=== PATIENT | female | born 1945 | race Caucasian/White ===

== ENCOUNTER 2020-05-03 16:19 | Outpatient (CLI) | payer MEDICARE, SELFPAY ==
--- NOTE | ~2020-05-03 | XR_ITS ---
EXAMINATION: XR wrist RT min 3V DATE: 05/03/2020 16:40 INDICATION: Right wrist pain post fall 5 days prior TECHNIQUE: Posteroanterior, ulnar deviation, oblique, and lateral views of the right wrist were obtai albert. COMPARISON: none FINDINGS: Nondisplaced intra-articular fracture across the radial styloid process. Alignment remains essentiall y anatomic in the neutral position but with slight widening to 2 mm of the radial side of the fractur e plane with the wrist in ulnar deviation. No other acute fractures identified. Corticated ossicle ne ar the tip of the ulnar styloid process which could represent either a chronic nonunited fracture, de generative loose body or heterotopic desiccation related to chronic soft tissue injury. Moderate to s evere osteoarthritis at the triscaphe and first carpal metacarpal joints. Mild to moderate osteoarthr itis at the metacarpophalangeal and visualized interphalangeal joints. IMPRESSION: 1. Nondisplaced intra-articular fracture of the right radial styloid process. 2. 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 Reviewed, dictated and finalized at location A.
== END 2020-05-03 16:20 | disposition home or self-care (01) ==
PROVIDERS: PCP Family Medicine; Visit Provider Family Medicine
DX: M25.531 Pain in right wrist (principal); S52.514A Nondisplaced fracture of right radial styloid process, initial encounter for closed fracture; M19.031 Primary osteoarthritis, right wrist
CPT/HCPCS: 73110

== ENCOUNTER 2021-04-02 07:24 | Outpatient (CLI) | payer MEDICARE, SELFPAY ==
--- NOTE | 2021-04-13 17:22 | WPDHOMESLEEP ---
Sleep Study - Home Unattended Date of Study: 04/02/21 Ordering Provider: Tapan Glover MD Interpreting Provider: Annika Donahue MD Home Sleep Study Type: Apnea Link Air Height: 1.61 m Weight: 95.254 kg Body Mass Index: 36.6 Neck Circumference (inches): 17 [place]: 10 Reason for Sleep Study Difficulty falling asleep Sleep History Christine De Jesus is a 76 year old female with difficulty falling asleep. She wakes up several times during the night to urinate. Some morning she just does not feel like getting out of bed. She usually naps in the day and sometimes falls asleep while watching television in her recliner. This man has been going on for 1-2 years. She occasionally snores. She does not have trouble sleeping with a cold. She does not wake up gasping for breath suddenly during the night. She does not have breathing problems at night observed by others. She does not sweat excessively at night or noticed her heart pounding or beating irregularly at night. She frequently falls asleep during the day but never involuntarily or while driving. She does not have loss of muscle tone was strong emotion. She does not have daytime difficulties due to excessive sleepiness, she is retired. She does not feel paralyzed on waking or falling asleep and does not have vivid dreamlike scenes upon awakening or falling asleep she does not feel afraid to go to sleep. She does not have nightmares. She occasional remembers her dreams. She rarely has racing thoughts. She occasionally feels sad or depressed. She occasionally has anxiety. She does not have muscular tension and does not notice part of her body jerking. She occasionally kicks at night, occasionally has crawling and aching feelings in her legs and occasionally has leg pain during the night. She never has morning jaw pain. She rarely grinds her teeth during sleep. She rarely is bothered by pain during the day. She never is awakened by pain at night. She rarely wakes up feeling stiff in the morning. She does not wake up with sore achy muscles are pain in the neck and spine. Normal bedtime is between 12 midnight and 1:00 a.m., often taking several hours to fall asleep, typically waking 3 times at night to urinate. She is able to return to sleep within 5 minutes. She wakes in the morning by 8:00 a.m.. She estimates getting 7-8 hours of sleep at night. She takes naps in the afternoon. A short nap is not refreshing. She is drowsy in the morning for 2 hours or longer. She feels better in the afternoon compared to other times of day. Habits: Former tobacco user. Caffeine 12 oz of diet Pepsi daily. No alcohol or recreational drugs. [facility]LY [facility], [facility] Past Medical History Medical History BMI 40.0-44.9, adult Body mass index (bmi) 39.0-39.9, adult (05/05/19) Body mass index [BMI] 38.0-38.9, adult Chronic pain in right foot Contusion of face Coronary artery disease involving [place] coronary artery of [place] heart without angina pectoris Diabetes Diarrhea Heart disease Hypersomnia Microalbuminuria Neoplasm of skin Thrombocytopenia UTI (urinary tract infection) (12/26/19) Surgical History Surgical History H/O knee surgery Left total knee replacement 2015 right knee arthroscopy about 2000 History of cardiac cath Family History Family History Mother Family history of cardiovascular disease, Onset Age: 66 Hypertension Cerebrovascular accident Father Cerebrovascular accident, Onset Age: 77 Social History Social History Smoking packs per day: 1 Smoking cigarettes per day: 20.0 Years smoked: 45 Smoking pack-years: 45.00 Smoking status: Former smoker Smoking end date: 11/30/03 Alcohol intake: never Gender identity (if verbalized by the patient): Female Medicatio
[2021-04-15 10:09] VITALS: BMI 36.6
== END 2021-04-02 07:25 | disposition home or self-care (01) ==
LOC: ANHCSM 07:24
PROVIDERS: PCP Family Medicine; Visit Provider Family Medicine
DX: G47.10 Hypersomnia, unspecified (principal); G47.33 Obstructive sleep apnea (adult) (pediatric); R06.83 Snoring
CPT/HCPCS: 95806

== ENCOUNTER → 2021-05-20 00:36 | Outpatient (CLI) | payer MEDICARE, SELFPAY | PROVIDERS: PCP Family Medicine; Visit Provider Internal Medicine Critical Care Medicine | DX: Z01.812 Encounter for preprocedural laboratory examination (principal); Z20.822 Contact with and (suspected) exposure to COVID-19 | CPT/HCPCS: C9803; U0003; U0005 ==

== ENCOUNTER 2021-05-22 08:55 | Outpatient (CLI) | payer MEDICARE, SELFPAY ==
--- NOTE | 2021-06-17 12:43 | WPDSLEEPSTUD ---
Sleep Study Date of Study: 05/22/21 Ordering Provider: Tapan Glover MD Interpreting Physician: Annika Donahue MD Sleep Study Type: CPAP Titration Height: 1.6 m Weight: 94.8 kg Body Mass Index: 37.0 Neck Circumference (inches): 18 [place]: 9 Reason for Sleep Study Home sleep test using apnea link on April 02, 2021 with moderate obstructive sleep apnea, AHI is 21, 30% of the apneas central, Dirk-Antony respirations during 6% of the night and desaturation to 78%. She presents for CPAP titration. Sleep History Christine De Jesus is a 76 year old female with difficulty falling asleep. She wakes up several times during the night to urinate. Some morning she just does not feel like getting out of bed. She usually naps in the day and sometimes falls asleep while watching television in her recliner. This man has been going on for 1-2 years. She occasionally snores. She does not have trouble sleeping with a cold. She does not wake up gasping for breath suddenly during the night. She does not have breathing problems at night observed by others. She does not sweat excessively at night or noticed her heart pounding or beating irregularly at night. She frequently falls asleep during the day but never involuntarily or while driving. She does not have loss of muscle tone was strong emotion. She does not have daytime difficulties due to excessive sleepiness, she is retired. She does not feel paralyzed on waking or falling asleep and does not have vivid dreamlike scenes upon awakening or falling asleep she does not feel afraid to go to sleep. She does not have nightmares. She occasional remembers her dreams. She rarely has racing thoughts. She occasionally feels sad or depressed. She occasionally has anxiety. She does not have muscular tension and does not notice part of her body jerking. She occasionally kicks at night, occasionally has crawling and aching feelings in her legs and occasionally has leg pain during the night. She never has morning jaw pain. She rarely grinds her teeth during sleep. She rarely is bothered by pain during the day. She never is awakened by pain at night. She rarely wakes up feeling stiff in the morning. She does not wake up with sore or achy muscles or pain in the neck and spine. Normal bedtime is between 12 midnight and 1:00 a.m., often taking several hours to fall asleep, typically waking 3 times at night to urinate. She is able to return to sleep within 5 minutes. She wakes in the morning by 8:00 a.m.. She estimates getting 7-8 hours of sleep at night. She takes naps in the afternoon. A short nap is not refreshing. She is drowsy in the morning for 2 hours or longer. She feels better in the afternoon compared to other times of day. Habits: Former tobacco user. Caffeine 12 oz of diet Pepsi daily. No alcohol. [facility] Past Medical History Medical History BMI 40.0-44.9, adult Body mass index (bmi) 39.0-39.9, adult (05/05/19) Body mass index [BMI] 38.0-38.9, adult Chronic pain in right foot Contusion of face Coronary artery disease involving [place] coronary artery of [place] heart without angina pectoris Diabetic neuropathy, type II diabetes mellitus (06/12/21) Diarrhea Heart disease Hypersomnia Microalbuminuria Neoplasm of skin Thrombocytopenia UTI (urinary tract infection) (12/26/19) Surgical History Surgical History H/O knee surgery Left total knee replacement 2015 right knee arthroscopy about 2000 History of cardiac cath Family History Family History Mother Family history of cardiovascular disease, Onset Age: 66 Hypertension Cerebrovascular accident Father Cerebrovascular accident, Onset Age: 77 Social History Social History (Updated 06/12/21 @ 13:13 by Lupe Dolan MA) Smoking packs per day: 1 Smoking cigarettes per day: 20.0 Ye
[2021-06-17 13:49] VITALS: BMI 37.0
== END 2021-05-28 07:29 | disposition home or self-care (01) ==
LOC: ANHCSM 08:57
PROVIDERS: PCP Family Medicine; Visit Provider Family Medicine
DX: G47.33 Obstructive sleep apnea (adult) (pediatric) (principal); G47.39 Other sleep apnea; G25.81 Restless legs syndrome
CPT/HCPCS: 95811

== ENCOUNTER 2022-04-03 14:31 | Emergency (ER) | payer MEDICARE, SELFPAY ==
[2022-04-03 14:46] VITALS: BP 124/70; PULSE 57; RESP 16; TEMP 37.1; O2SAT 99
--- NOTE | 2022-04-03 14:49 | ED.GENADULT ---
HPI - General Adult General Chief complaint: Altered Mental Status Stated complaint: Headache,Memory Loss Time Seen by Provider: 04/03/22 14:49 Source: patient Mode of arrival: ambulatory Limitations: no limitations History of Present Illness HPI narrative: 77-year-old female with history of CAD, diabetes presents to urgent care with complaint of headache and experienced a few minutes of altered mental status after having lunch with friends. Patient's friend reports that they had all just finished lunch and patient was telling them a story and suddenly stopped talking and could not remember what she had been seen. Did have some difficulty speaking. She looked around the table and could not remember who any of her friends were. Symptoms lasted just a few minutes before she again speaking and remembering where she was. Patient reports that prior to symptoms starting she had a left frontal headache that resolved prior to coming to [facility]. She is ambulatory with steady gait. Denies any numbness tingling or weakness to any of her extremities. Has never had a similar episode. All systems reviewed and negative except as noted above. Related Data Home Medications Medication Instructions Recorded Confirmed amlodipine 5 mg tablet 5 mg PO DAILY 10/26/19 06/12/21 aspirin 325 mg tablet 325 mg PO DAILY 10/26/19 06/12/21 clopidogrel 75 mg tablet 75 mg PO DAILY 10/26/19 06/12/21 losartan 100 mg tablet 100 mg PO DAILY 10/26/19 06/12/21 metoprolol succinate 100 mg 100 mg PO DAILY 10/26/19 06/12/21 tablet,extended release 24 hr multivitamin,xm-hvhk-njtdpcmp 1 tablet PO DAILY 10/26/19 06/12/21 rosuvastatin 40 mg tablet 40 mg PO DAILY 10/26/19 06/12/21 nitroglycerin 0.4 mg sublingual 0.4 mg SUBLINGUAL Q5M PRN 05/09/20 06/12/21 tablet oxybutynin chloride 10 mg 10 mg PO DAILY 01/06/22 tablet,extended release 24 hr Allergies Allergy/AdvReac Type Severity Reaction Status Date / Time Sulfa (Sulfonamide Allergy Unknown Verified 05/05/19 13:15 Antibiotics) Review of Systems Review of Systems: CONSTITUTIONAL: Denies fever, chills, or sweats. EYES: Denies visual changes, redness, or discharge. ENT: Denies rhinorrhea, congestion, sore throat, or otalgia. CARDIOVASCULAR: Denies chest pain, palpitations, or edema. RESPIRATORY: Denies cough or dyspnea. GASTROINTESTINAL: Denies abdominal pain, nausea, vomiting, or diarrhea. GENITOURINARY: Denies dysuria or hematuria. SKIN: Denies rash or itching. MUSCULOSKELETAL: Denies back pain, joint pain, or myalgia. NEUROLOGIC: Reports headache, altered mental status. Denies numbness, or weakness. PSYCHIATRIC: Denies anxiety or depression. All other systems reviewed are negative, except as documented in HPI. FORMERLY [facility] Past Medical History Medical History BMI 40.0-44.9, adult Body mass index (bmi) 39.0-39.9, adult (05/05/19) Body mass index [BMI] 38.0-38.9, adult Chronic pain in right foot Contusion of face Coronary artery disease involving [place] coronary artery of [place] heart without angina pectoris Diabetic neuropathy, type II diabetes mellitus (06/12/21) Diarrhea Heart disease Hypersomnia Microalbuminuria Neoplasm of skin Overactive bladder Renal insufficiency BUN 27 with creatinine 1.24 with GFR 42 on 03/27/2022. Screening for diabetic retinopathy (09/24/21) no diabetic retinopathy on dilated eye exam 09/24/2021. Recheck annually. Thrombocytopenia UTI (urinary tract infection) (12/26/19) Surgical History Surgical History H/O knee surgery Left total knee replacement 2015 right knee arthroscopy about 2000 History of cardiac cath Family History Family History Mother Family history of cardiovascular disease, Onset Age: 66 Hypertension Cerebrovascular accident Father Cerebrovascular accident, Onset Age: 77 Social History Social H
== END 2022-04-03 15:07 | disposition short-term general hospital (02) ==
PROVIDERS: Emergency Provider Nurse Practitioner Family; PCP Family Medicine
DX: R51.9 Headache, unspecified (principal); R41.82 Altered mental status, unspecified; I25.10 Atherosclerotic heart disease of native coronary artery without angina pectoris; Z87.891 Personal history of nicotine dependence; Z79.82 Long term (current) use of aspirin
CPT/HCPCS: 99213; G0463

== ENCOUNTER 2022-04-03 15:19 | Emergency (ER) | payer MEDICARE, SELFPAY ==
[2022-04-03] VITALS (20 sets, daily range): BP systolic 117–142; BP diastolic 68–74; PULSE 52–64; RESP 12–25; TEMP 36.1; O2SAT 94–100
--- NOTE | ~2022-04-03 | CT_ITS ---
EXAMINATION: CT brain wo con DATE: 04/03/2022 15:53 INDICATION: Episode of confusion TECHNIQUE: Computed tomography (CT) of the head was performed without intravenous contrast. The mA wa s adjusted according to patient size. Iterative reconstruction technique was employed. Exam dose: 60 5.33 mGy-cm total exam DLP. COMPARISON: None FINDINGS: There is basilar artery and very prominent bilateral vertebral and carotid siphon internal carotid artery calcification. There is nonspecific diminished attenuation of the cerebral white matter, likely due to chronic small vessel ischemic changes. Chronic medial right occipital cerebrovascular infarct. There is mild cerebral and cerebellar volume loss. No intracranial mass lesion or hemorrhage or recent cerebrovascular accident is evident. There is no midline shift or mass effect. Normal ventricular size. No subdural or epidural hematoma,. The orbital contents are unremarkable. The included paranasal sinuses and mastoid air cells are normally developed and aerated. No fracture or bone destruction of the cranial vault. 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 Reviewed, dictated and finalized at location A. 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
--- NOTE | ~2022-04-03 | XR_ITS ---
EXAMINATION: XR chest 1V INDICATION: Confusion TECHNIQUE: PA view of the chest is obtained. COMPARISON: 06/23/2019 FINDINGS: The lungs are free of acute opacities. There is no pleural effusion or pneumothorax. The he art size is normal. Coronary artery calcifications versus stents are noted. IMPRESSION: 1. No acute cardiopulmonary abnormality. Reviewed, dictated and finalized at location B.
--- NOTE | 2022-04-03 15:37 | ECG_ITS ---
Measurements Intervals [place] Rate: 57 P: 57 MD: 167 QRS: -18 QRSD: 125 T: -1 QT: 403 QTc: 394 Interpretive Statements SINUS BRADYCARDIA INTRAVENTRICULAR CONDUCTION DELAY VOLTAGE CRITERIA FOR LVH POOR R WAVE PROGRESSION, ANTERIOR LEADS BASELINE ARTIFACT- V5-V6 BORDERLINE ECG Electronically Signed On 04-03-2022 16:18:24 CDT by Jeff Martinez D.O.
[2022-04-03 15:58] LABS: Basophils Percent Auto 0.5 % (0.2-1.2); Eosinophils Absolute Auto 0.1 K/mm3 (0-0.3); Eosinophils Percent Auto 2.3 % (0-4.4); Hematocrit 41.3 % (37.0-47.0); Hemoglobin 14.2 g/dL (12.0-15.0); Immature Granulocyte Absolute 0.02 K/mm3 (0.00-0.031); Immature Granulocyte Percent A 0.3 % (0-0.5); Lymphocytes Absolute Auto 2.01 K/mm3 (0.9-3.2); Lymphocytes Percent Auto 32.7 % (18.3-44.2); Mean Corpuscular HGB Conc 34.4 g/dl (32-36); Mean Corpuscular Hemoglobin 32.1 pg (26-34); Mean Corpuscular Volume 93.4 fl (80-100); Mean Platelet Volume 9.4 fl (7.4-10.4); Monocytes Absolute Auto 0.4 K/mm3 (0.1-0.6); Neutrophils Absolute Auto 3.5 K/mm3 (1.3-6.7); Neutrophils Percent Auto 57.2 % (45.5-73.1); Platelet Count Result 161 k/mm3 (150-375); Red Blood Count 4.42 M/mm3 (4.2-5.4); Red Cell Distribution Width 13.2 % (11.5-14.5); White Blood Count 6.1 K/mm3 (4.5-10.0)
[2022-04-03 16:07] LABS: Alanine Aminotransferase 19 U/L (4-35); Albumin Level 4.1 g/dL (3.5-5.1); Alkaline Phosphatase 56 U/L (38-126); Anion Gap 5 mmol/L (8-16); Aspartate Amino Transferase 21 U/L (14-36); Bilirubin,Total 0.6 mg/dL (0.2-1.3); Blood Urea Nitrogen 35 mg/dL (7-17); Calcium 9.4 mg/dL (8.4-10.2); Carbon Dioxide 26 mmol/L (22-30); Chloride 110 mmol/L (98-107); Estimated CRCL calculation 36 ml/min; Estimated Glomerular Filt Rate 40; Glucose 164 mg/dL (65-110); INR 1.1; Potassium 4.5 mmol/L (3.4-5.0); Prothrombin Time 13.5 Seconds (11.1-14.7); Sodium 141 mmol/L (137-145)
[2022-04-03 16:08] LABS: Partial Thromboplastin Time 29.2 SECONDS (22.3-36.8)
[2022-04-03 16:19] LABS: Troponin I < 0.012 ng/mL (0.000-0.034)
--- NOTE | 2022-04-03 20:05 | ED.NEUROSD ---
HPI - Neuro Symptoms/Deficit General Chief Complaint: Neuro Symptoms/Deficit <Grisel Toledo PA-C - Last Filed: 04/04/22 02:53> Stated Complaint: memory loss now resolved <Grisel Toledo PA-C - Last Filed: 04/04/22 02:53> Time Seen by Provider: 04/03/22 19:37 <Grisel Toledo PA-C - Last Filed: 04/04/22 02:53> History of Present Illness HPI Narrative: Patient is a 77-year-old female with a history of hypertension, hyperlipidemia, diabetes, prior PA status post stents, who presents to the emergency department for evaluation of a 5-minute episode of expressive aphasia earlier today. Patient states that she was at lunch with her friends when suddenly she was unable to speak, stating she was having trouble with word finding, did not know the names of her friends, was unable to say her own name. She was able to write down her own name, but was having trouble finding the words to say this. Preceding his episode, she had a short episode of floaters, followed by a gradual onset of her migraine headache, which lasted 5 minutes. States this is typical of her migraine headaches and did not have any features that were new for her. The symptoms resolved and she is now back at her baseline. She denies any slurred speech, weakness, visual changes currently. She has not had a history of a stroke. <Grisel Toledo PA-C - Last Filed: 04/04/22 02:53> Related Data Home Medications: Home Medications Medication Instructions Recorded Confirmed amlodipine 5 mg tablet 5 mg PO DAILY 10/26/19 06/12/21 aspirin 325 mg tablet 325 mg PO DAILY 10/26/19 06/12/21 clopidogrel 75 mg tablet 75 mg PO DAILY 10/26/19 06/12/21 losartan 100 mg tablet 100 mg PO DAILY 10/26/19 06/12/21 metoprolol succinate 100 mg 100 mg PO DAILY 10/26/19 06/12/21 tablet,extended release 24 hr multivitamin,sy-wdil-fraaneps 1 tablet PO DAILY 10/26/19 06/12/21 rosuvastatin 40 mg tablet 40 mg PO DAILY 10/26/19 06/12/21 nitroglycerin 0.4 mg sublingual 0.4 mg SUBLINGUAL Q5M PRN 05/09/20 06/12/21 tablet oxybutynin chloride 10 mg 10 mg PO DAILY 01/06/22 tablet,extended release 24 hr <Grisel Toledo PA-C - Last Filed: 04/04/22 02:53> Allergies/Adverse Reactions: Allergies Allergy/AdvReac Type Severity Reaction Status Date / Time Sulfa (Sulfonamide Allergy Unknown Unknown Verified 04/03/22 19:33 Antibiotics) <Grisel Toledo PA-C - Last Filed: 04/04/22 02:53> Review of Systems Review of Systems: Gen: Denies fevers or chills Eyes: Denies eye pain or visual change ENT: Denies congestion Respiratory: Denies shortness of breath or cough CV: Denies chest pain or palpitations GI: Denies abdominal pain nausea, emesis or diarrhea denies burning, urgency, frequency or hematuria Musculoskeletal: Denies back pain or muscle pain Neuro: Reports expressive aphasia and headache, resolved. Denies numbness, tingling, weakness or focal weakness Skin: Denies rash Except as documented, all other systems reviewed and negative <JHONY Mares Last Filed: 04/04/22 02:53> All systems reviewed & are unremarkable except as noted in HPI and below <JHONY Mares Last Filed: 04/04/22 02:53> [facility] Past Medical History Medical History: Medical History BMI 40.0-44.9, adult Body mass index (bmi) 39.0-39.9, adult (05/05/19) Body mass index [BMI] 38.0-38.9, adult Chronic pain in right foot Contusion of face Coronary artery disease involving [place] coronary artery of [place] heart without angina pectoris Diabetic neuropathy, type II diabetes mellitus (06/12/21) Diarrhea Heart disease Hypersomnia Microalbuminuria Neoplasm of skin Overactive bladder Renal insufficiency BUN 27 with creatinine 1.24 with GFR 42 on 03/27/2022. Screening for diabetic retinopathy (09/24/21) no diabetic retinopathy on dilated eye exam 09/24/2021. Recheck annually. Thrombocytopenia UTI (urinary tract i
[2022-04-03 22:38] LABS: SARS-CoV-2 RNA PCR Negative
--- NOTE | 2022-04-03 23:20 | PC.NURSE ---
Erika from [facility] called, patient still on waitlist. Possible bed availability in the morning after discharges.
[2022-04-04] VITALS (11 sets, daily range): BP systolic 150–158; BP diastolic 73–83; PULSE 57–66; RESP 10–24; O2SAT 93–97
== END 2022-04-04 03:50 | disposition short-term general hospital (02) ==
PROVIDERS: Emergency Medicine; Physician Assistant; Emergency Provider Emergency Medicine; PCP Family Medicine
DX: G43.909 Migraine, unspecified, not intractable, without status migrainosus (principal); Z20.822 Contact with and (suspected) exposure to COVID-19; I25.10 Atherosclerotic heart disease of native coronary artery without angina pectoris; E11.40 Type 2 diabetes mellitus with diabetic neuropathy, unspecified; E78.5 Hyperlipidemia, unspecified; I10 Essential (primary) hypertension; I25.2 Old myocardial infarction; N32.81 Overactive bladder; N28.9 Disorder of kidney and ureter, unspecified; D69.6 Thrombocytopenia, unspecified; Z85.828 Personal history of other malignant neoplasm of skin; Z87.440 Personal history of urinary (tract) infections; Z96.652 Presence of left artificial knee joint; Z95.5 Presence of coronary angioplasty implant and graft; Z87.891 Personal history of nicotine dependence; Z79.4 Long term (current) use of insulin; Z79.84 Long term (current) use of oral hypoglycemic drugs; Z79.82 Long term (current) use of aspirin; R00.1 Bradycardia, unspecified; I45.9 Conduction disorder, unspecified; R94.31 Abnormal electrocardiogram [ECG] [EKG]
CPT/HCPCS: 36415; 70450; 71045; 80053; 84484; 85025; 85610; 85730; 93005; 99285; C9803; U0003; U0005

== ENCOUNTER 2022-07-22 10:35 | Outpatient (RCR) | payer MEDICARE, SELFPAY | END 2022-10-07 08:49 | disposition home or self-care (01) | LOC: ANHDMC 10:35 | PROVIDERS: PCP Family Medicine; Visit Provider Nurse Practitioner | DX: E11.65 Type 2 diabetes mellitus with hyperglycemia (principal); Z71.89 Other specified counseling | CPT/HCPCS: G0108 ==

== ENCOUNTER 2022-10-22 16:30 | Outpatient (RCR) | payer MEDICARE, SELFPAY ==
[2022-07-29 12:12] VITALS: PULSE 84
[2022-08-07 17:44] LABS: Glucose Point of Care 102 mg/dl (65-105)
== END 2022-10-24 13:41 | disposition home or self-care (01) ==
LOC: ANHCPREHAB 16:30
PROVIDERS: PCP Family Medicine; Visit Provider Internal Medicine
DX: Z95.1 Presence of aortocoronary bypass graft (principal)
CPT/HCPCS: 93798

== ENCOUNTER → 2023-10-21 16:00 | Outpatient (CLI) | payer MEDICARE, SELFPAY ==
--- NOTE | ~2023-10-21 | XR_ITS ---
EXAMINATION: XR facial bones min 3V INDICATION: Facial pain TECHNIQUE: Five views of the facial bones are obtained. COMPARISON: CT, 04/03/2022 FINDINGS: There is normal pneumatization of the paranasal sinuses. There appear to be acute bilateral nasal bone fractures. No definite additional facial fracture is identified. The paranasal sinuses ap pear to be well aerated. IMPRESSION: 1. Probable bilateral nasal bone fractures. No definite additional fracture. Consider CT of the facia l bones if there is high clinical suspicion for additional fracture. Reviewed, dictated and finalized at location F. PROCESSOR IMPRESSION: 1. Probable bilateral nasal bone fractures. No definite additional fracture. Co nsider CT of the facial bones if there is high clinical suspicion for additiona l fracture.
== END ==
PROVIDERS: PCP Nurse Practitioner Family; Visit Provider Nurse Practitioner Family
DX: J34.89 Other specified disorders of nose and nasal sinuses (principal)
CPT/HCPCS: 70150

== ENCOUNTER 2024-05-25 12:54 | Observation (INO) | payer MEDICARE, SELFPAY ==
[2024-05-25] VITALS (18 sets, daily range): BP systolic 137–167; BP diastolic 55–119; PULSE 53–105; RESP 13–18; TEMP 36.2–36.6; O2SAT 97–100; BMI 35.1
--- NOTE | ~2024-05-25 | CT_ITS ---
EXAMINATION: CTA brain carotid DATE: 05/25/2024 13:13 INDICATION: Speech deficit. Slurring. TECHNIQUE: Computed tomographic angiography (CTA) of the head was performed with 100 mL Omnipaque-350 intravenous contrast. CTA of the neck was performed with intravenous contrast. Automated exposure co ntrol and iterative reconstruction technique were employed. The dose-length product was 1121.72 mGy-c m. Maximum intensity projection and volume rendered 3D-reconstructions were created by the technologi st on a separate workstation. COMPARISON: Head CT 05/25/2024 FINDINGS: HEAD CTA: There is an old infarct in right occipital lobe. There are scattered areas of low attenuati on in the cerebral white matter, which is within normal limits for the patient's age. There is no int racranial hemorrhage, acute infarction, or abnormal intracranial mass lesion. The ventricles are norm al in size. The orbits are normal. There is mild mucosal thickening in the paranasal sinuses. The mas toid air cells are normal. Left vertebral artery is dominant. There is moderate stenosis of intracran ial left vertebral artery. There is no significant stenosis of basilar artery or the posterior cerebr al arteries. There is no significant stenosis of the intracranial internal carotid arteries or anteri or or middle cerebral arteries. Anterior communicating artery is normal. The posterior communicating arteries are normal. There is no aneurysm. NECK CTA: There are no pathologically enlarged lymph nodes. There is no significant stenosis of the v ertebral arteries. There is plaque in the proximal internal carotid arteries. There is 16% stenosis o f the proximal right internal carotid artery relative to normal distal artery lumen diameter (NASCET criteria). There is 5% stenosis of the proximal left internal carotid artery relative to normal dista l artery lumen diameter. There is severe cervical spondylosis. IMPRESSION: 1. Old infarct in the right occipital lobe. 2. No aneurysm or significant arterial stenosis. 3. 16% stenosis of the proximal right internal carotid artery relative to normal distal artery lumen diameter (NASCET criteria). 4. 5% stenosis of the proximal left internal carotid artery relative to normal distal artery lumen di ameter. Reviewed, dictated and finalized at location A. IMPRESSION: 1. Old infarct in the right occipital lobe. 2. No aneurysm or significant arterial stenosis. 3. 16% stenosis of the proximal right internal carotid artery relative to baltazar l distal artery lumen diameter (NASCET criteria). 4. 5% stenosis of the proximal left internal carotid artery relative to normal distal artery lumen diameter.
--- NOTE | ~2024-05-25 | CT_ITS ---
EXAMINATION: CT brain wo con DATE: 05/25/2024 13:09 INDICATION: Difficulty with speech and slurring TECHNIQUE: Computed tomography (CT) of the head was performed without intravenous contrast. Sagittal and coronal reconstructions were performed. The mA was adjusted according to patient size. Iterative reconstruction technique was employed. The dose-length product was 681.00 mGy-cm. COMPARISON: head CT dated 04/03/2022 FINDINGS: Again seen is a small region of cortical scarring at the right occipital lobe consistent with chronic infarct. No acute intracranial hemorrhage, acute infarction or abnormal extra axial fluid collection . There is mild scattered white matter hypoattenuation consistent with chronic small vessel ischemic disease. Ventricles are normal and symmetric. No mass/mass effect. Intracranial calcified cerebral a therosclerosis is noted. The orbits, paranasal sinuses and mastoid air cells are normal. IMPRESSION: 1. Small old infarct at the right occipital lobe and mild scattered white matter hypoattenuation cons istent with chronic small vessel ischemic disease. No acute cardiopulmonary disease. Reviewed, dictated and finalized at location B. IMPRESSION: 1. Small old infarct at the right occipital lobe and mild scattered white matte r hypoattenuation consistent with chronic small vessel ischemic disease. No acu te cardiopulmonary disease.
--- NOTE | ~2024-05-25 | XR_ITS ---
XR chest 1V portable Ordering provider: Tono Cordova III, DO History: 79 years Female with . tia . Comparison: April 03, 2022 FINDINGS: MEDIASTINUM: The cardiac silhouette is slightly enlarged. Poststernotomy changes. LUNGS: No infiltrates, effusions or pneumothorax. OTHER: No free air under the diaphragm. IMPRESSION: No acute cardiopulmonary pathology. Reviewed, dictated and finalized at location A.
--- NOTE | ~2024-05-25 | MR_ITS ---
EXAMINATION: MR brain/brain stem wo/w con DATE: 05/26/2024 13:28 INDICATION: Transient ischemic attack. TECHNIQUE: Magnetic resonance imaging (MRI) of the brain and brainstem was performed without and with 20 mL MultiHance intravenous contrast. COMPARISON: Head CT 05/25/2024 FINDINGS: There is an old infarct in the right occipital lobe. There are scattered areas of nonspecif ic increased T2-weighted signal intensity in the cerebral white matter, which is within normal limits for the patient's age. The ventricles are normal in size. The paranasal sinuses are clear. The orbit s are normal. The mastoid air cells are normal. IMPRESSION: 1. Old infarct in the right occipital lobe. Reviewed, dictated and finalized at location A.
--- NOTE | 2024-05-25 12:59 | ECG_ITS ---
Test Date: 2024-05-25 13:20:16 Measurements Intervals [place] Rate: 62 P: 66 MD: 188 QRS: -15 QRSD: 123 T: -1 QT: 449 QTc: 458 Interpretive Statements SINUS RHYTHM LEFT BUNDLE BRANCH BLOCK [120+ ms QRS DURATION, 80+ ms Q/S IN V1/V2, 85+ ms R IN I/aVL/V5/V6] No previous ECG available for comparison Electronically Signed On 05-26-2024 13:29:33 CDT by José Miguel Mcdonald M.D.
--- NOTE | 2024-05-25 13:00 | ED.NEUROSD ---
HPI - Neuro Symptoms/Deficit General Chief Complaint: Neuro Symptoms/Deficit Stated Complaint: speech issues, Time Seen by Provider: 05/25/24 12:58 History of Present Illness HPI Narrative: Pt presents with difficulty coming up with words when asked a question fo about the last 45 minutes. Pt feels like it has improved now and she is able to answer questions. Pt denies MORGAN or weakness. Related Data Home Medications Medication Instructions Recorded Confirmed clopidogrel 75 mg tablet 75 mg PO DAILY 10/26/19 05/25/24 multivitamin,gt-mtey-yyhqqhtz 1 tablet PO DAILY 10/26/19 05/25/24 (Complete Multivitamin tablet) rosuvastatin 40 mg tablet 40 mg PO DAILY 10/26/19 05/25/24 vibegron 75 mg tablet (Gemtesa) 75 mg PO DAILY 04/30/22 05/25/24 glimepiride 2 mg tablet 4 mg PO BID 07/29/22 05/25/24 losartan 100 mg tablet 100 mg PO DAILY 12/18/22 05/25/24 metoprolol succinate 25 mg 25 mg PO DAILY 06/30/23 05/25/24 tablet,extended release 24 hr aspirin 81 mg capsule 81 mg PO DAILY 11/25/23 05/25/24 Allergies Allergy/AdvReac Type Severity Reaction Status Date / Time Sulfa (Sulfonamide Allergy Unknown Unknown Verified 05/25/24 17:46 Antibiotics) Review of Systems Review of Systems: All systems reviewed & are unremarkable except as noted in HPI and below [facility] Past Medical History Medical History AAA (abdominal aortic aneurysm) without rupture (~05/17/23) Endovascular repair 10/09/2023. 7 x 6.6 cm abdominal aortic aneurysm On CT in the ER 05/17/2023. Acute bronchitis Anemia At moderate risk for fall BMI 36.0-36.9,adult BMI 40.0-44.9, adult Body mass index (bmi) 39.0-39.9, adult (05/05/19) Body mass index [BMI] 38.0-38.9, adult Bruise of upper lip Chronic atrial fibrillation (04/23/22) Chronic depression Chronic kidney disease (CKD) stage G3b/A2, moderately decreased glomerular filtration rate (GFR) between 30-44 mL/min/1.73 square meter and albuminuria creatinine ratio between 30-299 mg/g BUN 35 with creatinine 1.30 and GFR 40 on 03/31/2022. Chronic pain in right foot Controlled type 2 diabetes mellitus with hyperglycemia, with long-term current use of insulin glucose 304 with hemoglobin A1c 10.9 on 03/27/2022. Contusion of face Coronary artery disease involving [place] coronary artery of [place] heart without angina pectoris COVID-19 (10/31/22) tested positive 11/05/2022 Diabetic neuropathy, type II diabetes mellitus (06/12/21) Diarrhea Fall Heart disease Hypersomnia Low back pain Microalbuminuria Neoplasm of skin Nose pain NSTEMI (non-ST elevated myocardial infarction) (04/16/22) incomplete PTCA of the LAD 04/17/2022. CABG LAD 04/22/22. Obesity (BMI 30-39.9) Overactive bladder Renal insufficiency BUN 27 with creatinine 1.24 with GFR 42 on 03/27/2022. Screening for diabetic retinopathy (09/24/21) no diabetic retinopathy on dilated eye exam 09/24/2021. Recheck annually. no retinopathy 01/29/2024. Thrombocytopenia UTI (urinary tract infection) (12/26/19) Surgical History Surgical History H/O knee surgery Left total knee replacement 2015 right knee arthroscopy about 2000 History of cardiac cath Family History Family History Mother Family history of cardiovascular disease, Onset Age: 66 Hypertension Cerebrovascular accident Hypercholesteremia Diabetes mellitus Heart disease Father Cerebrovascular accident, Onset Age: 77 Hypercholesteremia Heart disease Sibling Diabetes mellitus Cancer Heart disease Cerebrovascular accident Grandparent Diabetes mellitus Social History Social History Smoking packs per day: 1 Smoking cigarettes per day: 20.0 Years smoked: 45 Smoking pack-years: 45.00 Smoking status: Former smoker Alcohol intake: current Alcohol use details: on occasion [place]
[2024-05-25 13:11] LABS: Basophils Percent Auto 0.4 % (0.2-1.2); Eosinophils Absolute Auto 0.1 K/mm3 (0-0.3); Eosinophils Percent Auto 1.9 % (0-4.4); Hematocrit 44.2 % (37.0-47.0); Hemoglobin 15.5 g/dL (12.0-15.0); Immature Granulocyte Absolute 0.02 K/mm3 (0.00-0.031); Immature Granulocyte Percent A 0.4 % (0-0.5); Immature Platelet Fraction Pct 2.6 % (0.9-11.2); Lymphocytes Percent Auto 24.9 % (18.3-44.2); Mean Corpuscular HGB Conc 35.1 g/dl (32-36); Mean Corpuscular Hemoglobin 32.3 pg (26-34); Mean Corpuscular Volume 92.1 fl (80-100); Mean Platelet Volume 9.4 fl (7.4-10.4); Monocytes Absolute Auto 0.3 K/mm3 (0.1-0.6); Monocytes Percent Auto 6.8 % (2.6-8.5); Neutrophils Absolute Auto 3.2 K/mm3 (1.3-6.7); Neutrophils Percent Auto 65.6 % (45.5-73.1); Platelet Count Result 117 k/mm3 (150-375); Red Cell Distribution Width 13.2 % (11.5-14.5); White Blood Count 4.8 K/mm3 (4.5-10.0)
[2024-05-25 13:12] LABS: Estimated Glomerular Filt Rate 40
[2024-05-25 13:18] LABS: Glucose Point of Care 355 mg/dl (65-105)
[2024-05-25 13:21] LABS: Alanine Aminotransferase 26 U/L (6-35); Albumin Level 4.3 g/dL (3.5-5.1); Alkaline Phosphatase 83 U/L (38-126); Anion Gap 9 mmol/L (4-12); Aspartate Amino Transferase 22 U/L (14-36); Blood Urea Nitrogen 32 mg/dL (7-17); Calcium 9.7 mg/dL (8.4-10.2); Carbon Dioxide 23 mmol/L (22-30); Chloride 106 mmol/L (98-107); Estimated Glomerular Filt Rate 43; Glucose 362 mg/dL (65-110); Potassium 4.4 mmol/L (3.4-5.0); Sodium 138 mmol/L (137-145)
[2024-05-25 13:22] LABS: Prothrombin Time 13.3 Seconds (11.1-14.7)
[2024-05-25 13:23] LABS: Partial Thromboplastin Time 25.7 Seconds (22.3-36.8)
[2024-05-25 13:31] LABS: Troponin I < 0.012 ng/mL (0.000-0.034)
--- NOTE | 2024-05-25 15:29 | PM.IMHP ---
H&P: HPI History of Present Illness Date/Time: 05/25/24 15:29 Chief Complaint: Word Finding Difficulty Narrative: 79 y/o F presents here with word finding difficulty with PMH of AAA w/o rupture, anemia, chronic AFib, CKD stage 3, DM, CAD, OAB, and NSTEMI. The patient presents here from home for Further evaluation of word-finding difficulty that started at 12:15 p.m. the patient reports she was getting out of the shower when she suddenly felt confused. Upon arrival to the emergency department around 1:00 p.m. the patient's symptoms had started to resolve. Symptoms lasted approximately 45 minutes. Has previous hx of CVA. the patient reports during a previous stroke she had similar symptoms, i.e. word-finding difficulty. Currently denying dysarthria, aphasia, focal numbness, focal weakness, change in gait, or dizziness. Denies any new headaches or current headache. She is currently on Plavix, no other blood thinners or antiplatelets. Initial VS at presentation: 97.9? F, HR 61, RR 14, 167/67, and 99% on RA. ED workup showed: No leukocytosis, hemoglobin 15.5, normal coags, creatinine 1.3 and GFR 40 (similar to previous in 2021), glucose 362, and initial troponin negative. CT of head showed a small old infarct in the right occipital lobe with mild scattered white matter hypoattenuation consistent with chronic small-vessel ischemic disease. CTA of the head/neck showed the old infarct right occipital lobe, no aneurysm or significant arterial stenosis, 60% stenosis of the proximal right ICA and 5% stenosis of proximal left ICA. CXR showed no acute cardiopulmonary pathology. Review of Systems Review of Systems: All systems reviewed & are unremarkable except as noted in HPI and below [facility] Past Medical History Medical History AAA (abdominal aortic aneurysm) without rupture (~05/17/23) Endovascular repair 10/09/2023. 7 x 6.6 cm abdominal aortic aneurysm On CT in the ER 05/17/2023. Acute bronchitis Anemia At moderate risk for fall Chronic atrial fibrillation (04/23/22) Chronic depression Chronic kidney disease (CKD) stage G3b/A2, moderately decreased glomerular filtration rate (GFR) between 30-44 mL/min/1.73 square meter and albuminuria creatinine ratio between 30-299 mg/g BUN 35 with creatinine 1.30 and GFR 40 on 03/31/2022. Chronic pain in right foot Controlled type 2 diabetes mellitus with hyperglycemia, with long-term current use of insulin glucose 304 with hemoglobin A1c 10.9 on 03/27/2022. Contusion of face Coronary artery disease involving k[place] coronary artery of [place] heart without angina pectoris COVID-19 (10/31/22) tested positive 11/05/2022 CVA (cerebral vascular accident) Diabetic neuropathy, type II diabetes mellitus (06/12/21) Fall Heart disease Hypersomnia Microalbuminuria Neoplasm of skin NSTEMI (non-ST elevated myocardial infarction) (04/16/22) incomplete PTCA of the LAD 04/17/2022. CABG LAD 04/22/22. Overactive bladder Renal insufficiency BUN 27 with creatinine 1.24 with GFR 42 on 03/27/2022. Screening for diabetic retinopathy (09/24/21) no diabetic retinopathy on dilated eye exam 09/24/2021. Recheck annually. no retinopathy 01/29/2024. Thrombocytopenia (12/26/19) Surgical History Surgical History H/O knee surgery Left total knee replacement 2015 right knee arthroscopy about 2000 History of cardiac cath Family History Family History Mother Family history of cardiovascular disease, Onset Age: 66 Hypertension Cerebrovascular accident Hypercholesteremia Diabetes mellitus Heart disease Father Cerebrovascular accident, Onset Age: 77 Hypercholesteremia Heart disease Sibling Diabetes mellitus Cancer Heart disease Cerebrovascular accident Grandparent Diabetes mellitus Social History Social History (Reviewed 05/25/24 @ 15:37 by Monica
--- NOTE | 2024-05-25 17:30 | ADMGEN ---
This patient, Christine De Jesus, was admitted to Medical Room 347-01. Patient/family oriented to hospital policies and general routines including ID bracelet, bed and alarms, visiting hours, pain management, procedures, bathroom and other care routines, personal items, smoking policy, room service/diet, and visiting hours. Information on how to activate the Rapid Response Team has been discussed. Patient/Family are encouraged to report perceived risks to care and to ask questions if they do not understand what they are told or what they should do.
[2024-05-25 18:21] LABS: Glucose Point of Care 353 mg/dl (65-105)
[2024-05-25] MEDS: INSULIN ASPART (*BKC) 100 UNITS/ML SUB-Q (18:23)
[2024-05-25 20:29] LABS: Glucose Point of Care 226 mg/dl (65-105)
[2024-05-26] VITALS (8 sets, daily range): BP systolic 134; BP diastolic 72; PULSE 54–67; RESP 18; TEMP 36.1; O2SAT 94–96
--- NOTE | 2024-05-26 | ECHO_ITS ---
Patient Info Name: Christine De Jesus Age: 79 years : 1945 Gender: Female Ht: 63 in Wt: 198 lbs BSA: 2.04 m2 HR: 61 bpm BP: 137 / 55 mmHg Heart Rhythm: Sinus Rhythm Technical Quality: Fair Exam Date: 05/26/2024 7:40 AM Exam Location: Echo Lab Patient Status: Outpatient Admit Date: 05/25/2024 Staff Ordering Physician: Evette Taylor APRN [employer] Machine: Juan Mendez RDCS Attending Provider: Elizabeth Barnard APRN Referring Physician: Brandon HOOKER; Exam Type: CA echo dop bubble study w con Study Info Indications - TIA Complete two-dimentional, color flow and Doppler transthoracic echocardiogram is performed with agitated saline and with contrast to opacify the left ventricle and to improve the delineation of the left ventricle endocardial borders. Contrast/Agitated Saline Contrast/Ag. Saline: Agitated Saline Amount: 9.00 ml Existing IV Access: Yes Contrast/Ag. Saline: Definity Amount: 4.00 ml Existing IV Access: Yes Summary 1. Left ventricular chamber dimension is normal. 2. Left ventricular systolic function is normal, estimated at 60-65%. 3. There is severely increased left ventricular wall thickness. 4. The left ventricular diastolic function is grade I diastolic dysfunction. 5. Right ventricular systolic function is normal. 6. Left atrial chamber dimension is severely enlarged. 7. Intact interatrial septum visualized by color flow and agitated saline imaging. Negative bubble study. 8. There is mild mitral valve regurgitation. 9. There is mild to moderate tricuspid valve regurgitation. Left Ventricle Left ventricular chamber dimension is normal. Left ventricular systolic function is normal, estimated at 60-65%. There is severely increased left ventricular wall thickness. The left ventricular diastolic function is grade I diastolic dysfunction. Right Ventricle Right ventricular chamber dimension is normal. Right ventricular systolic function is normal. Left Atria Left atrial chamber dimension is severely enlarged. Right Atria Right atrial chamber dimension is normal. Atrial Septum Intact interatrial septum visualized by color flow and agitated saline imaging. Negative bubble study. Aortic Valve The aortic valve is not well visualized. There is no aortic valve stenosis. There is no aortic valve regurgitation. Pulmonic Valve The pulmonic valve is not well visualized. Mitral Valve There is mild mitral valve regurgitation. The mitral valve annulus is mildly calcified. Tricuspid Valve There is mild to moderate tricuspid valve regurgitation. Pericardium/Pleural There is no pericardial effusion. Inferior Vena Cava Normal inferior vena cava with >50% collapse upon inspiration consistent with normal right atrial pressure, 3 mmHg. Aorta The aortic root size at the sinus of Valsalva is normal. Left Ventricular Outflow Tract Name Value Normal LVOT 2D LVOT Diameter 2.0 cm LVOT Doppler LVOT Peak Gradient 6 mmHg LVOT Mean Gradient 3 mmHg LVOT VTI 27 cm LVOT VTI/AV VTI Ratio
[2024-05-26] MEDS: INSULIN GLARGINE (*BKC) 100 UNITS/ML 25 UNITS SUB-Q ×2 (00:28→08:28)
[2024-05-26 05:22] LABS: Appearance Urine Cloudy (Clear); Bacteria Urine 1+ /hpf; Bilirubin Urine Negative (Negative); Blood Urine Trace (Negative); Color Urine Yellow (Yellow); Glucose Urine UA Trace mg/dL (Negative); Ketones Urine Negative (Negative); Leukocyte Esterase Ur 2+ LEU/UL (Negative); Nitrate Urine Negative (Negative); Non Pathogenic Casts 0-2; Protein Urine 2+ mg/dL (Negative); RBC Urine 0-2 /hpf (0-2); Specific Grav Ur 1.019 (1.001-1.035); Squamous Epithelial Cell Urine None Seen /hpf (Few); Urobilinogen Urine 0.2 mg/dL (<2.0); WBC Urine >100 /hpf (0-3); pH Urine 5.5 (5.0-9.0)
[2024-05-26 05:23] LABS: Add Urine Microscopic? YES
[2024-05-26 05:37] LABS: Basophils Percent Auto 0.8 % (0.2-1.2); Eosinophils Absolute Auto 0.1 K/mm3 (0-0.3); Eosinophils Percent Auto 2.6 % (0-4.4); Hematocrit 44.2 % (37.0-47.0); Hemoglobin 15.3 g/dL (12.0-15.0); Immature Granulocyte Absolute 0.01 K/mm3 (0.00-0.031); Immature Granulocyte Percent A 0.2 % (0-0.5); Immature Platelet Fraction Pct 3.1 % (0.9-11.2); Lymphocytes Absolute Auto 1.76 K/mm3 (0.9-3.2); Lymphocytes Percent Auto 35.7 % (18.3-44.2); Mean Corpuscular HGB Conc 34.6 g/dl (32-36); Mean Corpuscular Volume 92.5 fl (80-100); Mean Platelet Volume 9.7 fl (7.4-10.4); Monocytes Absolute Auto 0.3 K/mm3 (0.1-0.6); Monocytes Percent Auto 6.9 % (2.6-8.5); Neutrophils Absolute Auto 2.7 K/mm3 (1.3-6.7); Neutrophils Percent Auto 53.8 % (45.5-73.1); Platelet Count Result 124 k/mm3 (150-375); Red Blood Count 4.78 M/mm3 (4.2-5.4); Red Cell Distribution Width 13.3 % (11.5-14.5); White Blood Count 4.9 K/mm3 (4.5-10.0)
[2024-05-26 05:46] LABS: Anion Gap 9 mmol/L (4-12); Blood Urea Nitrogen 24 mg/dL (7-17); Calcium 9.5 mg/dL (8.4-10.2); Carbon Dioxide 21 mmol/L (22-30); Chloride 107 mmol/L (98-107); Cholesterol 260 mg/dL (0-200); Estimated CRCL calculation 39 ml/min; Estimated Glomerular Filt Rate 48; Glucose 243 mg/dL (65-110); HDL Direct 42 mg/dL; Potassium 4.3 mmol/L (3.4-5.0); Sodium 137 mmol/L (137-145); Triglycerides 296 mg/dL (<150)
[2024-05-26 05:53] LABS: Hemoglobin A1C 10.1 % (<5.7)
[2024-05-26 05:56] LABS: LDL Cholesterol Direct 153 mg/dL
--- NOTE | 2024-05-26 08:06 | PM.IMPN ---
Progress Note: A&P Assessment and Plan (1) TIA (transient ischemic attack): Code(s): G45.9 - Transient cerebral ischemic attack, unspecified Status: Acute Assessment and Plan: New deficits of word-finding difficulty starting on 05/25 at 12:15 p.m. Symptoms resolved by 1:00 p.m. Imaging no acute infarct, stenosis, or acute intracranial finding. - admission for observation and telemetry - not candidate for thrombolytics or thrombectomy given resolution of symptoms - CXR: No acute cardiopulmonary pathology. - CT Head 1. Small old infarct at the right occipital lobe and mild scattered white matter hypoattenuation consistent with chronic small vessel ischemic disease. No acute cardiopulmonary disease. - CTA: 1. Old infarct in the right occipital lobe. 2. No aneurysm or significant arterial stenosis. 3. 16% stenosis of the proximal right internal carotid artery relative to normal distal artery lumen diameter (NASCET criteria). 4. 5% stenosis of the proximal left internal carotid artery relative to normal distal artery lumen diameter. - neurology consulted - brain MRI w/wo ordered - echo w/Bubble ordered - neuro checks Q4 - monitor daily labs, lipid panel, A1C, TSH - continue home ASA 81 mg, Plavix, and rosuvastatin 40 mg - UA ordered 05/26: work up pending lipid panel reviewed, LDL 153. Goal would be 70-75. Patient is on Crestor 40 mg daily but there are concerns she is not taking her medications. TSH normal A1C 10%. Home regimen is Lantus 25 units BID, metformin 1000 mg BID, and glimepiride 4 mg PO BID. The patient tells me she is taking her insulin but tells nursing she sometimes forgets. Would recommend SSI insulin with meals at discharge. Given eGFR is 39, stopped glipizide. Starting Jardiance 10 mg daily for renal/cardio protective properties. DM educator consulted, appreciate assistance with teaching Dietitian consulted, appreciate assistance with teaching ECHO with grade 1 diastolic function with pEF 60-65% (2) Chronic kidney disease (CKD) stage G3b/A2, moderately decreased glomerular filtration rate (GFR) between 30-44 mL/min/1.73 square meter and albuminuria creatinine ratio between 30-299 mg/g: Code(s): N18.32 - Chronic kidney disease, stage 3b Status: Acute Assessment and Plan: - creatinine 1.3 and GFR 40 - previously 1.3 and GFR 40 in March of 2022 - trend renal function - trend electrolytes, correct as needed 05/26: Stop glipizide given eGFR Change to Jardiance (3) Controlled type 2 diabetes mellitus with hyperglycemia, with long-term current use of insulin: Code(s): E11.65 - Type 2 diabetes mellitus with hyperglycemia; Z79.4 - group home (current) use of insulin Status: Acute Assessment and Plan: - hypoglycemia protocol - POC blood glucose ACHS - home medication: Continue glimepiride, Lantus. Hold Metformin. - correct regimen ordered - high dose TIDWM based off BMI - A1C 10.9% in 2021, update 05/26: stop glimepiride, start jardiance lantus 25 units BID--may need to decrease dose given carb consistent diet while inpatient. Monitor am fasting glucose SSI with meals (4) Essential (primary) hypertension: Code(s): I10 - Essential (primary) hypertension Status: Acute Assessment and Plan: - chronic, currently 137/55 - continue home medications: Losartan 100 mg daily - monitor Plan Patient here with 45 minute episode of word-finding difficulty. Symptoms consistent with TIA. CTA of the head/ neck showed an old infarct. Neurology consulted. TIA workup ordered: MRI, echo, labs. Adding UA to rule out resurgence of previous stroke symptoms Due to infection. Diet: Diabetic GI Prophylaxis: not currently indicated DVT Prophylaxis: SCDs, continue Plavix Lines: peripheral Code Status: FULL CODE Subjective Date/time seen: 05/26/24 08:06 Interval history: 79 y/o F presents here with word findin
[2024-05-26 08:12] LABS: Glucose Point of Care 281 mg/dl (65-105)
[2024-05-26] MEDS: THERAPEUTIC MULTIVITAMINS/MINERALS TAB (*BKC) 1 TABLET PO (08:22)
[2024-05-26] MEDS: METOPROLOL SUCCINATE EXT REL 25 MG TABCR PO (08:23)
[2024-05-26] MEDS: GLIMEPIRIDE 2 MG TABLET 4 MG PO (08:23)
[2024-05-26] MEDS: ASPIRIN 81 MG ENTERIC TABLET PO (08:23)
[2024-05-26] MEDS: ROSUVASTATIN 20 MG TABLET 40 MG PO (08:23)
[2024-05-26] MEDS: CLOPIDOGREL BISULFATE 75 MG TABLET PO (08:23)
[2024-05-26] MEDS: EZETIMIBE 10 MG TABLET PO (08:23)
[2024-05-26] MEDS: LOSARTAN POTASSIUM 100 MG TABLET PO (08:23)
[2024-05-26] MEDS: AMOXICILLIN/CLAVULANATE K 875-125 MG TAB 1 TABLET PO (08:26)
[2024-05-26] MEDS: INSULIN ASPART (*BKC) 100 UNITS/ML SUB-Q ×2 (08:28→11:58)
[2024-05-26] MEDS: PERFLUTREN LIPID MICROSPHERES 1.5 ML VIAL DILUTED TO 10 ML TOTAL VOLUME IV PUSH (08:54)
--- NOTE | 2024-05-26 08:55 | IVDEFINITY ---
Prior to administration of IV Definity the patient was educated on the risks and benefits of the imaging enhancing agent including potential adverse side effects. The patient verbalized understanding. Allergies were verified. No exclusion criteria were identified and at least one of the following inclusion criteria were met: 1) physician request, 2) patient technically difficult to image (per the [place] [employer] guidelines of two or more segments not discernable within the apical view), or 3) questionable left ventricular function. ?
[2024-05-26 11:55] LABS: Glucose Point of Care 249 mg/dl (65-105)
[2024-05-26] MEDS: EMPAGLIFLOZIN 10 MG TABLET PO (11:57)
--- NOTE | 2024-05-26 15:31 | PHAR ---
PT'S HOME MED GEMTESA 75 MG TAB VERIFIED BY PHARMACY
--- NOTE | 2024-05-26 16:41 | WPDNEURCNPN ---
Assessment and Plan Assessment and plan (1) TIA (transient ischemic attack): Code(s): G45.9 - Transient cerebral ischemic attack, unspecified Status: Acute Assessment and Plan: Symptoms are suggestive of left hemispheric event with the expressive aphasia lasting for 45 minutes subsequent resolution was described. She has had a similar episode 2 years ago. Plan Clinically she does not appear to have had any epileptic features and she does have significant vascular issues including cardiac disease, diabetes mellitus which is difficult to control, high BMI, chronic kidney disease and atrial fibrillation. MRI of the brain was performed did not show any new findings him. Old stroke was noted in the occipital area. Based upon these I spoke to the may care provider and a advised to continue the dual antiplatelets and Crestor 40 mg a day for now. She should be advised to control the risk factor the best possible. If she has any further issues I will be glad to see her in my office. Consult date: 05/26/24 HPI: Christine De Jesus is a 79 year old female with history of difficulty with finding words or expressing herself lasting for 45 minutes soon after she was in changing room after swimming in a recreational facility. Patient physically very active. She did not have any weakness and numbness in her upper lower limbs or any difficulty thinking or memory. She does have history of diabetes mellitus and hemoglobin A1c was around 10.1. She also history of kidney chronic kidney disease and a BMI is around 38. She does not smoke or drink any alcohol. She has had a similar episode about 2 years ago which also was brief and left her with no residual neurological issues. She denies any headache. No episodes of loss of consciousness or confusional state. At this time she has no symptoms. Review of Systems Review of Systems: All systems reviewed & are unremarkable except as noted in HPI and below [facility] Past Medical History Medical History AAA (abdominal aortic aneurysm) without rupture (~05/17/23) Endovascular repair 10/09/2023. 7 x 6.6 cm abdominal aortic aneurysm On CT in the ER 05/17/2023. Acute bronchitis Anemia At moderate risk for fall Chronic atrial fibrillation (04/23/22) Chronic depression Chronic kidney disease (CKD) stage G3b/A2, moderately decreased glomerular filtration rate (GFR) between 30-44 mL/min/1.73 square meter and albuminuria creatinine ratio between 30-299 mg/g BUN 35 with creatinine 1.30 and GFR 40 on 03/31/2022. Chronic pain in right foot Controlled type 2 diabetes mellitus with hyperglycemia, with long-term current use of insulin glucose 304 with hemoglobin A1c 10.9 on 03/27/2022. Contusion of face Coronary artery disease involving [place] coronary artery of [place] heart without angina pectoris COVID-19 (10/31/22) tested positive 11/05/2022 CVA (cerebral vascular accident) Diabetic neuropathy, type II diabetes mellitus (06/12/21) Fall Heart disease Hypersomnia Microalbuminuria Neoplasm of skin NSTEMI (non-ST elevated myocardial infarction) (04/16/22) incomplete PTCA of the LAD 04/17/2022. CABG LAD 04/22/22. Overactive bladder Renal insufficiency BUN 27 with creatinine 1.24 with GFR 42 on 03/27/2022. Screening for diabetic retinopathy (09/24/21) no diabetic retinopathy on dilated eye exam 09/24/2021. Recheck annually. no retinopathy 01/29/2024. Thrombocytopenia (12/26/19) Surgical History Surgical History H/O knee surgery Left total knee replacement 2015 right knee arthroscopy about 2000 History of cardiac cath Family History Family History Mother Family history of cardiovascular disease, Onset Age: 66 Hypertension Cerebrovascular accident Hypercholesteremia Diabetes mellitus Heart disease Father Cerebrovascular accident, Onset Age:
[2024-05-26 17:23] LABS: Glucose Point of Care 108 mg/dl (65-105)
--- NOTE | 2024-05-27 08:39 | PM.DS ---
DS: Admitting Diagnosis Discharge Date 05/26/24 Admitting Diagnosis difficult speech DS: Discharge Diagnosis Discharge Diagnosis (1) TIA (transient ischemic attack): Code(s): G45.9 - Transient cerebral ischemic attack, unspecified Status: Acute Assessment and Plan: New deficits of word-finding difficulty starting on 05/25 at 12:15 p.m. Symptoms resolved by 1:00 p.m. Imaging no acute infarct, stenosis, or acute intracranial finding. - admission for observation and telemetry - not candidate for thrombolytics or thrombectomy given resolution of symptoms - CXR: No acute cardiopulmonary pathology. - CT Head 1. Small old infarct at the right occipital lobe and mild scattered white matter hypoattenuation consistent with chronic small vessel ischemic disease. No acute cardiopulmonary disease. - CTA: 1. Old infarct in the right occipital lobe. 2. No aneurysm or significant arterial stenosis. 3. 16% stenosis of the proximal right internal carotid artery relative to normal distal artery lumen diameter (NASCET criteria). 4. 5% stenosis of the proximal left internal carotid artery relative to normal distal artery lumen diameter. - neurology consulted - brain MRI w/wo ordered - echo w/Bubble ordered - neuro checks Q4 - monitor daily labs, lipid panel, A1C, TSH - continue home ASA 81 mg, Plavix, and rosuvastatin 40 mg - UA ordered 05/26: work up pending lipid panel reviewed, LDL 153. Goal would be 70-75. Patient is on Crestor 40 mg daily but there are concerns she is not taking her medications. TSH normal A1C 10%. Home regimen is Lantus 25 units BID, metformin 1000 mg BID, and glimepiride 4 mg PO BID. The patient tells me she is taking her insulin but tells nursing she sometimes forgets. Would recommend SSI insulin with meals at discharge. Given eGFR is 39, stopped glipizide. Starting Jardiance 10 mg daily for renal/cardio protective properties. DM educator consulted, appreciate assistance with teaching Dietitian consulted, appreciate assistance with teaching ECHO with grade 1 diastolic function with pEF 60-65% (2) Chronic kidney disease (CKD) stage G3b/A2, moderately decreased glomerular filtration rate (GFR) between 30-44 mL/min/1.73 square meter and albuminuria creatinine ratio between 30-299 mg/g: Code(s): N18.32 - Chronic kidney disease, stage 3b Status: Acute Assessment and Plan: - creatinine 1.3 and GFR 40 - previously 1.3 and GFR 40 in March of 2022 - trend renal function - trend electrolytes, correct as needed 05/26: Stop glipizide given eGFR Change to Jardiance (3) Controlled type 2 diabetes mellitus with hyperglycemia, with long-term current use of insulin: Code(s): E11.65 - Type 2 diabetes mellitus with hyperglycemia; Z79.4 - MCFP (current) use of insulin Status: Acute Assessment and Plan: - hypoglycemia protocol - POC blood glucose ACHS - home medication: Continue glimepiride, Lantus. Hold Metformin. - correct regimen ordered - high dose TIDWM based off BMI - A1C 10.9% in 2021, update 05/26: stop glimepiride, start jardiance lantus 25 units BID--may need to decrease dose given carb consistent diet while inpatient. Monitor am fasting glucose SSI with meals (4) Essential (primary) hypertension: Code(s): I10 - Essential (primary) hypertension Status: Acute Assessment and Plan: - chronic, currently 137/55 - continue home medications: Losartan 100 mg daily - monitor Plan Patient here with 45 minute episode of word-finding difficulty. Symptoms consistent with TIA. CTA of the head/ neck showed an old infarct. Neurology consulted. TIA workup ordered: MRI, echo, labs. Adding UA to rule out resurgence of previous stroke symptoms Due to infection. Diet: Diabetic GI Prophylaxis: not currently indicated DVT Prophylaxis: SCDs, continue Plavix Lines: peripheral Code Status: FULL CODE DS: Summ
--- NOTE | 2024-05-30 14:10 | PCCDE ---
05/30/24 A1C: 10.1% (05/26/24) Pt not seen during admission 05/25-05/27/24, admitted TIA. Reached by phone ~ 11:30 am.? Pt is considering this a ?wake up call?.? Met with DEANNA few years ago. Declines opportunity for OP education at this time. Pt talked to exercising regularly and making adjustments to her po choices. ?Was admitted glucose >300 -> educated when inappropriate to exercise.? Has my name and number. FJ
== END 2024-05-26 18:30 | disposition home or self-care (01) ==
LOC: ANHED 16:11 → ANH3MED 16:57
PROVIDERS: Student in an Organized Health Care Education/Training Program; Admitting Provider Hospitalist; Emergency Provider Emergency Medicine; PCP Family Medicine; Visit Provider Nurse Practitioner Acute Care
DX: G45.9 Transient cerebral ischemic attack, unspecified (principal); I71.40 Abdominal aortic aneurysm, without rupture, unspecified; I48.20 Chronic atrial fibrillation, unspecified; I13.10 Hypertensive heart and chronic kidney disease without heart failure, with stage 1 through stage 4 chronic kidney disease, or unspecified chronic kidney disease; E11.22 Type 2 diabetes mellitus with diabetic chronic kidney disease; N18.32 Chronic kidney disease, stage 3b; E11.65 Type 2 diabetes mellitus with hyperglycemia; I25.10 Atherosclerotic heart disease of native coronary artery without angina pectoris; E11.40 Type 2 diabetes mellitus with diabetic neuropathy, unspecified; I08.1 Rheumatic disorders of both mitral and tricuspid valves; I25.2 Old myocardial infarction; N32.81 Overactive bladder; F32.A Depression, unspecified; Z87.891 Personal history of nicotine dependence; Z79.02 Long term (current) use of antithrombotics/antiplatelets; Z79.84 Long term (current) use of oral hypoglycemic drugs; Z79.82 Long term (current) use of aspirin
CPT/HCPCS: 36415; 70450; 70496; 70498; 70553; 71045; 80048; 80053; 80061; 81001; 82948; 83036; 84443; 84484; 85025; 85055; 85610; 85730; 87086; 87088; 93005; 96374; 96375; 99285; A9270; A9577; C8929; G0378; J1815; Q9957; Q9967

== ENCOUNTER 2024-09-30 11:12 | Inpatient (IN) | payer MEDICARE, SELFPAY ==
[2024-09-30] VITALS (26 sets, daily range): BP systolic 129–166; BP diastolic 61–83; PULSE 65–88; RESP 18–40; TEMP 36.6–36.9; O2SAT 97–100; BMI 34.5
--- NOTE | ~2024-09-30 | US_ITS ---
EXAMINATION: US venous doppler [facility] DATE: 10/01/2024 12:52 INDICATION: Pulmonary embolism TECHNIQUE: Grayscale ultrasound images without and with compression and Doppler ultrasound images of the bilateral lower extremity veins were obtained. COMPARISON: None. FINDINGS: The visualized portions of right common femoral vein, profunda (deep) femoral vein, femoral vein, pop liteal vein, posterior tibial veins, peroneal veins, gastrocnemius vein and greater saphenous vein ou tflow are patent. The visualized portions of left common femoral vein, profunda femoral vein, femoral vein, popliteal v ein, posterior tibial veins, peroneal veins, gastrocnemius vein and greater saphenous vein outflow ar e patent. IMPRESSION: 1. No deep venous thrombosis in either lower limb. Reviewed, dictated and finalized at location A.
--- NOTE | ~2024-09-30 | XR_ITS ---
EXAMINATION: XR chest 2V DATE: 09/30/2024 12:06 INDICATION: Shortness of breath. Right chest pain. TECHNIQUE: Frontal and lateral views of the chest were obtained. COMPARISON: Chest single view 05/25/2024 FINDINGS: There is no pneumonia, pleural effusion, or pneumothorax. The heart size is normal. Median sternotomy wires are noted. There is a stent graft in abdominal aorta. IMPRESSION: 1. No acute cardiopulmonary disease. Reviewed, dictated and finalized at location B.
--- NOTE | ~2024-09-30 | XR_ITS ---
EXAMINATION: XR chest 1V portable DATE: 10/01/2024 08:28 INDICATION: Hypoxia TECHNIQUE: frontal view of the chest was obtained. COMPARISON: Chest radiograph and CT dated 09/30/2024 FINDINGS: Small lung volumes. Mild opacities in the right mid to lower and left lower lung zones. No pleural ef fusion or pneumothorax. The cardiomediastinal silhouette is within normal limits for AP technique. Me julia sternotomy wires. Abdominal aorta endoluminal graft beginning at the level of the thoracic outle t and with stenting at the origins of the sacroiliac axis, superior mesenteric and bilateral renal ar teries. IMPRESSION: 1. Small lung volumes with opacities in the right mid to lower and left lower lung zone which based o n immediately prior CT the most consistent with combination of atelectasis and pulmonary infarcts. Di fferential includes less likely pulmonary edema or pneumonia. Reviewed, dictated and finalized at location A. IMPRESSION: 1. Small lung volumes with opacities in the right mid to lower and left lower l marshall zone which based on immediately prior CT the most consistent with combinati on of atelectasis and pulmonary infarcts. Differential includes less likely pul monary edema or pneumonia.
--- NOTE | ~2024-09-30 | CT_ITS ---
EXAMINATION: CT chest abdomen pelvis w con DATE: 09/30/2024 13:12 INDICATION: Chest and abdominal pain. TECHNIQUE: Computed tomography (CT) of the chest, abdomen, and pelvis was performed with 100 mL Omnip aque 350 intravenous contrast. Automated exposure control and iterative reconstruction technique were employed. The dose-length product was 1551.45 mGy-cm. COMPARISON: None FINDINGS: CHEST CT: The lungs demonstrate mild atelectasis. There are groundglass opacities and septal thickening in righ t lower lobe, consistent with infarct. No pleural effusion. There is an old infarct involving left ve ntricular septum and anterior medial deshpande. There are coronary artery calcifications. No pericardial effusion. The central pulmonary arteries are enlarged, consistent with pulmonary arterial hypertensio n. There are pulmonary emboli in all lobes, worst in right lower lobe. Thoracic aorta is normal in ca liber. Aortic atherosclerosis is noted. There is mild thoracic spondylosis. ABDOMEN/PELVIS CT: The liver, gallbladder, spleen, pancreas, and adrenal glands are normal. There is cortical thinning o f the kidneys. There is a 6.9 cm fusiform aneurysm of infrarenal aorta with stent graft in expected p osition. There are stents in the celiac axis, superior mesenteric artery, and renal arteries. There i s diverticulosis of the colon without evidence of diverticulitis. There are no dilated loops of bowel . The appendix is not visualized. There is an umbilical hernia containing fat. There are no pathologi fiordaliza enlarged lymph nodes. There is no free intraperitoneal fluid. There is mild lumbar spondylosis. IMPRESSION: 1. Pulmonary emboli in all lobes, worst in right lower lobe. 2. Infarct in right lung lower lobe. 3. 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 No endoleak. Reviewed, dictated and finalized at location B. IMPRESSION: 1. Pulmonary emboli in all lobes, worst in right lower lobe. 2. Infarct in right lung lower lobe. 3. 6.9 cm fusiform aneurysm of infrarenal aorta with stent graft in expected po sition. No endoleak.
--- NOTE | 2024-09-30 11:26 | ECG_ITS ---
Test Date: 2024-09-30 11:32:22 Measurements Intervals [place] Rate: 85 P: 67 ND: 165 QRS: -11 QRSD: 129 T: 50 QT: 402 QTc: 478 Interpretive Statements SINUS RHYTHM WITH OCCASIONAL SUPRAVENTRICULAR PREMATURE COMPLEXES LEFT BUNDLE BRANCH BLOCK BASELINE ARTIFACT- I, II, III, AVR, AVL, AVF ABNORMAL ECG Compared to ECG 05/25/2024 13:20:16 No significant changes Electronically Signed On 09-30-2024 12:23:18 CDT by Jeff Martinez D.O.
[2024-09-30 11:44] LABS: Basophils Percent Auto 0.2 % (0.2-1.2); Eosinophils Percent Auto 0.2 % (0-4.4); Hematocrit 44.4 % (37.0-47.0); Hemoglobin 15.6 g/dL (12.0-15.0); Immature Granulocyte Absolute 0.05 K/mm3 (0.00-0.031); Immature Granulocyte Percent A 0.5 % (0-0.5); Lymphocytes Absolute Auto 0.86 K/mm3 (0.9-3.2); Lymphocytes Percent Auto 8.5 % (18.3-44.2); Mean Corpuscular HGB Conc 35.1 g/dl (32-36); Mean Corpuscular Hemoglobin 32.2 pg (26-34); Mean Corpuscular Volume 91.7 fl (80-100); Mean Platelet Volume 9.7 fl (7.4-10.4); Monocytes Absolute Auto 0.7 K/mm3 (0.1-0.6); Monocytes Percent Auto 6.5 % (2.6-8.5); Neutrophils Absolute Auto 8.6 K/mm3 (1.3-6.7); Neutrophils Percent Auto 84.1 % (45.5-73.1); Platelet Count Result 142 k/mm3 (150-375); Red Blood Count 4.84 M/mm3 (4.2-5.4); Red Cell Distribution Width 13.2 % (11.5-14.5); White Blood Count 10.2 K/mm3 (4.5-10.0)
--- NOTE | 2024-09-30 12:15 | ED_ITS ---
HPI - SOB/Dyspnea General Chief Complaint: Shortness of Breath/Dyspnea Stated Complaint: SOB Time Seen by Provider: 09/30/24 12:15 Source: patient and EMS Mode of arrival: EMS History of Present Illness HPI Narrative: 79 years old white female came to the ED by ambulance from home complaining of can not breathe started today with a the Thursday 4 days ago with pain at the right abdomen and right lower ribs started immediately after lifting heavy stuff at that time. Patient is telling me that she have triple a and was advised to not to lift heavy stuff. Patient report the pain worse with breathing, and moving. She denies any fever, chills, nausea, vomiting. He patient is not on oxygen at home, history of diabetes, hypertension, hyperlipidemia, CABG, coronary stents, AAA. Patient currently on Plavix. And she is full code. Related Data Home Medications Medication Instructions Recorded Confirmed clopidogrel 75 mg tablet 75 mg PO DAILY 10/26/19 07/27/24 multivitamin,[id number]-[id number] 1 tablet PO DAILY 10/26/19 07/27/24 (Complete Multivitamin tablet) rosuvastatin 40 mg tablet 40 mg PO DAILY 10/26/19 07/27/24 vibegron 75 mg tablet (Gemtesa) 75 mg PO DAILY 04/30/22 07/27/24 losartan 100 mg tablet 100 mg PO DAILY 12/18/22 07/27/24 metoprolol succinate 25 mg 25 mg PO DAILY 06/30/23 07/27/24 tablet,extended release 24 hr insulin glargine 100 unit/mL (3 35 unit subcut Q12H 07/27/24 07/27/24 mL) subcutaneous pen (Lantus Solostar U-100 Insulin) Allergies Allergy/AdvReac Type Severity Reaction Status Date / Time Sulfa (Sulfonamide Allergy Unknown Unknown Verified 05/25/24 17:46 Antibiotics) Review of Systems Review of Systems: All systems reviewed & are unremarkable except as noted in HPI and below PMFSH Past Medical History Medical History AAA (abdominal aortic aneurysm) without rupture (~05/17/23) Endovascular repair 10/09/2023. 7 x 6.6 cm abdominal aortic aneurysm On CT in the ER 05/17/2023. Acute bronchitis Anemia Hemoglobin normal at 14.1 with vitamin B12 397, folic acid 12.2, iron 127 with 39% saturation and ferritin 57 on 07/26/2024. At moderate risk for fall Chronic atrial fibrillation (04/23/22) Chronic depression Chronic kidney disease (CKD) stage G3b/A2, moderately decreased glomerular filtration rate (GFR) between 30-44 mL/min/1.73 square meter and albuminuria creatinine ratio between 30-299 mg/g BUN 35 with creatinine 1.30 and GFR 40 on 03/31/2022. BUN 24, creatinine 1.10 with GFR 48 on 05/26/2024. BUN 32, creatinine 1.18 with GFR 47 on 07/26/2024. Chronic pain in right foot Controlled type 2 diabetes mellitus with hyperglycemia, with long-term current use of insulin glucose 304 with hemoglobin A1c 10.9 on 03/27/2022. glucose 243 with hemoglobin A1c 10.1 on 05/26/2024. Fasting glucose 413 with hemoglobin A1c 10.2 With GFR 47 and microalbumin ratio of 1048 on 07/26/2024. Contusion of face Coronary artery disease involving [place] coronary artery of [place] heart without angina pectoris COVID-19 (10/31/22) tested positive 11/05/2022 CVA (cerebral vascular accident) Diabetic neuropathy, type II diabetes mellitus (06/12/21) Fall Functional memory problem Heart disease Hypersomnia Microalbuminuria ratio 1048 on 07/26/2024. Neoplasm of skin NSTEMI (non-ST elevated myocardial infarction) (04/16/22) incomplete PTCA of the LAD 04/17/2022. CABG LAD 04/22/22. Overactive bladder Renal insufficiency BUN 27 with creatinine 1.24 with GFR 42 on 03/27/2022. Screening for diabetic retinopathy (09/24/21) no diabetic retinopathy on dilated eye exam 09/24/2021. Recheck annually. no retinopathy 01/29/2024. Thrombocytopenia Platelets 124 on 05/26/2024. Platelets 119 on 07/26/2024. Vitamin B12 deficiency level low at 397 with goal greater than 400 with folic acid 12.12 on 07/26/2024. (12/26/19) Surgical History Surgical History H/O knee surgery Left total knee replacement 2015 right knee arthroscopy about 2000 History of cardiac cath Family History Family History Mother Family history of cardiovascular disease, Onset Age: 66 Hypertension Cerebrovascular accident Hypercholesteremia Diabetes mellitus Heart disease Father Cerebrovascular accident, Onset Age: 77 Hypercholesteremia Heart disease Sibling Diabetes mellitus Cancer Heart disease Cerebrovascular accident Grandparent Diabetes mellitus Social History Social History Smoking packs per day: 1 Smoking cigarettes per day: 20.0 Years smoked: 45 Smoking pack-years: 45.00 Smoking status: Former smoker Alcohol intake: current Alcohol use details: on occasion Substance use: never Substance use type: does not use Other substance usage details: one drink a month Do You Feel Safe in your Home?: Yes Lack of Transportation: No Lack of Food: Never True Current Housing: I Have Housing Concerned About Future Housing: No Difficulty Paying Gas/Electric Bills: No Difficulty Paying for Meds: No Currently Unemployed: No Education: High School Diploma/GED Difficulty w/ Childcare or Family Care: No Living arrangements: alone Occupation/Education: retired Gender identity (if verbalized by the patient): Female Spiritual care concerns: No Exam Narrative: General appearance: Well-developed, well-nourished Skin: Normal color Head: Normocephalic, nontraumatic Eyes: Clear conjunctiva ENT: Oropharynx normal, ears normal, nose normal Neck: Supple, nontender Chest and respiratory: Airway patent, slight respiratory distress, diminution of air entry on the right side, Heart: Regular rate/rhythm Abdomen: Soft, nontender, no organomegaly, quiet bowel sounds Vascular: Normal peripheral pulses, normal capillary refill. Neurologic: Alert and oriented ?3, COMPUTER TECHNOLOGIST is normal as tested, no gross motor deficit Course Consultations Consultation #1: DR DE JESUS, VASCULAR SURGEON AT [facility] WHO ACCEPTED PATIENT TRANSFER TO THE ED Date: 09/30/24 Time: 14:58 Consultation #2: Janeen [facility] DECLINED TRANSFER BECAUSE THERE IS NO SURGICAL INTERVENTION AT THIS TIME THE VASCULAR SURGEON AGREED WITH THE DECISION OF THE ER PHYSICIAN AND DECLINED TO ACCEPT THE PATIENT. HE STATED THAT THIS PATIENT CAN BE TAKING CARE IN OUR FACILITY. Date: 09/30/24 Time: 14:58 Consultation #3: DR ANDINO, ACCEPTED PATIENT ADMISSION TO ICU Date: 09/30/24 Time: 15:15 Vital Signs Vital signs: Vital Signs Temperature 36.9 C 09/30/24 11:11 Pulse Rate 88 09/30/24 11:11 Respiratory Rate 18 09/30/24 11:11 Blood Pressure 166/83 H 09/30/24 11:11 Pulse Oximetry 97 09/30/24 11:11 Oxygen Delivery Nasal Cannula 09/30/24 11:11 Oxygen Flow Rate 3 09/30/24 11:11 Temperature 36.9 C 09/30/24 11:11 Pulse Rate 79 09/30/24 14:32 Respiratory Rate 28 H 09/30/24 14:32 Blood Pressure 151/66 H 09/30/24 14:32 Pulse Oximetry 98 09/30/24 14:32 Oxygen Delivery Nasal Cannula 09/30/24 11:24 Oxygen Flow Rate 2 09/30/24 11:24 MDM - SOB/Dyspnea MDM Narrative Medical decision making narrative: Patient came with difficulty breathing and pain at the right abdomen started 4 days ago. Vital signs on arrival showing blood pressure 166/83, oxygen saturation 97% on 3 L, patient normally not on oxygen at home. Physical examination showing a patient with respiratory distress, no localized abdominal tenderness Differential diagnosis include pneumonia, pulmonary embolism, pleural effusion, CHF, coronary artery disease, cholecystitis, diverticulitis, Blood workup today showed WBC 10.2, hemoglobin 15.6, venous blood gas showing pH of 7.34, sodium 132, creatinine 1.2, glucose 630 hemoglobin A1c 12.[address] chest, abdomen and pelvis with IV contrast showed widespread pulmonary emboli bilaterally more on the right side, pulmonary hypertension EKG on arrival showed normal sinus rhythm with occasional PVCs at 85 beats per minute, abnormal EKG, compared to EKG on May 25, 2024 no significant changes Differential Diagnosis Differential diagnosis: Likely other (As above) Lab Data Attestation: I reviewed the patient's lab results. 09/30/24 11:38 09/30/24 13:48 Labs: Lab Results 09/30/24 09/30/24 09/30/24 Range/Units 11:38 12:33 13:30 WBC 10.2 H (4.5-10.0) K/mm3 RBC 4.84 (4.2-5.4) M/mm3 Hgb 15.6 H (12.0-15.0) g/dL Hct 44.4 (37.0-47.0) % MCV 91.7 (80-100) fl MCH 32.2 (26-34) pg MCHC 35.1 (32-36) g/dl RDW 13.2 (11.5-14.5) % Plt Count 142 L (150-375) k/mm3 MPV 9.7 (7.4-10.4) fl Immature Gran % (Auto) 0.5 (0-0.5) % Neut % (Auto) 84.1 H (45.5-73.1) % Lymph % (Auto) 8.5 L (18.3-44.2) % Coles % (Auto) 6.5 (2.6-8.5) % Eos % (Auto) 0.2 (0-4.4) % Baso % (Auto) 0.2 (0.2-1.2) % Lymph # (Auto) 0.86 L (0.9-3.2) K/mm3 Coles # (Auto) 0.7 H (0.1-0.6) K/mm3 Eos # (Auto) 0.0 (0-0.3) K/mm3 Baso # (Auto) 0.0 (0.0-0.1) K/mm3 Abs Immat Gran (auto) 0.05 H (0.00-0.031) K/mm3 Absolute Neuts (auto) 8.6 H (1.3-6.7) K/mm3 Absolute Nucleated RBC 0.000 (0.0-0.012) K/mm3 Nucleated RBC % 0.0 (0.0-0.2) % PT 14.3 (11.1-14.7) Seconds INR 1.1 APTT 27.8 (22.3-36.8) Seconds Sodium 132 L (137-145) mmol/L Potassium 4.9 (3.4-5.0) mmol/L Chloride 102 (98-107) mmol/L Carbon Dioxide 18 L (22-30) mmol/L Anion Gap 12 (4-12) mmol/L BUN 35 H D (7-17) mg/dL Creatinine 1.20 H (0.7-1.0) mg/dL Estim Creat Clear Calc 37 ml/min Estimated GFR 43 L (59 - ) Glucose 630 H* (65-110) mg/dL POC Capillary Glucose > 500 H* (65-105) mg/dl Hemoglobin A1c 12.9 H (<5.7) % Calcium 9.5 (8.4-10.2) mg/dL Phosphorus 4.1 (2.5-4.5) mg/dL Magnesium 1.8 (1.6-2.3) mg/dL Total Bilirubin 1.1 (0.2-1.3) mg/dL AST 20 (14-36) U/L ALT 19 (6-35) U/L Alkaline Phosphatase 95 (38-126) U/L Total Protein 7.0 (6.3-8.2) g/dL Albumin 3.8 (3.5-5.1) g/dL Beta-Hydroxybutyrate/Acetoacetate 0.29 H (0.02-0.27) mmol/L 09/30/24 09/30/24 Range/Units 13:48 14:47 WBC (4.5-10.0) K/mm3 RBC (4.2-5.4) M/mm3 Hgb (12.0-15.0) g/dL Hct (37.0-47.0) % MCV (80-100) fl MCH (26-34) pg MCHC (32-36) g/dl RDW (11.5-14.5) % Plt Count (150-375) k/mm3 MPV (7.4-10.4) fl Immature Gran % (Auto) (0-0.5) % Neut % (Auto) (45.5-73.1) % Lymph % (Auto) (18.3-44.2) % Coles % (Auto) (2.6-8.5) % Eos % (Auto) (0-4.4) % Baso % (Auto) (0.2-1.2) % Lymph # (Auto) (0.9-3.2) K/mm3 Coles # (Auto) (0.1-0.6) K/mm3 Eos # (Auto) (0-0.3) K/mm3 Baso # (Auto) (0.0-0.1) K/mm3 Abs Immat Gran (auto) (0.00-0.031) K/mm3 Absolute Neuts (auto) (1.3-6.7) K/mm3 Absolute Nucleated RBC (0.0-0.012) K/mm3 Nucleated RBC % (0.0-0.2) % PT (11.1-14.7) Seconds INR APTT (22.3-36.8) Seconds Sodium (137-145) mmol/L Potassium (3.4-5.0) mmol/L Chloride (98-107) mmol/L Carbon Dioxide (22-30) mmol/L Anion Gap (4-12) mmol/L BUN (7-17) mg/dL Creatinine (0.7-1.0) mg/dL Estim Creat Clear Calc ml/min Estimated GFR (59 - ) Glucose 708 H* (65-110) mg/dL POC Capillary Glucose > 500 H* (65-105) mg/dl Hemoglobin A1c (<5.7) % Calcium (8.4-10.2) mg/dL Phosphorus (2.5-4.5) mg/dL Magnesium (1.6-2.3) mg/dL Total Bilirubin (0.2-1.3) mg/dL AST (14-36) U/L ALT (6-35) U/L Alkaline Phosphatase (38-126) U/L Total Protein (6.3-8.2) g/dL Albumin (3.5-5.1) g/dL Beta-Hydroxybutyrate/Acetoacetate (0.02-0.27) mmol/L ABG Data ABG results: 09/30/24 12:33 VBG pH 7.340 VBG pCO2 40.3 L VBG pO2 36.1 VBG HCO3 21.3 L O2 Delivery Device Nasal cannula O2 Liters/Min 2.0 FiO2 28 Attestation: I personally reviewed and interpreted this ABG as follows: Imaging Data Attestation: I personally reviewed and interpreted this imaging study as follows: Radiologist's impression: Impressions Chest X-Ray 09/30/24 12:26 IMPRESSION: 1. No acute cardiopulmonary disease. Chest/Abdomen/Pelvis CT 09/30/24 13:16 IMPRESSION: 1. Pulmonary emboli in all lobes, worst in right lower lobe. 2. Infarct in right lung lower lobe. 3. 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 No endoleak. ECG Data EKG #1: ECG completion date: 09/30/24 Interpretation: Normal sinus rhythm at 85 beats per minute, left bundle-branch block, occasional PVCs, abnormal EKG, no significant changes compared to EKG on May 25, 2024 Critical Care Time Critical Care Time Critical Care Time: Yes Total Critical Care Time: 30 Discharge Plan Discharge Clinical Impression: Hyperglycemia due to diabetes mellitus, Pulmonary air embolism, Aneurysm of infrarenal abdominal aorta, KAROL (acute kidney injury) Patient Disposition: Still a Patient Condition: Guarded Prognosis Prescriptions: No Action losartan 100 mg tablet 100 mg PO DAILY Hold Instructions: Patient no longer taking Patient Comments: prescribed by regulatory administrator metoprolol succinate 25 mg tablet extended release 24 hr 25 mg PO DAILY Patient Comments: started by regulatory administrator 05/27/2023. insulin glargine [Lantus Solostar U-100 Insulin] 100 unit/mL (3 mL) insulin pen 35 unit SUB-Q Q12H (DME) blood sugar diagnostic Strip See Rx Instructions .ROUTE .MEDSUPPLY Qty: 100 3RF Rx Instructions: Daily clopidogrel 75 mg tablet 75 mg PO DAILY rosuvastatin 40 mg tablet 40 mg PO DAILY Complete Multivitamin Tablet 1 tablet PO DAILY (DME) lancets [OneTouch Delica Lancets] 33 gauge misc See Rx Instructions .ROUTE .MEDSUPPLY Qty: 100 11RF Rx Instructions: T.i.d. (DME) pen needle, diabetic [Ultra-Thin II Ins Pen [place]] 29 gauge x 1/2 needle See Rx Instructions .ROUTE .MEDSUPPLY Qty: 100 3RF Rx Instructions: use to inject insulin daily metformin 1,000 mg tablet 1,000 mg PO BID Qty: 180 3RF Gemtesa 75 mg tablet 75 mg PO DAILY ezetimibe [Zetia] 10 mg tablet 10 mg PO DAILY Qty: 90 3RF Follow-up/Referrals: Tapan Glover MD [Primary Care Provider] -
[2024-09-30 12:16] LABS: Alanine Aminotransferase 19 U/L (6-35); Albumin Level 3.8 g/dL (3.5-5.1); Alkaline Phosphatase 95 U/L (38-126); Anion Gap 12 mmol/L (4-12); Aspartate Amino Transferase 20 U/L (14-36); Bilirubin,Total 1.1 mg/dL (0.2-1.3); Blood Urea Nitrogen 35 mg/dL (7-17); Calcium 9.5 mg/dL (8.4-10.2); Carbon Dioxide 18 mmol/L (22-30); Chloride 102 mmol/L (98-107); Estimated CRCL calculation 37 ml/min; Estimated Glomerular Filt Rate 43; Glucose 630 mg/dL (65-110); Potassium 4.9 mmol/L (3.4-5.0); Sodium 132 mmol/L (137-145)
[2024-09-30 12:37] LABS: Fractional Inspired Oxygen 28 %; HCO3 VBG 21.3 mEq/l (24.0-30.0); PCO2 VBG 40.3 mmHg (42.0-48.0); PO2 VBG 36.1 mmHg (35.0-45.0)
[2024-09-30 12:38] LABS: Device NASAL CANNULA
[2024-09-30 12:53] LABS: Magnesium 1.8 mg/dL (1.6-2.3); Phosphorus 4.1 mg/dL (2.5-4.5)
[2024-09-30 12:56] LABS: Beta-Hydroxybutyrate/Acetoacetate 0.29 mmol/L (0.02-0.27)
[2024-09-30 13:11] LABS: Hemoglobin A1C 12.9 % (<5.7)
[2024-09-30 13:33] LABS: Glucose Point of Care > 500 mg/dl (65-105)
[2024-09-30] MEDS: ONDANSETRON INJ 4 MG/2 ML VIAL IV PUSH (13:44)
[2024-09-30] MEDS: INSULIN HUMAN REGULAR (*BKC) 100 UNITS/ML 13 UNITS IV PUSH (13:44)
[2024-09-30] MEDS: MORPHINE SULFATE (*CRX) 4 MG/ML INJ IV PUSH ×3 (13:44→23:41)
[2024-09-30] MEDS: SODIUM CHLORIDE 0.9% 1776 ML IV CONT (13:45)
[2024-09-30 13:59] LABS: INR 1.1; Prothrombin Time 14.3 Seconds (11.1-14.7)
[2024-09-30 14:00] LABS: Partial Thromboplastin Time 27.8 Seconds (22.3-36.8)
[2024-09-30] MEDS: HEPARIN SODIUM 5,000 UNITS/ML VIAL 5500 UNITS IV PUSH (14:17)
[2024-09-30] MEDS: HEPARIN SOD/D5W 100 UNITS/ML 25,000 UNITS/250 ML BAG 12 UNITS IV CONT (14:18)
[2024-09-30 14:28] LABS: Glucose 708 mg/dL (65-110)
[2024-09-30 14:50] LABS: Glucose Point of Care > 500 mg/dl (65-105)
[2024-09-30 15:48] LABS: Anion Gap 12 mmol/L (4-12); Blood Urea Nitrogen 33 mg/dL (7-17); Calcium 8.6 mg/dL (8.4-10.2); Carbon Dioxide 20 mmol/L (22-30); Chloride 106 mmol/L (98-107); Estimated CRCL calculation 37 ml/min; Estimated Glomerular Filt Rate 43; Glucose 442 mg/dL (65-110); Glucose 444 mg/dL (65-110); Magnesium 1.8 mg/dL (1.6-2.3); Phosphorus 3.6 mg/dL (2.5-4.5); Potassium 4.3 mmol/L (3.4-5.0); Sodium 138 mmol/L (137-145)
[2024-09-30 15:49] LABS: Hemoglobin A1C 12.8 % (<5.7)
[2024-09-30 15:50] LABS: Anion Gap 11 mmol/L (4-12); Blood Urea Nitrogen 34 mg/dL (7-17); Calcium 8.6 mg/dL (8.4-10.2); Carbon Dioxide 20 mmol/L (22-30); Chloride 106 mmol/L (98-107); Estimated CRCL calculation 37 ml/min; Estimated Glomerular Filt Rate 43; Glucose 444 mg/dL (65-110); Potassium 4.3 mmol/L (3.4-5.0); Sodium 137 mmol/L (137-145)
[2024-09-30] MEDS: INSULIN HUMAN REGULAR (*BKC) 100 UNITS in SODIUM CHLORIDE 0.9% IV 99 ML 8.88 UNITS IV CONT (16:29)
[2024-09-30] MEDS: SODIUM CHLORIDE 0.9% IV 1,000 ML 150 ML IV CONT (16:31)
--- NOTE | 2024-09-30 16:52 | P.HP_ITS ---
H&P: HPI History of Present Illness Date/Time: 09/30/24 16:52 Chief Complaint: Rib Pain and SOB Narrative: 79 y/o F presents here with rib pain and shortness of breath with PMH of AAA w/endovascular repair, CKD, chronic AFib, CAD, CVA, diabetes, thrombocytopenia, vitamin B12 deficiency. The patient presents here from home for further evaluation of rib pain. She reports acute onset of right sided abdominal pain, right sided rib pain, and shortness of breath after she was moving a box on Thursday (09/27). Initially believed she overdid it with lifting a heavy object. She has a history of a abdominal aortic aneurysm which was endovascularly repaired in September of 2023. Due to this history she has been advised not to lift heavy objects over 5 lbs, unsure if that was temporary or a permanent restriction. She is currently on Plavix, no further anticoagulation. She reports the shortness of breath is constant and bad , no identifiable alleviating or aggravating factors. Denies any associated chest pain, palpitations, dizziness, N/V/D, fever, chills. She denies any recent extended travel via car or plane, recent surgery, or treatment for malignancy in the past. No previous hx of blood clots. She is not on supplemental O2 and has no history of COPD or asthma. The patient has hx of RACIEL, not on CPAP due to dislike/intolerance. She reports no changes to her DM medications. She reports she does not check her sugar often, her monitor has not been working and she has not been paying attention to it for the past month due to stress from trying to move. She reports compliance with taking her i nsulin and metformin daily, however has been taking her insulin differently than prescribed. She reports she has been taking Lantus 37u once per day, prescribed as 50u BID. Endorses polydipsia and polyuria with accompanying the hyperglycemia. Initial VS at presentation: 98.4? F, HR 88, RR 18, 166/83, and 97% on 3L NC. ED workup showed: WBC 10.4, hemoglobin 15.6, normal coags, creatinine 1.2 and GFR 43, initial POC glucose greater than 500, A1c 12.8%, beta hydroxy 0.29, and gap 11. CXR showed no acute cardiopulmonary disease. CT of the chest/abdomen/pelvis with con showed pulmonary emboli in all lobes, worst in the right lower lobe. Infarct in right lung lower lobe. 6.9 cm fusiform aneurysm of infrarenal aorta with stent graft in expected position and no endoleak. Review of Systems Review of Systems: All systems reviewed & are unremarkable except as noted in HPI and below PMFSH Past Medical History Medical History AAA (abdominal aortic aneurysm) without rupture (~05/17/23) Endovascular repair 10/09/2023. 7 x 6.6 cm abdominal aortic aneurysm On CT in the ER 05/17/2023. Acute bronchitis Anemia Hemoglobin normal at 14.1 with vitamin B12 397, folic acid 12.2, iron 127 with 39% saturation and ferritin 57 on 07/26/2024. At moderate risk for fall Chronic atrial fibrillation (04/23/22) Chronic depression Chronic kidney disease (CKD) stage G3b/A2, moderately decreased glomerular filtration rate (GFR) between 30-44 mL/min/1.73 square meter and albuminuria creatinine ratio between 30-299 mg/g BUN 35 with creatinine 1.30 and GFR 40 on 03/31/2022. BUN 24, creatinine 1.10 with GFR 48 on 05/26/2024. BUN 32, creatinine 1.18 with GFR 47 on 07/26/2024. Chronic pain in right foot Controlled type 2 diabetes mellitus with hyperglycemia, with long-term current use of insulin glucose 304 with hemoglobin A1c 10.9 on 03/27/2022. glucose 243 with hemoglobin A1c 10.1 on 05/26/2024. Fasting glucose 413 with hemoglobin A1c 10.2 With GFR 47 and microalbumin ratio of 1048 on 07/26/2024. Contusion of face Coronary artery disease involving [place] coronary artery of [place] heart without angina pectoris COVID-19 (10/31/22) tested positive 11/05/2022 CVA (cerebral vascular accident) Diabetic neuropathy, type II diabetes mellitus (06/12/21) Fall Functional memory problem Heart disease Hypersomnia Microalbuminuria ratio 1048 on 07/26/2024. Neoplasm of skin NSTEMI (non-ST elevated myocardial infarction) (04/16/22) incomplete PTCA of the LAD 04/17/2022. CABG LAD 04/22/22. Overactive bladder Renal insufficiency BUN 27 with creatinine 1.24 with GFR 42 on 03/27/2022. Screening for diabetic retinopathy (09/24/21) no diabetic retinopathy on dilated eye exam 09/24/2021. Recheck annually. no retinopathy 01/29/2024. Thrombocytopenia Platelets 124 on 05/26/2024. Platelets 119 on 07/26/2024. Vitamin B12 deficiency level low at 397 with goal greater than 400 with folic acid 12.12 on 07/26/2024. (12/26/19) Surgical History Surgical History H/O knee surgery Left total knee replacement 2015 right knee arthroscopy about 2000 History of cardiac cath Family History Family History Mother Family history of cardiovascular disease, Onset Age: 66 Hypertension Cerebrovascular accident Hypercholesteremia Diabetes mellitus Heart disease Father Cerebrovascular accident, Onset Age: 77 Hypercholesteremia Heart disease Sibling Diabetes mellitus Cancer Heart disease Cerebrovascular accident Grandparent Diabetes mellitus Social History Social History Smoking packs per day: 1 Smoking cigarettes per day: 20.0 Years smoked: 45 Smoking pack-years: 45.00 Smoking status: Former smoker Alcohol intake: never Alcohol use details: on occasion Substance use: never Substance use type: does not use Other substance usage details: one drink a month Do You Feel Safe in your Home?: Yes Lack of Transportation: No Lack of Food: Never True Current Housing: I Have Housing Concerned About Future Housing: No Difficulty Paying Gas/Electric Bills: No Difficulty Paying for Meds: No Currently Unemployed: No Education: High School Diploma/GED Difficulty w/ Childcare or Family Care: No Living arrangements: alone Occupation/Education: retired Gender identity (if verbalized by the patient): Female Spiritual care concerns: No Meds Home Medications and Allergies Home Medications Medication Instructions Recorded Confirmed Type clopidogrel 75 mg tablet 75 mg PO DAILY 10/26/19 09/30/24 History rosuvastatin 40 mg tablet 40 mg PO DAILY 10/26/19 09/30/24 History lancets 33 gauge (OneTouch Delica #100 ea 10/04/20 09/30/24 Rx Lancets) pen needle, diabetic 29 gauge x #100 ea 11/09/20 11/01/24 Rx 1/2 (Ultra-Thin II Insulin Pen Leadore) blood sugar diagnostic #100 ea 06/12/21 09/30/24 Rx metformin 1,000 mg tablet 1,000 mg PO BID #180 tabs 12/17/21 09/30/24 Rx vibegron 75 mg tablet (Gemtesa) 75 mg PO DAILY 04/30/22 09/30/24 History losartan 100 mg tablet 100 mg PO DAILY 12/18/22 09/30/24 History ezetimibe 10 mg tablet (Zetia) 10 mg PO DAILY #90 tabs 02/02/23 09/30/24 Rx metoprolol succinate 25 mg 25 mg PO DAILY 06/30/23 09/30/24 History tablet,extended release 24 hr insulin glargine 100 unit/mL (3 50 unit subcut Q12H 07/27/24 09/30/24 History mL) subcutaneous pen (Lantus Solostar U-100 Insulin) Allergies Allergy/AdvReac Type Severity Reaction Status Date / Time Sulfa (Sulfonamide Allergy Unknown Unknown Verified 05/25/24 17:46 Antibiotics) Vital Signs Vital Signs - 24 hr 09/30/24 11:11 09/30/24 11:24 09/30/24 14:15 Temperature 98.4 F Pulse Rate 88 85 Respiratory Rate 18 31 H Blood Pressure 166/83 H Pulse Oximetry 97 97 98 Oxygen Delivery Nasal Cannula Nasal Cannula Oxygen Flow Rate 3 2 09/30/24 14:17 09/30/24 14:30 09/30/24 14:32 Temperature Pulse Rate 83 81 79 Respiratory Rate 19 22 H 28 H Blood Pressure 161/61 H 151/66 H Pulse Oximetry 100 98 98 Oxygen Delivery Oxygen Flow Rate 09/30/24 14:33 09/30/24 14:45 09/30/24 14:47 Temperature Pulse Rate 77 79 81 Respiratory Rate 18 22 H 30 H Blood Pressure 149/81 H Pulse Oximetry 100 100 100 Oxygen Delivery Oxygen Flow Rate 09/30/24 15:00 09/30/24 15:02 09/30/24 15:15 Temperature Pulse Rate 79 78 76 Respiratory Rate 26 H 31 H 24 H Blood Pressure 133/72 Pulse Oximetry 99 100 Oxygen Delivery Oxygen Flow Rate 09/30/24 15:17 09/30/24 15:30 09/30/24 15:32 Temperature Pulse Rate 74 73 74 Respiratory Rate 33 H 24 H 25 H Blood Pressure 156/70 H 134/71 Pulse Oximetry 100 100 Oxygen Delivery Oxygen Flow Rate 09/30/24 15:45 09/30/24 15:47 09/30/24 16:00 Temperature Pulse Rate 73 74 73 Respiratory Rate 23 H 25 H 40 H Blood Pressure 129/69 Pulse Oximetry 99 100 100 Oxygen Delivery Oxygen Flow Rate 09/30/24 16:15 09/30/24 16:27 Temperature Pulse Rate 71 71 Respiratory Rate 27 H 20 Blood Pressure 138/65 Pulse Oximetry 100 100 Oxygen Delivery Oxygen Flow Rate Exam Const: General: comfortable and no acute distress Other: , female, elderly, ill-appearing HENMT: Face/Nose/Sinus: Normal nares present Mouth: Yes moist mucous membranes Other: NC in place Eyes: General: appearance normal, both eyes and all related structures Sclera: sclerae normal Pupils: Equal, round and reactive pupils present EOM: EOMs intact bilaterally Resp: Other: Tachypneic without accessory muscle use. No adventitious lung sounds on the left, right side slightly diminished without crackles or wheezing. Cardio: Rate: regular rate Rhythm: regular rhythm Other: S1-S2 present without murmur, rub, ectopy GI: Other: Abdomen soft, nondistended, nontender. Skin: General skin exam: normal color and no rashes or lesions noted Wounds: no wounds Neuro: Speech: normal speech Motor exam (neuro): 5/5 motor strength present throughout Sensory Exam: normal sensation Other: A&O x4 Extrem: General: normal to inspection Psych: Mental Status: mental status grossly normal Affect: normal affect Other: Good insight and judgment H&P: Results Labs Labs: Short CBC 09/30/24 Range/Units 11:38 WBC 10.2 H (4.5-10.0) K/mm3 Hgb 15.6 H (12.0-15.0) g/dL Hct 44.4 (37.0-47.0) % Plt Count 142 L (150-375) k/mm3 BMP 09/30/24 09/30/24 09/30/24 11:38 13:48 15:27 Sodium 132 L 138 Potassium 4.9 Chloride 102 Carbon Dioxide 18 L BUN 35 H D Creatinine 1.20 H Glucose 630 H* 708 H* Calcium 9.5 09/30/24 09/30/24 09/30/24 15:27 15:27 15:27 Sodium 137 Potassium 4.3 4.3 Chloride 106 106 Carbon Dioxide 20 L BUN Creatinine Glucose Calcium 09/30/24 09/30/24 09/30/24 15:27 15:27 15:27 Sodium Potassium Chloride Carbon Dioxide 20 L BUN 33 H 34 H Creatinine 1.20 H 1.20 H Glucose 442 H Calcium 09/30/24 09/30/24 09/30/24 15:27 15:27 15:27 Sodium Potassium Chloride Carbon Dioxide BUN Creatinine Glucose 444 H 444 H Calcium 8.6 8.6 Liver Function 09/30/24 Range/Units 11:38 Total Bilirubin 1.1 (0.2-1.3) mg/dL AST 20 (14-36) U/L ALT 19 (6-35) U/L Alkaline Phosphatase 95 (38-126) U/L Albumin 3.8 (3.5-5.1) g/dL Assessment and Plan Assessment and plan (1) Pulmonary embolism and infarction: Code(s): I26.99 - Other pulmonary embolism without acute cor pulmonale Status: Acute Assessment and Plan: - CT chest/abdomen/pelvis w/con: 1. Pulmonary emboli in all lobes, worst in right lower lobe. 2. Infarct in right lung lower lobe. 3. 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 No endoleak. - started on heparin gtt - currently requiring 3L NC, no previous requirement - admission to ICU with tunnel elastic operator chainstitch consulted (2) Hyperglycemia due to diabetes mellitus: Code(s): E11.65 - Type 2 diabetes mellitus with hyperglycemia Status: Acute Assessment and Plan: Initial glucose on BMP was 630, given 13 units of regular insulin IVP and repeat glucose was 708 on BMP. Given poor response, patient was placed on insulin drip and admitted to the ICU for closer glucose monitoring. 2L bolus also given. - hypoglycemia protocol - POC blood glucose Q1H while on drip - started on insulin gtt, currently at 8.88 units/hour - home medication: Hold metformin due to recent IV contrast. On Lantus 50 units b.i.d., however taking as 37 units of Lantus daily. Will order one time dose of 37u of Lantus, tunnel elastic operator chainstitch to address further in AM. - A1C 12.8%, beta hydroxy 0.29, and gap 11 on 09/30/2024 - parts person and dietitian consulted - admission to ICU with tunnel elastic operator chainstitch consulted (3) Aneurysm of infrarenal abdominal aorta: Qualifiers: Presence of rupture: without rupture Qualified Code(s): I71.43 - Infr arenal abdominal aortic aneurysm, without rupture Code(s): I71.43 - Infrarenal abdominal aortic aneurysm, without rupture Status: Chronic Assessment and Plan: - CT showed 6.9 cm fusiform aneurysm of infrarenal aorta with stent graft in expected position. No endoleak. (4) Chronic kidney disease (CKD) stage G3b/A2, moderately decreased glomerular filtration rate (GFR) between 30-44 mL/min/1.73 square meter and albuminuria creatinine ratio between 30-299 mg/g: Code(s): N18.32 - Chronic kidney disease, stage 3b Status: Chronic Assessment and Plan: - creatinine 1.2 and GFR 43, previously 1.18 and if 47 on 07/26/2024 - trend renal function - trend electrolytes, correct as needed (5) Essential (primary) hypertension: Code(s): I10 - Essential (primary) hypertension Status: Chronic Assessment and Plan: - chronic, currently 138/65 - continue home medications: Losartan 100 mg daily, metoprolol ER 25 mg daily - monitor (6) Obstructive sleep apnea: Onset Date: 04/02/21 Code(s): G47.33 - Obstructive sleep apnea (adult) (pediatric) Status: Acute Assessment and Plan: - intolerant of CPAP Plan Diet: Diabetic GI Prophylaxis: Pantoprazole IVP DVT Prophylaxis: Heparin GTT Lines: Peripheral Code Status: Full code Quality VTE Prophylaxis VTE prophylaxis: pharmacologic ordered Critical Care Time: I personally spent 35 minutes of direct patient care including (but not limited to) the physical examination, decision-making, bedside evaluation, review of medical records, review of labs and imaging, discussion with nursing staff and other providers for collaborative, critical care management of this patient. Hospitalist [facility] Advance Care Plan I have confirmed that the patient's Advanced Care Plan is present, code status is documented, or surrogate decision maker is listed in patient medical record.: Yes Medication Reconciliation I have utilized all available resources to obtain, update and review the patients current medications (includes all prescriptions, OTC, herbals, cannabis, and nutritional supplements).: Yes
[2024-09-30 17:33] LABS: Glucose Point of Care 324 mg/dl (65-105)
--- NOTE | 2024-09-30 17:48 | PC.NURSE ---
Patient arrived via stretcher from the ED at 1710. Patient alert and oriented x4 with heparin and insulin gtts running.
[2024-09-30] MEDS: PANTOPRAZOLE SODIUM IV 40 MG VIAL IV PUSH (18:22)
[2024-09-30 18:28] LABS: Glucose Point of Care 306 mg/dl (65-105)
[2024-09-30 19:26] LABS: MRSA (PCR) NOT DETECTED (NOT DETECTE)
[2024-09-30 19:36] LABS: Glucose Point of Care 208 mg/dl (65-105)
[2024-09-30 20:14] LABS: Partial Thromboplastin Time 88.3 Seconds (22.3-36.8)
[2024-09-30 20:21] LABS: Anion Gap 10 mmol/L (4-12); Blood Urea Nitrogen 32 mg/dL (7-17); Calcium 9.2 mg/dL (8.4-10.2); Carbon Dioxide 23 mmol/L (22-30); Chloride 105 mmol/L (98-107); Estimated CRCL calculation 39 ml/min; Estimated Glomerular Filt Rate 48; Glucose 209 mg/dL (65-110); Potassium 3.9 mmol/L (3.4-5.0); Sodium 138 mmol/L (137-145)
[2024-09-30 20:32] LABS: Glucose Point of Care 162 mg/dl (65-105)
[2024-09-30 21:44] LABS: Glucose Point of Care 116 mg/dl (65-105)
[2024-09-30 22:34] LABS: Glucose Point of Care 96 mg/dl (65-105)
[2024-09-30 23:31] LABS: Anion Gap 5 mmol/L (4-12); Blood Urea Nitrogen 32 mg/dL (7-17); Calcium 9.2 mg/dL (8.4-10.2); Carbon Dioxide 26 mmol/L (22-30); Chloride 107 mmol/L (98-107); Estimated CRCL calculation 36 ml/min; Estimated Glomerular Filt Rate 43; Glucose 89 mg/dL (65-110); Sodium 138 mmol/L (137-145)
[2024-09-30] MEDS: INSULIN GLARGINE (*BKC) 100 UNITS/ML 37 UNITS SUB-Q (23:38)
[2024-09-30 23:44] LABS: Glucose Point of Care 97 mg/dl (65-105)
[2024-10-01] VITALS (21 sets, daily range): BP systolic 105–159; BP diastolic 58–83; PULSE 65–123; RESP 16–30; TEMP 36.4–37.6; O2SAT 92–99
--- NOTE | 2024-10-01 | ECHO_ITS ---
Patient Info Name: Christine De Jesus Age: 79 years : 1945 Gender: Female Ht: 64 in Wt: 195 lbs BSA: 2.03 m2 Heart Rhythm: Indeterminant Technical Quality: Poor Exam Date: 10/01/2024 10:57 AM Exam Location: Echo Lab Patient Status: Inpatient Admit Date: 09/30/2024 Staff Ordering Physician: Garret Sigala MD Trauma Coordinator: Ap Parker RDCS Attending Provider: Jaylan Carter MD Exam Type: CA echo dop color flow w con Study Info Indications - PE Complete two-dimensional, color flow and Doppler transthoracic echocardiogram is performed with contrast to opacify the left ventricle and to improve the deliniation of the left ventricle endocardial borders. Summary 1. Left ventricular systolic function is normal, estimated at >70%. 2. There is severely increased left ventricular wall thickness. 3. The left ventricular diastolic function is abnormal. 4. Right ventricular chamber dimension is mildly enlarged. 5. Right ventricular systolic function is normal. 6. There is moderate to severe tricuspid valve regurgitation. 7. Severe pulmonary hypertension, estimated pulmonary arterial systolic pressure is 78 mmHg. Left Ventricle Left ventricular chamber dimension is normal. Left ventricular systolic function is normal, estimated at >70%. There is severely increased left ventricular wall thickness. Left ventricular septal wall motion is normal. The left ventricular diastolic function is abnormal. Right Ventricle Right ventricular chamber dimension is mildly enlarged. Right ventricular systolic function is normal. Left Atria Left atrial chamber dimension is mildly enlarged. Right Atria Right atrial chamber dimension is mildly enlarged. Aortic Valve The aortic valve is trileaflet. There is no aortic valve sclerosis. There is no aortic valve stenosis. There is no aortic valve regurgitation. Pulmonic Valve The pulmonic valve is normal. There is no pulmonic valve stenosis. There is no pulmonic regurgitation. Mitral Valve The mitral valve has normal leaflets. There is no mitral valve stenosis. There is no mitral valve regurgitation. There is mild mitral valve calcification. Tricuspid Valve The tricuspid valve leaflets are normal. There is no significant tricuspid valve stenosis. There is moderate to severe tricuspid valve regurgitation. Severe pulmonary hypertension, estimated pulmonary arterial systolic pressure is 78 mmHg. Pericardium/Pleural The pericardium appears normal. There is no pericardial effusion. Aorta The aortic root size at the sinus of Valsalva is normal. The prox ascending aorta size is normal. Left Ventricular Outflow Tract Name Value Normal LVOT 2D LVOT Diameter 1.90 cm LVOT Doppler LVOT Peak Gradient 6 mmHg LVOT Mean Gradient 3 mmHg LVOT VTI 18.01 cm LVOT VTI/AV VTI Ratio 0.94 LVOT Stroke Volume 51.22 ml LVOT CO 5.88 l/min LVOT CI 2.89 L/min/m2 Mitral Valve Name Value Normal MV Doppler MV Decel [place] 704.15 cm/s2 MV PHT 0 s MV Area (PHT) 4.85 cm2 4.00-5.00 MV Diastolic Function MV E Peak Velocity 110.12 cm/s MV A Peak Velocity 3.59 cm/s MV E/A 30.68 MV Decel Time 0 s MV Annular TDI MV E/e' (Septal) 29.14 <=8.00 MV E/e' (Lateral) 17.19 <=8.00 MV E/e' (Average) 23.17 Tricuspid Valve Name Value Normal TV Regurgitation Doppler TR Peak Velocity 411.17 cm/s TR Peak Gradient 25 mmHg Estimated PAP/RSVP RA Pressure 10 mmHg <=5 PA Systolic Pressure 78 mmHg <36 RV Systolic Pressure 78 mmHg <36 Aortic Valve Name Value Normal AV Doppler AV Peak Velocity 116.92 cm/s AV Peak Gradient 5 mmHg AV Mean Gradient 3 mmHg AV VTI 19.11 cm AV Area (Cont Eq VTI) 2.68 cm2 >=3.00 AV Area (Cont Eq Nitesh) 3.02 cm2 AV Regurgitation 2D LVOT Area 2.84 cm2 Ventricles Name Value Normal LV Dimensions 2D/MM IVS Diastolic Thickness (2D) 1.39 cm 0.60-1.00 LVID Diastole (2D) 4.12 cm 3.80-5.20 LVIW Diastolic Thickness (2D) 1.40 cm 0.60-0.90 LVID Systole (2D) 2.59 cm 2.20-3.50 LVOT Diameter 1.90 cm LV Mass (2D Cubed) 216.82 g 67.00-162.00 LV Mass Index (2D Cubed) 0.01 g/cm2 0.00-0.01 Relative Wall Thickness (2D) 0.68 LV Fractional Shortening/Ejection Fraction 2D/MM LV Fractional Shortening (2D) 37 % 27-45 LV EF (2D Teicholz) 68 % 54-74 LV Diastolic Volume (4C MOD) 69.70 ml LV EF (4C MOD) 58 % LV Diastolic Volume (2C MOD) 81.01 ml LV EF (2C MOD) 54 % LV Diastolic Volume (BP MOD) 75.70 ml 46.00-106.00 LV Diastolic Volume Index (BP MOD) 0.04 l/m2 0.03-0.06 LV Systolic Volume (BP MOD) 34.50 ml 14.00-42.00 LV Systolic Volume Index (BP MOD) 0.02 l/m2 0.01-0.02 LV EF (BP MOD) 54 % 54-74 LV Diastolic Length (4C) 7.18 cm LV Systolic Length (4C) 5.77 cm LV Stroke Volume (4C MOD) 40.10 ml Atria Name Value Normal LA Dimensions LA Volume (4C A-L) 44.15 ml LA Volume (BP A-L) 40.14 ml RA Dimensions RA Area (4C) 15.73 cm2 <=18.00 Report Signatures
[2024-10-01 00:43] LABS: Glucose Point of Care 129 mg/dl (65-105)
[2024-10-01] MEDS: HYDROcodone/acetaminophen (*CRX) 5-325 MG TABLET 1 TAB PO ×3 (00:58→12:33)
[2024-10-01] MEDS: MORPHINE SULFATE (*CRX) 4 MG/ML INJ IV PUSH ×4 (02:08→14:19)
[2024-10-01 02:28] LABS: Glucose Point of Care 182 mg/dl (65-105)
[2024-10-01 03:42] LABS: Basophils Percent Auto 0.4 % (0.2-1.2); Eosinophils Absolute Auto 0.1 K/mm3 (0-0.3); Eosinophils Percent Auto 0.7 % (0-4.4); Hematocrit 40.1 % (37.0-47.0); Hemoglobin 13.9 g/dL (12.0-15.0); Immature Granulocyte Absolute 0.05 K/mm3 (0.00-0.031); Immature Granulocyte Percent A 0.6 % (0-0.5); Lymphocytes Absolute Auto 1.04 K/mm3 (0.9-3.2); Lymphocytes Percent Auto 12.3 % (18.3-44.2); Mean Corpuscular HGB Conc 34.7 g/dl (32-36); Mean Corpuscular Hemoglobin 32.6 pg (26-34); Mean Corpuscular Volume 93.9 fl (80-100); Mean Platelet Volume 9.2 fl (7.4-10.4); Monocytes Absolute Auto 0.8 K/mm3 (0.1-0.6); Monocytes Percent Auto 9.2 % (2.6-8.5); Neutrophils Absolute Auto 6.5 K/mm3 (1.3-6.7); Neutrophils Percent Auto 76.8 % (45.5-73.1); Platelet Count Result 128 k/mm3 (150-375); Red Blood Count 4.27 M/mm3 (4.2-5.4); Red Cell Distribution Width 13.5 % (11.5-14.5); White Blood Count 8.5 K/mm3 (4.5-10.0)
[2024-10-01 03:54] LABS: Partial Thromboplastin Time 67.1 Seconds (22.3-36.8)
[2024-10-01 03:59] LABS: Anion Gap 8 mmol/L (4-12); Blood Urea Nitrogen 32 mg/dL (7-17); Calcium 9.1 mg/dL (8.4-10.2); Carbon Dioxide 24 mmol/L (22-30); Chloride 105 mmol/L (98-107); Estimated CRCL calculation 33 ml/min; Estimated Glomerular Filt Rate 40; Glucose 200 mg/dL (65-110); Potassium 4.3 mmol/L (3.4-5.0); Sodium 137 mmol/L (137-145)
[2024-10-01] MEDS: HEPARIN SODIUM 5,000 UNITS/ML VIAL 2500 UNITS IV PUSH (05:01)
[2024-10-01 06:07] LABS: Glucose Point of Care 265 mg/dl (65-105)
[2024-10-01 08:22] LABS: Glucose Point of Care 243 mg/dl (65-105)
[2024-10-01] MEDS: ONDANSETRON INJ 4 MG/2 ML VIAL IV PUSH (08:27)
[2024-10-01] MEDS: EZETIMIBE 10 MG TABLET PO (08:28)
[2024-10-01] MEDS: ROSUVASTATIN 20 MG TABLET 40 MG PO (08:28)
[2024-10-01] MEDS: METOPROLOL SUCCINATE EXT REL 25 MG TABCR PO (08:28)
[2024-10-01] MEDS: PANTOPRAZOLE SODIUM IV 40 MG VIAL IV PUSH (08:28)
[2024-10-01] MEDS: CLOPIDOGREL BISULFATE 75 MG TABLET PO (08:28)
[2024-10-01] MEDS: LOSARTAN POTASSIUM 100 MG TABLET PO (08:28)
[2024-10-01 08:37] LABS: Anion Gap 9 mmol/L (4-12); Blood Urea Nitrogen 34 mg/dL (7-17); Calcium 9.2 mg/dL (8.4-10.2); Carbon Dioxide 23 mmol/L (22-30); Chloride 105 mmol/L (98-107); Estimated CRCL calculation 36 ml/min; Estimated Glomerular Filt Rate 43; Glucose 262 mg/dL (65-110); Potassium 4.9 mmol/L (3.4-5.0); Sodium 137 mmol/L (137-145)
--- NOTE | 2024-10-01 09:46 | ECG_ITS ---
Test Date: 2024-10-01 09:53:59 Measurements Intervals [place] Rate: 115 P: 0 MD: 0 QRS: -16 QRSD: 136 T: 165 QT: 365 QTc: 507 Interpretive Statements ATRIAL FIBRILLATION WITH RAPID VENTRICULAR RESPONSE LEFT BUNDLE BRANCH BLOCK BASELINE ARTIFACT- I, II, AVR, AVL, AVF, V4-V6 ABNORMAL ECG Compared to ECG 09/30/2024 11:32:22 Sinus rhythm no longer present Electronically Signed On 10-01-2024 11:07:51 CDT by Jeff Martinez D.O.
[2024-10-01 10:03] LABS: NT Pro B Type Natriuretic Pept 579 pg/mL (19.9-100)
[2024-10-01] MEDS: METOPROLOL TARTRATE INJ 5 MG/5 ML VIAL IV PUSH (10:07)
[2024-10-01] MEDS: INSULIN GLARGINE (*BKC) 100 UNITS/ML 25 UNITS SUB-Q (10:13)
[2024-10-01] MEDS: HEPARIN SOD/D5W 100 UNITS/ML 25,000 UNITS/250 ML BAG 13 UNITS IV CONT (11:00)
[2024-10-01] MEDS: PERFLUTREN LIPID MICROSPHERES 1.5 ML VIAL DILUTED TO 10 ML TOTAL VOLUME IV PUSH (11:15)
--- NOTE | 2024-10-01 11:42 | WPDCNINT ---
Assessment and Plan Assessment and plan (1) Pulmonary embolism and infarction: Code(s): I26.99 - Other pulmonary embolism without acute cor pulmonale Status: Acute Assessment and Plan: Patient presented with chest pain and shortness of breath IMPRESSION: 1. Pulmonary emboli in all lobes, worst in right lower lobe. 2. Infarct in right lung lower lobe. At this time she is fairly hypoxic is on 35 L Airvo 50% FiO2. She has right-sided chest pain from infarction and is taking rapid shallow breathing. She went into AFib with RVR transiently and converted to sinus with IV beta-birgit. I reviewed CT findings with Dr. Meraz from Radiology states the patient has a large clot obstructing artery towards right lower and middle lobe. I also reviewed echo cardiogram with Dr. Jackson from Cardiology and he told me the the patient has slight dilation RV and increased RV pressures. Although patient is not hypotensive with this time considering her hypoxia and hemodynamic findings she is at high risk. I have discussed this with the patient regarding potentially transferring her to a tertiary facility for catheter directed intervention including thrombolysis and or aspiration. Patient is agreeable to transfer. I have spoken to [facility] transfer line and waiting for a call back Meanwhile continue anticoagulation in the form of heparin infusion BNP 579 Lower extremity Dopplers are pending She will need additional evaluation to rule out any underlying pathology which m hav increased risk to develop PE but that will come once she is hemodynamically and respiratory status stabilized. (2) Aneurysm of infrarenal abdominal aorta: Qualifiers: Presence of rupture: without rupture Qualified Code(s): I71.43 - Infrarenal abdominal aortic aneurysm, without rupture Code(s): I71.43 - Infrarenal abdominal aortic aneurysm, without rupture Status: Chronic Assessment and Plan: She had endovascular repair done of infrarenal aortic aneurysm at [facility] and appears stable with graft in expected position on the CT scan with no leak (3) Chronic kidney disease (CKD) stage G3b/A2, moderately decreased glomerular filtration rate (GFR) between 30-44 mL/min/1.73 square meter and albuminuria creatinine ratio between 30-299 mg/g: Code(s): N18.32 - Chronic kidney disease, stage 3b Status: Chronic Assessment and Plan: Creatinine appears to be at baseline Electrolytes are acceptable range Monitor (4) DKA (diabetic ketoacidosis): Code(s): E11.10 - Type 2 diabetes mellitus with ketoacidosis without coma Status: Acute Assessment and Plan: Patient presented with blood sugar above 600. Her anion gap was normal although beta hydroxybutyrate was mildly elevated Patient was started on insulin infusion which was continued. Patient was given Lantus and has been switched to subcutaneous insulin now. Her anion gap has been normal blood sugars are improved I will increase Lantus to b.i.d. Continue sliding scale Add with meal insulin (5) Atrial fibrillation with rapid ventricular response: Code(s): I48.91 - Unspecified atrial fibrillation Status: Acute Assessment and Plan: Patient has history of AFib but was in sinus rhythm and went to AFib with RVR this morning Patient was given p.o. beta-birgit and 5 mg IV Lopressor. She appears to have converted to sinus rhythm Monitor and continue p.o. metoprolol Patient is already anticoagulated Plan DVT prophylaxis -heparin infusion Stress ulcer prophylaxis -PPI Nutrition -heart healthy diet diabetic Code Status - Full Code I spoke to transfer center at [facility] and patient accepted by Dr. Wagner but due to long wait at [facility] they recommended trying additional facility. I spoke to Dr. Parker at [facility] and she will accept the patient. Patient will transfer once a bed is available. Patient verbalized understanding of the risk and benefits of transfer and is agreeable. Total Critical Care Time - 30 minutes Due to a high probability of clinically significant, life threatening deterioration, the patient required my highest level of preparedness to intervene emergently and I personally spent this critical care time directly and personally managing the patient. This critical care time included obtaining a history; examining the patient; pulse oximetry; ordering and review of studies; arranging urgent treatment with development of a management plan; evaluation of patient's response to treatment; frequent reassessment; and discussions with other providers. It was exclusive of separately billable procedures and treating other patients and teaching time. Please see Assessment and Plan section and the rest of the note for further information on patient assessment and treatment Senior Marketing Analyst Consult Note Consult date: 10/01/24 Reason for consult: Pulmonary embolism, DKA HPI: Christine De Jesus is a 79 year old female with PMH of AAA w/endovascular repair, CKD, chronic AFib, CAD, CVA, diabetes, thrombocytopenia, vitamin B12 deficiency presented to ER with rib pain and shortness of breath since Thursday She states she was carrying basket of wet clothes on Thursday when suddenly she started feeling short of breath and started having pain on the right side of chest. He rates pain at 10 out 10 and dyspnea on exertion. She thought she had pulled some muscle and would get better by itself but mom did not improve and continued to get worse she presented to the hospital on 09/30. She denies any recent for trouble by flight or long drive. She has not received any cancer screening in long time. She denies any cough fever hematochezia melena dysuria hematuria abdominal pain nausea vomiting dizziness lightheadedness. All other systems were reviewed and were negative. She does not appear very compliant with the treatment as she is not sure how much insulin she is supposed to take and does not check her sugars regularly. She appears to be regularly modified the amount of insulin she takes by herself. She does not wear CPAP for sleep apnea. Initial VS at presentation: 98.4? F, HR 88, RR 18, 166/83, and 97% on 3L NC. Workup in the ER showed WBC 10.4, hemoglobin 15.6, normal coags, creatinine 1.2 and GFR 43, initial POC glucose greater than 500, A1c 12.8%, beta hydroxy 0.29, and gap 11. CXR showed no acute cardiopulmonary disease. CT of the chest/abdomen/pelvis with con showed pulmonary emboli in all lobes, worst in the right lower lobe. Infarct in right lung lower lobe. 6.9 cm fusiform aneurysm of infrarenal aorta with stent graft in expected position and no endoleak. Patient was started on heparin infusion, insulin infusion and given IV fluids. Patient was admitted to ICU for further evaluation management. Review of Systems Review of Systems: All systems reviewed & are unremarkable except as noted in HPI and below (HPI) [facility] Past Medical History Medical History AAA (abdominal aortic aneurysm) without rupture (~05/17/23) Endovascular repair 10/09/2023. 7 x 6.6 cm abdominal aortic aneurysm On CT in the ER 05/17/2023. Acute bronchitis Anemia Hemoglobin normal at 14.1 with vitamin B12 397, folic acid 12.2, iron 127 with 39% saturation and ferritin 57 on 07/26/2024. At moderate risk for fall Chronic atrial fibrillation (04/23/22) Chronic depression Chronic kidney disease (CKD) stage G3b/A2, moderately decreased glomerular filtration rate (GFR) between 30-44 mL/min/1.73 square meter and albuminuria creatinine ratio between 30-299 mg/g BUN 35 with creatinine 1.30 and GFR 40 on 03/31/2022. BUN 24, creatinine 1.10 with GFR 48 on 05/26/2024. BUN 32, creatinine 1.18 with GFR 47 on 07/26/2024. Chronic pain in right foot Controlled type 2 diabetes mellitus with hyperglycemia, with long-term current use of insulin glucose 304 with hemoglobin A1c 10.9 on 03/27/2022. glucose 243 with hemoglobin A1c 10.1 on 05/26/2024. Fasting glucose 413 with hemoglobin A1c 10.2 With GFR 47 and microalbumin ratio of 1048 on 07/26/2024. Contusion of face Coronary artery disease involving [place] coronary artery of [place] heart without angina pectoris COVID-19 (10/31/22) tested positive 11/05/2022 CVA (cerebral vascular accident) Diabetic neuropathy, type II diabetes mellitus (06/12/21) Fall Functional memory problem Heart disease Hypersomnia Microalbuminuria ratio 1048 on 07/26/2024. Neoplasm of skin NSTEMI (non-ST elevated myocardial infarction) (04/16/22) incomplete PTCA of the LAD 04/17/2022. CABG LAD 04/22/22. Overactive bladder Renal insufficiency BUN 27 with creatinine 1.24 with GFR 42 on 03/27/2022. Screening for diabetic retinopathy (09/24/21) no diabetic retinopathy on dilated eye exam 09/24/2021. Recheck annually. no retinopathy 01/29/2024. Thrombocytopenia Platelets 124 on 05/26/2024. Platelets 119 on 07/26/2024. Vitamin B12 deficiency level low at 397 with goal greater than 400 with folic acid 12.12 on 07/26/2024. (12/26/19) Surgical History Surgical History H/O knee surgery Left total knee replacement 2015 right knee arthroscopy about 2000 History of cardiac cath Family History Family History Mother Family history of cardiovascular disease, Onset Age: 66 Hypertension Cerebrovascular accident Hypercholesteremia Diabetes mellitus Heart disease Father Cerebrovascular accident, Onset Age: 77 Hypercholesteremia Heart disease Sibling Diabetes mellitus Cancer Heart disease Cerebrovascular accident Grandparent Diabetes mellitus Social History Social History Smoking packs per day: 1 Smoking cigarettes per day: 20.0 Years smoked: 45 Smoking pack-years: 45.00 Smoking status: Former smoker Alcohol intake: never Alcohol use details: on occasion Substance use: never Substance use type: does not use Other substance usage details: one drink a month Do You Feel Safe in your Home?: Yes Lack of Transportation: No Lack of Food: Never True Current Housing: I Have Housing Concerned About Future Housing: No Difficulty Paying Gas/Electric Bills: No Difficulty Paying for Meds: No Currently Unemployed: No Education: High School Diploma/GED Difficulty w/ Childcare or Family Care: No Living arrangements: alone Occupation/Education: retired Gender identity (if verbalized by the patient): Female Spiritual care concerns: No Meds Home Medications and Allergies Home Medications Medication Instructions Recorded Confirmed Type clopidogrel 75 mg tablet 75 mg PO DAILY 10/26/19 09/30/24 History rosuvastatin 40 mg tablet 40 mg PO DAILY 10/26/19 09/30/24 History lancets 33 gauge (OneTouch Delica #100 ea 10/04/20 09/30/24 Rx Lancets) pen needle, diabetic 29 gauge x #100 ea 10/08/20 09/30/24 Rx 1/2 (Ultra-Thin II Insulin Pen [place]) blood sugar diagnostic #100 ea 06/12/21 09/30/24 Rx metformin 1,000 mg tablet 1,000 mg PO BID #180 tabs 12/17/21 09/30/24 Rx vibegron 75 mg tablet (Gemtesa) 75 mg PO DAILY 04/30/22 09/30/24 History losartan 100 mg tablet 100 mg PO DAILY 12/18/22 09/30/24 History ezetimibe 10 mg tablet (Zetia) 10 mg PO DAILY #90 tabs 02/02/23 09/30/24 Rx metoprolol succinate 25 mg 25 mg PO DAILY 06/30/23 09/30/24 History tablet,extended release 24 hr insulin glargine 100 unit/mL (3 36 unit subcut DAILY 07/27/24 10/01/24 History mL) subcutaneous pen (Lantus Solostar U-100 Insulin) Allergies Allergy/AdvReac Type Severity Reaction Status Date / Time Sulfa (Sulfonamide Allergy Unknown Unknown Verified 05/25/24 17:46 Antibiotics) Vital Signs Vital Signs - 24 hr 09/30/24 14:15 09/30/24 14:17 09/30/24 14:30 Temperature Pulse Rate 85 83 81 Respiratory Rate 31 H 19 22 H Blood Pressure 161/61 H Pulse Oximetry 98 100 98 Oxygen Delivery Oxygen Flow Rate Fraction of Inspired Oxygen 09/30/24 14:32 09/30/24 14:33 09/30/24 14:45 Temperature Pulse Rate 79 77 79 Respiratory Rate 28 H 18 22 H Blood Pressure 151/66 H Pulse Oximetry 98 100 100 Oxygen Delivery Oxygen Flow Rate Fraction of Inspired Oxygen 09/30/24 14:47 09/30/24 15:00 09/30/24 15:02 Temperature Pulse Rate 81 79 78 Respiratory Rate 30 H 26 H 31 H Blood Pressure 149/81 H 133/72 Pulse Oximetry 100 99 100 Oxygen Delivery Oxygen Flow Rate Fraction of Inspired Oxygen 09/30/24 15:15 09/30/24 15:17 09/30/24 15:30 Temperature Pulse Rate 76 74 73 Respiratory Rate 24 H 33 H 24 H Blood Pressure 156/70 H Pulse Oximetry 100 Oxygen Delivery Oxygen Flow Rate Fraction of Inspired Oxygen 09/30/24 15:32 09/30/24 15:45 09/30/24 15:47 Temperature Pulse Rate 74 73 74 Respiratory Rate 25 H 23 H 25 H Blood Pressure 134/71 129/69 Pulse Oximetry 100 99 100 Oxygen Delivery Oxygen Flow Rate Fraction of Inspired Oxygen 09/30/24 16:00 09/30/24 16:15 09/30/24 16:27 Temperature Pulse Rate 73 71 71 Respiratory Rate 40 H 27 H 20 Blood Pressure 138/65 Pulse Oximetry 100 100 100 Oxygen Delivery Oxygen Flow Rate Fraction of Inspired Oxygen 09/30/24 17:31 09/30/24 18:04 09/30/24 18:00 Temperature 36.6 C Pulse Rate 73 72 Respiratory Rate 28 H Blood Pressure 159/83 H Pulse Oximetry 97 98 Oxygen Delivery Nasal Cannula Oxygen Flow Rate 3 Fraction of Inspired Oxygen 09/30/24 20:00 09/30/24 20:30 09/30/24 20:00 Temperature 36.8 C Pulse Rate 69 69 72 Respiratory Rate 27 H 27 H Blood Pressure 147/73 H Pulse Oximetry 97 97 Oxygen Delivery Nasal Cannula Oxygen Flow Rate 3 Fraction of Inspired Oxygen 09/30/24 22:00 09/30/24 22:00 10/01/24 00:10 Temperature Pulse Rate 66 65 65 Respiratory Rate 19 19 Blood Pressure 139/75 Pulse Oximetry 98 98 Oxygen Delivery Nasal Cannula Oxygen Flow Rate 3 Fraction of Inspired Oxygen 10/01/24 00:00 10/01/24 00:00 10/01/24 01:07 Temperature 36.6 C Pulse Rate 67 67 69 Respiratory Rate 17 Blood Pressure 148/71 H Pulse Oximetry 98 96 Oxygen Delivery High Flow Therapy with Na Oxygen Flow Rate 35 Fraction of Inspired Oxygen 50 10/01/24 02:00 10/01/24 02:00 10/01/24 04:00 Temperature Pulse Rate 73 73 70 Respiratory Rate 30 H Blood Pressure 155/83 H Pulse Oximetry 97 Oxygen Delivery Oxygen Flow Rate Fraction of Inspired Oxygen 10/01/24 04:45 10/01/24 04:00 10/01/24 06:00 Temperature 36.6 C Pulse Rate 70 70 71 Respiratory Rate 30 H 20 Blood Pressure 146/82 H Pulse Oximetry 97 98 Oxygen Delivery High Flow Therapy with Na Oxygen Flow Rate 35 Fraction of Inspired Oxygen 50 10/01/24 06:00 10/01/24 04:20 10/01/24 08:22 Temperature Pulse Rate 71 72 Respiratory Rate 23 H Blood Pressure 155/77 H Pulse Oximetry 96 98 92 Oxygen Delivery High Flow Therapy with Na High Flow Therapy with Na Oxygen Flow Rate 35 35 Fraction of Inspired Oxygen 50 50 10/01/24 08:28 10/01/24 08:00 10/01/24 10:07 Temperature 36.6 C Pulse Rate 76 76 123 H Respiratory Rate 20 Blood Pressure 140/70 Pulse Oximetry 94 Oxygen Delivery Oxygen Flow Rate Fraction of Inspired Oxygen 10/01/24 08:00 10/01/24 09:28 10/01/24 10:00 Temperature Pulse Rate 72 108 H 119 H Respiratory Rate Blood Pressure Pulse Oximetry Oxygen Delivery Oxygen Flow Rate Fraction of Inspired Oxygen 10/01/24 10:00 10/01/24 11:32 Temperature Pulse Rate 119 H 76 Respiratory Rate 24 H Blood Pressure 159/79 H Pulse Oximetry 92 Oxygen Delivery Oxygen Flow Rate Fraction of Inspired Oxygen Exam Narrative: General: Pt is alert awake and in NAD Lungs/Chest: Trachea central Clear BS B/L, No crackles or wheezing. Mild tachypnea, rapid shallow breathing Cardiac: RRR. Normal S1 S2. No murmurs Circulation: Pedal pulses are intact and symmetrical. Abdomen: Normal bowel sounds.. Soft. NT. ND. Extremities: No clubbing, cyanosis or edema. Warm : Russo in place Neurologic: Follows commands. Moves all 4 extremities PERRL AO x3 Skin: No Rash Results Labs 10/01/24 03:38 10/01/24 11:33 Labs: Impressions Chest X-Ray 09/30/24 12:26 IMPRESSION: 1. No acute cardiopulmonary disease. Chest/Abdomen/Pelvis CT 09/30/24 13:16 IMPRESSION: 1. Pulmonary emboli in all lobes, worst in right lower lobe. 2. Infarct in right lung lower lobe. 3. 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 No endoleak. Chest X-Ray 10/01/24 08:43 IMPRESSION: 1. Small lung volumes with opacities in the right mid to lower and left lower lung zone which based on immediately prior CT the most consistent with combination of atelectasis and pulmonary infarcts. Differential includes less likely pulmonary edema or pneumonia. Short CBC 09/30/24 10/01/24 Range/Units 11:38 03:38 WBC 10.2 H 8.5 (4.5-10.0) K/mm3 Hgb 15.6 H 13.9 (12.0-15.0) g/dL Hct 44.4 40.1 (37.0-47.0) % Plt Count 142 L 128 L (150-375) k/mm3 BMP 09/30/24 09/30/24 09/30/24 11:38 13:48 15:27 Sodium 132 L 138 Potassium 4.9 Chloride 102 Carbon Dioxide 18 L BUN 35 H D Creatinine 1.20 H Glucose 630 H* 708 H* Calcium 9.5 09/30/24 09/30/24 09/30/24 15:27 15:27 15:27 Sodium 137 Potassium 4.3 4.3 Chloride 106 106 Carbon Dioxide 20 L BUN Creatinine Glucose Calcium 09/30/24 09/30/24 09/30/24 15:27 15:27 15:27 Sodium Potassium Chloride Carbon Dioxide 20 L BUN 33 H 34 H Creatinine 1.20 H 1.20 H Glucose 442 H Calcium 09/30/24 09/30/24 09/30/24 15:27 15:27 15:27 Sodium Potassium Chloride Carbon Dioxide BUN Creatinine Glucose 444 H 444 H Calcium 8.6 8.6 09/30/24 09/30/24 10/01/24 19:21 23:05 03:38 Sodium 138 138 137 Potassium 3.9 4.0 4.3 Chloride 105 107 105 Carbon Dioxide 23 26 24 BUN 32 H 32 H 32 H Creatinine 1.10 H 1.20 H 1.30 H Glucose 209 H 89 200 H Calcium 9.2 9.2 9.1 10/01/24 08:16 Sodium 137 Potassium 4.9 Chloride 105 Carbon Dioxide 23 BUN 34 H Creatinine 1.20 H Glucose 262 H Calcium 9.2 Liver Function 09/30/24 Range/Units 11:38 Total Bilirubin 1.1 (0.2-1.3) mg/dL AST 20 (14-36) U/L ALT 19 (6-35) U/L Alkaline Phosphatase 95 (38-126) U/L Albumin 3.8 (3.5-5.1) g/dL ECG Interpretation: Atrial fibrillation Hospitalist MIPS Advance Care Plan I have confirmed that the patient's Advanced Care Plan is present, code status is documented, or surrogate decision maker is listed in patient medical record.: Yes Medication Reconciliation I have utilized all available resources to obtain, update and review the patients current medications (includes all prescriptions, OTC, herbals, cannabis, and nutritional supplements).: Yes
[2024-10-01 11:55] LABS: Anion Gap 13 mmol/L (4-12); Blood Urea Nitrogen 35 mg/dL (7-17); Calcium 9.4 mg/dL (8.4-10.2); Carbon Dioxide 18 mmol/L (22-30); Chloride 104 mmol/L (98-107); Estimated CRCL calculation 31 ml/min; Estimated Glomerular Filt Rate 36; Glucose 322 mg/dL (65-110); Potassium 5.4 mmol/L (3.4-5.0); Sodium 135 mmol/L (137-145)
[2024-10-01 11:56] LABS: Partial Thromboplastin Time 89.5 Seconds (22.3-36.8)
[2024-10-01 12:05] LABS: Glucose Point of Care 359 mg/dl (65-105)
--- NOTE | 2024-10-01 12:10 | IVDEFINITY ---
Prior to administration of IV Definity the patient was educated on the risks and benefits of the imaging enhancing agent including potential adverse side effects. The patient verbalized understanding. Allergies were verified. No exclusion criteria were identified and at least one of the following inclusion criteria were met: 1) physician request, 2) patient technically difficult to image (per the [place] [employer]ocardi[employer] guidelines of two or more segments not discernable within the apical view), or 3) questionable left ventricular function. ?
[2024-10-01] MEDS: LACTATED RINGERS 1,000 ML 500 ML IV CONT (12:33)
[2024-10-01] MEDS: INSULIN GLARGINE (*BKC) 100 UNITS/ML 15 UNITS SUB-Q (12:42)
[2024-10-01] MEDS: INSULIN HUMAN REGULAR (*BKC) 100 UNITS/ML 10 UNITS IV PUSH (12:43)
[2024-10-01 13:48] LABS: Troponin I 0.019 ng/mL (0.000-0.034)
--- NOTE | 2024-10-01 13:55 | PCRCNOTE ---
Placed AIRVO on standby and placed a high flow nasal cannula on patient to trial @ 15L for ambulance transfer. Patient is currently satting 98% with respirations @ 24 and HR 79.
--- NOTE | 2024-10-01 14:31 | PC.NURSE ---
Report given to STACIA Davis at [facility], [place], [place]. Awaiting EMS. Room 303 on [address]. Son, Wolfgang, and patient aware.
[2024-10-01 16:17] LABS: Glucose Point of Care 269 mg/dl (65-105)
[2024-10-01] MEDS: INSULIN ASPART (*BKC) 100 UNITS/ML SUB-Q (16:38)
[2024-10-01 17:01] LABS: Anion Gap 12 mmol/L (4-12); Blood Urea Nitrogen 39 mg/dL (7-17); Calcium 9.3 mg/dL (8.4-10.2); Carbon Dioxide 19 mmol/L (22-30); Chloride 104 mmol/L (98-107); Estimated CRCL calculation 27 ml/min; Estimated Glomerular Filt Rate 31; Glucose 282 mg/dL (65-110); Potassium 5.2 mmol/L (3.4-5.0); Sodium 135 mmol/L (137-145)
--- NOTE | 2024-10-01 18:27 | PC.NURSE ---
EMS arrived. [place] and [facility] transfer center updated. [place] updated. Patient sent with heparin gtt and 15 L High flow nasal cannula.
== END 2024-10-01 18:35 | disposition short-term general hospital (02) | DRG 175 ==
LOC: ANHED 15:15 → ANHICU 16:10
PROVIDERS: Physician Assistant; Student in an Organized Health Care Education/Training Program; Admitting Provider Internal Medicine; Emergency Provider Emergency Medicine; PCP Family Medicine; Visit Provider Internal Medicine
DX: I26.99 Other pulmonary embolism without acute cor pulmonale (principal); E11.10 Type 2 diabetes mellitus with ketoacidosis without coma; I48.20 Chronic atrial fibrillation, unspecified; N17.9 Acute kidney failure, unspecified; I71.43 Infrarenal abdominal aortic aneurysm, without rupture; E11.22 Type 2 diabetes mellitus with diabetic chronic kidney disease; N18.32 Chronic kidney disease, stage 3b; I25.10 Atherosclerotic heart disease of native coronary artery without angina pectoris; E11.40 Type 2 diabetes mellitus with diabetic neuropathy, unspecified; N32.81 Overactive bladder; D69.6 Thrombocytopenia, unspecified; E78.5 Hyperlipidemia, unspecified; E53.8 Deficiency of other specified B group vitamins; F32.A Depression, unspecified; Z96.652 Presence of left artificial knee joint; I25.2 Old myocardial infarction; Z95.5 Presence of coronary angioplasty implant and graft; Z95.1 Presence of aortocoronary bypass graft; Z79.02 Long term (current) use of antithrombotics/antiplatelets; Z79.4 Long term (current) use of insulin; Z87.891 Personal history of nicotine dependence; Z86.73 Personal history of transient ischemic attack (TIA), and cerebral infarction without residual deficits
CPT/HCPCS: 36415; 71045; 71046; 71260; 74177; 80048; 80053; 82010; 82803; 82947; 82948; 83036; 83735; 83880; 84100; 84484; 85025; 85610; 85730; 87641; 93005; 93970; 96361; 96374; 96375; 99285; A9270; C8929; J1644; J1815; J2270; J2405; J2470; J7030; J7120; Q9957; Q9967

== ENCOUNTER 2024-11-11 10:05 | Inpatient (IN) | payer MEDICARE, SELFPAY ==
[2024-11-11] VITALS (34 sets, daily range): BP systolic 110–136; BP diastolic 52–72; PULSE 67–90; RESP 16–24; TEMP 36.4–37; O2SAT 92–100; BMI 33.6
--- NOTE | ~2024-11-11 | CT_ITS ---
Non-contrast Head CT History: Altered mental status COMPARISON: 05/25/2024 Technique: Axial non-contrast imaging of the brain was performed. Dose reduction technique was used on this scan by utilizing automated exposure control and iterative reconstruction technique. The dose -length product (DLP) was 605.33 mGy-cm. Findings: There is no evidence of intracranial hemorrhage, mass lesion, or acute infarct. Stable chr onic right occipital lobe infarct. The ventricles and subarachnoid spaces are normal in size. The c alvarium appears normal. The visualized paranasal sinuses and mastoid air cells are clear. Impression: No acute abnormality seen. Stable chronic right occipital lobe infarct. Reviewed, dictated and finalized at location . EE GROWER Impression: No acute abnormality seen. Stable chronic right occipital lobe infarct.
--- NOTE | ~2024-11-11 | CT_ITS ---
EXAMINATION: CT brain wo con DATE: 11/13/2024 20:05 INDICATION: mental status change . TECHNIQUE: Computed tomography (CT) of the head was performed without intravenous contrast. The mA wa s adjusted according to patient size. Iterative reconstruction technique was employed. The dose-lengt h product was 1362.00 mGy-cm. COMPARISON: 11/11/2024. FINDINGS: No acute intracranial hemorrhage or extra-axial fluid collection. No hydrocephalus, mass, or herniation. No acute ischemic infarct. Unremarkable dural venous sinus attenuation. No acute osseous abnormality. Minimal right mastoid fluid, the remaining aerated spaces are clear. Mild atrophy and chronic white matter change. Atherosclerotic intracranial calcification. Right occip ital encephalomalacia. IMPRESSION: No acute intracranial process. Reviewed, dictated and finalized at location K. RVENTIONAL RADIOLOGY TECH
--- NOTE | ~2024-11-11 | US_ITS ---
EXAMINATION: US carotid duplex BI DATE: 11/14/2024 12:55 INDICATION: Carotid atherosclerosis and stenosis. Stroke TECHNIQUE: Grayscale, color Doppler, and pulsed Doppler images of the cervical carotid arteries were obtained. The degree of vessel stenosis is placed in one of the following categories: normal, <50%, 5 0-69%, >=70% but less than near-occlusion, near-occlusion, or total occlusion. Note that percent sten osis relative to normal distal artery lumen diameter is indirectly measured from velocity measurement s as described by Brett, et al. Radiology 2003; 229:340-346. COMPARISON: None. FINDINGS: RIGHT: The right common carotid artery (CCA) peak systolic velocity (PSV) is 49 cm/s. The right internal car otid artery (ICA) PSV is 54 cm/s. The right ICA end-diastolic velocity (EDV) is 10 cm/s. The right IC A/CCA PSV ratio is 1.4. Grayscale and color Doppler images yield an estimate of <50% diameter reducti on from plaque in the ICA. The external carotid artery (ECA) PSV is 96 cm/s. There is antegrade flow in the right vertebral artery. LEFT: The left CCA PSV is 62 cm/s. The left ICA PSV is 86 cm/s. The left ICA EDV is 16 cm/s. The left ICA/C CA PSV ratio is 1.4. Grayscale and color Doppler images yield an estimate of <50% diameter reduction from plaque in the ICA. The ECA PSV is 129 cm/s. There is antegrade flow in the left vertebral artery . IMPRESSION: 1. <50% stenosis in the right internal carotid artery. 2. <50% stenosis in the left internal carotid artery. Reviewed, dictated and finalized at location A. UNICATION EQUIPMENT REPAIRER
--- NOTE | ~2024-11-11 | CT_ITS ---
Clinical Indication: Hypoxia CT Scan of the Chest with Contrast: Technique: Contiguous sections were acquired throughout the chest after intravenous administration of 100 cc of Omnipaque 350. Dose reduction technique was used on this scan by utilizing automated expos ure control and iterative reconstruction technique. The dose-length product (DLP) was 789.97 mGy-cm. COMPARISON: 09/30/2024 Findings: There is no evidence of any significant mediastinal, hilar or axillary lymphadenopathy. Probable pers istent occluded segmental branch the left upper lobe. Otherwise, the pulmonary emboli seen on prior e xam are largely resolved.. There is no evidence of aortic dissection or aneurysm. No pericardial effu anai. Small right pleural effusion present. No left pleural effusion.. There is mild bibasilar atelectatic change. Images through the upper abdomen reveal partially imaged aortic aneurysm with aortic stent graft in p lace. Impression: Persistent occluded segmental branches in the left upper lobe. Otherwise, pulmonary emboli seen on pr ior exam from of 09/30/2024 are largely resolved. 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 Small right pleural effusion with mild bibasilar atelectatic change. Reviewed, dictated and finalized at location M. CLEANER Impression: Persistent occluded segmental branches in the left upper lobe. Otherwise, pulmo nary emboli seen on prior exam from of 09/30/2024 are largely resolved. Possible residual chronic embolus in the right main pulmonary artery at the bifurcation . Small right pleural effusion with mild bibasilar atelectatic change.
--- NOTE | ~2024-11-11 | MR_ITS ---
EXAMINATION: MR brain/brain stem wo con DATE: 11/14/2024 12:34 INDICATION: Suspected stroke with mental status changes TECHNIQUE: Magnetic resonance imaging (MRI) of the brain and brainstem was performed without intraven ous contrast. Sequences included sagittal and axial T1-weighted SE, axial diffusion-weighted FS SE, a xial 3D SWAN, axial T2-weighted FLAIR, and axial T2-weighted FSE. Apparent diffusion coefficient (ADC ) maps were created. COMPARISON: Head CT dated 11/13/2024 FINDINGS: There are approximately 20 scattered small foci of restricted diffusion with associated increased T2 signal throughout the bilateral cerebral hemispheres, the right basal ganglia and bilateral cerebella r hemispheres involving both the anterior and posterior vascular distributions on both the left and r ight suggesting a sharp emboli with central origin. Moderate-sized region of encephalomalacia in the right occipital lobe consistent with sequela of chronic infarct. There are no areas of restricted dif fusion to suggest acute infarction. No intracranial hemorrhage or abnormal intracranial mass lesion. There are a few additional small scattered foci of nonspecific increased T2-weighted signal intensity in the cerebral white matter, predominantly involving the deep and periventricular white matter. The re are no intraparenchymal signal abnormalities seen on the other pulse sequences. Symmetric prominen ce of the sulci consistent with mild age-appropriate diffuse cerebral volume loss. The ventricles ar e symmetric and normal in size. There are no abnormal extra-axial fluid collections. Flow voids are s een in the cerebral arteries on the T2-weighted sequences consistent with their expected patency. Mil d mucoperiosteal thickening the bilateral ethmoid sinuses. Visualized orbits and soft tissues are unr emarkable. IMPRESSION: 1. Numerous small acute infarcts in the bilateral cerebral and cerebellar hemispheres and right basal ganglia involving both the anterior and posterior vertebral vascular distributions on both the left and right which suggests a shower of emboli from a relatively central origin. Consider cardiac ultras ound to assess for cardiac thrombus or valvular vegetations. 2. Chronic moderate-sized right occipital lobe infarct. Reviewed, dictated and finalized at location A. SQL DEVELOPER IMPRESSION: 1. Numerous small acute infarcts in the bilateral cerebral and cerebellar hemis pheres and right basal ganglia involving both the anterior and posterior verteb ral vascular distributions on both the left and right which suggests a shower o f emboli from a relatively central origin. Consider cardiac ultrasound to asses s for cardiac thrombus or valvular vegetations. 2. Chronic moderate-sized right occipital lobe infarct.
--- NOTE | ~2024-11-11 | XR_ITS ---
XR chest 2V 11/11/2024 12:20 Indication: Right-sided chest pain Procedure: AP and lateral views of the chest Comparison: Comparison to multiple prior studies sequentially, with oldest reviewed study dated 03/2022. Findings: Borderline heart size. Status post median sternotomy for CABG. Central venous catheter tip in the SVC. Patchy right-sided airspace disease, compatible with pneumonia. Small right pleural effus ion. No pneumothorax. No acute osseous abnormality. Impression: 1: Patchy right-sided airspace disease, compatible with pneumonia. Reviewed, dictated and finalized at location B. E RECEPTIONIST Impression: 1: Patchy right-sided airspace disease, compatible with pneumonia.
--- NOTE | 2024-11-11 10:06 | ECG_ITS ---
Test Date: 2024-11-11 10:15:15 Measurements Intervals [place] Rate: 82 P: 64 IN: 164 QRS: -11 QRSD: 128 T: 180 QT: 401 QTc: 469 Interpretive Statements SINUS RHYTHM WITH OCCASIONAL SUPRAVENTRICULAR PREMATURE COMPLEXES MODERATE INTRAVENTRICULAR CONDUCTION DELAY [105+ ms QRS DURATION, 80+ ms Q/S IN V1/V2, NO Q AND 60+ ms R IN I/aVL/V5/V6] ST DEVIATION AND MODERATE T-WAVE ABNORMALITY, CONSIDER LATERAL ISCHEMIA [-0.1+ mV T-WAVE IN I/aVL/V5/V6] Compared to ECG 10/01/2024 09:53:59 Intraventricular conduction delay now present T-wave abnormality now present Possible ischemia now present Atrial fibrillation no longer present Electronically Signed On 11-11-2024 18:42:55 HEAT AND FROST INSULATOR HELPER by Katerin Peralta M.D.
[2024-11-11 10:29] LABS: Alveolar/Arterial O2 Gradient 44.1 mmHg; Fractional Inspired Oxygen 21 %; HCO3 ABG 21.6 mEq/l (22.0-26.0); Oxygen Content ABG 12.1 %vol (16.0-22.0); Oxygen Saturation ABG 95.9 % (95.0-100.0); PCO2 ABG 28.2 mmHg (35.0-45.0); PO2 ABG 71.9 mmHg (80.0-100.0); PO2 FiO2 Ratio Arterial Blood 3.42 %; Total Hemoglobin 9.1 g/dL (12.0-18.0)
[2024-11-11 10:30] LABS: Site Drawn RIGHT RADIAL; pH ABG 7.502 (7.350-7.450)
[2024-11-11 10:31] LABS: Device ROOM AIR; Modified Allen's Test Pass
[2024-11-11 10:32] LABS: Basophils Absolute Auto 0.1 K/mm3 (0.0-0.1); Basophils Percent Auto 0.4 % (0.2-1.2); Eosinophils Percent Auto 0.1 % (0-4.4); Hematocrit 25.8 % (37.0-47.0); Hemoglobin 8.4 g/dL (12.0-15.0); Immature Granulocyte Absolute 0.08 K/mm3 (0.00-0.031); Immature Granulocyte Percent A 0.6 % (0-0.5); Lymphocytes Absolute Auto 1.59 K/mm3 (0.9-3.2); Lymphocytes Percent Auto 11.2 % (18.3-44.2); Mean Corpuscular HGB Conc 32.6 g/dl (32-36); Mean Corpuscular Hemoglobin 31.6 pg (26-34); Mean Platelet Volume 9.5 fl (7.4-10.4); Monocytes Absolute Auto 0.7 K/mm3 (0.1-0.6); Monocytes Percent Auto 4.6 % (2.6-8.5); Neutrophils Absolute Auto 11.9 K/mm3 (1.3-6.7); Neutrophils Percent Auto 83.1 % (45.5-73.1); Platelet Count Result 101 k/mm3 (150-375); Red Blood Count 2.66 M/mm3 (4.2-5.4); Red Cell Distribution Width 16.5 % (11.5-14.5); White Blood Count 14.3 K/mm3 (4.5-10.0)
[2024-11-11 10:42] LABS: Alanine Aminotransferase 19 U/L (6-35); Albumin Level 2.9 g/dL (3.5-5.1); Alkaline Phosphatase 89 U/L (38-126); Anion Gap 7 mmol/L (4-12); Aspartate Amino Transferase 37 U/L (14-36); Bilirubin,Total 0.8 mg/dL (0.2-1.3); Blood Urea Nitrogen 31 mg/dL (7-17); Carbon Dioxide 24 mmol/L (22-30); Chloride 99 mmol/L (98-107); Estimated CRCL calculation 17 ml/min; Estimated Glomerular Filt Rate 19; Glucose 260 mg/dL (65-110); Lipase 154 U/L (23-300); Potassium 4.7 mmol/L (3.4-5.0); Sodium 130 mmol/L (137-145)
[2024-11-11 10:50] LABS: INR 1.7; Prothrombin Time 20.5 Seconds (11.1-14.7)
--- NOTE | 2024-11-11 11:25 | ED_ITS ---
HPI - Chest Pain General Chief Complaint: Chest Pain Stated Complaint: Chest pressure Time Seen by Provider: 11/11/24 10:08 History of Present Illness HPI narrative: Patient presenting with chest pain ongoing for last few days, sent here from rehab facility for further workup. Related Data Home Medications ?Medication ?Instructions ?Recorded ?Confirmed ?Last Taken ?Type insulin glargine 100 unit/mL (3 35 unit subcut DAILY 07/27/24 11/04/24 10/25/24 09:10 History mL) subcutaneous pen (Lantus Solostar U-100 Insulin) acetaminophen 325 mg tablet 650 mg PO Q6H PRN Pain 10/25/24 11/04/24 10/24/24 21:05 History apixaban 5 mg tablet 5 mg PO BID 10/25/24 11/04/24 10/25/24 09:05 History insulin aspart U-100 100 unit/mL See Protocol subcut TIDWMEAL 10/25/24 11/04/24 10/25/24 12:30 History subcutaneous solution melatonin 3 mg tablet 3 mg PO HS 10/25/24 11/04/24 10/24/24 21:05 History midodrine 5 mg tablet 15 mg PO TID 10/25/24 11/04/24 10/25/24 13:00 History sevelamer carbonate 0.8 gram oral 0.8 g PO TID 10/25/24 11/04/24 10/25/24 13:10 History powder packet Allergies Allergy/AdvReac Type Severity Reaction Status Date / Time Sulfa (Sulfonamide Allergy Unknown Unknown Verified 05/25/24 17:46 Antibiotics) Review of Systems 2 Review of Systems: All systems reviewed & are unremarkable except as noted in HPI and below [facility] Past Medical History Medical History (Updated 11/11/24 @ 11:32 by Adrienne Whitlock MD) Diastolic dysfunction diastolic dysfunction with LVH on echo with ejection fraction 70% on 09/30/2024. Tricuspid valve regurgitation moderate to severe tricuspid valve regurgitation on echo on 09/30/2024. Severe pulmonary arterial systolic hypertension severe pulmonary hypertension on echo 09/30/2024. Vitamin B12 deficiency level low at 397 with goal greater than 400 with folic acid 12.12 on 07/26/2024. Functional memory problem CVA (cerebral vascular accident) At moderate risk for fall Anemia Hemoglobin normal at 14.1 with vitamin B12 397, folic acid 12.2, iron 127 with 39% saturation and ferritin 57 on 07/26/2024. Fall Chronic kidney disease (CKD) stage G3b/A2, moderately decreased glomerular filtration rate (GFR) between 30-44 mL/min/1.73 square meter and albuminuria creatinine ratio between 30-299 mg/g BUN 35 with creatinine 1.30 and GFR 40 on 03/31/2022. BUN 24, creatinine 1.10 with GFR 48 on 05/26/2024. BUN 32, creatinine 1.18 with GFR 47 on 07/26/2024. AAA (abdominal aortic aneurysm) without rupture (~05/17/23) Endovascular repair 10/09/2023. 7 x 6.6 cm abdominal aortic aneurysm On CT in the ER 05/17/2023. Acute bronchitis COVID-19 (10/31/22) tested positive 11/05/2022 Chronic atrial fibrillation (04/23/22) NSTEMI (non-ST elevated myocardial infarction) (04/16/22) incomplete PTCA of the LAD 04/17/2022. CABG LAD 04/22/22. Renal insufficiency BUN 27 with creatinine 1.24 with GFR 42 on 03/27/2022. Overactive bladder Screening for diabetic retinopathy (09/24/21) no diabetic retinopathy on dilated eye exam 09/24/2021. Recheck annually. no retinopathy 01/29/2024. Diabetic neuropathy, type II diabetes mellitus (06/12/21) Chronic pain in right foot Microalbuminuria ratio 1048 on 07/26/2024. Hypersomnia Neoplasm of skin (12/26/19) Heart disease Thrombocytopenia Platelets 124 on 05/26/2024. Platelets 119 on 07/26/2024. Contusion of face Chronic depression Coronary artery disease involving red devil coronary artery of red devil heart without angina pectoris Controlled type 2 diabetes mellitus with hyperglycemia, with long-term current use of insulin glucose 304 with hemoglobin A1c 10.9 on 03/27/2022. glucose 243 with hemoglobin A1c 10.1 on 05/26/2024. Fasting glucose 413 with hemoglobin A1c 10.2 With GFR 47 and microalbumin ratio of 1048 on 07/26/2024. Surgical History Surgical History History of cardiac cath H/O knee surgery Left total knee replacement 2015 right knee arthroscopy about 2000 Family History Family History Mother Family history of cardiovascular disease, Onset Age: 66 Hypertension Cerebrovascular accident Hypercholesteremia Diabetes mellitus Heart disease Father Cerebrovascular accident, Onset Age: 77 Hypercholesteremia Heart disease Sibling Diabetes mellitus Cancer Heart disease Cerebrovascular accident Grandparent Diabetes mellitus Social History Social History Smoking packs per day: 1 Smoking cigarettes per day: 20.0 Years smoked: 44 Smoking pack-years: 44.00 Smoking status: Former smoker Additional smoking assessment comments: quit 20 years ago Alcohol intake: never Alcohol use details: on occasion Substance use: never Substance use type: does not use Other substance usage details: one drink a month Do You Feel Safe in your Home?: Yes Lack of Transportation: No Lack of Food: Never True Current Housing: I Have Housing Concerned About Future Housing: No Difficulty Paying Gas/Electric Bills: No Difficulty Paying for Meds: No Currently Unemployed: No Education: High School Diploma/GED Difficulty w/ Childcare or Family Care: No Living arrangements: alone Occupation/Education: retired Gender identity (if verbalized by the patient): Female Spiritual care concerns: No Exam 2 Narrative: EXAMINATION OF ORGAN SYSTEMS/BODY AREAS: Constitutional: Vital signs per nursing GENERAL:[No acute distress, non-toxic appearing.] HEAD: Normal with no signs of head trauma. EYES: EOMI, conjunctiva normal ENT: Hearing grossly intact LUNGS: Nonlabored breathing. Portacath in place. HEART: [Regular rate and rhythm] ABD: [Soft], [nontender to palpation] EXT: Normal range of motion SKIN: [No rashes or lesions.] NEURO: [Alert. No gross focal sensory or strength deficits.] PSYCH: Normal affect Course Vital Signs Vital signs: Vital Signs Temperature 97.6 F 11/11/24 10:00 Pulse Rate 81 11/11/24 10:00 Respiratory Rate 16 11/11/24 10:00 Blood Pressure 117/68 11/11/24 10:00 Pulse Oximetry 96 11/11/24 10:00 Temperature 97.6 F 11/11/24 10:00 Pulse Rate 83 11/11/24 10:37 Respiratory Rate 16 11/11/24 10:00 Blood Pressure 117/68 11/11/24 10:00 Pulse Oximetry 99 11/11/24 10:37 Oxygen Delivery Room Air 11/11/24 10:37 MDM - Chest Pain MDM Narrative Medical decision making narrative: Patient presenting here with several days of chest pain. 1) Differential diagnosis: ACS, port site pain, doubt PE as on blood thinners, pneumonia 2) Comorbidities: CKD, diabetes 3) External notes reviewed: Admission record 4) History sources independently obtained from: Rehab physician Dr Wilson 5) Discussion of management with: Cardiology, hospitalist 6) Independent interpretation of: EKG on my independent interpretation shows sinus rhythm with occasional PVCs, diffuse ST depressions with some mild ST elevations in AVR, V1, concerning for some diffuse ischemia. I did review her prior EKGs and noted the last EKG also had similar findings, and that she had a normal EKG from 1 month ago. 7) Diagnostic tests or therapies considered but not ordered: 8) Social determinants of health: 9) Shared decision making: Patient here with chest pain, with EKG findings of ischemia, elevated troponin. She is DNR/DNI, will likely avoid any invasive procedures at this time so will treat medically, cardiology consulted, hospitalist consulted, call made to Nephrology. Lab Data 11/11/24 10:25 11/11/24 10:25 Labs: Lab Results 11/11/24 Range/Units 10:25 WBC 14.3 H (4.5-10.0) K/mm3 RBC 2.66 L (4.2-5.4) M/mm3 Hgb 8.4 L (12.0-15.0) g/dL Hct 25.8 L (37.0-47.0) % MCV 97.0 (80-100) fl MCH 31.6 (26-34) pg MCHC 32.6 (32-36) g/dl RDW 16.5 H (11.5-14.5) % Plt Count 101 L (150-375) k/mm3 MPV 9.5 (7.4-10.4) fl Immature Gran % (Auto) 0.6 H (0-0.5) % Neut % (Auto) 83.1 H (45.5-73.1) % Lymph % (Auto) 11.2 L (18.3-44.2) % Polk % (Auto) 4.6 (2.6-8.5) % Eos % (Auto) 0.1 (0-4.4) % Baso % (Auto) 0.4 (0.2-1.2) % Lymph # (Auto) 1.59 (0.9-3.2) K/mm3 Polk # (Auto) 0.7 H (0.1-0.6) K/mm3 Eos # (Auto) 0.0 (0-0.3) K/mm3 Baso # (Auto) 0.1 (0.0-0.1) K/mm3 Abs Immat Gran (auto) 0.08 H (0.00-0.031) K/mm3 Absolute Neuts (auto) 11.9 H (1.3-6.7) K/mm3 Absolute Nucleated RBC 0.000 (0.0-0.012) K/mm3 Nucleated RBC % 0.0 (0.0-0.2) % PT 20.5 H (11.1-14.7) Seconds INR 1.7 APTT 35.0 (22.3-36.8) Seconds Sodium 130 L (137-145) mmol/L Potassium 4.7 (3.4-5.0) mmol/L Chloride 99 (98-107) mmol/L Carbon Dioxide 24 (22-30) mmol/L Anion Gap 7 (4-12) mmol/L BUN 31 H (7-17) mg/dL Creatinine 2.50 H (0.7-1.0) mg/dL Estim Creat Clear Calc 17 ml/min Estimated GFR 19 L (59 - ) Glucose 260 H (65-110) mg/dL Calcium 9.0 (8.4-10.2) mg/dL Total Bilirubin 0.8 (0.2-1.3) mg/dL AST 37 H (14-36) U/L ALT 19 (6-35) U/L Alkaline Phosphatase 89 (38-126) U/L Troponin I 3.080 H* (0.000-0.034) ng/mL Total Protein 7.0 (6.3-8.2) g/dL Albumin 2.9 L (3.5-5.1) g/dL Lipase 154 (23-300) U/L ABG Data ABG results: 11/11/24 10:23 Puncture Site Right radial ABG pH 7.502 H* ABG pCO2 28.2 L ABG pO2 71.9 L ABG PO2/FiO2 Ratio 3.42 ABG HCO3 21.6 L ABG O2 Saturation 95.9 ABG O2 Content 12.1 L ABG Base Excess -1.0 A-a Gradient 44.1 Oxyhemoglobin 94.0 Total Hemoglobin 9.1 L O2 Delivery Device Room air O2 Liters/Min Not Reportable FiO2 21 Critical Care Time Critical Care Time Critical Care Time: Yes Total Critical Care Time: 31 Discharge Plan Discharge Clinical Impression: Non-ST elevation MO (NSTEMI) Patient Disposition: Still a Patient Condition: Serious Patient Language: [place] Islander Prescriptions: No Action insulin glargine [Lantus Solostar U-100 Insulin] 100 unit/mL (3 mL) insulin pen 35 unit SUB-Q DAILY Rx Instructions: inject 35 units subcutaneously daily (DME) blood sugar diagnostic Strip See Rx Instructions .ROUTE .MEDSUPPLY Qty: 100 3RF Rx Instructions: Daily acetaminophen 325 mg Tablet 650 mg PO Q6H MDD 4000mg PRN (Reason: Pain) midodrine 5 mg Tablet 15 mg PO TID Rx Instructions: do not give last dose of day after 6PM or within 4 hrs of bedtime melatonin 3 mg Tablet 3 mg PO HS sevelamer carbonate 0.8 gram Powder In Packet 0.8 g PO TID Rx Instructions: must administer with a meal/food apixaban 5 mg Tablet 5 mg PO BID insulin aspart U-100 100 unit/mL Solution See Protocol SUBCUT TIDWMEAL Protocol: Insulin Corrective Moderate-Dose Condition: glucose < 70 mg/dl Dose/Route: Follow hypoglycemia orders Condition: glucose 70-140 mg/dl Dose/Route: No additional insulin Condition: glucose 141-180 mg/dl Dose/Route: 2 units sub-Q Condition: glucose 181-220 mg/dl Dose/Route: 4 units sub-Q Condition: glucose 221-260 mg/dl Dose/Route: 6 units sub-Q Condition: glucose 261-300 mg/dl Dose/Route: 8 units sub-Q Condition: glucose 301-350 mg/dl Dose/Route: 10 units sub-Q Condition: glucose > 350 mg/dl Dose/Route: 12 units and Call MD Protocol Text: *No Correction Dose at Bedtime* Follow-up/Referrals: Tapan Glover MD [Primary Care Provider] -
[2024-11-11] MEDS: HEPARIN SODIUM 5,000 UNITS/ML VIAL 4000 UNITS IV PUSH (11:34)
[2024-11-11] MEDS: ASPIRIN 81 MG CHEWABLE TABLET 324 MG PO (11:34)
[2024-11-11] MEDS: HEPARIN SOD/D5W 100 UNITS/ML 25,000 UNITS/250 ML BAG 8 UNITS IV CONT (11:35)
[2024-11-11 11:48] LABS: Add Urine Microscopic? YES; Appearance Urine Cloudy (Clear); Bacteria Urine 4+ /hpf; Bilirubin Urine Negative (Negative); Blood Urine Trace (Negative); Color Urine Yellow (Yellow); Glucose Urine UA Negative (Negative); Ketones Urine Trace mg/dL (Negative); Leukocyte Esterase Ur 2+ LEU/UL (Negative); Nitrate Urine Negative (Negative); Protein Urine 2+ mg/dL (Negative); RBC Urine 0-2 /hpf (0-2); Specific Grav Ur 1.016 (1.001-1.035); Squamous Epithelial Cell Urine None Seen /hpf (Few); Urobilinogen Urine 0.2 mg/dL (<2.0); WBC Urine >100 /hpf (0-3)
[2024-11-11 11:49] LABS: Need Manual Microscopic Reviewed
[2024-11-11] MEDS: MORPHINE SULFATE (*CRX) 2 MG/ML INJ IV PUSH (11:52)
--- NOTE | 2024-11-11 12:44 | PC.NURSE ---
CT staff discussing with Dr. Whitlock to determine plan for cat scan due to patients kidney function and other issues.
[2024-11-11 13:31] LABS: Hepatitis B Surface Antigen Negative (Negative)
--- NOTE | 2024-11-11 13:31 | PC.NURSE ---
Report called to Rosana PALOMO in IMU Per Evette the ct needs to be read before the patient can be transferred to IMU
[2024-11-11 13:49] LABS: Hepatitis B Surface Anti Res Negative
--- NOTE | 2024-11-11 14:08 | P.HP_ITS ---
H&P: HPI History of Present Illness Date/Time: 11/11/24 14:08 Chief Complaint: Chest Pressure Narrative: 79 y/o F presents here with chest pressure with PMH of CVA, ESRD on HD?, AAA s/p endovascular repair in 2022, NSTEMI, chronic AFib, OAB, thrombocytopenia, diabetes, and CAD. The patient presents here via EMS from [facility] for further evaluation of chest pressure. She developed acute onset of chest pressure this morning before breakfast while she was sleeping. Pain woke the patient from her sleep. She describes this as pressure, right sided, nonradiating, constant, no aggravating factors, and alleviated by medications administered in the ER. Chest pressure is accompanied by fatigue. Denies shortness of breath, nausea/vomiting, diaphoresis, GERD-like symptoms, dizziness, or palpitations. Patient had recent admission here on 09/30/24 for rib pain and shortness of breath. The patient was found to have pulmonary emboli in all lobes, worse in right lower lobe. She was started on a heparin gtt. Echo showed slight dilation of the RV and increased RV pressures. Patient was not hypotensive, however significantly hypoxic and at high risk. Patient was transferred to [facility] for possible thrombectomy and tertiary care on 10/01. She underwent a mechanical thrombectomy on 10/02. Found to have a left common femoral and popliteal DVT. Patient developed acute renal failure superimposed on CKD and was subsequently started on CRRT on 10/03. Transition to HD on 10/12. ARF thought to be secondary to shock/contrast injury. She was eventually stabilized and transitioned to Eliquis, pressors-> p.o. midodrine, and discharged to [facility] on 10/26/2024. Fair she has been undergoing speech therapy for dysphagia noted during her recent admission, hemodialysis, and PT/OT. Initial VS at presentation: 97.6? F, HR 81, RR 16, 117/68, and 96% on RA. ED workup showed: WBC 14.3, hemoglobin 8.4 (previously 8.6 on 11/10/2024), INR 1.7, ABG showed pH of 7.502, CO2 20.2, O2 71.9, bicarb 21.6, creatinine 2.5 and GFR 19 (previously 2.1 and GFR 23 home on 11/10/2024), glucose 260, initial troponin 3.080, and UA concerning for UTI. CXR showed patchy right-sided airspace disease compatible with pneumonia. Head CT showed no acute findings, stable chronic right occipital lobe infarct. Chest CTA showed persistent occluded segmental branches in the left upper lobe, resolved PE seen on Nexium on 09/30/2024 largely resolved, possible residual chronic emboli of the right main pulmonary artery at the bifurcation as well as a small right pleural effusion with mild bibasilar atelectatic changes. Review of Systems Review of Systems: All systems reviewed & are unremarkable except as noted in HPI and below [facility] Past Medical History Medical History (Updated 11/11/24 @ 22:21 by Evette Taylor, THERAPY TEACHER) Pulmonary embolism and infarction multiple bilateral pulmonary emboli with infarction. Venous Doppler study was negative . Diastolic dysfunction diastolic dysfunction with LVH on echo with ejection fraction 70% on 09/30/2024. Tricuspid valve regurgitation moderate to severe tricuspid valve regurgitation on echo on 09/30/2024. Severe pulmonary arterial systolic hypertension severe pulmonary hypertension on echo 09/30/2024. Vitamin B12 deficiency level low at 397 with goal greater than 400 with folic acid 12.12 on 07/26/2024. Functional memory problem CVA (cerebral vascular accident) At moderate risk for fall Anemia Hemoglobin normal at 14.1 with vitamin B12 397, folic acid 12.2, iron 127 with 39% saturation and ferritin 57 on 07/26/2024. Fall Chronic kidney disease (CKD) stage G3b/A2, moderately decreased glomerular filtration rate (GFR) between 30-44 mL/min/1.73 square meter and albuminuria creatinine ratio between 30-299 mg/g BUN 35 with creatinine 1.30 and GFR 40 on 03/31/2022. BUN 24, creatinine 1.10 with GFR 48 on 05/26/2024. BUN 32, creatinine 1.18 with GFR 47 on 07/26/2024. AAA (abdominal aortic aneurysm) without rupture (~05/17/23) Endovascular repair 10/09/2023. 7 x 6.6 cm abdominal aortic aneurysm On CT in the ER 05/17/2023. Acute bronchitis COVID-19 (10/31/22) tested positive 11/05/2022 Chronic atrial fibrillation (04/23/22) NSTEMI (non-ST elevated myocardial infarction) (04/16/22) incomplete PTCA of the LAD 04/17/2022. CABG LAD 04/22/22. Renal insufficiency BUN 27 with creatinine 1.24 with GFR 42 on 03/27/2022. Overactive bladder Screening for diabetic retinopathy (09/24/21) no diabetic retinopathy on dilated eye exam 09/24/2021. Recheck annually. no retinopathy 01/29/2024. Diabetic neuropathy, type II diabetes mellitus (06/12/21) Chronic pain in right foot Microalbuminuria ratio 1048 on 07/26/2024. Hypersomnia Neoplasm of skin (12/26/19) Heart disease Thrombocytopenia Platelets 124 on 05/26/2024. Platelets 119 on 07/26/2024. Contusion of face Chronic depression Coronary artery disease involving [place] coronary artery of [place] heart without angina pectoris Controlled type 2 diabetes mellitus with hyperglycemia, with long-term current use of insulin glucose 304 with hemoglobin A1c 10.9 on 03/27/2022. glucose 243 with hemoglobin A1c 10.1 on 05/26/2024. Fasting glucose 413 with hemoglobin A1c 10.2 With GFR 47 and microalbumin ratio of 1048 on 07/26/2024. Surgical History Surgical History History of cardiac cath H/O knee surgery Left total knee replacement 2015 right knee arthroscopy about 2000 Family History Family History Mother Family history of cardiovascular disease, Onset Age: 66 Hypertension Cerebrovascular accident Hypercholesteremia Diabetes mellitus Heart disease Father Cerebrovascular accident, Onset Age: 77 Hypercholesteremia Heart disease Sibling Diabetes mellitus Cancer Heart disease Cerebrovascular accident Grandparent Diabetes mellitus Social History Social History Smoking packs per day: 1 Smoking cigarettes per day: 20.0 Years smoked: 44 Smoking pack-years: 44.00 Smoking status: Never smoker Additional smoking assessment comments: quit 20 years ago Alcohol intake: never Alcohol use details: on occasion Substance use: never Substance use type: does not use Other substance usage details: one drink a month Do You Feel Safe in your Home?: Yes Lack of Transportation: No Lack of Food: Never True Current Housing: I Have Housing Concerned About Future Housing: No Difficulty Paying Gas/Electric Bills: No Difficulty Paying for Meds: No Currently Unemployed: No Education: High School Diploma/GED Difficulty w/ Childcare or Family Care: No Living arrangements: alone Occupation/Education: retired Gender identity (if verbalized by the patient): Female Spiritual care concerns: No Meds Home Medications and Allergies Home Medications ?Medication ?Instructions ?Recorded ?Confirmed ?Type blood sugar diagnostic #100 ea 06/12/21 11/11/24 Rx insulin glargine 100 unit/mL (3 35 unit subcut DAILY 07/27/24 11/11/24 History mL) subcutaneous pen (Lantus Solostar U-100 Insulin) acetaminophen 325 mg tablet 650 mg PO Q6H PRN Pain 10/25/24 11/11/24 History apixaban 5 mg tablet 5 mg PO BID 10/25/24 11/11/24 History insulin aspart U-100 100 unit/mL See Protocol subcut TIDWMEAL 10/25/24 11/11/24 History subcutaneous solution melatonin 3 mg tablet 3 mg PO HS 10/25/24 11/11/24 History midodrine 5 mg tablet 15 mg PO TID 10/25/24 11/11/24 History sevelamer carbonate 0.8 gram oral 0.8 g PO TID 10/25/24 11/11/24 History powder packet Allergies Allergy/AdvReac Type Severity Reaction Status Date / Time Sulfa (Sulfonamide Allergy Unknown Unknown Verified 05/25/24 17:46 Antibiotics) Vital Signs Vital Signs - 24 hr 11/11/24 10:00 11/11/24 10:37 11/11/24 10:37 Temperature 97.6 F Pulse Rate 81 83 Respiratory Rate 16 Blood Pressure 117/68 Pulse Oximetry 96 99 Oxygen Delivery Room Air 11/11/24 11:52 11/11/24 12:00 11/11/24 12:01 Temperature Pulse Rate 80 80 80 Respiratory Rate 17 21 H 22 H Blood Pressure 120/71 Pulse Oximetry 100 95 94 Oxygen Delivery 11/11/24 12:19 11/11/24 12:20 11/11/24 12:30 Temperature Pulse Rate 90 81 80 Respiratory Rate 17 20 18 Blood Pressure 114/70 Pulse Oximetry 98 99 96 Oxygen Delivery 11/11/24 12:31 11/11/24 12:45 11/11/24 12:46 Temperature Pulse Rate 82 83 88 Respiratory Rate 21 H 21 H 22 H Blood Pressure 115/54 L 110/58 L Pulse Oximetry 97 92 95 Oxygen Delivery 11/11/24 12:47 Temperature Pulse Rate 83 Respiratory Rate 24 H Blood Pressure Pulse Oximetry 95 Oxygen Delivery Exam Const: General: comfortable and no acute distress Other: , female, obese body habitus, nontoxic appearance HENMT: Face/Nose/Sinus: Normal nares present Mouth: Yes moist mucous membranes Eyes: General: appearance normal, both eyes and all related structures Sclera: sclerae normal Pupils: Equal, round and reactive pupils present EOM: EOMs intact bilaterally Resp: Effort & Inspection: normal respiratory effort Auscultation: clear to auscultation bilaterally Cardio: Rate: regular rate Rhythm: regular rhythm Other: S1-S2 present without murmur, rub, ectopy GI: Other: Abdomen rounded, soft, nondistended. Normoactive bowel sounds in all quadrants. Skin: General skin exam: normal color and no rashes or lesions noted Wounds: no wounds Neuro: Speech: normal speech Motor exam (neuro): 5/5 motor strength present throughout Sensory Exam: normal sensation Other: Generalized weakness. A&O x3. Mild somnolence. Extrem: General: normal to inspection Psych: Mental Status: mental status grossly normal Affect: normal affect Other: Fair insight and judgment, pleasant H&P: Results Labs Labs: Short CBC 11/11/24 Range/Units 10:25 WBC 14.3 H (4.5-10.0) K/mm3 Hgb 8.4 L (12.0-15.0) g/dL Hct 25.8 L (37.0-47.0) % Plt Count 101 L (150-375) k/mm3 BMP 11/11/24 10:25 Sodium 130 L Potassium 4.7 Chloride 99 Carbon Dioxide 24 BUN 31 H Creatinine 2.50 H Glucose 260 H Calcium 9.0 Cardiac Enzymes 11/11/24 11/11/24 Range/Units 10:25 12:28 Troponin I 3.080 H* 5.240 H* D (0.000-0.034) ng/mL Liver Function 11/11/24 Range/Units 10:25 Total Bilirubin 0.8 (0.2-1.3) mg/dL AST 37 H (14-36) U/L ALT 19 (6-35) U/L Alkaline Phosphatase 89 (38-126) U/L Albumin 2.9 L (3.5-5.1) g/dL Urine 11/11/24 Range/Units 11:18 Urine Color Yellow (Yellow) Urine Appearance Cloudy H (Clear) Urine pH 6.0 (5.0-9.0) Ur Specific [place] 1.016 (1.001-1.035) Urine Protein 2+ H (Negative) mg/dL Urine Glucose (UA) Negative (Negative) mg/dL Assessment and Plan Assessment and plan (1) Non-ST elevation AR (NSTEMI): Code(s): I21.4 - Non-ST elevation (NSTEMI) myocardial infarction Status: Acute Assessment and Plan: - EKG, initial: sinus rhythm with occasional supraventricular premature complexes, moderate intraventricular conduction delay, ST deviation and moderate T-wave abnormality consider lateral ischemia. When compared to EKG done on 10/01/2024, intraventricular conduction delay, T-wave abnormality, possible ischemia now present. AFib and LBBB no longer present. - CXR: Patchy right-sided airspace disease, compatible with pneumonia. - Troponin: 3.080 -> 5.240 -> 9.19 no active chest pain, feeling improved as of 2200 Repeating EKG post 6 hour troponin - ASA 324 given, SL nitro PRN - cardiology consulted, awaiting recs - started on heparin gtt - echo, previous (09/2024): Normal systolic function, estimated EF 70%, diastolic function abnormal, RV chamber mildly enlarged, RV function normal, severe pulmonary hypertension. See report for details. repeating echo - no stress test or cardiac catheterization on file - telemetry monitoring and admission to IMU (2) Pulmonary embolism and infarction: Code(s): I26.99 - Other pulmonary embolism without acute cor pulmonale Status: Acute Assessment and Plan: - CTA chest: 1. Persistent occluded segmental branches in the left upper lobe. Otherwise, pulmonary emboli seen on prior exam from of 09/30/2024 are largely resolved. 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 2. Small right pleural effusion with mild bibasilar atelectatic change. - CT chest/abd/pelvis w/con, previous (09/30/24): 1. Pulmonary emboli in all lobes, worst in right lower lobe. 2. Infarct in right lung lower lobe. 3. 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 No endoleak. - underwent mechanical thrombectomy at [facility] on 10/02 - home anticoagulation: Eliquis, holding. Currently on heparin gtt. (3) Acute on chronic renal failure: Qualifiers: Acute renal failure type: unspecified Chronic kidney disease stage: unspecified stage Qualified Code(s): N17.9 - Acute kidney failure, unspecified; N18.9 - Chronic kidney disease, unspecified Code(s): N17.9 - Acute kidney failure, unspecified; N18.9 - Chronic kidney disease, unspecified Status: Acute Assessment and Plan: - history of CKD, started on CRRT on 10/03 and transitioned to HD on 10/12. Receiving treatment on? - nephrology consulted for inpatient HD, due today - creatinine 2.5 and GFR 19, previously 2.1 and GFR 23 on 11/10/2024 - continue sevelamer 0.8G TID - trend renal function (4) UTI (urinary tract infection): Qualifiers: Hematuria presence: without hematuria Urinary tract infection type: acute cystitis Qualified Code(s): N30.00 - Acute cystitis without hematuria Code(s): N39.0 - Urinary tract infection, site not specified Status: Acute Assessment and Plan: Patient was started on cefdinir x7 days at [facility] due to presumed infection per UA results performed on 11/06. UC cancelled from this testing, unclear why. - UA: Cloudy, 2+ protein, trace ketones, 2+ leuks, greater than 100 WBC, no epithelial cells. - UC pending - previous micro reviewed, no recent positive urine cultures - started on Ceftriaxone while inpatient on 11/11 (5) Anemia: Qualifiers: Anemia type: due to chronic kidney disease Chronic kidney disease stage: unspecified stage Qualified Code(s): N18.9 - Chronic kidney disease, unspecified; D63.1 - Anemia in chronic kidney disease Code(s): D64.9 - Anemia, unspecified Status: Acute Assessment and Plan: - hemoglobin 8.4, previously 8.6 - suspect recent anemia is secondary to HD/acute renal failure - epoetin initiated by international sourcing manager - transfuse if less than 7 - trend (6) Type 2 diabetes mellitus with hyperglycemia: Qualifiers: Diabetes mellitus usp insulin use: with usp use Qualified Code(s): E11.65 - Type 2 diabetes mellitus with hyperglycemia; Z79.4 - parcel wrapper (current) use of insulin Code(s): E11.65 - Type 2 diabetes mellitus with hyperglycemia Status: Acute Assessment and Plan: - hypoglycemia protocol - POC blood glucose ACHS - home medication: continue home NovoLog sliding scale and Lantus 35 units daily - correct regimen ordered - high dose TIDWM, based off BMI - A1C 12.8% on 09/30/24 (7) Hypotension: Qualifiers: Hypotension type: other hypotension type Qualified Code(s): I95.89 - Other hypotension Code(s): I95.9 - Hypotension, unspecified Status: Acute Assessment and Plan: Patient had history of hypertension until recent admission where she required pressors due to shock. Has since required midodrine 15 mg p.o. t.i.d. with meals, continue - current BP 125/72 - albumin 25% 12.5G PRN for hypotension during HD treatments - monitor (8) Obstructive sleep apnea: Onset Date: 04/02/21 Code(s): G47.33 - Obstructive sleep apnea (adult) (pediatric) Status: Acute Assessment and Plan: - continue CPAP? Plan Diet: renal GI Prophylaxis: Not currently indicated DVT Prophylaxis: heparin gtt, hold home Eliquis Lines: Peripheral Code Status: DNR Quality VTE Prophylaxis VTE prophylaxis: pharmacologic ordered Hospitalist [facility] Advance Care Plan I have confirmed that the patient's Advanced Care Plan is present, code status is documented, or surrogate decision maker is listed in patient medical record.: Yes Medication Reconciliation I have utilized all available resources to obtain, update and review the patients current medications (includes all prescriptions, OTC, herbals, cannabis, and nutritional supplements).: Yes
--- NOTE | 2024-11-11 15:20 | P.CONNP_ITS ---
Assessment and Plan Assessment and plan (1) Acute renal failure on dialysis: Code(s): N17.9 - Acute kidney failure, unspecified; Z99.2 - Dependence on renal dialysis Status: Acute Assessment and Plan: * thought to be secondary to multifactorial ATN: * hemodynamic instability/shock * sepsis * contrast exposure * infection/sepsis? -- although all cultures were negative * while at [facility], initiated on CRRT on 10/03/24 due to declining urine output/oliguria and worsening metabolic acidosis * CRRT discontinued on 10/11/24 * transitioned to intermittent hemodialysis starting on 10/12/24 * has been dialysis dependent since * HD today and continue dialysis schedule of M//F for now * follow electrolytes, volume status, and clearance * follow repeat labs and UOP to assess for potential renal recovery (2) Stage 3b chronic kidney disease: Code(s): N18.32 - Chronic kidney disease, stage 3b Status: Acute Assessment and Plan: * baseline creatinine seems to run ~ 1.2 - 1.3mg/dl since 2021 * presumably due to diabetes, vascular disease (CAD + AAA + CVA + CHF) and age- related change (3) Non-ST elevation CT (NSTEMI): Code(s): I21.4 - Non-ST elevation (NSTEMI) myocardial infarction Status: Acute Assessment and Plan: * elevated troponins noted * EKG changes apparent * Cardiology consulted for further evalation * heparin gtt initiated * follow telemetry (4) Pulmonary embolism and infarction: Code(s): I26.99 - Other pulmonary embolism without acute cor pulmonale Status: Acute Assessment and Plan: * as noted by imaging here in September 2024 * complicated by DVTs as well * s/p mechanical thrombectomy at [facility] by IR on 10/02 * was on Elliquis * no on heparin gtt (5) UTI (urinary tract infection): Qualifiers: Urinary tract infection type: acute cystitis Hematuria presence: w ithout hematuria Qualified Code(s): N30.00 - Acute cystitis without hematuria Code(s): N39.0 - Urinary tract infection, site not specified Status: Acute Assessment and Plan: * admission UA suggestive * follow urine culture * on antibiotics (6) Hypotension: Qualifiers: Hypotension type: other hypotension type Qualified Code(s): I95.89 - Other hypotension Code(s): I95.9 - Hypotension, unspecified Status: Acute Assessment and Plan: * chronic issues at baseline since discharge from [facility] * on midodrine therapy * follow trend of hemodynamics (7) Anemia: Qualifiers: Anemia type: due to chronic kidney disease Chronic kidney disease stage: unspecified stage Qualified Code(s): N18.9 - Chronic kidney disease, unspecified; D63.1 - Anemia in chronic kidney disease Code(s): D64.9 - Anemia, unspecified Status: Acute Assessment and Plan: * due to KAROL with dialysis dependence and recent hospitalization/acute illness * Retacrit with HD * follow trend of H/H (8) Hyperglycemia due to diabetes mellitus: Code(s): E11.65 - Type 2 diabetes mellitus with hyperglycemia Status: Acute Assessment and Plan: * follow accu-cheks * glycemic control per hospitalist I will continue to follow the patient with you while she remains hospitalized and make further recommendations as deemed necessary. Thank you for allowing me to participate in the care of this patient. History of Present Illness Reason for Consult Consult date: 11/11/24 Reason for consult: acute renal failure (requiring renal replacement therapy/dialysis) Chief Complaint Chief complaint: Chest pressure History of Present Illness Narrative: The patient is a 79-year-old female with an extensive past medical history as outlined below who was transferred from [facility] via EMS due to complaints of chest pain and shortness of breath. The patient states that she developed acute onset of chest pain early this morning before breakfast while she was sleeping. The pain woke her up from sleep do the severity of the symptom. She described the chest pain as a pressure-like sensation localized to the right side. There is no radiation of the pain and seem to be somewhat constant with no specific aggravating factors. Her chest pressure sensation was accompanied by fatigue and mild shortness of breath. She denied any other symptoms with regard to nausea, vomiting, diaphoresis, reflux, dizziness, palpitations, or lightheadedness. Given the persistence of the symptoms while she was in [facility], she was transported to the ER for further assessment. Workup and evaluation emergency room demonstrated the patient be hemodynamically stable and afebrile. Routine blood test demonstrated a white blood cell count of 14.3, relative anemia with a hemoglobin of 8.4, and a chemistry that was consistent with her known history of renal insufficiency requiring renal replacement therapy/dialysis. Her initial troponin was elevated 3.080 and her urinalysis was somewhat suggestive of urinary tract infection as well. Her chest x-ray showed a patchy right-sided airspace disease compatible with pneumonia as well. Given her history of a pulmonary embolism and DVTs, she underwent a CTA of the chest that showed persistent occluded segmental branches in the left upper lobe with a centrally resolved previous pulmonary embolism with some possible residual chronic emboli of the right main pulmonary artery at the bifurcation as well as a small pleural effusion and mild bibasilar atelectatic changes. Her oral anticoagulation was held and she was initiated on heparin drip with Cardiology consultation. She was subsequently admitted to the hospital for further evaluation and therapy. It should be noted that prior to her admission to [facility], she was at [facility] after being transferred there from [facility] ICU in early September of 2024. she initially presented to [facility] Emergency Room at that time with acute shortness of breath and right-sided chest/rib pain. Workup and evaluation emergency room demonstrated the patient be hemodynamically stable and with preserved oxygenation but she did require 3 L of oxygen by nasal cannula. Routine blood test demonstrated a mildly elevated white blood count 10.4 normal hemoglobin, normal coagulation studies, and no critical electrolyte abnormalities with a creatinine of 1.2 consistent with her known history of mild renal insufficiency. However, her glucose was noted be 500 in association with a metabolic acidosis and positive beta hydroxybutyrate. Her chest x-ray showed no acute cardiopulmonary disease and a subsequent CT scan of the chest/abdomen/pelvis with contrast showed pulmonary emboli in all lobes but worse in the right lower lobe with associated infarction the right lower lobe along with a 6.9 cm fusiform aneurysm of the infrarenal aorta with stent graft in expected position and no endoleak. Given these findings, she was started on IV fluids, and insulin drip for DKA, and heparin infusion for her pulmonary emboli. She was subsequently admitted to the intensive care unit for further evaluation and therapy. While in the ICU [facility], her DKA was treated and she was subsequently weaned off the insulin drip and transition to subcutaneous insulin. However, given his significant clot burden as noted on the CT scan and findings of mild pulmonary hypertension and RV strain by echo, it was felt she would benefit from direct therapy for the large PE/clot burden with possible thrombolysis/aspiration/thrombectomy. She was subsequently transferred to [facility] for further intervention. She underwent mechanical thrombectomy by interventional radiology of the large pulmonary embolism on the right which was noted to have caused complete occlusion of the interlobar pulmonary artery with no flow to the right middle and lower lobe branches. Despite this intervention, she remained quite hypotensive requiring high-dose vasopressor therapy and her respiratory status still declined and she eventually required intubation and mechanical ventilation. Further complicating matters is that her renal function continued to decline and she was initiated on renal replacement therapy -- 1st with continuous renal replacement therapy due to her hemodynamic instability and then transition to intermittent hemodialysis treatments thereafter. Eventually, her respiratory status improved where she was weaned off the ventilator as well as her vasopressor requirements although she did require midodrine therapy to maintain her blood pressure. As her overall condition slowly improved, PT and OT were consulted and was recommended that she would benefit from inpatient rehabilitation and hence her transfer to [facility] for this purpose. She had been doing reasonably well with therapy at [facility] and was continued on dialytic support while there until her presentation to the ER today for chest pain. Renal consultation was requested due to her acute kidney injury/acute renal failure requiring renal replacement therapy/dialysis. From review the patient's records, the patient has some mild degree of renal insufficiency at baseline with a creatinine that normally runs around 1.2-1.3 mg/dL classifying her as chronic kidney disease stage IIIB. On presentation to [facility] she was at her baseline renal function but subsequent transfer to [facility] with the events as noted above led to worsening of her renal dysfunction to the point of requiring renal replacement therapy. As already mentioned above, she was initially on continuous renal replacement therapy due to her hemodynamic instability but was eventually transitioned to intermittent hemodialysis once her overall condition improved. Unfortunately, during her hospital stay at [facility], she showed no significant evidence of renal recovery and she remains dialysis dependent at this time. She last received dialysis on Saturday, November 09, 2024 at [facility] and she is due for dialysis today. Currently, at the time of my evaluation, she is receiving dialysis and appears to be tolerating it reasonably well (seen on HD at 3:10PM). Review of Systems 2 Review of Systems: As per HPI. [facility] Past Medical History Medical History (Updated 11/12/24 @ 14:36 by Kishore Chiu MD) Acute on chronic anemia Pulmonary embolism and infarction multiple bilateral pulmonary emboli with infarction. Venous Doppler study was negative . Diastolic dysfunction diastolic dysfunction with LVH on echo with ejection fraction 70% on 09/30/2024. Tricuspid valve regurgitation moderate to severe tricuspid valve regurgitation on echo on 09/30/2024. Severe pulmonary arterial systolic hypertension severe pulmonary hypertension on echo 09/30/2024. Vitamin B12 deficiency level low at 397 with goal greater than 400 with folic acid 12.12 on 07/26/2024. Functional memory problem CVA (cerebral vascular accident) At moderate risk for fall Anemia Hemoglobin normal at 14.1 with vitamin B12 397, folic acid 12.2, iron 127 with 39% saturation and ferritin 57 on 07/26/2024. Fall Chronic kidney disease (CKD) stage G3b/A2, moderately decreased glomerular filtration rate (GFR) between 30-44 mL/min/1.73 square meter and albuminuria creatinine ratio between 30-299 mg/g BUN 35 with creatinine 1.30 and GFR 40 on 03/31/2022. BUN 24, creatinine 1.10 with GFR 48 on 05/26/2024. BUN 32, creatinine 1.18 with GFR 47 on 07/26/2024. AAA (abdominal aortic aneurysm) without rupture (~05/17/23) Endovascular repair 10/09/2023. 7 x 6.6 cm abdominal aortic aneurysm On CT in the ER 05/17/2023. Acute bronchitis COVID-19 (10/31/22) tested positive 11/05/2022 Chronic atrial fibrillation (04/23/22) NSTEMI (non-ST elevated myocardial infarction) (04/16/22) incomplete PTCA of the LAD 04/17/2022. CABG LAD 04/22/22. Renal insufficiency BUN 27 with creatinine 1.24 with GFR 42 on 03/27/2022. Overactive bladder Screening for diabetic retinopathy (09/24/21) no diabetic retinopathy on dilated eye exam 09/24/2021. Recheck annually. no retinopathy 01/29/2024. Diabetic neuropathy, type II diabetes mellitus (06/12/21) Chronic pain in right foot Microalbuminuria ratio 1048 on 07/26/2024. Hypersomnia Neoplasm of skin (12/26/19) Heart disease Thrombocytopenia Platelets 124 on 05/26/2024. Platelets 119 on 07/26/2024. Contusion of face Chronic depression Coronary artery disease involving [place] coronary artery of [place] heart without angina pectoris Controlled type 2 diabetes mellitus with hyperglycemia, with long-term current use of insulin glucose 304 with hemoglobin A1c 10.9 on 03/27/2022. glucose 243 with hemoglobin A1c 10.1 on 05/26/2024. Fasting glucose 413 with hemoglobin A1c 10.2 With GFR 47 and microalbumin ratio of 1048 on 07/26/2024. Surgical History Surgical History History of cardiac cath H/O knee surgery Left total knee replacement 2015 right knee arthroscopy about 2000 Family History Family History Mother Family history of cardiovascular disease, Onset Age: 66 Hypertension Cerebrovascular accident Hypercholesteremia Diabetes mellitus Heart disease Father Cerebrovascular accident, Onset Age: 77 Hypercholesteremia Heart disease Sibling Diabetes mellitus Cancer Heart disease Cerebrovascular accident Grandparent Diabetes mellitus Social History Social History Smoking packs per day: 1 Smoking cigarettes per day: 20.0 Years smoked: 44 Smoking pack-years: 44.00 Smoking status: Never smoker Additional smoking assessment comments: quit 20 years ago Alcohol intake: never Alcohol use details: on occasion Substance use: never Substance use type: does not use Other substance usage details: one drink a month Do You Feel Safe in your Home?: Yes Lack of Transportation: No Lack of Food: Never True Current Housing: I Have Housing Concerned About Future Housing: No Difficulty Paying Gas/Electric Bills: No Difficulty Paying for Meds: No Currently Unemployed: No Education: High School Diploma/GED Difficulty w/ Childcare or Family Care: No Living arrangements: alone Occupation/Education: retired Gender identity (if verbalized by the patient): Female Spiritual care concerns: No Meds Home Medications and Allergies Home Medications ?Medication ?Instructions ?Recorded ?Confirmed ?Type blood sugar diagnostic #100 ea 06/12/21 11/11/24 Rx insulin glargine 100 unit/mL (3 35 unit subcut DAILY 07/27/24 11/11/24 History mL) subcutaneous pen (Lantus Solostar U-100 Insulin) acetaminophen 325 mg tablet 650 mg PO Q6H PRN Pain 10/25/24 11/11/24 History apixaban 5 mg tablet 5 mg PO BID 10/25/24 11/11/24 History insulin aspart U-100 100 unit/mL See Protocol subcut TIDWMEAL 10/25/24 11/11/24 History subcutaneous solution melatonin 3 mg tablet 3 mg PO HS 10/25/24 11/11/24 History midodrine 5 mg tablet 15 mg PO TID 10/25/24 11/11/24 History sevelamer carbonate 0.8 gram oral 0.8 g PO TID 10/25/24 11/11/24 History powder packet Allergies Allergy/AdvReac Type Severity Reaction Status Date / Time Sulfa (Sulfonamide Allergy Unknown Unknown Verified 05/25/24 17:46 Antibiotics) Vital Signs Vital Signs Temp Pulse Resp BP Pulse Ox O2 Del Method O2 Flow Rate 11/11/24 15:15 83 112/59 L 11/11/24 15:00 82 123/56 L 11/11/24 14:45 82 135/72 11/11/24 14:31 78 131/69 11/11/24 14:31 2 11/11/24 14:20 97.7 F 78 20 121/67 100 11/11/24 12:47 83 24 H 95 11/11/24 12:46 88 22 H 110/58 L 95 11/11/24 12:45 83 21 H 92 11/11/24 12:31 82 21 H 115/54 L 97 11/11/24 12:30 80 18 96 11/11/24 12:20 81 20 114/70 99 11/11/24 12:19 90 17 98 11/11/24 12:01 80 22 H 120/71 94 11/11/24 12:00 80 21 H 95 11/11/24 11:52 80 17 100 11/11/24 10:37 99 Room Air 11/11/24 10:37 83 11/11/24 10:00 97.6 F 81 16 117/68 96 Exam 2 Narrative: GENERAL APPEARANCE: elderly but well developed well nourished female in no acute distress HEENT: normocephalic, atraumatic, normal conjunctiva and sclera, nares patient NECK: no lymphadenopathy, thyromegaly, or JVD MOUTH: normal lips, teeth, and gums CARDIOVASCULAR: RRR, normal S1 and S2, no rub RESPIRATORY: clear anteriorly ABDOMEN: soft, nontender, nondistended, positive bowel sounds present EXTREMITIES: no evidence of cyanosis, clubbing, or edema NEUROLOGICAL: alert and oriented x 3; CN II - XII intact bilaterally; no focal deficits noted Results Lab Results 11/13/24 03:49 11/13/24 03:49 Lab results: Most recent lab results ABG pH 7.502 (7.350-7.450) H* 11/11/24 10:23 ABG pCO2 28.2 mmHg (35.0-45.0) L 11/11/24 10:23 ABG pO2 71.9 mmHg (80.0-100.0) L 11/11/24 10:23 ABG HCO3 21.6 mEq/l (22.0-26.0) L 11/11/24 10:23 ABG O2 Saturation 95.9 % (95.0-100.0) 11/11/24 10:23 Calcium 9.0 mg/dL (8.4-10.2) 11/11/24 10:25
--- NOTE | 2024-11-11 15:21 | P.CONCA_ITS ---
Assessment and Plan Assessment and plan (1) Non-ST elevation PA (NSTEMI): Code(s): I21.4 - Non-ST elevation (NSTEMI) myocardial infarction Status: Acute Assessment and Plan: 79 year old patient with history of coronary artery disease treated with multiple prior PCI's and most recently 1 vessel CABG in 2021 (GARCIA to LAD). She comes to the hospital with a chief complaint of chest pain and has been found to have elevated troponin levels (3.080, 5.240). Trend concerning for myocardial ischemia. Her EKG also has some ischemic changes with lateral ST depressions. She has a left bundle branch block which is not a new finding. * Would recommend coronary angiogram in this situation to define her coronary anatomy. However, she takes Eliquis with last dose taken yesterday. Additionally, she is anemic would not be appropriate to commit her to triple therapy or DAPT at this time. Patient is also unsure if she would want to undergo cardiac cath. Therefore, will proceed with medical management for now * Continue heparin gtt * p.r.n. SL nitro * low dose beta birgit, toprol XL. Titrate if BP allows * Would recommend ARB as well if BP allows * Check echo (she did have one last month, but repeat now to check for any new WMA) * Case discussed with Dr. Riley History of Present Illness History of Present Illness Consult date/time: 11/11/24 15:21 Requesting physician: Adrienne Whitlock MD Consult reason: chest pain Reason For Visit: Chest pressure Narrative: Christine De Jesus is a 79 year old female with history of coronary artery disease status post CABG x 1 (GARCIA to LAD) in 2021 and multiple prior PCI's, known underexpanded stent, PAD with multiple prior abdominal arterial stents, AAA status post EVAR, pulmonary embolism treated on 10/02/24 with mechanical thrombectomy and anticoagulation. Because of her underexpanded stent the plan was to keep her on MAPT indefinitely with Plavix. However, it appears that when she was initiated on apixaban for pulmonary embolus her plavix may have been discontinued. She comes to the hospital with a chief complaint of chest pain. Patient states she was awoken this morning from sleep by a right sided chest pressure that she describes as being right near her hemodialysis catheter line. The pain has been consistent and has migrated now to be central chest pressure. Review of Systems 2 Review of Systems: All systems reviewed & are unremarkable except as noted in HPI and below PMFSH Past Medical History Medical History Diastolic dysfunction diastolic dysfunction with LVH on echo with ejection fraction 70% on 09/30/2024. Tricuspid valve regurgitation moderate to severe tricuspid valve regurgitation on echo on 09/30/2024. Severe pulmonary arterial systolic hypertension severe pulmonary hypertension on echo 09/30/2024. Vitamin B12 deficiency level low at 397 with goal greater than 400 with folic acid 12.12 on 07/26/2024. Functional memory problem CVA (cerebral vascular accident) At moderate risk for fall Anemia Hemoglobin normal at 14.1 with vitamin B12 397, folic acid 12.2, iron 127 with 39% saturation and ferritin 57 on 07/26/2024. Fall Chronic kidney disease (CKD) stage G3b/A2, moderately decreased glomerular filtration rate (GFR) between 30-44 mL/min/1.73 square meter and albuminuria creatinine ratio between 30-299 mg/g BUN 35 with creatinine 1.30 and GFR 40 on 03/31/2022. BUN 24, creatinine 1.10 with GFR 48 on 05/26/2024. BUN 32, creatinine 1.18 with GFR 47 on 07/26/2024. AAA (abdominal aortic aneurysm) without rupture (~05/17/23) Endovascular repair 10/09/2023. 7 x 6.6 cm abdominal aortic aneurysm On CT in the ER 05/17/2023. Acute bronchitis COVID-19 (10/31/22) tested positive 11/05/2022 Chronic atrial fibrillation (04/23/22) NSTEMI (non-ST elevated myocardial infarction) (04/16/22) incomplete PTCA of the LAD 04/17/2022. CABG LAD 04/22/22. Renal insufficiency BUN 27 with creatinine 1.24 with GFR 42 on 03/27/2022. Overactive bladder Screening for diabetic retinopathy (09/24/21) no diabetic retinopathy on dilated eye exam 09/24/2021. Recheck annually. no retinopathy 01/29/2024. Diabetic neuropathy, type II diabetes mellitus (06/12/21) Chronic pain in right foot Microalbuminuria ratio 1048 on 07/26/2024. Hypersomnia Neoplasm of skin (12/26/19) Heart disease Thrombocytopenia Platelets 124 on 05/26/2024. Platelets 119 on 07/26/2024. Contusion of face Chronic depression Coronary artery disease involving [place] coronary artery of [place] heart without angina pectoris Controlled type 2 diabetes mellitus with hyperglycemia, with long-term current use of insulin glucose 304 with hemoglobin A1c 10.9 on 03/27/2022. glucose 243 with hemoglobin A1c 10.1 on 05/26/2024. Fasting glucose 413 with hemoglobin A1c 10.2 With GFR 47 and microalbumin ratio of 1048 on 07/26/2024. Surgical History Surgical History History of cardiac cath H/O knee surgery Left total knee replacement 2015 right knee arthroscopy about 2000 Family History Family History Mother Family history of cardiovascular disease, Onset Age: 66 Hypertension Cerebrovascular accident Hypercholesteremia Diabetes mellitus Heart disease Father Cerebrovascular accident, Onset Age: 77 Hypercholesteremia Heart disease Sibling Diabetes mellitus Cancer Heart disease Cerebrovascular accident Grandparent Diabetes mellitus Social History Social History Smoking packs per day: 1 Smoking cigarettes per day: 20.0 Years smoked: 44 Smoking pack-years: 44.00 Smoking status: Former smoker Additional smoking assessment comments: quit 20 years ago Alcohol intake: never Alcohol use details: on occasion Substance use: never Substance use type: does not use Other substance usage details: one drink a month Do You Feel Safe in your Home?: Yes Lack of Transportation: No Lack of Food: Never True Current Housing: I Have Housing Concerned About Future Housing: No Difficulty Paying Gas/Electric Bills: No Difficulty Paying for Meds: No Currently Unemployed: No Education: High School Diploma/GED Difficulty w/ Childcare or Family Care: No Living arrangements: alone Occupation/Education: retired Gender identity (if verbalized by the patient): Female Spiritual care concerns: No Meds Home Medications and Allergies Home Medications ?Medication ?Instructions ?Recorded ?Confirmed ?Type blood sugar diagnostic #100 ea 06/12/21 11/11/24 Rx insulin glargine 100 unit/mL (3 35 unit subcut DAILY 07/27/24 11/11/24 History mL) subcutaneous pen (Lantus Solostar U-100 Insulin) acetaminophen 325 mg tablet 650 mg PO Q6H PRN Pain 10/25/24 11/11/24 History apixaban 5 mg tablet 5 mg PO BID 10/25/24 11/11/24 History insulin aspart U-100 100 unit/mL See Protocol subcut TIDWMEAL 10/25/24 11/11/24 History subcutaneous solution melatonin 3 mg tablet 3 mg PO HS 10/25/24 11/11/24 History midodrine 5 mg tablet 15 mg PO TID 10/25/24 11/11/24 History sevelamer carbonate 0.8 gram oral 0.8 g PO TID 10/25/24 11/11/24 History powder packet Allergies Allergy/AdvReac Type Severity Reaction Status Date / Time Sulfa (Sulfonamide Allergy Unknown Unknown Verified 05/25/24 17:46 Antibiotics) Vital Signs Vital Signs - 24 hr 11/11/24 10:00 11/11/24 10:37 11/11/24 10:37 Temperature 36.4 C Pulse Rate 81 83 Respiratory Rate 16 Blood Pressure 117/68 Pulse Oximetry 96 99 Oxygen Delivery Room Air Oxygen Flow Rate 11/11/24 11:52 11/11/24 12:00 11/11/24 12:01 Temperature Pulse Rate 80 80 80 Respiratory Rate 17 21 H 22 H Blood Pressure 120/71 Pulse Oximetry 100 95 94 Oxygen Delivery Oxygen Flow Rate 11/11/24 12:19 11/11/24 12:20 11/11/24 12:30 Temperature Pulse Rate 90 81 80 Respiratory Rate 17 20 18 Blood Pressure 114/70 Pulse Oximetry 98 99 96 Oxygen Delivery Oxygen Flow Rate 11/11/24 12:31 11/11/24 12:45 11/11/24 12:46 Temperature Pulse Rate 82 83 88 Respiratory Rate 21 H 21 H 22 H Blood Pressure 115/54 L 110/58 L Pulse Oximetry 97 92 95 Oxygen Delivery Oxygen Flow Rate 11/11/24 12:47 11/11/24 14:20 11/11/24 14:31 Temperature 36.5 C Pulse Rate 83 78 Respiratory Rate 24 H 20 Blood Pressure 121/67 Pulse Oximetry 95 100 Oxygen Delivery Oxygen Flow Rate 2 11/11/24 14:31 12/13/24 14:45 11/11/24 15:00 Temperature Pulse Rate 78 82 82 Respiratory Rate Blood Pressure 131/69 135/72 123/56 L Pulse Oximetry Oxygen Delivery Oxygen Flow Rate Exam 2 Const: General: comfortable, no acute distress, alert and awake O rientation/consciousness: patient oriented x3 HENMT: Head: normal to inspection Eyes: General: appearance normal, both eyes and all related structures P upils: Equal, round and reactive pupils present Neck: Neck: normal visual inspection, supple and no JVD Carotids: normal carotid upstroke Resp: Effort & Inspection: normal respiratory effort Auscultation: clear to auscultation bilaterally Cardio: Rate: regular rate Rhythm: regular rhythm Heart sounds: S1 normal heart sound present, S2 normal heart sound present and no murmurs GI: Auscultation: normal bowel sounds Skin: General skin exam: normal color Neuro: General: patient oriented x3 Cranial nerves: Yes Equal, round and reactive pupils present Extrem: General: normal to inspection Psych: Appearance: grossly normal Mental Status: mental status grossly normal Results Labs and Meds 11/11/24 10:25 11/11/24 10:25 Lab results: Cardiac Enzymes 11/11/24 11/11/24 Range/Units 10:25 12:28 AST 37 H (14-36) U/L Troponin I 3.080 H* 5.240 H* D (0.000-0.034) ng/mL Coagulation 11/11/24 Range/Units 10:25 PT 20.5 H (11.1-14.7) Seconds APTT 35.0 (22.3-36.8) Seconds CBC 11/11/24 Range/Units 10:25 WBC 14.3 H (4.5-10.0) K/mm3 RBC 2.66 L (4.2-5.4) M/mm3 Hgb 8.4 L (12.0-15.0) g/dL Hct 25.8 L (37.0-47.0) % Plt Count 101 L (150-375) k/mm3 Lymph # (Auto) 1.59 (0.9-3.2) K/mm3 [place] # (Auto) 0.7 H (0.1-0.6) K/mm3 Eos # (Auto) 0.0 (0-0.3) K/mm3 Baso # (Auto) 0.1 (0.0-0.1) K/mm3 Comprehensive Metabolic Panel 11/11/24 Range/Units 10:25 Sodium 130 L (137-145) mmol/L Potassium 4.7 (3.4-5.0) mmol/L Chloride 99 (98-107) mmol/L Carbon Dioxide 24 (22-30) mmol/L BUN 31 H (7-17) mg/dL Creatinine 2.50 H (0.7-1.0) mg/dL Glucose 260 H (65-110) mg/dL Calcium 9.0 (8.4-10.2) mg/dL AST 37 H (14-36) U/L ALT 19 (6-35) U/L Alkaline Phosphatase 89 (38-126) U/L Total Protein 7.0 (6.3-8.2) g/dL Albumin 2.9 L (3.5-5.1) g/dL Patient Weight 11/11/24 23:59 Weight 87 kg
[2024-11-11] MEDS: MIDODRINE HCL 2.5 MG TABLET 15 MG PO ×2 (15:23→18:38)
--- NOTE | 2024-11-11 15:47 | PC.NURSE ---
Arrived to the floor via stretcher from the ER. Transferred with assist of 3 from the stretcher to the bed. Placed assistant professor sculpture on and a new gown. Complains of chest pain and states that pain is improved when she rolls onto her side. Rates chest pain a 8/10. Unable to describe pain when asked, states it is worse when lying on back. Discussed with patient plan of care, specifically that the dialysis nurse is ready for her to come to the dialysis room and start hemodialysis. Furthermore discussed with her and her son plan related to trending troponins and results for CT scan. Family member verbalizes understanding and states that he is going to go home while she is in dialysis. Vital signs obtained and consent for dialysis obtained. Dialysis nurse contacted to verify that he is in fact ready for patient to come. He verbalized that he is. The patient was then transported via bed to dialysis and a copy of his consent.
[2024-11-11] MEDS: EPOETIN ALFA-EPBX 10,000 UNITS/ML VIAL 10000 UNITS IV PUSH (17:41)
[2024-11-11] MEDS: HEPARIN SODIUM 1,000 UNITS/ML VIAL 5000 UNITS IV PUSH (18:05)
[2024-11-11 18:14] LABS: Partial Thromboplastin Time 55.1 Seconds (22.3-36.8)
[2024-11-11] MEDS: HEPARIN SODIUM 5,000 UNITS/ML VIAL 2500 UNITS IV PUSH (18:37)
[2024-11-11 18:58] LABS: Glucose Point of Care 161 mg/dl (65-105)
[2024-11-11] MEDS: MELATONIN 3 MG TABLET PO (20:13)
[2024-11-11 20:21] LABS: Glucose Point of Care 214 mg/dl (65-105)
--- NOTE | 2024-11-11 22:23 | ECG_ITS ---
Test Date: 2024-11-11 23:16:05 Measurements Intervals [place] Rate: 90 P: 77 [place]: 162 QRS: -11 QRSD: 134 T: 145 QT: 422 QTc: 519 Interpretive Statements SINUS RHYTHM WITH SINUS ARRHYTHMIA INTRAVENTRICULAR CONDUCTION DELAY [130+ ms QRS DURATION] WARNING: DATA QUALITY MAY AFFECT INTERPRETATION Compared to ECG 11/11/2024 10:15:15 Possible ischemia still present Electronically Signed On 11-12-2024 08:57:56 HOME AID by Katerin Peralta M.D.
[2024-11-12] VITALS (18 sets, daily range): BP systolic 112–136; BP diastolic 58–66; PULSE 80–98; RESP 14–28; TEMP 36.1–37.1; O2SAT 91–100
--- NOTE | 2024-11-12 | ECHO_ITS ---
Patient Info Name: Christine De Jesus Age: 79 years : 1945 Gender: Female Ht: 63 in Wt: 186 lbs BSA: 1.97 m2 HR: 77 bpm BP: 121 / 67 mmHg Heart Rhythm: Sinus Rhythm Technical Quality: Good Exam Date: 11/12/2024 12:04 PM Site Location: 121 Exam Location: 9 Exam Room: [facility] Patient Status: Inpatient Admit Date: 11/11/2024 Staff Ordering Physician: Evy Riley MD ([email or web address]) Contact Center Associate: Cheryl Hassan RDCS Attending Provider: Jaylan Carter MD Referring Physician: Rosemary NEVAREZ; Exam Type: CA echo doppler color flow Study Info Indications CAD - Complete two-dimensional, color flow and Doppler transthoracic echocardiogram is performed. Summary 1. Complete two-dimensional, color flow and Doppler transthoracic echocardiogram is performed. 2. Left ventricular systolic function is normal, estimated at 60-65%. 3. There is mildly increased left ventricular wall thickness. 4. The left ventricular diastolic function is abnormal. 5. Left atrial chamber dimension is mildly enlarged. 6. There is mild aortic valve calcification. 7. There is 2.5x1.5cm vegetation on posterior mitral valve leaflet.There is mild mitral valve regurgitation. 8. Cannot exclude small vegetation on tricuspid valve.There is moderate tricuspid valve regurgitation. 9. Severe pulmonary hypertension, estimated pulmonary arterial systolic pressure is 91 mmHg. 10. Results were communicated to Dr Riley. Left Ventricle Left ventricular chamber dimension is normal. Left ventricular systolic function is normal, estimated at 60-65%. There is mildly increased left ventricular wall thickness. Left ventricular septal wall motion is normal. The left ventricular diastolic function is abnormal. Right Ventricle Right ventricular chamber dimension is normal. Right ventricular systolic function is normal. Left Atria Left atrial chamber dimension is mildly enlarged. Right Atria Right atrial chamber dimension is normal. Aortic Valve The aortic valve is trileaflet. There is no aortic valve sclerosis. There is no aortic valve stenosis. There is no aortic valve regurgitation. There is mild aortic valve calcification. Pulmonic Valve The pulmonic valve is normal. There is no pulmonic valve stenosis. There is mild pulmonic regurgitation. Mitral Valve The mitral valve has normal leaflets. There is no mitral valve stenosis. There is 2.5x1.5cm vegetation on posterior mitral valve leaflet.There is mild mitral valve regurgitation. Tricuspid Valve The tricuspid valve leaflets are normal. There is no significant tricuspid valve stenosis. Cannot exclude small vegetation on tricuspid valve.There is moderate tricuspid valve regurgitation. Severe pulmonary hypertension, estimated pulmonary arterial systolic pressure is 91 mmHg. Pericardium/Pleural The pericardium appears normal. There is no pericardial effusion. Inferior Vena Cava Normal inferior vena cava with <50% collapse upon inspiration consistent with Empty right atrial pressure, Empty. Aorta The aortic root size at the sinus of Valsalva is normal. The prox ascending aorta size is normal. Mitral Valve Name Value Normal MV Doppler MV Peak Gradient 16 mmHg MV Mean Gradient 7 mmHg MV Decel [place] 351 cm/s2 MV PHT 91 ms MV Area (PHT) 2.4 cm2 4.0-5.0 MV Regurgitation Doppler MR Peak Gradient 94 mmHg MV Diastolic Function MV E Peak Velocity 111 cm/s MV A Peak Velocity 144 cm/s MV E/A 0.8 MV Decel Time 315 ms Tricuspid Valve Name Value Normal TV Regurgitation Doppler TR Peak Velocity 449 cm/s TR Peak Gradient 81 mmHg Estimated PAP/RSVP PA Systolic Pressure 91 mmHg <36 Ventricles Name Value Normal LV Fractional Shortening/Ejection Fraction 2D/MM LV Diastolic Volume (4C MOD) 89 ml LV EF (4C MOD) 64 % LV Diastolic Length (4C) 7.6 cm LV Systolic Length (4C) 6.6 cm LV Stroke Volume (4C MOD) 57 ml Atria Name Value Normal LA Dimensions LA Dimension (2D) 5.5 cm 2.7-3.8 LA Dimen Index (2D) 2.8 cm/m2 LA Volume (4C A-L) 107 ml RA Dimensions RA Area (4C) 21.4 cm2 <=18.0 Report Signatures
[2024-11-12] MEDS: HEPARIN SODIUM 5,000 UNITS/ML VIAL 2500 UNITS IV PUSH ×3 (00:56→14:43)
[2024-11-12 07:14] LABS: Basophils Absolute Auto 0.1 K/mm3 (0.0-0.1); Basophils Percent Auto 0.5 % (0.2-1.2); Eosinophils Percent Auto 0.3 % (0-4.4); Hemoglobin 8.5 g/dL (12.0-15.0); Immature Granulocyte Absolute 0.08 K/mm3 (0.00-0.031); Immature Granulocyte Percent A 0.7 % (0-0.5); Lymphocytes Absolute Auto 1.22 K/mm3 (0.9-3.2); Lymphocytes Percent Auto 11.2 % (18.3-44.2); Mean Corpuscular HGB Conc 32.7 g/dl (32-36); Mean Corpuscular Hemoglobin 31.4 pg (26-34); Mean Corpuscular Volume 95.9 fl (80-100); Mean Platelet Volume 9.6 fl (7.4-10.4); Monocytes Absolute Auto 0.6 K/mm3 (0.1-0.6); Monocytes Percent Auto 5.2 % (2.6-8.5); Neutrophils Percent Auto 82.1 % (45.5-73.1); Platelet Count Result 128 k/mm3 (150-375); Red Blood Count 2.71 M/mm3 (4.2-5.4); Red Cell Distribution Width 16.4 % (11.5-14.5); White Blood Count 10.9 K/mm3 (4.5-10.0)
[2024-11-12 07:26] LABS: Partial Thromboplastin Time 59.8 Seconds (22.3-36.8)
[2024-11-12 07:27] LABS: Alanine Aminotransferase 21 U/L (6-35); Albumin Level 3.1 g/dL (3.5-5.1); Alkaline Phosphatase 90 U/L (38-126); Anion Gap 5 mmol/L (4-12); Aspartate Amino Transferase 65 U/L (14-36); Bilirubin,Total 0.6 mg/dL (0.2-1.3); Blood Urea Nitrogen 16 mg/dL (7-17); Calcium 8.7 mg/dL (8.4-10.2); Carbon Dioxide 29 mmol/L (22-30); Chloride 99 mmol/L (98-107); Estimated CRCL calculation 25 ml/min; Estimated Glomerular Filt Rate 29; Glucose 182 mg/dL (65-110); Magnesium 1.9 mg/dL (1.6-2.3); Phosphorus 3.2 mg/dL (2.5-4.5); Sodium 133 mmol/L (137-145)
[2024-11-12] MEDS: METOPROLOL SUCCINATE EXT REL 12.5 MG TABCR PO (08:04)
[2024-11-12] MEDS: Non-Formulary (sevelamer carbonate 0.8 gram ORAL powder in packet) 1 EACH PO ×3 (08:04→16:40)
[2024-11-12] MEDS: INSULIN GLARGINE (*BKC) 100 UNITS/ML 35 UNITS SUB-Q (08:08)
[2024-11-12 08:18] LABS: Glucose Point of Care 182 mg/dl (65-105)
[2024-11-12] MEDS: MIDODRINE HCL 2.5 MG TABLET 15 MG PO ×3 (08:26→16:39)
--- NOTE | 2024-11-12 10:10 | P.PNNP_ITS ---
Progress Note: A&P Assessment and Plan (1) Acute renal failure on dialysis: Code(s): N17.9 - Acute kidney failure, unspecified; Z99.2 - Dependence on renal dialysis Status: Acute Assessment and Plan: * thought to be secondary to multifactorial ATN: * hemodynamic instability/shock * sepsis * contrast exposure * infection/sepsis? -- although all cultures were negative at OSH * while at [facility], initiated on CRRT on 10/03/24 due to declining urine output/oliguria and worsening metabolic acidosis * CRRT discontinued on 10/11/24 * transitioned to intermittent hemodialysis starting on 10/12/24 * has been dialysis dependent since * HD yesterday and continue dialysis schedule of // for now * follow electrolytes, volume status, and clearance * follow repeat labs and UOP to assess for potential renal recovery (2) Stage 3b chronic kidney disease: Code(s): N18.32 - Chronic kidney disease, stage 3b Status: Acute Assessment and Plan: * baseline creatinine seems to run ~ 1.2 - 1.3mg/dl since 2021 * presumably due to diabetes, vascular disease (CAD + AAA + CVA + CHF) and age- related change (3) Non-ST elevation [place] (NSTEMI): Code(s): I21.4 - Non-ST elevation (NSTEMI) myocardial infarction Status: Acute Assessment and Plan: * elevated troponins noted * EKG changes apparent * Cardiology recommendations noted * medical management for now * ASA, beta birgit (as BP can tolerated), and statin therapy * possible cardiac catheterization? * remains on heparin gtt * follow-up on Echo * follow telemetry (4) Pulmonary embolism and infarction: Code(s): I26.99 - Other pulmonary embolism without acute cor pulmonale Status: Acute Assessment and Plan: * as noted by imaging here in September 2024 * complicated by DVTs as well * s/p mechanical thrombectomy at [facility] by IR on 10/02 * was on Elliquis * now on heparin gtt (5) UTI (urinary tract infection): Qualifiers: Urinary tract infection type: acute cystitis Hematuria presence: w ithout hematuria Qualified Code(s): N30.00 - Acute cystitis without hematuria Code(s): N39.0 - Urinary tract infection, site not specified Status: Acute Assessment and Plan: * admission UA suggestive * follow urine culture - E.coli noted * on antibiotics (6) Hypotension: Qualifiers: Hypotension type: other hypotension type Qualified Code(s): I95.89 - Other hypotension Code(s): I95.9 - Hypotension, unspecified Status: Acute Assessment and Plan: * chronic issues at baseline since discharge from [facility] * on midodrine therapy * follow trend of hemodynamics (7) Anemia: Qualifiers: Anemia type: due to chronic kidney disease Chronic kidney disease stage: unspecified stage Qualified Code(s): N18.9 - Chronic kidney disease, unspecified; D63.1 - Anemia in chronic kidney disease Code(s): D64.9 - Anemia, unspecified Status: Acute Assessment and Plan: * due to KAROL with dialysis dependence and recent hospitalization/acute illness * Retacrit with HD * follow trend of H/H (8) Hyperglycemia due to diabetes mellitus: Code(s): E11.65 - Type 2 diabetes mellitus with hyperglycemia Status: Acute Assessment and Plan: * follow accu-cheks * glycemic control per hospitalist Will continue to follow. 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 Exam 2 Narrative: General: elderly but WD/WN female in NAD Heart: normal S1 and S2; no rub Lungs: clear anteriorly; slightly decreased at bases Abdomen: soft, nontender, nondistended, positive bowel sounds Extremities: no cyanosis or clubbing; no edema Skin: warm and dry Objective Data Vital Signs Vital Signs: Vital Signs Temp Pulse Resp BP Pulse Ox O2 Del Method O2 Flow Rate 11/12/24 10:00 94 11/12/24 08:34 93 Room Air 11/12/24 08:04 96 11/12/24 08:00 95 11/12/24 08:00 93 Room Air 11/12/24 08:00 97.9 F 92 16 123/64 94 11/12/24 06:00 93 11/12/24 04:00 93 11/12/24 04:00 97 Nasal Cannula 2 11/12/24 03:35 98.2 F 95 14 136/66 95 11/12/24 02:00 94 11/12/24 00:00 90 11/12/24 00:00 97.8 F 90 16 118/64 97 11/12/24 00:00 100 Nasal Cannula 2 11/11/24 22:00 84 11/11/24 20:00 81 11/11/24 20:00 98 Nasal Cannula 2 11/11/24 19:04 97.6 F 84 24 H 134/61 98 11/11/24 18:00 74 11/11/24 17:52 97.7 F 80 20 130/57 L 99 11/11/24 17:48 81 118/52 L 11/11/24 17:45 77 121/62 11/11/24 17:30 77 126/60 11/11/24 17:15 67 120/52 L 11/11/24 17:00 80 123/62 11/11/24 16:45 79 136/63 11/11/24 16:30 79 130/70 11/11/24 16:15 76 133/70 11/11/24 16:00 83 120/64 11/11/24 15:45 81 129/69 11/11/24 15:30 75 113/54 L 11/11/24 15:15 83 112/59 L 11/11/24 15:00 82 123/56 L 11/11/24 14:45 82 135/72 11/11/24 14:31 78 131/69 11/11/24 14:31 2 11/11/24 14:20 97.7 F 78 20 121/67 100 Intake/Output Intake/Output: Intake & Output 11/09/24 11/10/24 11/11/24 11/12/24 23:59 23:59 23:59 23:59 Intake Total 106.5 180.0 Output Total 1900 0 Balance -1793.5 180.0 Meds/Results Medications: Active Medications Generic Name Dose Route Start Last Admin Trade Name Freq PRN Reason Stop Dose Admin Acetaminophen 650 mg 11/11/24 15:12 Acetaminophen 325 Mg Tablet PO Q6H PRN PAIN RATED 1-3 Aspirin 81 mg 11/13/24 09:00 Aspirin 81 Mg Enteric Tablet PO [facility] Atorvastatin Calcium 20 mg 11/13/24 09:00 Atorvastatin 20 Mg Tablet PO DAILY DEREJE Dextrose 12.5 gm 11/11/24 15:08 Dextrose 50% 25 Gm/50 Ml Syringe IV PUSH PRN PRN Hypoglycemia Protocol Glucagon 1 mg 11/11/24 15:08 Glucagon For Inj 1 Mg Vial IM PRN PRN Hypoglycemia Protocol Glucose 15 gm 11/11/24 15:08 Glucose Oral Gel 15 Gm Of Glucse In 37.5 Gm Tube PO PRN PRN Hypoglycemia Protocol Heparin Sodium (Porcine) 4,000 units 11/11/24 11:09 Heparin Sodium 5,000 Units/Ml Vial IV PUSH PRN PRN aPTT less than 55 seconds Heparin Sodium (Porcine) 2,500 units 11/11/24 11:09 11/12/24 08:16 Heparin Sodium 5,000 Units/Ml Vial IV PUSH 2,500 units PRN PRN Administration aPTT 55 - 70 seconds Heparin Sodium/Dextrose 25,000 units in 250 mls @ 11 mls/hr 11/11/24 11:10 11/12/24 08:17 Heparin Sodium/D5w 100 Units/Ml IV CONT 1,100 units/hr .[id number] DEREJE 11 mls/hr Titration Protocol 1,100 UNITS/HR Albumin Human 50 mls @ 999 mls/hr 11/11/24 11:56 Albutein IVPB 12/11/24 11:55 Q10M PRN HYPOTENSION Ceftriaxone Sodium 1 gm in 50 mls @ 100 mls/hr 11/11/24 16:00 11/11/24 20:14 Rocephin 1 Gm/Ns 50 Ml IVPB Infused Q24H DEREJE Infusion Dextrose 1,000 mls @ 100 mls/hr 11/11/24 15:08 Dextrose 5% 1,000 Ml IVPB PRN PRN Hypoglycemia Protocol Iron Sucrose 100 mg/ Sodium 55 mls @ 220 mls/hr 11/12/24 14:00 Chloride IVPB 11/12/24 14:14 ONCE ONE Insulin Aspart 4 - 8 units 11/11/24 17:00 11/12/24 12:39 Insulin Aspart (*Bkc) 100 Units/Ml SUB-Q 4 units TIDWM DEREJE Administration Protocol Insulin Aspart 0 units 11/12/24 21:00 Insulin Aspart (*Bkc) 100 Units/Ml SUB-Q HS DEREJE Protocol Insulin Glargine 35 units 11/12/24 09:00 12/14/24 08:08 Insulin Glargine (*Bkc) 100 Units/Ml SUB-Q 35 units DAILY DEREJE Administration Melatonin 3 mg 11/11/24 21:00 11/11/24 20:13 Melatonin 3 Mg Tablet PO 3 mg HS DEREJE Administration Metoprolol Succinate 12.5 mg 11/12/24 09:00 11/12/24 08:04 Metoprolol Succinate Ext Rel 12.5 Mg Tabcr PO 12.5 mg QAM DEREJE Administration Midodrine 15 mg 11/11/24 13:00 11/12/24 12:39 Midodrine Hcl 2.5 Mg Tablet PO 15 mg TID DEREJE Administration Nitroglycerin 0.4 mg 11/11/24 15:21 Nitroglycerin Sl 0.4 Mg Tablet SUBLINGUAL Q5MIN PRN Chest Pain Non-Formulary ( 1 each 11/11/24 17:00 11/12/24 12:39 Sevelamer Carbonate PO 12/11/24 16:59 1 each 0.8 Gram Oral Powder TIDWM DEREJE Administration In Packet) Perflutren Lipid Microsphere 0 ml 11/11/24 15:04 Perflutren Lipid Microspheres 1.5 Ml Vial Diluted To 10 Ml Total Volume IV PUSH 11/14/24 15:04 ONCE PRN adequate visualization Protocol Perflutren Lipid Microsphere 0 ml 11/12/24 09:51 Perflutren Lipid Microspheres 1.5 Ml Vial Diluted To 10 Ml Total Volume IV PUSH 11/15/24 09:51 ONCE PRN adequate visualization Protocol Radiology Results: ITS Impressions Chest X-Ray 11/11/24 12:21 Impression: 1: Patchy right-sided airspace disease, compatible with pneumonia. Head CT 11/11/24 13:26 Impression: No acute abnormality seen. Stable chronic right occipital lobe infarct. Chest CTA 11/11/24 13:27 Impression: Persistent occluded segmental branches in the left upper lobe. Otherwise, pulmonary emboli seen on prior exam from of 09/30/2024 are largely resolved. 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 Small right pleural effusion with mild bibasilar atelectatic change. Labs Labs: Laboratory Tests 11/12/24 07:09 11/12/24 07:09 Calcium 8.7 Phosphorus 3.2 Magnesium 1.9 Iron 32 L TIBC 256 L % Saturation 13 L Ferritin 133.00 Total Bilirubin 0.6 AST 65 H ALT 21 Alkaline Phosphatase 90 Troponin I 16.800 H* Total Protein 7.0 Albumin 3.1 L
[2024-11-12 10:20] LABS: Iron 32 ug/dL (37-170)
[2024-11-12 10:29] LABS: Percent Iron Saturation 13 % (20-50)
[2024-11-12 11:41] LABS: Glucose Point of Care 233 mg/dl (65-105)
[2024-11-12] MEDS: INSULIN ASPART (*BKC) 100 UNITS/ML SUB-Q ×2 (12:39→16:39)
--- NOTE | 2024-11-12 12:45 | PM.IMPN ---
Progress Note: A&P Assessment and Plan (1) Non-ST elevation [place] (NSTEMI): Code(s): I21.4 - Non-ST elevation (NSTEMI) myocardial infarction Status: Acute Assessment and Plan: - CXR: Patchy right-sided airspace disease, compatible with pneumonia. CTA chest showed PE mostly resolved and no lung consolidation 4 - Troponin: 3.080 -> 5.240 -> 9.19-->16.8 Echo pending, trend troponin, A1c, lipid profile, Continue heparin infusion Cardiology following, recommending medical treatment for now (2) Pulmonary embolism and infarction: Code(s): I26.99 - Other pulmonary embolism without acute cor pulmonale Status: Acute Assessment and Plan: - CTA chest: 1. Persistent occluded segmental branches in the left upper lobe. Otherwise, pulmonary emboli seen on prior exam from of 09/30/2024 are largely resolved. 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 2. Small right pleural effusion with mild bibasilar atelectatic change. - CT chest/abd/pelvis w/con, previous (09/30/24): 1. Pulmonary emboli in all lobes, worst in right lower lobe. 2. Infarct in right lung lower lobe. 3. 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 No endoleak. - underwent mechanical thrombectomy at [facility] on 10/02 - home anticoagulation: Eliquis, holding. Currently on heparin gtt. CTA Chest 11/11/24 showed Prior PE mostly resolved (3) Acute on chronic renal failure: Qualifiers: Acute renal failure type: unspecified Chronic kidney disease stage: unspecified stage Qualified Code(s): N17.9 - Acute kidney failure, unspecified; N18.9 - Chronic kidney disease, unspecified Code(s): N17.9 - Acute kidney failure, unspecified; N18.9 - Chronic kidney disease, unspecified Status: Acute Assessment and Plan: - history of CKD, started on CRRT on 10/03 and transitioned to HD on 10/12. Receiving treatment on? - nephrology consulted for inpatient HD, due today - creatinine 2.5 and GFR 19, Cr 1.7 baseline appears to 1.7 - continue sevelamer 0.8G TID - trend renal function (4) UTI (urinary tract infection): Qualifiers: Urinary tract infection type: acute cystitis Hematuria presence: without hematuria Qualified Code(s): N30.00 - Acute cystitis without hematuria Code(s): N39.0 - Urinary tract infection, site not specified Status: Acute Assessment and Plan: Patient was started on cefdinir x7 days at [facility] due to presumed infection per UA results performed on 11/06. UC cancelled from this testing, unclear why. - UA: Cloudy, 2+ protein, trace ketones, 2+ leuks, greater than 100 WBC, no epithelial cells. 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 - Isast 13 and and Ferritin 133, give Venofer 133 - transfuse if less than 7 - trend Consult GI for GI bleed rule out (6) Type 2 diabetes mellitus with hyperglycemia: Qualifiers: Diabetes mellitus fci insulin use: with terminal operations manager use Qualified Code(s): E11.65 - Type 2 diabetes mellitus with hyperglycemia; Z79.4 - buttermaker helper (current) use of insulin Code(s): E11.65 - Type 2 diabetes mellitus with hyperglycemia Status: Acute Assessment and Plan: - hypoglycemia protocol - POC blood glucose ACHS - home medication: continue home NovoLog sliding scale and Lantus 35 units daily - correct regimen ordered - high dose TIDWM, based off BMI - A1C 12.8% on 09/30/24 (7) Hypotension: Qualifiers: Hypotension type: other hypotension type Qualified Code(s): I95.89 - Other hypotension Code(s): I95.9 - Hypotension, unspecified Status: Acute Assessment and Plan: Patient had history of hypertension until recent admission where she required pressors due to shock. Has since required midodrine 15 mg p.o. t.i.d. with meals, continue - current BP 125/72 - albumin 25% 12.5G PRN for hypotension during HD treatments - monitor (8) Obstructive sleep apnea: Onset Date: 04/02/21 Code(s): G47.33 - Obstructive sleep apnea (adult) (pediatric) Status: Acute Assessment and Plan: - continue CPAP? Plan Diet: renal GI Prophylaxis: Not currently indicated DVT Prophylaxis: heparin gtt, hold home Eliquis Lines: Peripheral Code Status: DNR Subjective Date/time seen: 11/12/24 12:45 Interval history: comfortable at bedside Cardiology recommends medical treatment for NSTEMI for now started on Venofer hb 8.5 and Isat 13, FOBT pending GI consulted Review of Systems Review of Systems: All systems reviewed & are unremarkable except as noted in HPI and below Exam Const: General: comfortable and no acute distress Other: , female, obese body habitus, nontoxic appearance HENMT: Face/Nose/Sinus: Normal nares present Mouth: Yes moist mucous membranes Eyes: General: appearance normal, both eyes and all related structures Sclera: sclerae normal Pupils: Equal, round and reactive pupils present EOM: EOMs intact bilaterally Resp: Effort & Inspection: normal respiratory effort Auscultation: clear to auscultation bilaterally Cardio: Rate: regular rate Rhythm: regular rhythm Other: S1-S2 present without murmur, rub, ectopy GI: Other: Abdomen rounded, soft, nondistended. Normoactive bowel sounds in all quadrants. Skin: General skin exam: normal color and no rashes or lesions noted Wounds: no wounds Neuro: Cranial nerves: Yes Equal, round and reactive pupils present Speech: normal speech Motor exam (neuro): 5/5 motor strength present throughout Sensory Exam: normal sensation Other: Generalized weakness. A&O x3. Mild somnolence. Extrem: General: normal to inspection Psych: Mental Status: mental status grossly normal Affect: normal affect Other: Fair insight and judgment, pleasant Objective Data Vital Signs Vital Signs: Vital Signs - 24 hr 11/11/24 12:46 11/11/24 12:47 11/11/24 14:20 Temperature 97.7 F Pulse Rate 88 83 78 Respiratory Rate 22 H 24 H 20 Blood Pressure 110/58 L 121/67 Pulse Oximetry 95 95 100 Oxygen Delivery Oxygen Flow Rate Fraction of Inspired Oxygen 11/11/24 14:31 11/11/24 14:31 11/11/24 14:45 Temperature Pulse Rate 78 82 Respiratory Rate Blood Pressure 131/69 135/72 Pulse Oximetry Oxygen Delivery Oxygen Flow Rate 2 Fraction of Inspired Oxygen 11/11/24 15:00 11/11/24 15:15 11/11/24 15:30 Temperature Pulse Rate 82 83 75 Respiratory Rate Blood Pressure 123/56 L 112/59 L 113/54 L Pulse Oximetry Oxygen Delivery Oxygen Flow Rate Fraction of Inspired Oxygen 11/11/24 15:45 11/11/24 16:00 11/11/24 16:15 Temperature Pulse Rate 81 83 76 Respiratory Rate Blood Pressure 129/69 120/64 133/70 Pulse Oximetry Oxygen Delivery Oxygen Flow Rate Fraction of Inspired Oxygen 11/11/24 16:30 11/11/24 16:45 11/11/24 17:00 Temperature Pulse Rate 79 79 80 Respiratory Rate Blood Pressure 130/70 136/63 123/62 Pulse Oximetry Oxygen Delivery Oxygen Flow Rate Fraction of Inspired Oxygen 11/11/24 17:15 11/11/24 17:30 11/11/24 17:45 Temperature Pulse Rate 67 77 77 Respiratory Rate Blood Pressure 120/52 L 126/60 121/62 Pulse Oximetry Oxygen Delivery Oxygen Flow Rate Fraction of Inspired Oxygen 11/11/24 17:48 11/11/24 17:52 11/11/24 18:00 Temperature 97.7 F Pulse Rate 81 80 74 Respiratory Rate 20 Blood Pressure 118/52 L 130/57 L Pulse Oximetry 99 Oxygen Delivery Oxygen Flow Rate Fraction of Inspired Oxygen 11/11/24 19:04 11/11/24 20:00 11/11/24 20:00 Temperature 97.6 F Pulse Rate 84 81 Respiratory Rate 24 H Blood Pressure 134/61 Pulse Oximetry 98 98 Oxygen Delivery Nasal Cannula Oxygen Flow Rate 2 Fraction of Inspired Oxygen 11/11/24 22:00 11/12/24 00:00 11/12/24 00:00 Temperature 97.8 F Pulse Rate 84 90 Respiratory Rate 16 Blood Pressure 118/64 Pulse Oximetry 100 97 Oxygen Delivery Nasal Cannula Oxygen Flow Rate 2 Fraction of Inspired Oxygen 11/12/24 00:00 11/12/24 02:00 11/12/24 03:35 Temperature 98.2 F Pulse Rate 90 94 95 Respiratory Rate 14 Blood Pressure 136/66 Pulse Oximetry 95 Oxygen Delivery Oxygen Flow Rate Fraction of Inspired Oxygen 11/12/24 04:00 11/12/24 04:00 11/12/24 06:00 Temperature Pulse Rate 93 93 Respiratory Rate Blood Pressure Pulse Oximetry 97 Oxygen Delivery Nasal Cannula Oxygen Flow Rate 2 Fraction of Inspired Oxygen 11/12/24 08:00 11/12/24 08:00 11/12/24 08:00 Temperature 97.9 F Pulse Rate 92 95 Respiratory Rate 16 Blood Pressure 123/64 Pulse Oximetry 94 93 Oxygen Delivery Room Air Oxygen Flow Rate Fraction of Inspired Oxygen 11/12/24 08:04 11/12/24 08:34 11/12/24 10:00 Temperature Pulse Rate 96 94 Respiratory Rate Blood Pressure Pulse Oximetry 93 Oxygen Delivery Room Air Oxygen Flow Rate Fraction of Inspired Oxygen 21 11/12/24 11:47 Temperature 98.8 F Pulse Rate 92 Respiratory Rate 14 Blood Pressure 122/60 Pulse Oximetry 91 Oxygen Delivery Oxygen Flow Rate Fraction of Inspired Oxygen Intake/Output Intake/Output: Intake & Output 11/09/24 11/10/24 11/11/24 11/12/24 23:59 23:59 23:59 23:59 Intake Total 106.5 180.0 Output Total 1900 0 Balance -1793.5 180.0 Meds/Results Medications: Active Medications Generic Name Dose Route Start Last Admin Trade Name Freq PRN Reason Stop Dose Admin Acetaminophen 650 mg 11/11/24 15:12 Acetaminophen 325 Mg Tablet PO Q6H PRN PAIN RATED 1-3 Dextrose 12.5 gm 11/11/24 15:08 Dextrose 50% 25 Gm/50 Ml Syringe IV PUSH PRN PRN Hypoglycemia Protocol Glucagon 1 mg 11/11/24 15:08 Glucagon For Inj 1 Mg Vial IM PRN PRN Hypoglycemia Protocol Glucose 15 gm 11/11/24 15:08 Glucose Oral Gel 15 Gm Of Glucse In 37.5 Gm Tube PO PRN PRN Hypoglycemia Protocol Heparin Sodium (Porcine) 4,000 units 11/11/24 11:09 Heparin Sodium 5,000 Units/Ml Vial IV PUSH PRN PRN aPTT less than 55 seconds Heparin Sodium (Porcine) 2,500 units 11/11/24 11:09 11/12/24 08:16 Heparin Sodium 5,000 Units/Ml Vial IV PUSH 2,500 units PRN PRN Administration aPTT 55 - 70 seconds Heparin Sodium/Dextrose 25,000 units in 250 mls @ 11 mls/hr 11/11/24 11:10 11/12/24 08:17 Heparin Sodium/D5w 100 Units/Ml IV CONT 1,100 units/hr .[id number] DEREJE 11 mls/hr Titration Protocol 1,100 UNITS/HR Albumin Human 50 mls @ 999 mls/hr 11/11/24 11:56 Albutein IVPB 12/11/24 11:55 Q10M PRN HYPOTENSION Ceftriaxone Sodium 1 gm in 50 mls @ 100 mls/hr 11/11/24 16:00 11/11/24 20:14 Rocephin 1 Gm/Ns 50 Ml IVPB Infused Q24H DEREJE Infusion Dextrose 1,000 mls @ 100 mls/hr 11/11/24 15:08 Dextrose 5% 1,000 Ml IVPB PRN PRN Hypoglycemia Protocol Iron Sucrose 400 mg/ Iron 275 mls @ 78.571 mls/hr 11/12/24 12:45 Sucrose 100 mg/ Sodium IVPB 11/12/24 16:14 Chloride ONCE ONE Insulin Aspart 4 - 8 units 11/11/24 17:00 11/12/24 12:39 Insulin Aspart (*Bkc) 100 Units/Ml SUB-Q 4 units TIDWM DEREJE Administration Protocol Insulin Aspart 0 units 11/11/24 17:00 11/12/24 12:37 Insulin Aspart (*Bkc) 100 Units/Ml SUB-Q Not Given ACINSULIN [facility] Protocol Insulin Glargine 35 units 11/12/24 09:00 11/12/24 08:08 Insulin Glargine (*Bkc) 100 Units/Ml SUB-Q 35 units DAILY DEREJE Administration Melatonin 3 mg 11/11/24 21:00 11/11/24 20:13 Melatonin 3 Mg Tablet PO 3 mg HS DEREJE Administration Metoprolol Succinate 12.5 mg 11/12/24 09:00 11/12/24 08:04 Metoprolol Succinate Ext Rel 12.5 Mg Tabcr PO 12.5 mg QAM DEREJE Administration Midodrine 15 mg 11/11/24 13:00 11/12/24 12:39 Midodrine Hcl 2.5 Mg Tablet PO 15 mg TID DEREJE Administration Nitroglycerin 0.4 mg 11/11/24 15:21 Nitroglycerin Sl 0.4 Mg Tablet SUBLINGUAL Q5MIN PRN Chest Pain Non-Formulary ( 1 each 11/11/24 17:00 11/12/24 12:39 Sevelamer Carbonate PO 12/11/24 16:59 1 each 0.8 Gram Oral Powder TIDWM DEREJE Administration In Packet) Perflutren Lipid Microsphere 0 ml 11/11/24 15:04 Perflutren Lipid Microspheres 1.5 Ml Vial Diluted To 10 Ml Total Volume IV PUSH 11/14/24 15:04 ONCE PRN adequate visualization Protocol Perflutren Lipid Microsphere 0 ml 11/12/24 09:51 Perflutren Lipid Microspheres 1.5 Ml Vial Diluted To 10 Ml Total Volume IV PUSH 11/15/24 09:51 ONCE PRN adequate visualization Protocol Radiology Results: ITS Impressions Chest X-Ray 11/11/24 12:21 Impression: 1: Patchy right-sided airspace disease, compatible with pneumonia. Head CT 11/11/24 13:26 Impression: No acute abnormality seen. Stable chronic right occipital lobe infarct. Chest CTA 11/11/24 13:27 Impression: Persistent occluded segmental branches in the left upper lobe. Otherwise, pulmonary emboli seen on prior exam from of 09/30/2024 are largely resolved. 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 Small right pleural effusion with mild bibasilar atelectatic change. Labs Labs: Laboratory Results - last 24 hr 11/11/24 11/11/24 11/11/24 12:28 16:00 17:57 WBC RBC Hgb Hct MCV MCH MCHC RDW Plt Count MPV Immature Gran % (Auto) Neut % (Auto) Lymph % (Auto) [place] % (Auto) Eos % (Auto) Baso % (Auto) Lymph # (Auto) [place] # (Auto) Eos # (Auto) Baso # (Auto) Abs Immat Gran (auto) Absolute Neuts (auto) Absolute Nucleated RBC Nucleated RBC % APTT 55.1 H Sodium Potassium Chloride Carbon Dioxide Anion Gap BUN Creatinine Estim Creat Clear Calc Estimated GFR Glucose POC Capillary Glucose Calcium Phosphorus Magnesium Iron TIBC % Saturation Ferritin Total Bilirubin AST ALT Alkaline Phosphatase Troponin I 5.240 H* D 9.190 H* D Total Protein Albumin Hep Bs Antigen Negative Hep Bs Antibody Negative 11/11/24 11/11/24 11/12/24 18:50 20:18 00:25 WBC RBC Hgb Hct MCV MCH MCHC RDW Plt Count MPV Immature Gran % (Auto) Neut % (Auto) Lymph % (Auto) [place] % (Auto) Eos % (Auto) Baso % (Auto) Lymph # (Auto) [place] # (Auto) Eos # (Auto) Baso # (Auto) Abs Immat Gran (auto) Absolute Neuts (auto) Absolute Nucleated RBC Nucleated RBC % APTT 64.0 H Sodium Potassium Chloride Carbon Dioxide Anion Gap BUN Creatinine Estim Creat Clear Calc Estimated GFR Glucose POC Capillary Glucose 161 H 214 H Calcium Phosphorus Magnesium Iron TIBC % Saturation Ferritin Total Bilirubin AST ALT Alkaline Phosphatase Troponin I Total Protein Albumin Hep Bs Antigen Hep Bs Antibody 11/12/24 11/12/24 11/12/24 07:09 08:02 11:17 WBC 10.9 H RBC 2.71 L Hgb 8.5 L Hct 26.0 L MCV 95.9 MCH 31.4 MCHC 32.7 RDW 16.4 H Plt Count 128 L MPV 9.6 Immature Gran % (Auto) 0.7 H Neut % (Auto) 82.1 H Lymph % (Auto) 11.2 L [place] % (Auto) 5.2 Eos % (Auto) 0.3 Baso % (Auto) 0.5 Lymph # (Auto) 1.22 [place] # (Auto) 0.6 Eos # (Auto) 0.0 Baso # (Auto) 0.1 Abs Immat Gran (auto) 0.08 H Absolute Neuts (auto) 9.0 H Absolute Nucleated RBC 0.000 Nucleated RBC % 0.0 APTT 59.8 H Sodium 133 L Potassium 4.0 Chloride 99 Carbon Dioxide 29 Anion Gap 5 BUN 16 D Creatinine 1.70 H Estim Creat Clear Calc 25 Estimated GFR 29 L Glucose 182 H POC Capillary Glucose 182 H 233 H Calcium 8.7 Phosphorus 3.2 Magnesium 1.9 Iron 32 L TIBC 256 L % Saturation 13 L Ferritin 133.00 Total Bilirubin 0.6 AST 65 H ALT 21 Alkaline Phosphatase 90 Troponin I 16.800 H* Total Protein 7.0 Albumin 3.1 L Hep Bs Antigen Hep Bs Antibody Quality VTE Prophylaxis VTE prophylaxis: pharmacologic ordered
--- NOTE | 2024-11-12 14:30 | P.CONGI_ITS ---
Assessment and Plan Assessment and plan (1) Acute on chronic anemia: Code(s): D64.9 - Anemia, unspecified Status: Acute Assessment and Plan: Worsening anemia after she had significant RV strain from PE that required thrombectomy, also had renal failure that required dialysis, use of blood thinner, etc hgb stable since this admission and denies overt gib no acute indication of endoscopic evaluation given high risk of anesthesia after PE and now with NSTEMI continue blood thinner and monitor for obvious gib will follow along (2) Acute on chronic renal failure: Qualifiers: Acute renal failure type: unspecified Chronic kidney disease stage: u nspecified stage Qualified Code(s): N17.9 - Acute kidney failure, unspecified; N18.9 - Chronic kidney disease, unspecified Code(s): N17.9 - Acute kidney failure, unspecified; N18.9 - Chronic kidney disease, unspecified Status: Acute Assessment and Plan: this has improved (3) Non-ST elevation [place] (NSTEMI): Code(s): I21.4 - Non-ST elevation (NSTEMI) myocardial infarction Status: Acute Assessment and Plan: medical management by cardiology (4) Pulmonary embolism and infarction: Code(s): I26.99 - Other pulmonary embolism without acute cor pulmonale Status: Acute (5) Severe pulmonary arterial systolic hypertension: Code(s): I27.21 - Secondary pulmonary arterial hypertension Status: Acute GI Consult Note Consult date/time: 11/12/24 14:30 Reason for consult: anemia, chest pain, nstemi, pe on blood thinner HPI: Christine De Jesus is a 79 year old female admitted from [facility] for further evaluation of chest pressure. Patient was recently admitted to hospital on 09/30/24 for rib pain and shortness of breath and found to have pulmonary emboli in all lobes, worse in right lower lobe, Echo showed slight dilation of the RV and increased RV pressures and had significantly hypoxic then transferred to [facility] for possible thrombectomy and tertiary care on 10/01. She underwent a mechanical thrombectomy on 10/02. Also had left common femoral and popliteal DVT. Patient developed acute renal failure superimposed on CKD and was subsequently started on CRRT on 10/03. Transition to HD on 10/12. ARF thought to be secondary to shock/contrast injury. She was released with Eliquis and discharged to rehab on 10/26/2024. Admitted again to hospital after more severe chest pressure, describes this as pressure, right sided, nonradiating, constant, no aggravating factors. Had NSTEMI with elevated troponin and evaluated by cardiology, she denies overt gib and feeling much better, no more pain. Hgb down to 8.5 (from baseline 13 prior to transfer to [facility]). Never had scopes. Review of Systems 2 Constitutional: Constitutional: Reports fatigue Eyes: Eyes: Denies blurry vision ENT: Reports Normal hearing present Cardiovascular: Cardiovascular: Reports chest pain Respiratory: Respiratory: Reports dyspnea Gastrointestinal: Gastrointestinal: Denies abdominal pain Genitourinary: Genitourinary: Denies hematuria Musculoskeletal: Musculoskeletal: Denies neck pain Integumentary/Breasts: Skin/Breast: Denies rash Neurologic: Denies abnormal gait Psychiatric: Psychiatric: Denies behavioral changes [facility] Past Medical History Medical History (Updated 11/12/24 @ 14:36 by Kishore Chiu MD) Acute on chronic anemia Pulmonary embolism and infarction multiple bilateral pulmonary emboli with infarction. Venous Doppler study was negative . Diastolic dysfunction diastolic dysfunction with LVH on echo with ejection fraction 70% on 09/30/2024. Tricuspid valve regurgitation moderate to severe tricuspid valve regurgitation on echo on 09/30/2024. Severe pulmonary arterial systolic hypertension severe pulmonary hypertension on echo 09/30/2024. Vitamin B12 deficiency level low at 397 with goal greater than 400 with folic acid 12.12 on 07/26/2024. Functional memory problem CVA (cerebral vascular accident) At moderate risk for fall Anemia Hemoglobin normal at 14.1 with vitamin B12 397, folic acid 12.2, iron 127 with 39% saturation and ferritin 57 on 07/26/2024. Fall Chronic kidney disease (CKD) stage G3b/A2, moderately decreased glomerular filtration rate (GFR) between 30-44 mL/min/1.73 square meter and albuminuria creatinine ratio between 30-299 mg/g BUN 35 with creatinine 1.30 and GFR 40 on 03/31/2022. BUN 24, creatinine 1.10 with GFR 48 on 05/26/2024. BUN 32, creatinine 1.18 with GFR 47 on 07/26/2024. AAA (abdominal aortic aneurysm) without rupture (~05/17/23) Endovascular repair 10/09/2023. 7 x 6.6 cm abdominal aortic aneurysm On CT in the ER 05/17/2023. Acute bronchitis COVID-19 (10/31/22) tested positive 11/05/2022 Chronic atrial fibrillation (04/23/22) NSTEMI (non-ST elevated myocardial infarction) (04/16/22) incomplete PTCA of the LAD 04/17/2022. CABG LAD 04/22/22. Renal insufficiency BUN 27 with creatinine 1.24 with GFR 42 on 03/27/2022. Overactive bladder Screening for diabetic retinopathy (09/24/21) no diabetic retinopathy on dilated eye exam 09/24/2021. Recheck annually. no retinopathy 01/29/2024. Diabetic neuropathy, type II diabetes mellitus (06/12/21) Chronic pain in right foot Microalbuminuria ratio 1048 on 07/26/2024. Hypersomnia Neoplasm of skin (12/26/19) Heart disease Thrombocytopenia Platelets 124 on 05/26/2024. Platelets 119 on 07/26/2024. Contusion of face Chronic depression Coronary artery disease involving [place] coronary artery of [place] heart without angina pectoris Controlled type 2 diabetes mellitus with hyperglycemia, with long-term current use of insulin glucose 304 with hemoglobin A1c 10.9 on 03/27/2022. glucose 243 with hemoglobin A1c 10.1 on 05/26/2024. Fasting glucose 413 with hemoglobin A1c 10.2 With GFR 47 and microalbumin ratio of 1048 on 07/26/2024. Surgical History Surgical History History of cardiac cath H/O knee surgery Left total knee replacement 2015 right knee arthroscopy about 2000 Family History Family History Mother Family history of cardiovascular disease, Onset Age: 66 Hypertension Cerebrovascular accident Hypercholesteremia Diabetes mellitus Heart disease Father Cerebrovascular accident, Onset Age: 77 Hypercholesteremia Heart disease Sibling Diabetes mellitus Cancer Heart disease Cerebrovascular accident Grandparent Diabetes mellitus Social History Social History Smoking packs per day: 1 Smoking cigarettes per day: 20.0 Years smoked: 44 Smoking pack-years: 44.00 Smoking status: Never smoker Additional smoking assessment comments: quit 20 years ago Alcohol intake: never Alcohol use details: on occasion Substance use: never Substance use type: does not use Other substance usage details: one drink a month Do You Feel Safe in your Home?: Yes Lack of Transportation: No Lack of Food: Never True Current Housing: I Have Housing Concerned About Future Housing: No Difficulty Paying Gas/Electric Bills: No Difficulty Paying for Meds: No Currently Unemployed: No Education: High School Diploma/GED Difficulty w/ Childcare or Family Care: No Living arrangements: alone Occupation/Education: retired Gender identity (if verbalized by the patient): Female Spiritual care concerns: No Meds Home Medications and Allergies Home Medications ?Medication ?Instructions ?Recorded ?Confirmed ?Type blood sugar diagnostic #100 ea 06/12/21 11/11/24 Rx insulin glargine 100 unit/mL (3 35 unit subcut DAILY 07/27/24 11/11/24 History mL) subcutaneous pen (Lantus Solostar U-100 Insulin) acetaminophen 325 mg tablet 650 mg PO Q6H PRN Pain 10/25/24 11/11/24 History apixaban 5 mg tablet 5 mg PO BID 10/25/24 11/11/24 History insulin aspart U-100 100 unit/mL See Protocol subcut TIDWMEAL 10/25/24 11/11/24 History subcutaneous solution melatonin 3 mg tablet 3 mg PO HS 10/25/24 11/11/24 History midodrine 5 mg tablet 15 mg PO TID 10/25/24 11/11/24 History sevelamer carbonate 0.8 gram oral 0.8 g PO TID 10/25/24 11/11/24 History powder packet Allergies Allergy/AdvReac Type Severity Reaction Status Date / Time Sulfa (Sulfonamide Allergy Unknown Unknown Verified 05/25/24 17:46 Antibiotics) Vital Signs Vital Signs - 24 hr 11/11/24 14:31 11/11/24 14:31 11/11/24 14:45 Temperature Pulse Rate 78 82 Respiratory Rate Blood Pressure 131/69 135/72 Pulse Oximetry Oxygen Delivery Oxygen Flow Rate 2 Fraction of Inspired Oxygen 11/11/24 15:00 11/11/24 15:15 11/11/24 15:30 Temperature Pulse Rate 82 83 75 Respiratory Rate Blood Pressure 123/56 L 112/59 L 113/54 L Pulse Oximetry Oxygen Delivery Oxygen Flow Rate Fraction of Inspired Oxygen 11/11/24 15:45 11/11/24 16:00 11/11/24 16:15 Temperature Pulse Rate 81 83 76 Respiratory Rate Blood Pressure 129/69 120/64 133/70 Pulse Oximetry Oxygen Delivery Oxygen Flow Rate Fraction of Inspired Oxygen 11/11/24 16:30 11/11/24 16:45 11/11/24 17:00 Temperature Pulse Rate 79 79 80 Respiratory Rate Blood Pressure 130/70 136/63 123/62 Pulse Oximetry Oxygen Delivery Oxygen Flow Rate Fraction of Inspired Oxygen 11/11/24 17:15 11/11/24 17:30 11/11/24 17:45 Temperature Pulse Rate 67 77 77 Respiratory Rate Blood Pressure 120/52 L 126/60 121/62 Pulse Oximetry Oxygen Delivery Oxygen Flow Rate Fraction of Inspired Oxygen 11/11/24 17:48 11/11/24 17:52 11/11/24 18:00 Temperature 97.7 F Pulse Rate 81 80 74 Respiratory Rate 20 Blood Pressure 118/52 L 130/57 L Pulse Oximetry 99 Oxygen Delivery Oxygen Flow Rate Fraction of Inspired Oxygen 11/11/24 19:04 11/11/24 20:00 11/11/24 20:00 Temperature 97.6 F Pulse Rate 84 81 Respiratory Rate 24 H Blood Pressure 134/61 Pulse Oximetry 98 98 Oxygen Delivery Nasal Cannula Oxygen Flow Rate 2 Fraction of Inspired Oxygen 11/11/24 22:00 11/12/24 00:00 11/12/24 00:00 Temperature 97.8 F Pulse Rate 84 90 Respiratory Rate 16 Blood Pressure 118/64 Pulse Oximetry 100 97 Oxygen Delivery Nasal Cannula Oxygen Flow Rate 2 Fraction of Inspired Oxygen 11/12/24 00:00 11/12/24 02:00 11/12/24 03:35 Temperature 98.2 F Pulse Rate 90 94 95 Respiratory Rate 14 Blood Pressure 136/66 Pulse Oximetry 95 Oxygen Delivery Oxygen Flow Rate Fraction of Inspired Oxygen 11/12/24 04:00 11/12/24 04:00 11/12/24 06:00 Temperature Pulse Rate 93 93 Respiratory Rate Blood Pressure Pulse Oximetry 97 Oxygen Delivery Nasal Cannula Oxygen Flow Rate 2 Fraction of Inspired Oxygen 11/12/24 08:00 11/12/24 08:00 11/12/24 08:00 Temperature 97.9 F Pulse Rate 92 95 Respiratory Rate 16 Blood Pressure 123/64 Pulse Oximetry 94 93 Oxygen Delivery Room Air Oxygen Flow Rate Fraction of Inspired Oxygen 11/12/24 08:04 11/12/24 08:34 11/12/24 10:00 Temperature Pulse Rate 96 94 Respiratory Rate Blood Pressure Pulse Oximetry 93 Oxygen Delivery Room Air Oxygen Flow Rate Fraction of Inspired Oxygen 21 11/12/24 11:47 11/12/24 12:00 11/12/24 12:00 Temperature 98.8 F Pulse Rate 92 92 Respiratory Rate 14 Blood Pressure 122/60 Pulse Oximetry 91 93 Oxygen Delivery Room Air Oxygen Flow Rate Fraction of Inspired Oxygen 11/12/24 14:00 Temperature Pulse Rate 98 Respiratory Rate Blood Pressure Pulse Oximetry Oxygen Delivery Oxygen Flow Rate Fraction of Inspired Oxygen Exam 2 Const: General: comfortable and no acute distress HENMT: Face/Nose/Sinus: Normal nares present Eyes: General: appearance normal, both eyes and all related structures Neck: Neck: supple Resp: Auscultation: clear to auscultation bilaterally Cardio: Rate: regular rate Rhythm: regular rhythm GI: Inspection: non-distended GI Palp: Yes Soft to palpation and No Tenderness to palpation present (GI) Auscultation: normal bowel sounds Skin: General skin exam: normal color Neuro: Speech: normal speech Motor exam (neuro): 5/5 motor strength present throughout Extrem: General: normal to inspection Psych: Mental Status: mental status grossly normal Results Labs 11/12/24 07:09 11/12/24 07:09 Labs: Short CBC 11/12/24 Range/Units 07:09 WBC 10.9 H (4.5-10.0) K/mm3 Hgb 8.5 L (12.0-15.0) g/dL Hct 26.0 L (37.0-47.0) % Plt Count 128 L (150-375) k/mm3 BMP 11/12/24 07:09 Sodium 133 L Potassium 4.0 Chloride 99 Carbon Dioxide 29 BUN 16 D Creatinine 1.70 H Glucose 182 H Calcium 8.7 Cardiac Enzymes 11/11/24 11/12/24 Range/Units 16:00 07:09 Troponin I 9.190 H* D 16.800 H* (0.000-0.034) ng/mL Liver Function 11/12/24 Range/Units 07:09 Total Bilirubin 0.6 (0.2-1.3) mg/dL AST 65 H (14-36) U/L ALT 21 (6-35) U/L Alkaline Phosphatase 90 (38-126) U/L Albumin 3.1 L (3.5-5.1) g/dL
[2024-11-12 14:33] LABS: Partial Thromboplastin Time 56.9 Seconds (22.3-36.8)
[2024-11-12] MEDS: HEPARIN SOD/D5W 100 UNITS/ML 25,000 UNITS/250 ML BAG 12 UNITS IV CONT (14:43)
[2024-11-12] MEDS: IRON SUCROSE COMPLEX 100 MG in SODIUM CHLORIDE 0.9% IV 50 ML 220 MG IVPB (15:05)
--- NOTE | 2024-11-12 15:13 | P.PNCA_ITS ---
Progress Note: A&P Assessment and Plan (1) Non-ST elevation [place] (NSTEMI): Code(s): I21.4 - Non-ST elevation (NSTEMI) myocardial infarction Status: Acute Assessment and Plan: 1. CAD Multiple prior PCIs and single-vessel CABG in 2021 (pratt to LAD) 2. NSTEMI -hemodynamically stable -currently pain-free -KAIA score 3. Acute anemia 4. ESRD on hemodialysis 5. Recent PE 6. Hyperlipidemia -it is my clinical impression that Ms. King had NSTEMI. Ideally she will need a left heart catheterization to delineate coronary anatomy and was a possible PCI if needed. Unfortunately situation is complex with recent anemia after initiating DOAC for pulmonary embolism. Her hemoglobin was around 14 in September 2024 which has decreased to 8.5. She also has impaired renal function and has a DNR status. -continue on heparin infusion and monitor hemoglobin closely -continue aspirin 81 mg once daily, monitor hemoglobin closely -consider GI consultation -will increase Lipitor to 40 mg p.o. once daily -limited echo to assess LV systolic function and wall motion -continue Toprol-XL for now. No other guideline driven medical therapy can be introduced as as low blood pressure during hemodialysis and requires midodrine Subjective Date/time seen: 11/12/24 15:13 Interval history: No acute events last 24 hours More chest pain Hemoglobin remains low Tolerated dialysis yesterday Review of Systems Review of Systems: All systems reviewed & are unremarkable except as noted in HPI and below Exam Const: General: comfortable, no acute distress, alert and awake Orientation/consciousness: patient oriented x3 HENMT: Head: normal to inspection Eyes: General: appearance normal, both eyes and all related structures Pupils: Equal, round and reactive pupils present Neck: Neck: normal visual inspection, supple and no JVD Carotids: normal carotid upstroke Resp: Effort & Inspection: normal respiratory effort Auscultation: clear to auscultation bilaterally Cardio: Rate: regular rate Rhythm: regular rhythm Heart sounds: S1 normal heart sound present, S2 normal heart sound present and no murmurs GI: Auscultation: normal bowel sounds Skin: General skin exam: normal color Neuro: General: patient oriented x3 Cranial nerves: Yes Equal, round and reactive pupils present Extrem: General: normal to inspection Psych: Appearance: grossly normal Mental Status: mental status grossly normal Objective Data Vital Signs Vital Signs: Vital Signs - 24 hr 11/11/24 15:15 11/11/24 15:30 11/11/24 15:45 Temperature Pulse Rate 83 75 81 Respiratory Rate Blood Pressure 112/59 L 113/54 L 129/69 Pulse Oximetry Oxygen Delivery Oxygen Flow Rate Fraction of Inspired Oxygen 11/11/24 16:00 11/11/24 16:15 11/11/24 16:30 Temperature Pulse Rate 83 76 79 Respiratory Rate Blood Pressure 120/64 133/70 130/70 Pulse Oximetry Oxygen Delivery Oxygen Flow Rate Fraction of Inspired Oxygen 11/11/24 16:45 11/11/24 17:00 11/11/24 17:15 Temperature Pulse Rate 79 80 67 Respiratory Rate Blood Pressure 136/63 123/62 120/52 L Pulse Oximetry Oxygen Delivery Oxygen Flow Rate Fraction of Inspired Oxygen 11/11/24 17:30 11/11/24 17:45 11/11/24 17:48 Temperature Pulse Rate 77 77 81 Respiratory Rate Blood Pressure 126/60 121/62 118/52 L Pulse Oximetry Oxygen Delivery Oxygen Flow Rate Fraction of Inspired Oxygen 11/11/24 17:52 11/11/24 18:00 11/11/24 19:04 Temperature 36.5 C 36.4 C Pulse Rate 80 74 84 Respiratory Rate 20 24 H Blood Pressure 130/57 L 134/61 Pulse Oximetry 99 98 Oxygen Delivery Oxygen Flow Rate Fraction of Inspired Oxygen 11/11/24 20:00 11/11/24 20:00 11/11/24 22:00 Temperature Pulse Rate 81 84 Respiratory Rate Blood Pressure Pulse Oximetry 98 Oxygen Delivery Nasal Cannula Oxygen Flow Rate 2 Fraction of Inspired Oxygen 11/12/24 00:00 11/12/24 00:00 11/12/24 00:00 Temperature 36.6 C Pulse Rate 90 90 Respiratory Rate 16 Blood Pressure 118/64 Pulse Oximetry 100 97 Oxygen Delivery Nasal Cannula Oxygen Flow Rate 2 Fraction of Inspired Oxygen 11/12/24 02:00 11/12/24 03:35 11/12/24 04:00 Temperature 36.8 C Pulse Rate 94 95 Respiratory Rate 14 Blood Pressure 136/66 Pulse Oximetry 95 97 Oxygen Delivery Nasal Cannula Oxygen Flow Rate 2 Fraction of Inspired Oxygen 11/12/24 04:00 11/12/24 06:00 11/12/24 08:00 Temperature 36.6 C Pulse Rate 93 93 92 Respiratory Rate 16 Blood Pressure 123/64 Pulse Oximetry 94 Oxygen Delivery Oxygen Flow Rate Fraction of Inspired Oxygen 11/12/24 08:00 11/12/24 08:00 11/12/24 08:04 Temperature Pulse Rate 95 96 Respiratory Rate Blood Pressure Pulse Oximetry 93 Oxygen Delivery Room Air Oxygen Flow Rate Fraction of Inspired Oxygen 11/12/24 08:34 11/12/24 10:00 11/12/24 11:47 Temperature 37.1 C Pulse Rate 94 92 Respiratory Rate 14 Blood Pressure 122/60 Pulse Oximetry 93 91 Oxygen Delivery Room Air Oxygen Flow Rate Fraction of Inspired Oxygen 21 11/12/24 12:00 11/12/24 12:00 11/12/24 14:00 Temperature Pulse Rate 92 98 Respiratory Rate Blood Pressure Pulse Oximetry 93 Oxygen Delivery Room Air Oxygen Flow Rate Fraction of Inspired Oxygen Intake/Output Intake/Output: Intake & Output 11/09/24 11/10/24 11/11/24 11/12/24 23:59 23:59 23:59 23:59 Intake Total 106.5 243.5 Output Total 1900 0 Balance -1793.5 243.5 Meds/Results Medications: Active Medications Generic Name Dose Route Start Last Admin Trade Name Freq PRN Reason Stop Dose Admin Acetaminophen 650 mg 11/11/24 15:12 Acetaminophen 325 Mg Tablet PO Q6H PRN PAIN RATED 1-3 Aspirin 81 mg 11/13/24 09:00 Aspirin 81 Mg Enteric Tablet PO QAM [facility] Atorvastatin Calcium 20 mg 11/13/24 09:00 Atorvastatin 20 Mg Tablet PO DAILY [facility] Dextrose 12.5 gm 11/11/24 15:08 Dextrose 50% 25 Gm/50 Ml Syringe IV PUSH PRN PRN Hypoglycemia Protocol Glucagon 1 mg 11/11/24 15:08 Glucagon For Inj 1 Mg Vial IM PRN PRN Hypoglycemia Protocol Glucose 15 gm 11/11/24 15:08 Glucose Oral Gel 15 Gm Of Glucse In 37.5 Gm Tube PO PRN PRN Hypoglycemia Protocol Heparin Sodium (Porcine) 4,000 units 11/11/24 11:09 Heparin Sodium 5,000 Units/Ml Vial IV PUSH PRN PRN aPTT less than 55 seconds Heparin Sodium (Porcine) 2,500 units 11/11/24 11:09 11/12/24 14:43 Heparin Sodium 5,000 Units/Ml Vial IV PUSH 2,500 units PRN PRN Administration aPTT 55 - 70 seconds Heparin Sodium/Dextrose 25,000 units in 250 mls @ 12 mls/hr 11/11/24 11:10 11/12/24 14:43 Heparin Sodium/D5w 100 Units/Ml IV CONT 1,200 units/hr .[id number] DEREJE 12 mls/hr Administration Protocol 1,200 UNITS/HR Albumin Human 50 mls @ 999 mls/hr 11/11/24 11:56 Albutein IVPB 12/11/24 11:55 Q10M PRN HYPOTENSION Ceftriaxone Sodium 1 gm in 50 mls @ 100 mls/hr 11/11/24 16:00 11/11/24 20:14 Rocephin 1 Gm/Ns 50 Ml IVPB Infused Q24H DEREJE Infusion Dextrose 1,000 mls @ 100 mls/hr 11/11/24 15:08 Dextrose 5% 1,000 Ml IVPB PRN PRN Hypoglycemia Protocol Insulin Aspart 4 - 8 units 11/11/24 17:00 11/12/24 12:39 Insulin Aspart (*Bkc) 100 Units/Ml SUB-Q 4 units TIDWM DEREJE Administration Protocol Insulin Aspart 0 units 11/12/24 21:00 Insulin Aspart (*Bkc) 100 Units/Ml SUB-Q HS DEREJE Protocol Insulin Glargine 35 units 11/12/24 09:00 11/12/24 08:08 Insulin Glargine (*Bkc) 100 Units/Ml SUB-Q 35 units DAILY DEREJE Administration Melatonin 3 mg 11/11/24 21:00 11/11/24 20:13 Melatonin 3 Mg Tablet PO 3 mg HS DEREJE Administration Metoprolol Succinate 12.5 mg 11/12/24 09:00 11/12/24 08:04 Metoprolol Succinate Ext Rel 12.5 Mg Tabcr PO 12.5 mg QAM DEREJE Administration Midodrine 15 mg 11/11/24 13:00 11/12/24 12:39 Midodrine Hcl 2.5 Mg Tablet PO 15 mg TID DEREJE Administration Nitroglycerin 0.4 mg 11/11/24 15:21 Nitroglycerin Sl 0.4 Mg Tablet SUBLINGUAL Q5MIN PRN Chest Pain Non-Formulary ( 1 each 11/11/24 17:00 11/12/24 12:39 Sevelamer Carbonate PO 12/11/24 16:59 1 each 0.8 Gram Oral Powder TIDWM DEREJE Administration In Packet) Perflutren Lipid Microsphere 0 ml 11/11/24 15:04 Perflutren Lipid Microspheres 1.5 Ml Vial Diluted To 10 Ml Total Volume IV PUSH 11/14/24 15:04 ONCE PRN adequate visualization Protocol Perflutren Lipid Microsphere 0 ml 11/12/24 09:51 Perflutren Lipid Microspheres 1.5 Ml Vial Diluted To 10 Ml Total Volume IV PUSH 11/15/24 09:51 ONCE PRN adequate visualization Protocol Radiology Results: ITS Impressions Chest X-Ray 11/11/24 12:21 Impression: 1: Patchy right-sided airspace disease, compatible with pneumonia. Head CT 11/11/24 13:26 Impression: No acute abnormality seen. Stable chronic right occipital lobe infarct. Chest CTA 11/11/24 13:27 Impression: Persistent occluded segmental branches in the left upper lobe. Otherwise, pulmonary emboli seen on prior exam from of 09/30/2024 are largely resolved. 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 Small right pleural effusion with mild bibasilar atelectatic change. Labs Labs: Laboratory Results - last 24 hr 11/11/24 11/11/24 11/11/24 16:00 17:57 18:50 WBC RBC Hgb Hct MCV MCH MCHC RDW Plt Count MPV Immature Gran % (Auto) Neut % (Auto) Lymph % (Auto) [place] % (Auto) Eos % (Auto) Baso % (Auto) Lymph # (Auto) [place] # (Auto) Eos # (Auto) Baso # (Auto) Abs Immat Gran (auto) Absolute Neuts (auto) Absolute Nucleated RBC Nucleated RBC % APTT 55.1 H Sodium Potassium Chloride Carbon Dioxide Anion Gap BUN Creatinine Estim Creat Clear Calc Estimated GFR Glucose POC Capillary Glucose 161 H Calcium Phosphorus Magnesium Iron TIBC % Saturation Ferritin Total Bilirubin AST ALT Alkaline Phosphatase Troponin I 9.190 H* D Total Protein Albumin 11/11/24 11/12/24 11/12/24 20:18 00:25 07:09 WBC 10.9 H RBC 2.71 L Hgb 8.5 L Hct 26.0 L MCV 95.9 MCH 31.4 MCHC 32.7 RDW 16.4 H Plt Count 128 L MPV 9.6 Immature Gran % (Auto) 0.7 H Neut % (Auto) 82.1 H Lymph % (Auto) 11.2 L [place] % (Auto) 5.2 Eos % (Auto) 0.3 Baso % (Auto) 0.5 Lymph # (Auto) 1.22 [place] # (Auto) 0.6 Eos # (Auto) 0.0 Baso # (Auto) 0.1 Abs Immat Gran (auto) 0.08 H Absolute Neuts (auto) 9.0 H Absolute Nucleated RBC 0.000 Nucleated RBC % 0.0 APTT 64.0 H 59.8 H Sodium 133 L Potassium 4.0 Chloride 99 Carbon Dioxide 29 Anion Gap 5 BUN 16 D Creatinine 1.70 H Estim Creat Clear Calc 25 Estimated GFR 29 L Glucose 182 H POC Capillary Glucose 214 H Calcium 8.7 Phosphorus 3.2 Magnesium 1.9 Iron 32 L TIBC 256 L % Saturation 13 L Ferritin 133.00 Total Bilirubin 0.6 AST 65 H ALT 21 Alkaline Phosphatase 90 Troponin I 16.800 H* Total Protein 7.0 Albumin 3.1 L 11/12/24 11/12/24 11/12/24 08:02 11:17 14:17 WBC RBC Hgb Hct MCV MCH MCHC RDW Plt Count MPV Immature Gran % (Auto) Neut % (Auto) Lymph % (Auto) [place] % (Auto) Eos % (Auto) Baso % (Auto) Lymph # (Auto) [place] # (Auto) Eos # (Auto) Baso # (Auto) Abs Immat Gran (auto) Absolute Neuts (auto) Absolute Nucleated RBC Nucleated RBC % APTT 56.9 H Sodium Potassium Chloride Carbon Dioxide Anion Gap BUN Creatinine Estim Creat Clear Calc Estimated GFR Glucose POC Capillary Glucose 182 H 233 H Calcium Phosphorus Magnesium Iron TIBC % Saturation Ferritin Total Bilirubin AST ALT Alkaline Phosphatase Troponin I Total Protein Albumin
[2024-11-12 15:58] LABS: Glucose Point of Care 209 mg/dl (65-105)
--- NOTE | 2024-11-12 16:25 | PM.PNCARD ---
Progress Note: A&P Assessment and Plan (1) Non-ST elevation [place] (NSTEMI): Code(s): I21.4 - Non-ST elevation (NSTEMI) myocardial infarction Status: Acute Plan Addendum to prior progress Note (11/12/2024; 1630 H) TTE of Ms De Jesus showed a 2.5x1.5 cm hyperechoic density attached to the mitral valve leaflet. The differential includes vegetation, thrombus or mass - Discussed in detail with the patient regarding further mgt of the mass which may include open heart surgery. She wants to proceed with surgery if needed - Send 2 sets of blood cultures - Empirical IV antibiotics - Continue heparin - She is at high risk of embolization and stroke which was communicated to her. Offered to discuss with her family which she declined at the current moment - Discussed with Dr Hooper, he will coordinate transfer to a center for possible surgery Subjective Date/time seen: 11/12/24 16:25 Interval history: addendum to morning progress note Objective Data Vital Signs Vital Signs: Vital Signs - 24 hr 11/11/24 16:30 11/11/24 16:45 11/11/24 17:00 Temperature Pulse Rate 79 79 80 Respiratory Rate Blood Pressure 130/70 136/63 123/62 Pulse Oximetry Oxygen Delivery Oxygen Flow Rate Fraction of Inspired Oxygen 11/11/24 17:15 11/11/24 17:30 11/11/24 17:45 Temperature Pulse Rate 67 77 77 Respiratory Rate Blood Pressure 120/52 L 126/60 121/62 Pulse Oximetry Oxygen Delivery Oxygen Flow Rate Fraction of Inspired Oxygen 11/11/24 17:48 11/11/24 17:52 11/11/24 18:00 Temperature 36.5 C Pulse Rate 81 80 74 Respiratory Rate 20 Blood Pressure 118/52 L 130/57 L Pulse Oximetry 99 Oxygen Delivery Oxygen Flow Rate Fraction of Inspired Oxygen 11/11/24 19:04 11/11/24 20:00 11/11/24 20:00 Temperature 36.4 C Pulse Rate 84 81 Respiratory Rate 24 H Blood Pressure 134/61 Pulse Oximetry 98 98 Oxygen Delivery Nasal Cannula Oxygen Flow Rate 2 Fraction of Inspired Oxygen 11/11/24 22:00 11/12/24 00:00 11/12/24 00:00 Temperature 36.6 C Pulse Rate 84 90 Respiratory Rate 16 Blood Pressure 118/64 Pulse Oximetry 100 97 Oxygen Delivery Nasal Cannula Oxygen Flow Rate 2 Fraction of Inspired Oxygen 11/12/24 00:00 11/12/24 02:00 11/12/24 03:35 Temperature 36.8 C Pulse Rate 90 94 95 Respiratory Rate 14 Blood Pressure 136/66 Pulse Oximetry 95 Oxygen Delivery Oxygen Flow Rate Fraction of Inspired Oxygen 11/12/24 04:00 11/12/24 04:00 11/12/24 06:00 Temperature Pulse Rate 93 93 Respiratory Rate Blood Pressure Pulse Oximetry 97 Oxygen Delivery Nasal Cannula Oxygen Flow Rate 2 Fraction of Inspired Oxygen 11/12/24 08:00 11/12/24 08:00 11/12/24 08:00 Temperature 36.6 C Pulse Rate 92 95 Respiratory Rate 16 Blood Pressure 123/64 Pulse Oximetry 94 93 Oxygen Delivery Room Air Oxygen Flow Rate Fraction of Inspired Oxygen 11/12/24 08:04 11/12/24 08:34 11/12/24 10:00 Temperature Pulse Rate 96 94 Respiratory Rate Blood Pressure Pulse Oximetry 93 Oxygen Delivery Room Air Oxygen Flow Rate Fraction of Inspired Oxygen 21 11/12/24 11:47 11/12/24 12:00 11/12/24 12:00 Temperature 37.1 C Pulse Rate 92 92 Respiratory Rate 14 Blood Pressure 122/60 Pulse Oximetry 91 93 Oxygen Delivery Room Air Oxygen Flow Rate Fraction of Inspired Oxygen 11/12/24 14:00 11/12/24 15:57 11/12/24 15:57 Temperature Pulse Rate 98 84 Respiratory Rate Blood Pressure Pulse Oximetry 93 Oxygen Delivery Room Air Oxygen Flow Rate Fraction of Inspired Oxygen Intake/Output Intake/Output: Intake & Output 11/09/24 11/10/24 11/11/24 11/12/24 23:59 23:59 23:59 23:59 Intake Total 106.5 243.5 Output Total 1900 0 Balance -1793.5 243.5 Meds/Results Medications: Active Medications Generic Name Dose Route Start Last Admin Trade Name Freq PRN Reason Stop Dose Admin Acetaminophen 650 mg 11/11/24 15:12 Acetaminophen 325 Mg Tablet PO Q6H PRN PAIN RATED 1-3 Aspirin 81 mg 11/13/24 09:00 Aspirin 81 Mg Enteric Tablet PO QAM [facility] Atorvastatin Calcium 40 mg 11/13/24 09:00 Atorvastatin 40 Mg Tablet PO DAILY [facility] Dextrose 12.5 gm 11/11/24 15:08 Dextrose 50% 25 Gm/50 Ml Syringe IV PUSH PRN PRN Hypoglycemia Protocol Glucagon 1 mg 11/11/24 15:08 Glucagon For Inj 1 Mg Vial IM PRN PRN Hypoglycemia Protocol Glucose 15 gm 11/11/24 15:08 Glucose Oral Gel 15 Gm Of Glucse In 37.5 Gm Tube PO PRN PRN Hypoglycemia Protocol Heparin Sodium (Porcine) 4,000 units 11/11/24 11:09 Heparin Sodium 5,000 Units/Ml Vial IV PUSH PRN PRN aPTT less than 55 seconds Heparin Sodium (Porcine) 2,500 units 11/11/24 11:09 11/12/24 14:43 Heparin Sodium 5,000 Units/Ml Vial IV PUSH 2,500 units PRN PRN Administration aPTT 55 - 70 seconds Heparin Sodium/Dextrose 25,000 units in 250 mls @ 12 mls/hr 11/11/24 11:10 11/12/24 14:43 Heparin Sodium/D5w 100 Units/Ml IV CONT 1,200 units/hr .[id number] DEREJE 12 mls/hr Administration Protocol 1,200 UNITS/HR Albumin Human 50 mls @ 999 mls/hr 11/11/24 11:56 Albutein IVPB 12/11/24 11:55 Q10M PRN HYPOTENSION Ceftriaxone Sodium 1 gm in 50 mls @ 100 mls/hr 11/11/24 16:00 11/12/24 15:33 Rocephin 1 Gm/Ns 50 Ml IVPB 100 mls/hr Q24H DEREJE Administration Dextrose 1,000 mls @ 100 mls/hr 11/11/24 15:08 Dextrose 5% 1,000 Ml IVPB PRN PRN Hypoglycemia Protocol Insulin Aspart 4 - 8 units 11/11/24 17:00 11/12/24 12:39 Insulin Aspart (*Bkc) 100 Units/Ml SUB-Q 4 units TIDWM DEREJE Administration Protocol Insulin Aspart 0 units 11/12/24 21:00 Insulin Aspart (*Bkc) 100 Units/Ml SUB-Q HS DEREJE Protocol Insulin Glargine 35 units 11/12/24 09:00 11/12/24 08:08 Insulin Glargine (*Bkc) 100 Units/Ml SUB-Q 35 units DAILY DEREJE Administration Melatonin 3 mg 11/11/24 21:00 11/11/24 20:13 Melatonin 3 Mg Tablet PO 3 mg HS DEREJE Administration Metoprolol Succinate .5 mg 11/12/24 09:00 11/12/24 08:04 Metoprolol Succinate Ext Rel 12.5 Mg Tabcr PO 12.5 mg QAM DEREJE Administration Midodrine 15 mg 11/11/24 13:00 11/12/24 12:39 Midodrine Hcl 2.5 Mg Tablet PO 15 mg TID DEREJE Administration Nitroglycerin 0.4 mg 11/11/24 15:21 Nitroglycerin Sl 0.4 Mg Tablet SUBLINGUAL Q5MIN PRN Chest Pain Non-Formulary ( 1 each 11/11/24 17:00 11/12/24 12:39 Sevelamer Carbonate PO 12/11/24 16:59 1 each 0.8 Gram Oral Powder TIDWM DEREJE Administration In Packet) Perflutren Lipid Microsphere 0 ml 11/11/24 15:04 Perflutren Lipid Microspheres 1.5 Ml Vial Diluted To 10 Ml Total Volume IV PUSH 11/14/24 15:04 ONCE PRN adequate visualization Protocol Perflutren Lipid Microsphere 0 ml 11/12/24 09:51 Perflutren Lipid Microspheres 1.5 Ml Vial Diluted To 10 Ml Total Volume IV PUSH 11/15/24 09:51 ONCE PRN adequate visualization Protocol Radiology Results: ITS Impressions Chest X-Ray 11/11/24 12:21 Impression: 1: Patchy right-sided airspace disease, compatible with pneumonia. Head CT 11/11/24 13:26 Impression: No acute abnormality seen. Stable chronic right occipital lobe infarct. Chest CTA 11/11/24 13:27 Impression: Persistent occluded segmental branches in the left upper lobe. Otherwise, pulmonary emboli seen on prior exam from of 09/30/2024 are largely resolved. 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 Small right pleural effusion with mild bibasilar atelectatic change. Labs Labs: Laboratory Results - last 24 hr 11/11/24 11/11/24 11/11/24 16:00 17:57 18:50 WBC RBC Hgb Hct MCV MCH MCHC RDW Plt Count MPV Immature Gran % (Auto) Neut % (Auto) Lymph % (Auto) [place] % (Auto) Eos % (Auto) Baso % (Auto) Lymph # (Auto) [place] # (Auto) Eos # (Auto) Baso # (Auto) Abs Immat Gran (auto) Absolute Neuts (auto) Absolute Nucleated RBC Nucleated RBC % APTT 55.1 H Sodium Potassium Chloride Carbon Dioxide Anion Gap BUN Creatinine Estim Creat Clear Calc Estimated GFR Glucose POC Capillary Glucose 161 H Calcium Phosphorus Magnesium Iron TIBC % Saturation Ferritin Total Bilirubin AST ALT Alkaline Phosphatase Troponin I 9.190 H* D Total Protein Albumin 11/11/24 11/12/24 11/12/24 20:18 00:25 07:09 WBC 10.9 H RBC 2.71 L Hgb 8.5 L Hct 26.0 L MCV 95.9 MCH 31.4 MCHC 32.7 RDW 16.4 H Plt Count 128 L MPV 9.6 Immature Gran % (Auto) 0.7 H Neut % (Auto) 82.1 H Lymph % (Auto) 11.2 L [place] % (Auto) 5.2 Eos % (Auto) 0.3 Baso % (Auto) 0.5 Lymph # (Auto) 1.22 [place] # (Auto) 0.6 Eos # (Auto) 0.0 Baso # (Auto) 0.1 Abs Immat Gran (auto) 0.08 H Absolute Neuts (auto) 9.0 H Absolute Nucleated RBC 0.000 Nucleated RBC % 0.0 APTT 64.0 H 59.8 H Sodium 133 L Potassium 4.0 Chloride 99 Carbon Dioxide 29 Anion Gap 5 BUN 16 D Creatinine 1.70 H Estim Creat Clear Calc 25 Estimated GFR 29 L Glucose 182 H POC Capillary Glucose 214 H Calcium 8.7 Phosphorus 3.2 Magnesium 1.9 Iron 32 L TIBC 256 L % Saturation 13 L Ferritin 133.00 Total Bilirubin 0.6 AST 65 H ALT 21 Alkaline Phosphatase 90 Troponin I 16.800 H* Total Protein 7.0 Albumin 3.1 L 11/12/24 11/12/24 11/12/24 08:02 11:17 14:17 WBC RBC Hgb Hct MCV MCH MCHC RDW Plt Count MPV Immature Gran % (Auto) Neut % (Auto) Lymph % (Auto) [place] % (Auto) Eos % (Auto) Baso % (Auto) Lymph # (Auto) [place] # (Auto) Eos # (Auto) Baso # (Auto) Abs Immat Gran (auto) Absolute Neuts (auto) Absolute Nucleated RBC Nucleated RBC % APTT 56.9 H Sodium Potassium Chloride Carbon Dioxide Anion Gap BUN Creatinine Estim Creat Clear Calc Estimated GFR Glucose POC Capillary Glucose 182 H 233 H Calcium Phosphorus Magnesium Iron TIBC % Saturation Ferritin Total Bilirubin AST ALT Alkaline Phosphatase Troponin I Total Protein Albumin 11/12/24 15:50 WBC RBC Hgb Hct MCV MCH MCHC RDW Plt Count MPV Immature Gran % (Auto) Neut % (Auto) Lymph % (Auto) [place] % (Auto) Eos % (Auto) Baso % (Auto) Lymph # (Auto) [place] # (Auto) Eos # (Auto) Baso # (Auto) Abs Immat Gran (auto) Absolute Neuts (auto) Absolute Nucleated RBC Nucleated RBC % APTT Sodium Potassium Chloride Carbon Dioxide Anion Gap BUN Creatinine Estim Creat Clear Calc Estimated GFR Glucose POC Capillary Glucose 209 H Calcium Phosphorus Magnesium Iron TIBC % Saturation Ferritin Total Bilirubin AST ALT Alkaline Phosphatase Troponin I Total Protein Albumin
--- NOTE | 2024-11-12 17:12 | PM.IMPN ---
Progress Note: A&P Assessment and Plan (1) Non-ST elevation [place] (NSTEMI): Code(s): I21.4 - Non-ST elevation (NSTEMI) myocardial infarction Status: Acute Assessment and Plan: - CXR: Patchy right-sided airspace disease, compatible with pneumonia. CTA chest showed PE mostly resolved and no lung consolidation 4 - Troponin: 3.080 -> 5.240 -> 9.19-->16.8 Echo pending, trend troponin, A1c, lipid profile, Continue heparin infusion Continue Lipitor, Tropol-XL< Aspirin Cardiology following, recommending medical treatment for now (2) Pulmonary embolism and infarction: Code(s): I26.99 - Other pulmonary embolism without acute cor pulmonale Status: Acute Assessment and Plan: - CTA chest: 1. Persistent occluded segmental branches in the left upper lobe. Otherwise, pulmonary emboli seen on prior exam from of 09/30/2024 are largely resolved. 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 2. Small right pleural effusion with mild bibasilar atelectatic change. - CT chest/abd/pelvis w/con, previous (09/30/24): 1. Pulmonary emboli in all lobes, worst in right lower lobe. 2. Infarct in right lung lower lobe. 3. 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 No endoleak. - underwent mechanical thrombectomy at [facility] on 10/02 - home anticoagulation: Eliquis, holding. Currently on heparin gtt. CTA Chest 11/11/24 showed Prior PE mostly resolved (3) Acute on chronic renal failure: Qualifiers: Acute renal failure type: unspecified Chronic kidney disease stage: unspecified stage Qualified Code(s): N17.9 - Acute kidney failure, unspecified; N18.9 - Chronic kidney disease, unspecified Code(s): N17.9 - Acute kidney failure, unspecified; N18.9 - Chronic kidney disease, unspecified Status: Acute Assessment and Plan: - history of CKD, started on CRRT on 10/03 and transitioned to HD on 10/12. Receiving treatment on? - creatinine 2.5 and GFR 19, Cr 1.7 baseline appears to 1.7 - continue sevelamer 0.8G TID - trend renal function - Continue HD Nephrology following (4) UTI (urinary tract infection): Qualifiers: Urinary tract infection type: acute cystitis Hematuria presence: without hematuria Qualified Code(s): N30.00 - Acute cystitis without hematuria Code(s): N39.0 - Urinary tract infection, site not specified Status: Acute Assessment and Plan: Patient was started on cefdinir x7 days at [facility] due to presumed infection per UA results performed on 11/06. UC cancelled from this testing, unclear why. - UA: Cloudy, 2+ protein, trace ketones, 2+ leuks, greater than 100 WBC, no epithelial cells. 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 by publication designer - Isat 13 and and Ferritin 133, give Venofer 100 - transfuse if less than 7 - trend - GI noted no acute indication for endoscopic evaluation given high risk of anesthesia after PE and now NSTEMI (6) Type 2 diabetes mellitus with hyperglycemia: Qualifiers: Diabetes mellitus retirement insulin use: with retirement use Qualified Code(s): E11.65 - Type 2 diabetes mellitus with hyperglycemia; Z79.4 - supervisor sanding (current) use of insulin Code(s): E11.65 - Type 2 diabetes mellitus with hyperglycemia Status: Acute Assessment and Plan: - hypoglycemia protocol - POC blood glucose ACHS - home medication: continue home NovoLog sliding scale and Lantus 35 units daily - correct regimen ordered - high dose TIDWM, based off BMI - A1C 12.8% on 09/30/24 (7) Hypotension: Qualifiers: Hypotension type: other hypotension type Qualified Code(s): I95.89 - Other hypotension Code(s): I95.9 - Hypotension, unspecified Status: Acute Assessment and Plan: COntinue Midodrine 15mg tid (8) Obstructive sleep apnea: Onset Date: 04/02/21 Code(s): G47.33 - Obstructive sleep apnea (adult) (pediatric) Status: Acute Assessment and Plan: - continue CPAP? Plan Mitral valve mass Thrombus vs Vegetation vs mass ECHO showed mitral valve 2.5 x1.5cm hyperechoic density attached to the mitral valve leaflet Blood culture, continue Heparin infusion On Cefepime and Vancomycin Calling [facility] for transfer Diet: renal GI Prophylaxis: Not currently indicated DVT Prophylaxis: heparin gtt, hold home Eliquis Lines: Peripheral Code Status: DNR Subjective Date/time seen: 11/12/24 17:12 Interval history: Comfortable at bedside ECHO showed mitral valve mass, cards recommends transfer to higher level of care Review of Systems Review of Systems: All systems reviewed & are unremarkable except as noted in HPI and below Exam Const: General: comfortable and no acute distress Other: , female, obese body habitus, nontoxic appearance HENMT: Face/Nose/Sinus: Normal nares present Mouth: Yes moist mucous membranes Eyes: General: appearance normal, both eyes and all related structures Sclera: sclerae normal Pupils: Equal, round and reactive pupils present EOM: EOMs intact bilaterally Resp: Effort & Inspection: normal respiratory effort Auscultation: clear to auscultation bilaterally Cardio: Rate: regular rate Rhythm: regular rhythm Other: S1-S2 present without murmur, rub, ectopy GI: Other: Abdomen rounded, soft, nondistended. Normoactive bowel sounds in all quadrants. Skin: General skin exam: normal color and no rashes or lesions noted Wounds: no wounds Neuro: Cranial nerves: Yes Equal, round and reactive pupils present Speech: normal speech Motor exam (neuro): 5/5 motor strength present throughout Sensory Exam: normal sensation Other: Generalized weakness. A&O x3. Mild somnolence. Extrem: General: normal to inspection Psych: Mental Status: mental status grossly normal Affect: normal affect Other: Fair insight and judgment, pleasant Objective Data Vital Signs Vital Signs: Vital Signs - 24 hr 11/11/24 17:15 11/11/24 17:30 11/11/24 17:45 Temperature Pulse Rate 67 77 77 Respiratory Rate Blood Pressure 120/52 L 126/60 121/62 Pulse Oximetry Oxygen Delivery Oxygen Flow Rate Fraction of Inspired Oxygen 11/11/24 17:48 11/11/24 17:52 11/11/24 18:00 Temperature 97.7 F Pulse Rate 81 80 74 Respiratory Rate 20 Blood Pressure 118/52 L 130/57 L Pulse Oximetry 99 Oxygen Delivery Oxygen Flow Rate Fraction of Inspired Oxygen 11/11/24 19:04 11/11/24 20:00 11/11/24 20:00 Temperature 97.6 F Pulse Rate 84 81 Respiratory Rate 24 H Blood Pressure 134/61 Pulse Oximetry 98 98 Oxygen Delivery Nasal Cannula Oxygen Flow Rate 2 Fraction of Inspired Oxygen 11/11/24 22:00 11/12/24 00:00 11/12/24 00:00 Temperature 97.8 F Pulse Rate 84 90 Respiratory Rate 16 Blood Pressure 118/64 Pulse Oximetry 100 97 Oxygen Delivery Nasal Cannula Oxygen Flow Rate 2 Fraction of Inspired Oxygen 11/12/24 00:00 11/12/24 02:00 11/12/24 03:35 Temperature 98.2 F Pulse Rate 90 94 95 Respiratory Rate 14 Blood Pressure 136/66 Pulse Oximetry 95 Oxygen Delivery Oxygen Flow Rate Fraction of Inspired Oxygen 11/12/24 04:00 11/12/24 04:00 11/12/24 06:00 Temperature Pulse Rate 93 93 Respiratory Rate Blood Pressure Pulse Oximetry 97 Oxygen Delivery Nasal Cannula Oxygen Flow Rate 2 Fraction of Inspired Oxygen 11/12/24 08:00 11/12/24 08:00 11/12/24 08:00 Temperature 97.9 F Pulse Rate 92 95 Respiratory Rate 16 Blood Pressure 123/64 Pulse Oximetry 94 93 Oxygen Delivery Room Air Oxygen Flow Rate Fraction of Inspired Oxygen 11/12/24 08:04 11/12/24 08:34 11/12/24 10:00 Temperature Pulse Rate 96 94 Respiratory Rate Blood Pressure Pulse Oximetry 93 Oxygen Delivery Room Air Oxygen Flow Rate Fraction of Inspired Oxygen 21 11/12/24 11:47 11/12/24 12:00 11/12/24 12:00 Temperature 98.8 F Pulse Rate 92 92 Respiratory Rate 14 Blood Pressure 122/60 Pulse Oximetry 91 93 Oxygen Delivery Room Air Oxygen Flow Rate Fraction of Inspired Oxygen 11/12/24 14:00 11/12/24 15:57 11/12/24 15:57 Temperature Pulse Rate 98 84 Respiratory Rate Blood Pressure Pulse Oximetry 93 Oxygen Delivery Room Air Oxygen Flow Rate Fraction of Inspired Oxygen 11/12/24 16:00 Temperature 97 F L Pulse Rate 84 Respiratory Rate 20 Blood Pressure 112/58 L Pulse Oximetry 97 Oxygen Delivery Oxygen Flow Rate Fraction of Inspired Oxygen Intake/Output Intake/Output: Intake & Output 11/09/24 11/10/24 11/11/24 11/12/24 23:59 23:59 23:59 23:59 Intake Total 106.5 243.5 Output Total 1900 0 Balance -1793.5 243.5 Meds/Results Medications: Active Medications Generic Name Dose Route Start Last Admin Trade Name Freq PRN Reason Stop Dose Admin Acetaminophen 650 mg 11/11/24 15:12 Acetaminophen 325 Mg Tablet PO Q6H PRN PAIN RATED 1-3 Aspirin 81 mg 11/13/24 09:00 Aspirin 81 Mg Enteric Tablet PO QAM COUNT INCLUDES THE [facility] Atorvastatin Calcium 40 mg 11/13/24 09:00 Atorvastatin 40 Mg Tablet PO DAILY DEREJE Dextrose 12.5 gm 11/11/24 15:08 Dextrose 50% 25 Gm/50 Ml Syringe IV PUSH PRN PRN Hypoglycemia Protocol Glucagon 1 mg 11/11/24 15:08 Glucagon For Inj 1 Mg Vial IM PRN PRN Hypoglycemia Protocol Glucose 15 gm 11/11/24 15:08 Glucose Oral Gel 15 Gm Of Glucse In 37.5 Gm Tube PO PRN PRN Hypoglycemia Protocol Heparin Sodium (Porcine) 4,000 units 11/11/24 11:09 Heparin Sodium 5,000 Units/Ml Vial IV PUSH PRN PRN aPTT less than 55 seconds Heparin Sodium (Porcine) 2,500 units 11/11/24 11:09 11/12/24 14:43 Heparin Sodium 5,000 Units/Ml Vial IV PUSH 2,500 units PRN PRN Administration aPTT 55 - 70 seconds Heparin Sodium/Dextrose 25,000 units in 250 mls @ 12 mls/hr 11/11/24 11:10 11/12/24 14:43 Heparin Sodium/D5w 100 Units/Ml IV CONT 1,200 units/hr .[id number] DEREJE 12 mls/hr Administration Protocol 1,200 UNITS/HR Albumin Human 50 mls @ 999 mls/hr 11/11/24 11:56 Albutein IVPB 12/11/24 11:55 Q10M PRN HYPOTENSION Ceftriaxone Sodium 1 gm in 50 mls @ 100 mls/hr 11/11/24 16:00 11/12/24 15:33 Rocephin 1 Gm/Ns 50 Ml IVPB 100 mls/hr Q24H DEREJE Administration Dextrose 1,000 mls @ 100 mls/hr 11/11/24 15:08 Dextrose 5% 1,000 Ml IVPB PRN PRN Hypoglycemia Protocol Insulin Aspart 4 - 8 units 11/11/24 17:00 11/12/24 16:39 Insulin Aspart (*Bkc) 100 Units/Ml SUB-Q 4 units TIDWM DEREJE Administration Protocol Insulin Aspart 0 units 11/12/24 21:00 Insulin Aspart (*Bkc) 100 Units/Ml SUB-Q HS DEREJE Protocol Insulin Glargine 35 units 11/12/24 09:00 11/12/24 08:08 Insulin Glargine (*Bkc) 100 Units/Ml SUB-Q 35 units DAILY DEREJE Administration Melatonin 3 mg 11/11/24 21:00 11/11/24 20:13 Melatonin 3 Mg Tablet PO 3 mg HS DEREJE Administration Metoprolol Succinate 12.5 mg 11/12/24 09:00 11/12/24 08:04 Metoprolol Succinate Ext Rel 12.5 Mg Tabcr PO 12.5 mg QAM DEREJE Administration Midodrine 15 mg 11/11/24 13:00 11/12/24 16:39 Midodrine Hcl 2.5 Mg Tablet PO 15 mg TID DEREJE Administration Nitroglycerin 0.4 mg 11/11/24 15:21 Nitroglycerin Sl 0.4 Mg Tablet SUBLINGUAL Q5MIN PRN Chest Pain Non-Formulary ( 1 each 11/11/24 17:00 11/12/24 16:40 Sevelamer Carbonate PO 12/11/24 16:59 1 each 0.8 Gram Oral Powder TIDWM DEREJE Administration In Packet) Perflutren Lipid Microsphere 0 ml 11/11/24 15:04 Perflutren Lipid Microspheres 1.5 Ml Vial Diluted To 10 Ml Total Volume IV PUSH 11/14/24 15:04 ONCE PRN adequate visualization Protocol Perflutren Lipid Microsphere 0 ml 11/12/24 09:51 Perflutren Lipid Microspheres 1.5 Ml Vial Diluted To 10 Ml Total Volume IV PUSH 11/15/24 09:51 ONCE PRN adequate visualization Protocol Radiology Results: ITS Impressions Chest X-Ray 11/11/24 12:21 Impression: 1: Patchy right-sided airspace disease, compatible with pneumonia. Head CT 11/11/24 13:26 Impression: No acute abnormality seen. Stable chronic right occipital lobe infarct. Chest CTA 11/11/24 13:27 Impression: Persistent occluded segmental branches in the left upper lobe. Otherwise, pulmonary emboli seen on prior exam from of 09/30/2024 are largely resolved. 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 Small right pleural effusion with mild bibasilar atelectatic change. Labs Labs: Laboratory Results - last 24 hr 11/11/24 11/11/24 11/11/24 17:57 18:50 20:18 WBC RBC Hgb Hct MCV MCH MCHC RDW Plt Count MPV Immature Gran % (Auto) Neut % (Auto) Lymph % (Auto) [place] % (Auto) Eos % (Auto) Baso % (Auto) Lymph # (Auto) [place] # (Auto) Eos # (Auto) Baso # (Auto) Abs Immat Gran (auto) Absolute Neuts (auto) Absolute Nucleated RBC Nucleated RBC % APTT 55.1 H Sodium Potassium Chloride Carbon Dioxide Anion Gap BUN Creatinine Estim Creat Clear Calc Estimated GFR Glucose POC Capillary Glucose 161 H 214 H Calcium Phosphorus Magnesium Iron TIBC % Saturation Ferritin Total Bilirubin AST ALT Alkaline Phosphatase Troponin I Total Protein Albumin 11/12/24 11/12/24 11/12/24 00:25 07:09 08:02 WBC 10.9 H RBC 2.71 L Hgb 8.5 L Hct 26.0 L MCV 95.9 MCH 31.4 MCHC 32.7 RDW 16.4 H Plt Count 128 L MPV 9.6 Immature Gran % (Auto) 0.7 H Neut % (Auto) 82.1 H Lymph % (Auto) 11.2 L [place] % (Auto) 5.2 Eos % (Auto) 0.3 Baso % (Auto) 0.5 Lymph # (Auto) 1.22 [place] # (Auto) 0.6 Eos # (Auto) 0.0 Baso # (Auto) 0.1 Abs Immat Gran (auto) 0.08 H Absolute Neuts (auto) 9.0 H Absolute Nucleated RBC 0.000 Nucleated RBC % 0.0 APTT 64.0 H 59.8 H Sodium 133 L Potassium 4.0 Chloride 99 Carbon Dioxide 29 Anion Gap 5 BUN 16 D Creatinine 1.70 H Estim Creat Clear Calc 25 Estimated GFR 29 L Glucose 182 H POC Capillary Glucose 182 H Calcium 8.7 Phosphorus 3.2 Magnesium 1.9 Iron 32 L TIBC 256 L % Saturation 13 L Ferritin 133.00 Total Bilirubin 0.6 AST 65 H ALT 21 Alkaline Phosphatase 90 Troponin I 16.800 H* Total Protein 7.0 Albumin 3.1 L 11/12/24 11/12/24 11/12/24 11:17 14:17 15:50 WBC RBC Hgb Hct MCV MCH MCHC RDW Plt Count MPV Immature Gran % (Auto) Neut % (Auto) Lymph % (Auto) [place] % (Auto) Eos % (Auto) Baso % (Auto) Lymph # (Auto) [place] # (Auto) Eos # (Auto) Baso # (Auto) Abs Immat Gran (auto) Absolute Neuts (auto) Absolute Nucleated RBC Nucleated RBC % APTT 56.9 H Sodium Potassium Chloride Carbon Dioxide Anion Gap BUN Creatinine Estim Creat Clear Calc Estimated GFR Glucose POC Capillary Glucose 233 H 209 H Calcium Phosphorus Magnesium Iron TIBC % Saturation Ferritin Total Bilirubin AST ALT Alkaline Phosphatase Troponin I Total Protein Albumin Quality VTE Prophylaxis VTE prophylaxis: pharmacologic ordered
[2024-11-12] MEDS: CEFEPIME 2 GM/NS 50 ML 2 GM/50 ML BAG IVPB (19:51)
[2024-11-12] MEDS: VANCOMYCIN 1,750 MG/NS 500 ML 1,750 MG/500 ML BAG 250 MG IVPB (20:23)
[2024-11-12] MEDS: MELATONIN 3 MG TABLET PO (20:29)
[2024-11-12 21:39] LABS: Glucose Point of Care 155 mg/dl (65-105)
[2024-11-12 21:49] LABS: Partial Thromboplastin Time 71.6 Seconds (22.3-36.8)
[2024-11-13] VITALS (19 sets, daily range): BP systolic 103–120; BP diastolic 51–62; PULSE 75–97; RESP 18–22; TEMP 36.5–37.2; O2SAT 86–98
[2024-11-13 03:58] LABS: Basophils Absolute Auto 0.1 K/mm3 (0.0-0.1); Basophils Percent Auto 0.8 % (0.2-1.2); Eosinophils Percent Auto 0.2 % (0-4.4); Hematocrit 25.3 % (37.0-47.0); Hemoglobin 8.1 g/dL (12.0-15.0); Immature Granulocyte Absolute 0.07 K/mm3 (0.00-0.031); Immature Granulocyte Percent A 0.7 % (0-0.5); Lymphocytes Absolute Auto 1.63 K/mm3 (0.9-3.2); Mean Corpuscular Hemoglobin 30.9 pg (26-34); Mean Corpuscular Volume 96.6 fl (80-100); Mean Platelet Volume 9.5 fl (7.4-10.4); Monocytes Absolute Auto 0.6 K/mm3 (0.1-0.6); Monocytes Percent Auto 5.8 % (2.6-8.5); Neutrophils Absolute Auto 7.8 K/mm3 (1.3-6.7); Neutrophils Percent Auto 76.5 % (45.5-73.1); Platelet Count Result 142 k/mm3 (150-375); Red Blood Count 2.62 M/mm3 (4.2-5.4); Red Cell Distribution Width 16.3 % (11.5-14.5); White Blood Count 10.2 K/mm3 (4.5-10.0)
[2024-11-13 04:10] LABS: Alanine Aminotransferase 18 U/L (6-35); Albumin Level 2.9 g/dL (3.5-5.1); Alkaline Phosphatase 90 U/L (38-126); Anion Gap 5 mmol/L (4-12); Aspartate Amino Transferase 32 U/L (14-36); Bilirubin,Total 0.6 mg/dL (0.2-1.3); Blood Urea Nitrogen 24 mg/dL (7-17); Calcium 8.6 mg/dL (8.4-10.2); Carbon Dioxide 27 mmol/L (22-30); Chloride 98 mmol/L (98-107); Cholesterol 152 mg/dL (0-200); Estimated CRCL calculation 19 ml/min; Estimated Glomerular Filt Rate 20; Glucose 171 mg/dL (65-110); HDL Direct 31 mg/dL; Magnesium 1.8 mg/dL (1.6-2.3); Phosphorus 2.6 mg/dL (2.5-4.5); Potassium 4.1 mmol/L (3.4-5.0); Sodium 130 mmol/L (137-145); Triglycerides 206 mg/dL (<150)
[2024-11-13 04:11] LABS: Hemoglobin A1C 7.1 % (<5.7)
[2024-11-13 04:21] LABS: LDL Cholesterol Direct 75 mg/dL
[2024-11-13] MEDS: HEPARIN SODIUM 5,000 UNITS/ML VIAL 2500 UNITS IV PUSH ×2 (04:31→18:16)
[2024-11-13] MEDS: ASPIRIN 81 MG ENTERIC TABLET PO (08:26)
[2024-11-13] MEDS: METOPROLOL SUCCINATE EXT REL 12.5 MG TABCR PO (08:26)
[2024-11-13] MEDS: MIDODRINE HCL 2.5 MG TABLET 15 MG PO (08:26)
[2024-11-13] MEDS: INSULIN GLARGINE (*BKC) 100 UNITS/ML 35 UNITS SUB-Q (08:27)
[2024-11-13] MEDS: ATORVASTATIN 40 MG TABLET PO (08:27)
[2024-11-13] MEDS: Non-Formulary (sevelamer carbonate 0.8 gram ORAL powder in packet) 1 EACH PO ×3 (08:32→16:51)
[2024-11-13] MEDS: CEFEPIME 2 GM/NS 50 ML 2 GM/50 ML BAG IVPB (08:32)
[2024-11-13 08:33] LABS: Glucose Point of Care 167 mg/dl (65-105)
[2024-11-13 11:08] LABS: Partial Thromboplastin Time 70.7 Seconds (22.3-36.8)
[2024-11-13] MEDS: HEPARIN SOD/D5W 100 UNITS/ML 25,000 UNITS/250 ML BAG 13 UNITS IV CONT (11:18)
--- NOTE | 2024-11-13 11:25 | P.PNNP_ITS ---
Progress Note: A&P Assessment and Plan (1) Acute renal failure on dialysis: Code(s): N17.9 - Acute kidney failure, unspecified; Z99.2 - Dependence on renal dialysis Status: Acute Assessment and Plan: * thought to be secondary to multifactorial ATN: * hemodynamic instability/shock * sepsis * contrast exposure * infection/sepsis? -- although all cultures were negative at OSH * while at [facility], initiated on CRRT on 10/03/24 due to declining urine output/oliguria and worsening metabolic acidosis * CRRT discontinued on 10/11/24 * transitioned to intermittent hemodialysis starting on 10/12/24 * has been dialysis dependent since * HD yesterday and continue dialysis schedule of // for now * follow electrolytes, volume status, and clearance * follow repeat labs and UOP to assess for potential renal recovery (2) Stage 3b chronic kidney disease: Code(s): N18.32 - Chronic kidney disease, stage 3b Status: Chronic Assessment and Plan: * baseline creatinine seems to run ~ 1.2 - 1.3mg/dl since 2021 * presumably due to diabetes, vascular disease (CAD + AAA + CVA + CHF) and age- related change (3) Non-ST elevation [place] (NSTEMI): Code(s): I21.4 - Non-ST elevation (NSTEMI) myocardial infarction Status: Acute Assessment and Plan: * elevated troponins noted * EKG changes apparent * Cardiology recommendations noted * medical management for now * ASA, beta birgit (as BP can tolerated), and statin therapy * possible cardiac catheterization? * remains on heparin gtt * Echo results noted (see #4) (4) Bacteremia: Code(s): R78.81 - Bacteremia Status: Acute Assessment and Plan: * as noted by positive blood culture (Gram positive cocci on 11/12) * concern for endocarditis based on recent Echo results: * left ventricular systolic function is normal, estimated at 60-65% * left ventricular diastolic function is abnormal * left atrial chamber dimension is mildly enlarged. * mild aortic valve calcification * there is 2.5 x 1.5cm vegetation on posterior mitral valve leaflet * mild mitral valve regurgitation * cannot exclude small vegetation on tricuspid valve * moderate tricuspid valve regurgitation * severe pulmonary hypertension - estimated pulmonary arterial systolic pressure is 91 mmHg * already on antibiotics (5) Pulmonary embolism and infarction: Code(s): I26.99 - Other pulmonary embolism without acute cor pulmonale Status: Acute Assessment and Plan: * as noted by imaging here in September 2024 * complicated by DVTs as well * s/p mechanical thrombectomy at [facility] by IR on 10/02 * was on Elliquis * now on heparin gtt (6) UTI (urinary tract infection): Qualifiers: Urinary tract infection type: acute cystitis Hematuria presence: w ithout hematuria Qualified Code(s): N30.00 - Acute cystitis without hematuria Code(s): N39.0 - Urinary tract infection, site not specified Status: Acute Assessment and Plan: * admission UA suggestive * follow urine culture - E.coli noted * on antibiotics (7) Hypotension: Qualifiers: Hypotension type: other hypotension type Qualified Code(s): I95.89 - Other hypotension Code(s): I95.9 - Hypotension, unspecified Status: Acute Assessment and Plan: * chronic issues at baseline since discharge from [facility] * on midodrine therapy * follow trend of hemodynamics (8) Anemia: Qualifiers: Anemia type: due to chronic kidney disease Chronic kidney disease stage: unspecified stage Qualified Code(s): N18.9 - Chronic kidney disease, unspecified; D63.1 - Anemia in chronic kidney disease Code(s): D64.9 - Anemia, unspecified Status: Acute Assessment and Plan: * due to KAROL with dialysis dependence and recent hospitalization/acute illness * Retacrit with HD * follow trend of H/H (9) Hyperglycemia due to diabetes mellitus: Code(s): E11.65 - Type 2 diabetes mellitus with hyperglycemia Status: Acute Assessment and Plan: * follow accu-cheks * glycemic control per hospitalist Will continue to follow. Subjective Date/time seen: 11/13/24 11:25 Interval history: Follow-up for acute kidney injury/acute renal failure on chronic kidney disease requiring [employer]/dialysis No apparent distress noted at the time of my visit without any complaints of chest pain or shortness of breath; mentation seems to be doing a bit better today as well; positive blood culture as well as results of TTE noted with possible transfer to another facility given recent findings; remains on heparin gtt as well with relative stability in H/H; no acute issues/events overnight or earlier this morning. Exam 2 Narrative: General: elderly but WD/WN female in NAD Heart: normal S1 and S2; no rub Lungs: clear anteriorly; slightly decreased at bases Abdomen: soft, nontender, nondistended, positive bowel sounds Extremities: no cyanosis or clubbing; no edema Skin: warm and intact Objective Data Vital Signs Vital Signs: Vital Signs Temp Pulse Resp BP Pulse Ox O2 Del Method O2 Flow Rate 11/13/24 11:22 98.1 F 84 18 114/54 L 98 11/13/24 10:00 91 11/13/24 08:26 89 11/13/24 08:00 88 11/13/24 08:00 89 18 93 Room Air 11/13/24 07:25 98.3 F 86 18 112/52 L 93 11/13/24 06:00 86 11/13/24 04:44 97.7 F 87 18 109/56 L 97 11/13/24 04:00 88 11/13/24 04:00 97 High Flow Nasal Cannula 2 11/13/24 01:53 97 11/13/24 00:10 99.0 F 86 22 H 120/51 L 86 L 11/13/24 00:00 92 11/13/24 00:00 86 L Nasal Cannula 2 11/12/24 22:00 83 11/12/24 20:00 80 11/12/24 20:00 Room Air 11/12/24 19:56 97.7 F 82 28 H 112/59 L 97 11/12/24 18:00 83 11/12/24 16:00 97 F L 84 20 112/58 L 97 11/12/24 15:57 84 11/12/24 15:57 93 Room Air Intake/Output Intake/Output: Intake & Output 11/10/24 11/11/24 11/12/24 11/13/24 23:59 23:59 23:59 23:59 Intake Total 106.5 621.3 1112.2 Output Total 1900 200 75 Balance -1793.5 421.3 1037.2 Meds/Results Medications: Active Medications Generic Name Dose Route Start Last Admin Trade Name Freq PRN Reason Stop Dose Admin Acetaminophen 650 mg 11/11/24 15:12 Acetaminophen 325 Mg Tablet PO Q6H PRN PAIN RATED 1-3 Aspirin 81 mg 11/13/24 09:00 11/13/24 08:26 Aspirin 81 Mg Enteric Tablet PO 81 mg QAM DEREJE Administration Atorvastatin Calcium 40 mg 11/13/24 09:00 11/13/24 08:27 Atorvastatin 40 Mg Tablet PO 40 mg DAILY DEREJE Administration Dextrose 12.5 gm 11/11/24 15:08 Dextrose 50% 25 Gm/50 Ml Syringe IV PUSH PRN PRN Hypoglycemia Protocol Glucagon 1 mg 11/11/24 15:08 Glucagon For Inj 1 Mg Vial IM PRN PRN Hypoglycemia Protocol Glucose 15 gm 11/11/24 15:08 Glucose Oral Gel 15 Gm Of Glucse In 37.5 Gm Tube PO PRN PRN Hypoglycemia Protocol Heparin Sodium (Porcine) 4,000 units 11/11/24 11:09 Heparin Sodium 5,000 Units/Ml Vial IV PUSH PRN PRN aPTT less than 55 seconds Heparin Sodium (Porcine) 2,500 units 11/11/24 11:09 11/13/24 04:31 Heparin Sodium 5,000 Units/Ml Vial IV PUSH 2,500 units PRN PRN Administration aPTT 55 - 70 seconds Heparin Sodium/Dextrose 25,000 units in 250 mls @ 13 mls/hr 11/11/24 11:10 11/13/24 11:18 Heparin Sodium/D5w 100 Units/Ml IV CONT 1,300 units/hr .[id number] DEREJE 13 mls/hr Administration Protocol 1,300 UNITS/HR Albumin Human 50 mls @ 999 mls/hr 11/11/24 11:56 Albutein IVPB 12/11/24 11:55 Q10M PRN HYPOTENSION Dextrose 1,000 mls @ 100 mls/hr 11/11/24 15:08 Dextrose 5% 1,000 Ml IVPB PRN PRN Hypoglycemia Protocol Cefepime HCl 2 gm in 50 mls @ 100 mls/hr 11/12/24 17:35 11/13/24 08:32 Maxipime 2 Gm/Ns 50 Ml IVPB 100 mls/hr DAILY DEREJE Administration Insulin Aspart 4 - 8 units 11/11/24 17:00 11/13/24 12:31 Insulin Aspart (*Bkc) 100 Units/Ml SUB-Q 4 units TIDWM DEREJE Administration Protocol Insulin Aspart 0 units 11/12/24 21:00 11/12/24 21:08 Insulin Aspart (*Bkc) 100 Units/Ml SUB-Q Not Given HS DEREJE Protocol Insulin Glargine 35 units 11/12/24 09:00 11/13/24 08:27 Insulin Glargine (*Bkc) 100 Units/Ml SUB-Q 35 units DAILY DEREJE Administration Melatonin 3 mg 11/11/24 21:00 11/12/24 20:29 Melatonin 3 Mg Tablet PO 3 mg HS DEREJE Administration Metoprolol Succinate 12.5 mg 11/12/24 09:00 11/13/24 08:26 Metoprolol Succinate Ext Rel 12.5 Mg Tabcr PO 12.5 mg QAM DEREJE Administration Midodrine 10 mg 11/13/24 09:00 11/13/24 12:32 Midodrine Hcl 10 Mg Tablet PO 10 mg TID DEREJE Administration Midodrine 5 mg 11/13/24 09:00 11/13/24 12:32 Midodrine Hcl 2.5 Mg Tablet PO 5 mg TID DEREJE Administration Nitroglycerin 0.4 mg 11/11/24 15:21 Nitroglycerin Sl 0.4 Mg Tablet SUBLINGUAL Q5MIN PRN Chest Pain Non-Formulary ( 1 each 11/11/24 17:00 11/13/24 12:32 Sevelamer Carbonate PO 12/11/24 16:59 1 each 0.8 Gram Oral Powder TIDWM DEREJE Administration In Packet) Perflutren Lipid Microsphere 0 ml 11/11/24 15:04 Perflutren Lipid Microspheres 1.5 Ml Vial Diluted To 10 Ml Total Volume IV PUSH 11/14/24 15:04 ONCE PRN adequate visualization Protocol Perflutren Lipid Microsphere 0 ml 11/12/24 09:51 Perflutren Lipid Microspheres 1.5 Ml Vial Diluted To 10 Ml Total Volume IV PUSH 11/15/24 09:51 ONCE PRN adequate visualization Protocol Vancomycin HCl 1 each 11/12/24 21:27 Vancomycin For Acute Kidney Injury IVPB PRN PRN Vancomycin Protocol Radiology Results: ITS Impressions Chest X-Ray 11/11/24 12:21 Impression: 1: Patchy right-sided airspace disease, compatible with pneumonia. Head CT 11/11/24 13:26 Impression: No acute abnormality seen. Stable chronic right occipital lobe infarct. Chest CTA 11/11/24 13:27 Impression: Persistent occluded segmental branches in the left upper lobe. Otherwise, pulmonary emboli seen on prior exam from of 09/30/2024 are largely resolved. 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 Small right pleural effusion with mild bibasilar atelectatic change. Labs Labs: Laboratory Tests 11/13/24 03:49 11/13/24 03:49 Hemoglobin A1c 7.1 H Calcium 8.6 Phosphorus 2.6 Magnesium 1.8 Total Bilirubin 0.6 AST 32 ALT 18 Alkaline Phosphatase 90 Troponin I 9.080 H* Total Protein 6.0 L Albumin 2.9 L Triglycerides 206 H Cholesterol 152 LDL Cholesterol Direct 75 HDL Direct 31 Microbiology 11/12/24 16:38 Blood Blood Culture - Preliminary Gram positive cocci in pairs 11/12/24 16:38 Blood Blood Culture - Preliminary Gram positive cocci in pairs 11/11/24 11:18 Urine Clean Catch Urine Culture - Preliminary Escherichia Coli
--- NOTE | 2024-11-13 12:09 | P.PNGI_ITS ---
Progress Note: A&P Assessment and Plan (1) Acute on chronic anemia: Code(s): D64.9 - Anemia, unspecified Status: Acute Assessment and Plan: h/h stable and no signs of overt gib no acute indication of endoscopic evaluation, also she will be high risk to undergo anesthesia anemia probably is multifactorial GI work up of anemia can be completed in several more weeks as outpatient, will follow as needed (2) NSTEMI (non-ST elevated myocardial infarction): Onset Date: 04/16/22 Code(s): I21.4 - Non-ST elevation (NSTEMI) myocardial infarction Status: Acute Assessment and Plan: medical treatment by cardiology (3) Pulmonary embolism and infarction: Code(s): I26.99 - Other pulmonary embolism without acute cor pulmonale Status: Acute Assessment and Plan: on iv heparin by primary team (4) Type 2 diabetes mellitus with hyperglycemia: Qualifiers: Diabetes mellitus custodial insulin use: with terminal make up operator use Qualified Code(s): E11.65 - Type 2 diabetes mellitus with hyperglycemia; Z79.4 - custodial (current) use of insulin Code(s): E11.65 - Type 2 diabetes mellitus with hyperglycemia Status: Acute (5) Acute on chronic renal failure: Qualifiers: Acute renal failure type: unspecified Chronic kidney disease stage: unspecified stage Qualified Code(s): N17.9 - Acute kidney failure, unspecified; N18.9 - Chronic kidney disease, unspecified Code(s): N17.9 - Acute kidney failure, unspecified; N18.9 - Chronic kidney disease, unspecified Status: Acute Subjective Date/time seen: 11/13/24 12:09 Interval history: she denies any chest discomfort and breathing ok no signs of GIB Review of Systems Review of Systems: All systems reviewed & are unremarkable except as noted in HPI and below Exam Const: General: comfortable and no acute distress HENMT: Face/Nose/Sinus: Normal nares present Eyes: General: appearance normal, both eyes and all related structures Neck: Neck: supple Resp: Auscultation: clear to auscultation bilaterally Cardio: Rate: regular rate Rhythm: regular rhythm GI: Inspection: non-distended GI Palp: Yes Soft to palpation and No Tenderness to palpation present (GI) Auscultation: normal bowel sounds Skin: General skin exam: normal color Neuro: Speech: normal speech Motor exam (neuro): 5 motor strength present throughout Extrem: General: normal to inspection Psych: Mental Status: mental status grossly normal Objective Data Vital Signs Vital Signs: Vital Signs - 24 hr 11/12/24 14:00 11/12/24 15:57 11/12/24 15:57 Temperature Pulse Rate 98 84 Respiratory Rate Blood Pressure Pulse Oximetry 93 Oxygen Delivery Room Air Oxygen Flow Rate 11/12/24 16:00 11/12/24 18:00 11/12/24 19:56 Temperature 97 F L 97.7 F Pulse Rate 84 83 82 Respiratory Rate 20 28 H Blood Pressure 112/58 L 112/59 L Pulse Oximetry 97 97 Oxygen Delivery Oxygen Flow Rate 11/12/24 20:00 11/12/24 20:00 11/12/24 22:00 Temperature Pulse Rate 80 83 Respiratory Rate Blood Pressure Pulse Oximetry Oxygen Delivery Room Air Oxygen Flow Rate 11/13/24 00:00 11/13/24 00:00 11/13/24 00:10 Temperature 99.0 F Pulse Rate 92 86 Respiratory Rate 22 H Blood Pressure 120/51 L Pulse Oximetry 86 L 86 L Oxygen Delivery Nasal Cannula Oxygen Flow Rate 2 11/13/24 01:53 11/13/24 04:00 11/13/24 04:00 Temperature Pulse Rate 97 88 Respiratory Rate Blood Pressure Pulse Oximetry 97 Oxygen Delivery High Flow Nasal Cannula Oxygen Flow Rate 2 11/13/24 04:44 11/13/24 06:00 11/13/24 07:25 Temperature 97.7 F 98.3 F Pulse Rate 87 86 86 Respiratory Rate 18 18 Blood Pressure 109/56 L 112/52 L Pulse Oximetry 97 93 Oxygen Delivery Oxygen Flow Rate 11/13/24 08:00 11/13/24 08:00 11/13/24 08:26 Temperature Pulse Rate 89 88 89 Respiratory Rate 18 Blood Pressure Pulse Oximetry 93 Oxygen Delivery Room Air Oxygen Flow Rate 11/13/24 10:00 11/13/24 11:22 Temperature 98.1 F Pulse Rate 91 84 Respiratory Rate 18 Blood Pressure 114/54 L Pulse Oximetry 98 Oxygen Delivery Oxygen Flow Rate Intake/Output Intake/Output: Intake & Output 11/10/24 11/11/24 11/12/24 11/13/24 23:59 23:59 23:59 23:59 Intake Total 106.5 621.3 872.2 Output Total 1900 200 75 Balance -1793.5 421.3 797.2 Meds/Results Medications: Active Medications Generic Name Dose Route Start Last Admin Trade Name Olvinq PRN Reason Stop Dose Admin Acetaminophen 650 mg 11/11/24 15:12 Acetaminophen 325 Mg Tablet PO Q6H PRN PAIN RATED 1-3 Aspirin 81 mg 11/13/24 09:00 11/13/24 08:26 Aspirin 81 Mg Enteric Tablet PO 81 mg QAM DEREJE Administration Atorvastatin Calcium 40 mg 11/13/24 09:00 11/13/24 08:27 Atorvastatin 40 Mg Tablet PO 40 mg DAILY DEREJE Administration Dextrose 12.5 gm 11/11/24 15:08 Dextrose 50% 25 Gm/50 Ml Syringe IV PUSH PRN PRN Hypoglycemia Protocol Glucagon 1 mg 11/11/24 15:08 Glucagon For Inj 1 Mg Vial IM PRN PRN Hypoglycemia Protocol Glucose 15 gm 11/11/24 15:08 Glucose Oral Gel 15 Gm Of Glucse In 37.5 Gm Tube PO PRN PRN Hypoglycemia Protocol Heparin Sodium (Porcine) 4,000 units 11/11/24 11:09 Heparin Sodium 5,000 Units/Ml Vial IV PUSH PRN PRN aPTT less than 55 seconds Heparin Sodium (Porcine) 2,500 units 11/11/24 11:09 11/13/24 04:31 Heparin Sodium 5,000 Units/Ml Vial IV PUSH 2,500 units PRN PRN Administration aPTT 55 - 70 seconds Heparin Sodium/Dextrose 25,000 units in 250 mls @ 13 mls/hr 11/11/24 11:10 11/13/24 11:18 Heparin Sodium/D5w 100 Units/Ml IV CONT 1,300 units/hr .[id number] DEREJE 13 mls/hr Administration Protocol 1,300 UNITS/HR Albumin Human 50 mls @ 999 mls/hr 11/11/24 11:56 Albutein IVPB 12/11/24 11:55 Q10M PRN HYPOTENSION Dextrose 1,000 mls @ 100 mls/hr 11/11/24 15:08 Dextrose 5% 1,000 Ml IVPB PRN PRN Hypoglycemia Protocol Cefepime HCl 2 gm in 50 mls @ 100 mls/hr 11/12/24 17:35 11/13/24 08:32 Maxipime 2 Gm/Ns 50 Ml IVPB 100 mls/hr DAILY DEREJE Administration Insulin Aspart 4 - 8 units 11/11/24 17:00 11/13/24 08:32 Insulin Aspart (*Bkc) 100 Units/Ml SUB-Q Not Given TIDWM DEREJE Protocol Insulin Aspart 0 units 11/12/24 21:00 11/12/24 21:08 Insulin Aspart (*Bkc) 100 Units/Ml SUB-Q Not Given HS DEREJE Protocol Insulin Glargine 35 units 11/12/24 09:00 11/13/24 08:27 Insulin Glargine (*Bkc) 100 Units/Ml SUB-Q 35 units DAILY DEREJE Administration Melatonin 3 mg 11/11/24 21:00 11/12/24 20:29 Melatonin 3 Mg Tablet PO 3 mg HS DEREJE Administration Metoprolol Succinate 12.5 mg 11/12/24 09:00 11/13/24 08:26 Metoprolol Succinate Ext Rel 12.5 Mg Tabcr PO 12.5 mg QAM DEREJE Administration Midodrine 10 mg 11/13/24 09:00 11/13/24 11:14 Midodrine Hcl 10 Mg Tablet PO Not Given TID DEREJE Midodrine 5 mg 11/13/24 09:00 11/13/24 11:14 Midodrine Hcl 2.5 Mg Tablet PO Not Given TID DEREJE Nitroglycerin 0.4 mg 11/11/24 15:21 Nitroglycerin Sl 0.4 Mg Tablet SUBLINGUAL Q5MIN PRN Chest Pain Non-Formulary ( 1 each 11/11/24 17:00 11/13/24 08:32 Sevelamer Carbonate PO 12/11/24 16:59 1 each 0.8 Gram Oral Powder TIDWM DEREJE Administration In Packet) Perflutren Lipid Microsphere 0 ml 11/11/24 15:04 Perflutren Lipid Microspheres 1.5 Ml Vial Diluted To 10 Ml Total Volume IV PUSH 11/14/24 15:04 ONCE PRN adequate visualization Protocol Perflutren Lipid Microsphere 0 ml 11/12/24 09:51 Perflutren Lipid Microspheres 1.5 Ml Vial Diluted To 10 Ml Total Volume IV PUSH 11/15/24 09:51 ONCE PRN adequate visualization Protocol Vancomycin HCl 1 each 11/12/24 21:27 Vancomycin For Acute Kidney Injury IVPB PRN PRN Vancomycin Protocol Radiology Results: ITS Impressions Chest X-Ray 11/11/24 12:21 Impression: 1: Patchy right-sided airspace disease, compatible with pneumonia. Head CT 11/11/24 13:26 Impression: No acute abnormality seen. Stable chronic right occipital lobe infarct. Chest CTA 11/11/24 13:27 Impression: Persistent occluded segmental branches in the left upper lobe. Otherwise, pulmonary emboli seen on prior exam from of 09/30/2024 are largely resolved. 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 Small right pleural effusion with mild bibasilar atelectatic change. Labs Labs: Laboratory Results - last 24 hr 11/12/24 11/12/24 11/12/24 14:17 15:50 21:07 WBC RBC Hgb Hct MCV MCH MCHC RDW Plt Count MPV Immature Gran % (Auto) Neut % (Auto) Lymph % (Auto) [place] % (Auto) Eos % (Auto) Baso % (Auto) Lymph # (Auto) [place] # (Auto) Eos # (Auto) Baso # (Auto) Abs Immat Gran (auto) Absolute Neuts (auto) Absolute Nucleated RBC Nucleated RBC % APTT 56.9 H Sodium Potassium Chloride Carbon Dioxide Anion Gap BUN Creatinine Estim Creat Clear Calc Estimated GFR Glucose POC Capillary Glucose 209 H 155 H Hemoglobin A1c Calcium Phosphorus Magnesium Total Bilirubin AST ALT Alkaline Phosphatase Troponin I Total Protein Albumin Triglycerides Cholesterol LDL Cholesterol Direct HDL Direct 11/12/24 11/13/24 11/13/24 21:25 03:49 08:12 WBC 10.2 H RBC 2.62 L Hgb 8.1 L Hct 25.3 L MCV 96.6 MCH 30.9 MCHC 32.0 RDW 16.3 H Plt Count 142 L MPV 9.5 Immature Gran % (Auto) 0.7 H Neut % (Auto) 76.5 H Lymph % (Auto) 16.0 L [place] % (Auto) 5.8 Eos % (Auto) 0.2 Baso % (Auto) 0.8 Lymph # (Auto) 1.63 [place] # (Auto) 0.6 Eos # (Auto) 0.0 Baso # (Auto) 0.1 Abs Immat Gran (auto) 0.07 H Absolute Neuts (auto) 7.8 H Absolute Nucleated RBC 0.000 Nucleated RBC % 0.0 APTT 71.6 H 70.0 H Sodium 130 L Potassium 4.1 Chloride 98 Carbon Dioxide 27 Anion Gap 5 BUN 24 H Creatinine 2.30 H Estim Creat Clear Calc 19 Estimated GFR 20 L Glucose 171 H POC Capillary Glucose 167 H Hemoglobin A1c 7.1 H Calcium 8.6 Phosphorus 2.6 Magnesium 1.8 Total Bilirubin 0.6 AST 32 ALT 18 Alkaline Phosphatase 90 Troponin I 9.080 H* Total Protein 6.0 L Albumin 2.9 L Triglycerides 206 H Cholesterol 152 LDL Cholesterol Direct 75 HDL Direct 31 11/13/24 10:42 WBC RBC Hgb Hct MCV MCH MCHC RDW Plt Count MPV Immature Gran % (Auto) Neut % (Auto) Lymph % (Auto) [place] % (Auto) Eos % (Auto) Baso % (Auto) Lymph # (Auto) [place] # (Auto) Eos # (Auto) Baso # (Auto) Abs Immat Gran (auto) Absolute Neuts (auto) Absolute Nucleated RBC Nucleated RBC % APTT 70.7 H Sodium Potassium Chloride Carbon Dioxide Anion Gap BUN Creatinine Estim Creat Clear Calc Estimated GFR Glucose POC Capillary Glucose Hemoglobin A1c Calcium Phosphorus Magnesium Total Bilirubin AST ALT Alkaline Phosphatase Troponin I Total Protein Albumin Triglycerides Cholesterol LDL Cholesterol Direct HDL Direct
--- NOTE | 2024-11-13 12:11 | PM.PNCARD ---
Progress Note: A&P Assessment and Plan (1) Non-ST elevation [place] (NSTEMI): Code(s): I21.4 - Non-ST elevation (NSTEMI) myocardial infarction Status: Acute Plan 1. CAD Multiple prior PCIs and single-vessel CABG in 2021 (pratt to LAD) 2. NSTEMI -hemodynamically stable -currently pain-free -KAIA score 3. Acute anemia 4. ESRD on hemodialysis 5. Recent PE 6. Hyperlipidemia 7. Mitral valve mass -initially there was no plan to do a cardiac catheterization for her because of acute anemia and a DNR status. Now with a new mitral valve mass, her desire to get this everything done, she is being considered for transfer for surgery, we can consider cardiac catheterization to assess the coronary anatomy. It can be done here if she remains at [place] or it can be done at [place] where she gets transferred to -continue on heparin infusion and monitor hemoglobin closely -continue aspirin 81 mg once daily, monitor hemoglobin closely -continue Lipitor to 40 mg p.o. once daily -continue Toprol-XL for now. No other guideline driven medical therapy can be introduced as as low blood pressure during hemodialysis and requires midodrine Subjective Date/time seen: 11/13/24 12:11 Interval history: Denies any chest pain. Appears more alert No acute events overnight Troponin peaked at 16.8 Hemoglobin currently 8.1 Review of Systems Review of Systems: All systems reviewed & are unremarkable except as noted in HPI and below Exam Const: General: comfortable, no acute distress, alert and awake Orientation/consciousness: patient oriented x3 HENMT: Head: normal to inspection Eyes: General: appearance normal, both eyes and all related structures Pupils: Equal, round and reactive pupils present Neck: Neck: normal visual inspection, supple and no JVD Carotids: normal carotid upstroke Resp: Effort & Inspection: normal respiratory effort Auscultation: clear to auscultation bilaterally Cardio: Rate: regular rate Rhythm: regular rhythm Heart sounds: S1 normal heart sound present, S2 normal heart sound present and no murmurs GI: Auscultation: normal bowel sounds Skin: General skin exam: normal color Neuro: General: patient oriented x3 Cranial nerves: Yes Equal, round and reactive pupils present Extrem: General: normal to inspection Psych: Appearance: grossly normal Mental Status: mental status grossly normal Objective Data Vital Signs Vital Signs: Vital Signs - 24 hr 11/12/24 14:00 11/12/24 15:57 11/12/24 15:57 Temperature Pulse Rate 98 84 Respiratory Rate Blood Pressure Pulse Oximetry 93 Oxygen Delivery Room Air Oxygen Flow Rate 11/12/24 16:00 11/12/24 18:00 11/12/24 19:56 Temperature 36.1 C L 36.5 C Pulse Rate 84 83 82 Respiratory Rate 20 28 H Blood Pressure 112/58 L 112/59 L Pulse Oximetry 97 97 Oxygen Delivery Oxygen Flow Rate 11/12/24 20:00 11/12/24 20:00 11/12/24 22:00 Temperature Pulse Rate 80 83 Respiratory Rate Blood Pressure Pulse Oximetry Oxygen Delivery Room Air Oxygen Flow Rate 11/13/24 00:00 11/13/24 00:00 11/13/24 00:10 Temperature 37.2 C Pulse Rate 92 86 Respiratory Rate 22 H Blood Pressure 120/51 L Pulse Oximetry 86 L 86 L Oxygen Delivery Nasal Cannula Oxygen Flow Rate 2 11/13/24 01:53 11/13/24 04:00 11/13/24 04:00 Temperature Pulse Rate 97 88 Respiratory Rate Blood Pressure Pulse Oximetry 97 Oxygen Delivery High Flow Nasal Cannula Oxygen Flow Rate 2 11/13/24 04:44 11/13/24 06:00 11/13/24 07:25 Temperature 36.5 C 36.8 C Pulse Rate 87 86 86 Respiratory Rate 18 18 Blood Pressure 109/56 L 112/52 L Pulse Oximetry 97 93 Oxygen Delivery Oxygen Flow Rate 11/13/24 08:00 11/13/24 08:00 11/13/24 08:26 Temperature Pulse Rate 89 88 89 Respiratory Rate 18 Blood Pressure Pulse Oximetry 93 Oxygen Delivery Room Air Oxygen Flow Rate 11/13/24 10:00 11/13/24 11:22 Temperature 36.7 C Pulse Rate 91 84 Respiratory Rate 18 Blood Pressure 114/54 L Pulse Oximetry 98 Oxygen Delivery Oxygen Flow Rate Intake/Output Intake/Output: Intake & Output 11/10/24 11/11/24 11/12/24 11/13/24 23:59 23:59 23:59 23:59 Intake Total 106.5 621.3 872.2 Output Total 1900 200 75 Balance -1793.5 421.3 797.2 Meds/Results Medications: Active Medications Generic Name Dose Route Start Last Admin Trade Name Freq PRN Reason Stop Dose Admin Acetaminophen 650 mg 11/11/24 15:12 Acetaminophen 325 Mg Tablet PO Q6H PRN PAIN RATED 1-3 Aspirin 81 mg 11/13/24 09:00 11/13/24 08:26 Aspirin 81 Mg Enteric Tablet PO 81 mg QAM DEREJE Administration Atorvastatin Calcium 40 mg 11/13/24 09:00 11/13/24 08:27 Atorvastatin 40 Mg Tablet PO 40 mg DAILY DEREJE Administration Dextrose 12.5 gm 11/11/24 15:08 Dextrose 50% 25 Gm/50 Ml Syringe IV PUSH PRN PRN Hypoglycemia Protocol Glucagon 1 mg 11/11/24 15:08 Glucagon For Inj 1 Mg Vial IM PRN PRN Hypoglycemia Protocol Glucose 15 gm 11/11/24 15:08 Glucose Oral Gel 15 Gm Of Glucse In 37.5 Gm Tube PO PRN PRN Hypoglycemia Protocol Heparin Sodium (Porcine) 4,000 units 11/11/24 11:09 Heparin Sodium 5,000 Units/Ml Vial IV PUSH PRN PRN aPTT less than 55 seconds Heparin Sodium (Porcine) 2,500 units 11/11/24 11:09 11/13/24 04:31 Heparin Sodium 5,000 Units/Ml Vial IV PUSH 2,500 units PRN PRN Administration aPTT 55 - 70 seconds Heparin Sodium/Dextrose 25,000 units in 250 mls @ 13 mls/hr 11/11/24 11:10 11/13/24 11:18 Heparin Sodium/D5w 100 Units/Ml IV CONT 1,300 units/hr .[id number] DEREJE 13 mls/hr Administration Protocol 1,300 UNITS/HR Albumin Human 50 mls @ 999 mls/hr 11/11/24 11:56 Albutein IVPB 12/11/24 11:55 Q10M PRN HYPOTENSION Dextrose 1,000 mls @ 100 mls/hr 11/11/24 15:08 Dextrose 5% 1,000 Ml IVPB PRN PRN Hypoglycemia Protocol Cefepime HCl 2 gm in 50 mls @ 100 mls/hr 11/12/24 17:35 11/13/24 08:32 Maxipime 2 Gm/Ns 50 Ml IVPB 100 mls/hr DAILY DEREJE Administration Insulin Aspart 4 - 8 units 11/11/24 17:00 11/13/24 08:32 Insulin Aspart (*Bkc) 100 Units/Ml SUB-Q Not Given TIDWM [facility] Protocol Insulin Aspart 0 units 11/12/24 21:00 11/12/24 21:08 Insulin Aspart (*Bkc) 100 Units/Ml SUB-Q Not Given HS DEREJE Protocol Insulin Glargine 35 units 11/12/24 09:00 11/13/24 08:27 Insulin Glargine (*Bkc) 100 Units/Ml SUB-Q 35 units DAILY DEREJE Administration Melatonin 3 mg 11/11/24 21:00 11/12/24 20:29 Melatonin 3 Mg Tablet PO 3 mg HS DEREJE Administration Metoprolol Succinate 12.5 mg 11/12/24 09:00 11/13/24 08:26 Metoprolol Succinate Ext Rel 12.5 Mg Tabcr PO 12.5 mg QAM DEREJE Administration Midodrine 10 mg 11/13/24 09:00 11/13/24 11:14 Midodrine Hcl 10 Mg Tablet PO Not Given TID DEREJE Midodrine 5 mg 11/13/24 09:00 11/13/24 11:14 Midodrine Hcl 2.5 Mg Tablet PO Not Given TID DEREJE Nitroglycerin 0.4 mg 11/11/24 15:21 Nitroglycerin Sl 0.4 Mg Tablet SUBLINGUAL Q5MIN PRN Chest Pain Non-Formulary ( 1 each 11/11/24 17:00 11/13/24 08:32 Sevelamer Carbonate PO 12/11/24 16:59 1 each 0.8 Gram Oral Powder TIDWM DEREJE Administration In Packet) Perflutren Lipid Microsphere 0 ml 11/11/24 15:04 Perflutren Lipid Microspheres 1.5 Ml Vial Diluted To 10 Ml Total Volume IV PUSH 11/14/24 15:04 ONCE PRN adequate visualization Protocol Perflutren Lipid Microsphere 0 ml 11/12/24 09:51 Perflutren Lipid Microspheres 1.5 Ml Vial Diluted To 10 Ml Total Volume IV PUSH 11/15/24 09:51 ONCE PRN adequate visualization Protocol Vancomycin HCl 1 each 11/12/24 21:27 Vancomycin For Acute Kidney Injury IVPB PRN PRN Vancomycin Protocol Radiology Results: ITS Impressions Chest X-Ray 11/11/24 12:21 Impression: 1: Patchy right-sided airspace disease, compatible with pneumonia. Head CT 11/11/24 13:26 Impression: No acute abnormality seen. Stable chronic right occipital lobe infarct. Chest CTA 11/11/24 13:27 Impression: Persistent occluded segmental branches in the left upper lobe. Otherwise, pulmonary emboli seen on prior exam from of 09/30/2024 are largely resolved. 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 Small right pleural effusion with mild bibasilar atelectatic change. Labs Labs: Laboratory Results - last 24 hr 11/12/24 11/12/24 11/12/24 14:17 15:50 21:07 WBC RBC Hgb Hct MCV MCH MCHC RDW Plt Count MPV Immature Gran % (Auto) Neut % (Auto) Lymph % (Auto) [place] % (Auto) Eos % (Auto) Baso % (Auto) Lymph # (Auto) [place] # (Auto) Eos # (Auto) Baso # (Auto) Abs Immat Gran (auto) Absolute Neuts (auto) Absolute Nucleated RBC Nucleated RBC % APTT 56.9 H Sodium Potassium Chloride Carbon Dioxide Anion Gap BUN Creatinine Estim Creat Clear Calc Estimated GFR Glucose POC Capillary Glucose 209 H 155 H Hemoglobin A1c Calcium Phosphorus Magnesium Total Bilirubin AST ALT Alkaline Phosphatase Troponin I Total Protein Albumin Triglycerides Cholesterol LDL Cholesterol Direct HDL Direct 11/12/24 11/13/24 11/13/24 21:25 03:49 08:12 WBC 10.2 H RBC 2.62 L Hgb 8.1 L Hct 25.3 L MCV 96.6 MCH 30.9 MCHC 32.0 RDW 16.3 H Plt Count 142 L MPV 9.5 Immature Gran % (Auto) 0.7 H Neut % (Auto) 76.5 H Lymph % (Auto) 16.0 L [place] % (Auto) 5.8 Eos % (Auto) 0.2 Baso % (Auto) 0.8 Lymph # (Auto) 1.63 [place] # (Auto) 0.6 Eos # (Auto) 0.0 Baso # (Auto) 0.1 Abs Immat Gran (auto) 0.07 H Absolute Neuts (auto) 7.8 H Absolute Nucleated RBC 0.000 Nucleated RBC % 0.0 APTT 71.6 H 70.0 H Sodium 130 L Potassium 4.1 Chloride 98 Carbon Dioxide 27 Anion Gap 5 BUN 24 H Creatinine 2.30 H Estim Creat Clear Calc 19 Estimated GFR 20 L Glucose 171 H POC Capillary Glucose 167 H Hemoglobin A1c 7.1 H Calcium 8.6 Phosphorus 2.6 Magnesium 1.8 Total Bilirubin 0.6 AST 32 ALT 18 Alkaline Phosphatase 90 Troponin I 9.080 H* Total Protein 6.0 L Albumin 2.9 L Triglycerides 206 H Cholesterol 152 LDL Cholesterol Direct 75 HDL Direct 31 11/13/24 10:42 WBC RBC Hgb Hct MCV MCH MCHC RDW Plt Count MPV Immature Gran % (Auto) Neut % (Auto) Lymph % (Auto) [place] % (Auto) Eos % (Auto) Baso % (Auto) Lymph # (Auto) [place] # (Auto) Eos # (Auto) Baso # (Auto) Abs Immat Gran (auto) Absolute Neuts (auto) Absolute Nucleated RBC Nucleated RBC % APTT 70.7 H Sodium Potassium Chloride Carbon Dioxide Anion Gap BUN Creatinine Estim Creat Clear Calc Estimated GFR Glucose POC Capillary Glucose Hemoglobin A1c Calcium Phosphorus Magnesium Total Bilirubin AST ALT Alkaline Phosphatase Troponin I Total Protein Albumin Triglycerides Cholesterol LDL Cholesterol Direct HDL Direct
[2024-11-13 12:25] LABS: Glucose Point of Care 208 mg/dl (65-105)
[2024-11-13] MEDS: INSULIN ASPART (*BKC) 100 UNITS/ML SUB-Q (12:31)
[2024-11-13] MEDS: MIDODRINE HCL 2.5 MG TABLET 5 MG PO ×2 (12:32→16:51)
[2024-11-13] MEDS: MIDODRINE HCL 10 MG TABLET PO ×2 (12:32→16:51)
--- NOTE | 2024-11-13 12:40 | P.PNIM_ITS ---
Progress Note: A&P Assessment and Plan (1) Non-ST elevation [place] (NSTEMI): Code(s): I21.4 - Non-ST elevation (NSTEMI) myocardial infarction Status: Acute Assessment and Plan: - CXR: Patchy right-sided airspace disease, compatible with pneumonia. CTA chest showed PE mostly resolved and no lung consolidation 4 - Troponin: 3.080 -> 5.240 -> 9.19-->16.8 Echo pending, trend troponin, A1c, lipid profile, Continue heparin infusion Continue Lipitor, Tropol-XL< Aspirin Cardiology following, recommending medical treatment for now (2) Pulmonary embolism and infarction: Code(s): I26.99 - Other pulmonary embolism without acute cor pulmonale Status: Acute Assessment and Plan: - CTA chest: 1. Persistent occluded segmental branches in the left upper lobe. Otherwise, pulmonary emboli seen on prior exam from of 09/30/2024 are largely resolved. 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 2. Small right pleural effusion with mild bibasilar atelectatic change. - CT chest/abd/pelvis w/con, previous (09/30/24): 1. Pulmonary emboli in all lobes, worst in right lower lobe. 2. Infarct in right lung lower lobe. 3. 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 No endoleak. - underwent mechanical thrombectomy at [facility] on 10/02 - home anticoagulation: Eliquis, holding. Currently on heparin gtt. CTA Chest 11/11/24 showed Prior PE mostly resolved (3) Acute on chronic renal failure: Qualifiers: Acute renal failure type: unspecified Chronic kidney disease stage: unspecified stage Qualified Code(s): N17.9 - Acute kidney failure, unspecified; N18.9 - Chronic kidney disease, unspecified Code(s): N17.9 - Acute kidney failure, unspecified; N18.9 - Chronic kidney disease, unspecified Status: Acute Assessment and Plan: - history of CKD, started on CRRT on 10/03 and transitioned to HD on 10/12. Receiving treatment on? - creatinine 2.5 and GFR 19, Cr 1.7 baseline appears to 1.7 - continue sevelamer 0.8G TID - trend renal function - Continue HD Nephrology following (4) UTI (urinary tract infection): Qualifiers: Urinary tract infection type: acute cystitis Hematuria presence: without hematuria Qualified Code(s): N30.00 - Acute cystitis without hematuria Code(s): N39.0 - Urinary tract infection, site not specified Status: Acute Assessment and Plan: Patient was started on cefdinir x7 days at [facility] due to presumed infection per UA results performed on 11/06. UC cancelled from this testing, unclear why. - UA: Cloudy, 2+ protein, trace ketones, 2+ leuks, greater than 100 WBC, no epithelial cells. 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 by wrapper sorter - Isat 13 and and Ferritin 133, give Venofer 100 - transfuse if less than 7 - trend - GI noted no acute indication for endoscopic evaluation given high risk of anesthesia after PE and now NSTEMI (6) Type 2 diabetes mellitus with hyperglycemia: Qualifiers: Diabetes mellitus longterm insulin use: with longterm use Qualified Code(s): E11.65 - Type 2 diabetes mellitus with hyperglycemia; Z79.4 - buttermaker (current) use of insulin Code(s): E11.65 - Type 2 diabetes mellitus with hyperglycemia Status: Acute Assessment and Plan: - hypoglycemia protocol - POC blood glucose ACHS - home medication: continue home NovoLog sliding scale and Lantus 35 units daily - correct regimen ordered - high dose TIDWM, based off BMI - A1C 12.8% on 09/30/24 (7) Hypotension: Qualifiers: Hypotension type: other hypotension type Qualified Code(s): I95.89 - Other hypotension Code(s): I95.9 - Hypotension, unspecified Status: Acute Assessment and Plan: COntinue Midodrine 15mg tid (8) Obstructive sleep apnea: Onset Date: 04/02/21 Code(s): G47.33 - Obstructive sleep apnea (adult) (pediatric) Status: Acute Assessment and Plan: - continue CPAP? 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 Gram positive cocci bacteremia Thrombus vs Vegetation vs mass Blood culture positive for GPC in pairs ECHO showed mitral valve 2.5 x1.5cm hyperechoic density attached to the mitral valve leaflet Blood culture, continue Heparin infusion On Cefepime and Vancomycin Awaiting transfer to [facility] Diet: renal DVT Prophylaxis: heparin gtt, hold home Eliquis Lines: Peripheral Code Status: DNR Subjective Date/time seen: 11/13/24 12:40 Interval history: Comfortable at bedside Review of Systems Review of Systems: All systems reviewed & are unremarkable except as noted in HPI and below Exam Const: General: comfortable and no acute distress Other: , female, obese body habitus, nontoxic appearance HENMT: Face/Nose/Sinus: Normal nares present Mouth: Yes moist mucous membranes Eyes: General: appearance normal, both eyes and all related structures Sclera: sclerae normal Pupils: Equal, round and reactive pupils present EOM: EOMs intact bilaterally Resp: Effort & Inspection: normal respiratory effort Auscultation: clear to auscultation bilaterally Cardio: Rate: regular rate Rhythm: regular rhythm Other: S1-S2 present without murmur, rub, ectopy GI: Other: Abdomen rounded, soft, nondistended. Normoactive bowel sounds in all quadrants. Skin: General skin exam: normal color and no rashes or lesions noted Wounds: no wounds Neuro: Cranial nerves: Yes Equal, round and reactive pupils present Speech: normal speech Motor exam (neuro): 5/5 motor strength present throughout Sensory Exam: normal sensation Other: Generalized weakness. A&O x3. Mild somnolence. Extrem: General: normal to inspection Psych: Mental Status: mental status grossly normal Affect: normal affect Other: Fair insight and judgment, pleasant Objective Data Vital Signs Vital Signs: Vital Signs - 24 hr 11/12/24 14:00 11/12/24 15:57 11/12/24 15:57 Temperature Pulse Rate 98 84 Respiratory Rate Blood Pressure Pulse Oximetry 93 Oxygen Delivery Room Air Oxygen Flow Rate 11/12/24 16:00 11/12/24 18:00 11/12/24 19:56 Temperature 97 F L 97.7 F Pulse Rate 84 83 82 Respiratory Rate 20 28 H Blood Pressure 112/58 L 112/59 L Pulse Oximetry 97 97 Oxygen Delivery Oxygen Flow Rate 11/12/24 20:00 11/12/24 20:00 11/12/24 22:00 Temperature Pulse Rate 80 83 Respiratory Rate Blood Pressure Pulse Oximetry Oxygen Delivery Room Air Oxygen Flow Rate 11/13/24 00:00 11/13/24 00:00 11/13/24 00:10 Temperature 99.0 F Pulse Rate 92 86 Respiratory Rate 22 H Blood Pressure 120/51 L Pulse Oximetry 86 L 86 L Oxygen Delivery Nasal Cannula Oxygen Flow Rate 2 11/13/24 01:53 11/13/24 04:00 11/13/24 04:00 Temperature Pulse Rate 97 88 Respiratory Rate Blood Pressure Pulse Oximetry 97 Oxygen Delivery High Flow Nasal Cannula Oxygen Flow Rate 2 11/13/24 04:44 11/13/24 06:00 11/13/24 07:25 Temperature 97.7 F 98.3 F Pulse Rate 87 86 86 Respiratory Rate 18 18 Blood Pressure 109/56 L 112/52 L Pulse Oximetry 97 93 Oxygen Delivery Oxygen Flow Rate 11/13/24 08:00 11/13/24 08:00 11/13/24 08:26 Temperature Pulse Rate 89 88 89 Respiratory Rate 18 Blood Pressure Pulse Oximetry 93 Oxygen Delivery Room Air Oxygen Flow Rate 11/13/24 10:00 11/13/24 11:22 Temperature 98.1 F Pulse Rate 91 84 Respiratory Rate 18 Blood Pressure 114/54 L Pulse Oximetry 98 Oxygen Delivery Oxygen Flow Rate Intake/Output Intake/Output: Intake & Output 11/10/24 11/11/24 11/12/24 11/13/24 23:59 23:59 23:59 23:59 Intake Total 106.5 621.3 872.2 Output Total 1900 200 75 Balance -1793.5 421.3 797.2 Meds/Results Medications: Active Medications Generic Name Dose Route Start Last Admin Trade Name Freq PRN Reason Stop Dose Admin Acetaminophen 650 mg 11/11/24 15:12 Acetaminophen 325 Mg Tablet PO Q6H PRN PAIN RATED 1-3 Aspirin 81 mg 11/13/24 09:00 11/13/24 08:26 Aspirin 81 Mg Enteric Tablet PO 81 mg QAM DEREJE Administration Atorvastatin Calcium 40 mg 11/13/24 09:00 11/13/24 08:27 Atorvastatin 40 Mg Tablet PO 40 mg DAILY DEREJE Administration Dextrose 12.5 gm 11/11/24 15:08 Dextrose 50% 25 Gm/50 Ml Syringe IV PUSH PRN PRN Hypoglycemia Protocol Glucagon 1 mg 11/11/24 15:08 Glucagon For Inj 1 Mg Vial IM PRN PRN Hypoglycemia Protocol Glucose 15 gm 11/11/24 15:08 Glucose Oral Gel 15 Gm Of Glucse In 37.5 Gm Tube PO PRN PRN Hypoglycemia Protocol Heparin Sodium (Porcine) 4,000 units 11/11/24 11:09 Heparin Sodium 5,000 Units/Ml Vial IV PUSH PRN PRN aPTT less than 55 seconds Heparin Sodium (Porcine) 2,500 units 11/11/24 11:09 11/13/24 04:31 Heparin Sodium 5,000 Units/Ml Vial IV PUSH 2,500 units PRN PRN Administration aPTT 55 - 70 seconds Heparin Sodium/Dextrose 25,000 units in 250 mls @ 13 mls/hr 11/11/24 11:10 11/13/24 11:18 Heparin Sodium/D5w 100 Units/Ml IV CONT 1,300 units/hr .[id number] DEREJE 13 mls/hr Administration Protocol 1,300 UNITS/HR Albumin Human 50 mls @ 999 mls/hr 11/11/24 11:56 Albutein IVPB 12/11/24 11:55 Q10M PRN HYPOTENSION Dextrose 1,000 mls @ 100 mls/hr 11/11/24 15:08 Dextrose 5% 1,000 Ml IVPB PRN PRN Hypoglycemia Protocol Cefepime HCl 2 gm in 50 mls @ 100 mls/hr 11/12/24 17:35 11/13/24 08:32 Maxipime 2 Gm/Ns 50 Ml IVPB 100 mls/hr DAILY DEREJE Administration Insulin Aspart 4 - 8 units 11/11/24 17:00 11/13/24 12:31 Insulin Aspart (*Bkc) 100 Units/Ml SUB-Q 4 units TIDWM DEREJE Administration Protocol Insulin Aspart 0 units 11/12/24 21:00 11/12/24 21:08 Insulin Aspart (*Bkc) 100 Units/Ml SUB-Q Not Given HS DEREJE Protocol Insulin Glargine 35 units 11/12/24 09:00 11/13/24 08:27 Insulin Glargine (*Bkc) 100 Units/Ml SUB-Q 35 units DAILY DEREJE Administration Melatonin 3 mg 11/11/24 21:00 11/12/24 20:29 Melatonin 3 Mg Tablet PO 3 mg HS DEREJE Administration Metoprolol Succinate 12.5 mg 11/12/24 09:00 11/13/24 08:26 Metoprolol Succinate Ext Rel 12.5 Mg Tabcr PO 12.5 mg QAM DEREJE Administration Midodrine 10 mg 11/13/24 09:00 11/13/24 12:32 Midodrine Hcl 10 Mg Tablet PO 10 mg TID DEREJE Administration Midodrine 5 mg 11/13/24 09:00 11/13/24 12:32 Midodrine Hcl 2.5 Mg Tablet PO 5 mg TID DEREJE Administration Nitroglycerin 0.4 mg 11/11/24 15:21 Nitroglycerin Sl 0.4 Mg Tablet SUBLINGUAL Q5MIN PRN Chest Pain Non-Formulary ( 1 each 11/11/24 17:00 11/13/24 12:32 Sevelamer Carbonate PO 12/11/24 16:59 1 each 0.8 Gram Oral Powder TIDWM DEREJE Administration In Packet) Perflutren Lipid Microsphere 0 ml 11/11/24 15:04 Perflutren Lipid Microspheres 1.5 Ml Vial Diluted To 10 Ml Total Volume IV P USH 11/14/24 15:04 ONCE PRN adequate visualization Protocol Perflutren Lipid Microsphere 0 ml 11/12/24 09:51 Perflutren Lipid Microspheres 1.5 Ml Vial Diluted To 10 Ml Total Volume IV PUSH 11/15/24 09:51 ONCE PRN adequate visualization Protocol Vancomycin HCl 1 each 11/12/24 21:27 Vancomycin For Acute Kidney Injury IVPB PRN PRN Vancomycin Protocol Radiology Results: ITS Impressions Chest X-Ray 11/11/24 12:21 Impression: 1: Patchy right-sided airspace disease, compatible with pneumonia. Head CT 11/11/24 13:26 Impression: No acute abnormality seen. Stable chronic right occipital lobe infarct. Chest CTA 11/11/24 13:27 Impression: Persistent occluded segmental branches in the left upper lobe. Otherwise, pulmonary emboli seen on prior exam from of 09/30/2024 are largely resolved. 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 Small right pleural effusion with mild bibasilar atelectatic change. Labs Labs: Laboratory Results - last 24 hr 11/12/24 11/12/24 11/12/24 14:17 15:50 21:07 WBC RBC Hgb Hct MCV MCH MCHC RDW Plt Count MPV Immature Gran % (Auto) Neut % (Auto) Lymph % (Auto) [place] % (Auto) Eos % (Auto) Baso % (Auto) Lymph # (Auto) [place] # (Auto) Eos # (Auto) Baso # (Auto) Abs Immat Gran (auto) Absolute Neuts (auto) Absolute Nucleated RBC Nucleated RBC % APTT 56.9 H Sodium Potassium Chloride Carbon Dioxide Anion Gap BUN Creatinine Estim Creat Clear Calc Estimated GFR Glucose POC Capillary Glucose 209 H 155 H Hemoglobin A1c Calcium Phosphorus Magnesium Total Bilirubin AST ALT Alkaline Phosphatase Troponin I Total Protein Albumin Triglycerides Cholesterol LDL Cholesterol Direct HDL Direct 11/12/24 11/13/24 11/13/24 21:25 03:49 08:12 WBC 10.2 H RBC 2.62 L Hgb 8.1 L Hct 25.3 L MCV 96.6 MCH 30.9 MCHC 32.0 RDW 16.3 H Plt Count 142 L MPV 9.5 Immature Gran % (Auto) 0.7 H Neut % (Auto) 76.5 H Lymph % (Auto) 16.0 L [place] % (Auto) 5.8 Eos % (Auto) 0.2 Baso % (Auto) 0.8 Lymph # (Auto) 1.63 [place] # (Auto) 0.6 Eos # (Auto) 0.0 Baso # (Auto) 0.1 Abs Immat Gran (auto) 0.07 H Absolute Neuts (auto) 7.8 H Absolute Nucleated RBC 0.000 Nucleated RBC % 0.0 APTT 71.6 H 70.0 H Sodium 130 L Potassium 4.1 Chloride 98 Carbon Dioxide 27 Anion Gap 5 BUN 24 H Creatinine 2.30 H Estim Creat Clear Calc 19 Estimated GFR 20 L Glucose 171 H POC Capillary Glucose 167 H Hemoglobin A1c 7.1 H Calcium 8.6 Phosphorus 2.6 Magnesium 1.8 Total Bilirubin 0.6 AST 32 ALT 18 Alkaline Phosphatase 90 Troponin I 9.080 H* Total Protein 6.0 L Albumin 2.9 L Triglycerides 206 H Cholesterol 152 LDL Cholesterol Direct 75 HDL Direct 31 11/13/24 11/13/24 10:42 11:24 WBC RBC Hgb Hct MCV MCH MCHC RDW Plt Count MPV Immature Gran % (Auto) Neut % (Auto) Lymph % (Auto) [place] % (Auto) Eos % (Auto) Baso % (Auto) Lymph # (Auto) [place] # (Auto) Eos # (Auto) Baso # (Auto) Abs Immat Gran (auto) Absolute Neuts (auto) Absolute Nucleated RBC Nucleated RBC % APTT 70.7 H Sodium Potassium Chloride Carbon Dioxide Anion Gap BUN Creatinine Estim Creat Clear Calc Estimated GFR Glucose POC Capillary Glucose 208 H Hemoglobin A1c Calcium Phosphorus Magnesium Total Bilirubin AST ALT Alkaline Phosphatase Troponin I Total Protein Albumin Triglycerides Cholesterol LDL Cholesterol Direct HDL Direct Quality VTE Prophylaxis VTE prophylaxis: pharmacologic ordered
[2024-11-13 16:02] LABS: Glucose Point of Care 144 mg/dl (65-105)
[2024-11-13 17:24] LABS: Partial Thromboplastin Time 67.7 Seconds (22.3-36.8)
[2024-11-13 19:33] LABS: Vancomycin Random 16.2 ug/mL (10-20)
--- NOTE | 2024-11-13 19:48 | PC.NURSE ---
Heparin placed on hold pending results of CT scan
[2024-11-13 20:17] LABS: Glucose Point of Care 136 mg/dl (65-105)
[2024-11-13] MEDS: VANCOMYCIN 750 MG/NS 250 ML 750 MG/250 ML BAG 250 MG IVPB (20:27)
--- NOTE | 2024-11-13 23:37 | PM.EVENT ---
Event Note Event Note Event Note: Patient has been increasingly confused today according to the nurse. Time of last known normal is not clear. She voices not complaints at the time of my evaluation and denies double vision, dizziness, chest pain, paresthesias, numbness, tingling, and weakness. The patient is alert and oriented to name only at this time. She attempts to answer questions and follow commands but she is only answering in 2 to 3 word sentences. Tangential speech. She looks almost bewildered. Perhaps mild left mouth droop. She seems to have a component of left sided neglect and does not startle to confrontation when approached on the left periphery. Currently in a sinus rhythm. Lungs are clear to auscultation. Toes are downgoing. She appears to move upper extremities without limitations. She withdraws to pain in the legs. No obvious pronator drift when she held her arms up briefly. She did not understand how to perform finger to nose and rapid alternating movements. Concerns for embolic stroke given presumed endocarditis. STAT brain CT showed no acute findings. She would not be a candidate for thrombolytics given unknown last known normal and she is currently on heparin. Brain MRI ordered for a.m. Call placed to Dr. Cronin at [place] with patient update. Patients hans Goss (POA) and questions were answered. Critical Care Time Critical Care Time: Yes Total Critical Care Time: 35 Attestation: 35 minutes critical care time spent in attention of this patient.
[2024-11-14] VITALS (30 sets, daily range): BP systolic 102–190; BP diastolic 15–69; PULSE 71–111; RESP 16–20; TEMP 36.4–37.6; O2SAT 93–97
[2024-11-14 04:58] LABS: Basophils Absolute Auto 0.1 K/mm3 (0.0-0.1); Basophils Percent Auto 0.8 % (0.2-1.2); Eosinophils Absolute Auto 0.1 K/mm3 (0-0.3); Eosinophils Percent Auto 0.5 % (0-4.4); Hematocrit 23.3 % (37.0-47.0); Hemoglobin 7.7 g/dL (12.0-15.0); Immature Granulocyte Percent A 1.1 % (0-0.5); Lymphocytes Absolute Auto 2.03 K/mm3 (0.9-3.2); Lymphocytes Percent Auto 21.9 % (18.3-44.2); Mean Corpuscular Hemoglobin 31.4 pg (26-34); Mean Corpuscular Volume 95.1 fl (80-100); Mean Platelet Volume 9.4 fl (7.4-10.4); Monocytes Absolute Auto 0.7 K/mm3 (0.1-0.6); Monocytes Percent Auto 7.1 % (2.6-8.5); Neutrophils Absolute Auto 6.4 K/mm3 (1.3-6.7); Neutrophils Percent Auto 68.6 % (45.5-73.1); Platelet Count Result 160 k/mm3 (150-375); Red Blood Count 2.45 M/mm3 (4.2-5.4); Red Cell Distribution Width 16.5 % (11.5-14.5); White Blood Count 9.3 K/mm3 (4.5-10.0)
[2024-11-14 05:16] LABS: Alanine Aminotransferase 16 U/L (6-35); Albumin Level 2.9 g/dL (3.5-5.1); Alkaline Phosphatase 91 U/L (38-126); Anion Gap 6 mmol/L (4-12); Aspartate Amino Transferase 27 U/L (14-36); Bilirubin,Total 0.7 mg/dL (0.2-1.3); Blood Urea Nitrogen 32 mg/dL (7-17); Calcium 8.7 mg/dL (8.4-10.2); Carbon Dioxide 26 mmol/L (22-30); Chloride 98 mmol/L (98-107); Estimated CRCL calculation 15 ml/min; Estimated Glomerular Filt Rate 16; Glucose 109 mg/dL (65-110); Magnesium 1.8 mg/dL (1.6-2.3); Phosphorus 3.4 mg/dL (2.5-4.5); Potassium 3.6 mmol/L (3.4-5.0); Sodium 130 mmol/L (137-145)
[2024-11-14 06:32] LABS: Partial Thromboplastin Time 74.8 Seconds (22.3-36.8)
[2024-11-14 07:25] LABS: Vancomycin Random 19.7 ug/mL (10-20)
[2024-11-14 07:52] LABS: Glucose Point of Care 109 mg/dl (65-105)
[2024-11-14] MEDS: MIDODRINE HCL 10 MG TABLET PO ×2 (10:05→12:08)
[2024-11-14] MEDS: MIDODRINE HCL 2.5 MG TABLET 5 MG PO ×2 (10:06→12:08)
[2024-11-14] MEDS: METOPROLOL SUCCINATE EXT REL 12.5 MG TABCR PO (10:09)
[2024-11-14] MEDS: ATORVASTATIN 40 MG TABLET PO (10:09)
[2024-11-14] MEDS: ASPIRIN 81 MG ENTERIC TABLET PO (10:10)
[2024-11-14] MEDS: HEPARIN SOD/D5W 100 UNITS/ML 25,000 UNITS/250 ML BAG 14 UNITS IV CONT (10:17)
[2024-11-14] MEDS: Non-Formulary (sevelamer carbonate 0.8 gram ORAL powder in packet) 1 EACH PO ×2 (10:26→12:17)
[2024-11-14] MEDS: CEFEPIME 2 GM/NS 50 ML 2 GM/50 ML BAG IVPB (10:26)
--- NOTE | 2024-11-14 12:13 | WPDNEURCNPN ---
Assessment and Plan Assessment and plan (1) Metabolic encephalopathy: Code(s): G93.41 - Metabolic encephalopathy Status: Acute (2) Cerebrovascular disease: Code(s): I67.9 - Cerebrovascular disease, unspecified Status: Acute (3) Functional memory problem: Code(s): R41.3 - Other amnesia Status: Acute (4) Gait abnormality: Code(s): R26.9 - Unspecified abnormalities of gait and mobility Status: Acute (5) Chronic kidney disease (CKD) stage G3b/A2, moderately decreased glomerular filtration rate (GFR) between 30-44 mL/min/1.73 square meter and albuminuria creatinine ratio between 30-299 mg/g: Code(s): N18.32 - Chronic kidney disease, stage 3b Status: Chronic (6) Obstructive sleep apnea: Onset Date: 04/02/21 Code(s): G47.33 - Obstructive sleep apnea (adult) (pediatric) Status: Acute (7) Anemia: Qualifiers: Anemia type: due to chronic kidney disease Chronic kidney disease stage: unspecified stage Qualified Code(s): N18.9 - Chronic kidney disease, unspecified; D63.1 - Anemia in chronic kidney disease Code(s): D64.9 - Anemia, unspecified Status: Acute Plan evaluation of her mental status was indeed somewhat challenging since there is a significant fluctuation during the course of evaluation. I would suggest an MRI of the brain and EEG and check her B12 and folic acid level and vitamin-D. She may have metabolic encephalopathy considering the number of medical problems she faces. A single evaluation is unlikely to you may need conclusive definitive answer but an underlying degenerative or vascular dementia is also possible. A CT scan of brain performed recently did not show any abnormality. MRI of the brain performed on 05/26/2024 has shown old infarct in the right occipital area. CT angiogram of the head and neck performed on 05/26/2024 did not show any hemodynamically significant stenosis or large vessel occlusion. Most recently hemoglobin was 7.7. I noted that she is on midodrine. She has significant risk factors for vascular disease and her previous MRI also has shown occipital infarct. Possible cerebrovascular disease as a cause for further decline in mental status would be a possibility. I would also suggest a speech therapy evaluation in addition a physical therapy evaluation. From the point of view of cerebrovascular disease she is on atorvastatin 40 mg a day and aspirin 81 mg a day. Neurology will follow with results of these investigations Consult date: 11/14/24 HPI: Christine De Jesus is a 79 year old female with history of for multiple medical problems including diabetes mellitus, obstructive sleep apnea syndrome, anemia, coronary artery disease, pulmonary embolus being evaluated for altered mental status. Patient is a awake and alert she tells me she has 3 children 1 of them lives nearby. She is right-handed. During the course of conversation she somehow suddenly gets on to become a repetitious saying some words again and again for while and then she snapped back onto normal conversation for while. There is no set pattern. She is able to name objects at times. She is also able to repeat sentences. But she was unable to tell me her correct age or whereabouts. Apparently she has poor control of the bladder unable to walk on her memory has declined. No family members were available at the time of this evaluation. She also has been noted to have chronic kidney disease with acute exacerbation of renal condition and is on hemodialysis. Review of Systems Review of Systems: Patient denies any pain or any nausea vomiting however she does not appear to be a reliable historian at this time. She does seem to be trying to cooperate. [facility] Past Medical History Medical History (Updated 11/14/24 @ 12:23 by Mariann Sommers MD) Metabolic encephalopathy Cerebrovascular disease Acute on chronic anemia Pulmonary embolism and infarction multiple bilateral pulmonary emboli with infarction. Venous Doppler study was negative . Diastolic dysfunction diastolic dysfunction with LVH on echo with ejection fraction 70% on 09/30/2024. Tricuspid valve regurgitation moderate to severe tricuspid valve regurgitation on echo on 09/30/2024. Severe pulmonary arterial systolic hypertension severe pulmonary hypertension on echo 09/30/2024. Vitamin B12 deficiency level low at 397 with goal greater than 400 with folic acid 12.12 on 07/26/2024. Functional memory problem CVA (cerebral vascular accident) At moderate risk for fall Anemia Hemoglobin normal at 14.1 with vitamin B12 397, folic acid 12.2, iron 127 with 39% saturation and ferritin 57 on 07/26/2024. Fall Chronic kidney disease (CKD) stage G3b/A2, moderately decreased glomerular filtration rate (GFR) between 30-44 mL/min/1.73 square meter and albuminuria creatinine ratio between 30-299 mg/g BUN 35 with creatinine 1.30 and GFR 40 on 03/31/2022. BUN 24, creatinine 1.10 with GFR 48 on 05/26/2024. BUN 32, creatinine 1.18 with GFR 47 on 07/26/2024. AAA (abdominal aortic aneurysm) without rupture (~05/17/23) Endovascular repair 10/09/2023. 7 x 6.6 cm abdominal aortic aneurysm On CT in the ER 05/17/2023. Acute bronchitis COVID-19 (10/31/22) tested positive 11/05/2022 Chronic atrial fibrillation (04/23/22) NSTEMI (non-ST elevated myocardial infarction) (04/16/22) incomplete PTCA of the LAD 04/17/2022. CABG LAD 04/22/22. Renal insufficiency BUN 27 with creatinine 1.24 with GFR 42 on 03/27/2022. Overactive bladder Screening for diabetic retinopathy (09/24/21) no diabetic retinopathy on dilated eye exam 09/24/2021. Recheck annually. no retinopathy 01/29/2024. Diabetic neuropathy, type II diabetes mellitus (06/12/21) Chronic pain in right foot Microalbuminuria ratio 1048 on 07/26/2024. Hypersomnia Neoplasm of skin (12/26/19) Heart disease Thrombocytopenia Platelets 124 on 05/26/2024. Platelets 119 on 07/26/2024. Contusion of face Chronic depression Coronary artery disease involving agdaagux coronary artery of agdaagux heart without angina pectoris Controlled type 2 diabetes mellitus with hyperglycemia, with long-term current use of insulin glucose 304 with hemoglobin A1c 10.9 on 03/27/2022. glucose 243 with hemoglobin A1c 10.1 on 05/26/2024. Fasting glucose 413 with hemoglobin A1c 10.2 With GFR 47 and microalbumin ratio of 1048 on 07/26/2024. Surgical History Surgical History History of cardiac cath H/O knee surgery Left total knee replacement 2015 right knee arthroscopy about 2000 Family History Family History Mother Family history of cardiovascular disease, Onset Age: 66 Hypertension Cerebrovascular accident Hypercholesteremia Diabetes mellitus Heart disease Father Cerebrovascular accident, Onset Age: 77 Hypercholesteremia Heart disease Sibling Diabetes mellitus Cancer Heart disease Cerebrovascular accident Grandparent Diabetes mellitus Social History Social History Smoking packs per day: 1 Smoking cigarettes per day: 20.0 Years smoked: 44 Smoking pack-years: 44.00 Smoking status: Never smoker Additional smoking assessment comments: quit 20 years ago Alcohol intake: never Alcohol use details: on occasion Substance use: never Substance use type: does not use Other substance usage details: one drink a month Do You Feel Safe in your Home?: Yes Lack of Transportation: No Lack of Food: Never True Current Housing: I Have Housing Concerned About Future Housing: No Difficulty Paying Gas/Electric Bills: No Difficulty Paying for Meds: No Currently Unemployed: No Education: High School Diploma/GED Difficulty w/ Childcare or Family Care: No Living arrangements: alone Occupation/Education: retired Gender identity (if verbalized by the patient): Female Spiritual care concerns: No Meds Home Medications and Allergies Home Medications ?Medication ?Instructions ?Recorded ?Confirmed ?Type blood sugar diagnostic #100 ea 06/12/21 11/11/24 Rx insulin glargine 100 unit/mL (3 35 unit subcut DAILY 07/27/24 11/11/24 History mL) subcutaneous pen (Lantus Solostar U-100 Insulin) acetaminophen 325 mg tablet 650 mg PO Q6H PRN Pain 10/25/24 11/11/24 History apixaban 5 mg tablet 5 mg PO BID 10/25/24 11/11/24 History insulin aspart U-100 100 unit/mL See Protocol subcut TIDWMEAL 10/25/24 11/11/24 History subcutaneous solution melatonin 3 mg tablet 3 mg PO HS 10/25/24 11/11/24 History midodrine 5 mg tablet 15 mg PO TID 10/25/24 11/11/24 History sevelamer carbonate 0.8 gram oral 0.8 g PO TID 10/25/24 11/11/24 History powder packet Allergies Allergy/AdvReac Type Severity Reaction Status Date / Time Sulfa (Sulfonamide Allergy Unknown Unknown Verified 05/25/24 17:46 Antibiotics) Vital Signs Vital Signs - 24 hr 11/13/24 14:00 11/13/24 15:40 11/13/24 16:00 Temperature 98.2 F Pulse Rate 81 75 75 Respiratory Rate 18 18 Blood Pressure 116/56 L Pulse Oximetry 95 95 Oxygen Delivery Room Air 11/13/24 16:00 11/13/24 18:00 11/13/24 19:30 Temperature Pulse Rate 77 77 Respiratory Rate Blood Pressure Pulse Oximetry Oxygen Delivery Room Air 11/13/24 20:00 11/13/24 20:00 11/13/24 22:00 Temperature 98.3 F Pulse Rate 81 87 79 Respiratory Rate 20 Blood Pressure 114/62 Pulse Oximetry 96 Oxygen Delivery 11/13/24 23:48 11/14/24 00:00 11/14/24 00:00 Temperature 98.3 F Pulse Rate 82 82 Respiratory Rate 18 Blood Pressure 103/52 L Pulse Oximetry 90 Oxygen Delivery Room Air 11/14/24 02:00 11/14/24 04:00 11/14/24 04:00 Temperature 97.6 F Pulse Rate 83 81 Respiratory Rate 18 Blood Pressure 105/54 L Pulse Oximetry 93 Oxygen Delivery Room Air 11/14/24 04:00 11/14/24 05:48 11/14/24 07:38 Temperature 97.6 F Pulse Rate 84 85 82 Respiratory Rate 16 Blood Pressure 110/58 L Pulse Oximetry 97 Oxygen Delivery 11/14/24 10:09 11/14/24 11:55 Temperature 97.8 F Pulse Rate 83 77 Respiratory Rate 18 Blood Pressure 115/63 Pulse Oximetry 95 Oxygen Delivery Exam Narrative: Fully conscious alert, oriented to self only unable to tell me the name of the hospital this time unable to tell me the month or the year unable to name 5 colors or 5 cities she did follow 1 step command but make mistakes in two-step commands. Three object recall was 0/3. Significant fluctuation in her speech and a comprehension was noted during the course of conversation. Sometimes she starts to be repeat issues or shows some degree of perseveration. It is difficult to classify that as any specific form of aphasia examination head and neck shows no evidence of external trauma. No carotid bruit. The nerves injured testing show pupils were equal reacting. Visual rodriguez by confrontation could not reliably verified normal. No facial asymmetry. Tongue was midline. Other cranial normal limits. Motor system normal power and tone in both upper lower limbs. No cogwheeling or involuntary movements are seen. Sensory examination grossly intact. Results Labs 11/14/24 04:43 11/14/24 04:43 Labs: Short CBC 11/14/24 Range/Units 04:43 WBC 9.3 (4.5-10.0) K/mm3 Hgb 7.7 L (12.0-15.0) g/dL Hct 23.3 L (37.0-47.0) % Plt Count 160 (150-375) k/mm3 BMP 11/14/24 04:43 Sodium 130 L Potassium 3.6 Chloride 98 Carbon Dioxide 26 BUN 32 H Creatinine 2.80 H Glucose 109 Calcium 8.7 Liver Function 11/14/24 Range/Units 04:43 Total Bilirubin 0.7 (0.2-1.3) mg/dL AST 27 (14-36) U/L ALT 16 (6-35) U/L Alkaline Phosphatase 91 (38-126) U/L Albumin 2.9 L (3.5-5.1) g/dL
[2024-11-14 12:16] LABS: Glucose Point of Care 137 mg/dl (65-105)
[2024-11-14 13:53] LABS: Vitamin D 25 Hydroxy < 12.8 ng/mL
--- NOTE | 2024-11-14 14:37 | PC.NURSE ---
Dr. Sommers and Dr. Carter notified of MRI results. [facility] transfer center updated.
[2024-11-14 15:23] LABS: Folic Acid 5.5 ng/mL (2.76->20)
--- NOTE | 2024-11-14 15:25 | P.PNNP_ITS ---
Progress Note: A&P Assessment and Plan (1) Acute renal failure on dialysis: Code(s): N17.9 - Acute kidney failure, unspecified; Z99.2 - Dependence on renal dialysis Status: Acute Assessment and Plan: * thought to be secondary to multifactorial ATN: * hemodynamic instability/shock * sepsis * contrast exposure * infection/sepsis? -- although all cultures were negative at OSH * while at [facility], initiated on CRRT on 10/03/24 due to declining urine output/oliguria and worsening metabolic acidosis * CRRT discontinued on 10/11/24 * transitioned to intermittent hemodialysis starting on 10/12/24 * has been dialysis dependent since * HD today and continue dialysis schedule of M/W/ for now * follow electrolytes, volume status, and clearance * follow repeat labs and UOP to assess for potential renal recovery (2) Stage 3b chronic kidney disease: Code(s): N18.32 - Chronic kidney disease, stage 3b Status: Chronic Assessment and Plan: * baseline creatinine seems to run ~ 1.2 - 1.3mg/dl since 2021 * presumably due to diabetes, vascular disease (CAD + AAA + CVA + CHF) and age- related change (3) Non-ST elevation MO (NSTEMI): Code(s): I21.4 - Non-ST elevation (NSTEMI) myocardial infarction Status: Acute Assessment and Plan: * elevated troponins noted * EKG changes apparent * Cardiology recommendations noted * medical management for now * ASA, beta birgit (as BP can tolerated), and statin therapy * remains on heparin gtt * Echo results noted (see #4) (4) Bacteremia: Code(s): R78.81 - Bacteremia Status: Acute Assessment and Plan: * as noted by positive blood culture: * Enterococcus faecalis on 11/12 blood cultures * concern for endocarditis based on recent Echo results: * left ventricular systolic function is normal, estimated at 60-65% * left ventricular diastolic function is abnormal * left atrial chamber dimension is mildly enlarged. * mild aortic valve calcification * there is 2.5 x 1.5cm vegetation on posterior mitral valve leaflet * mild mitral valve regurgitation * cannot exclude small vegetation on tricuspid valve * moderate tricuspid valve regurgitation * severe pulmonary hypertension - estimated pulmonary arterial systolic pressure is 91 mmHg * already on antibiotics (5) CVA (cerebral vascular accident): Code(s): I63.9 - Cerebral infarction, unspecified Status: Acute Assessment and Plan: * as noted by MRI of brain: * numerous small acute infarcts in the bilateral cerebral and cerebellar hemispheres and right basal ganglia involving both the anterior and posterior vertebral vascular distributions on both the left and right which suggests a shower of emboli from a relatively central origin * 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 * Neurology following (6) Pulmonary embolism and infarction: Code(s): I26.99 - Other pulmonary embolism without acute cor pulmonale Status: Acute Assessment and Plan: * as noted by imaging here in September 2024 * complicated by DVTs as well * s/p mechanical thrombectomy at [facility] by IR on 10/02 * was on Elliquis * now on heparin gtt (7) UTI (urinary tract infection): Qualifiers: Hematuria presence: without hematuria Urinary tract infection type: a cute cystitis Qualified Code(s): N30.00 - Acute cystitis without hematuria Code(s): N39.0 - Urinary tract infection, site not specified Status: Acute Assessment and Plan: * admission UA suggestive * follow urine culture - E.coli noted * on antibiotics (8) Hypotension: Qualifiers: Hypotension type: other hypotension type Qualified Code(s): I95.89 - Other hypotension Code(s): I95.9 - Hypotension, unspecified Status: Acute Assessment and Plan: * chronic issues at baseline since discharge from [facility] * on midodrine therapy * follow trend of hemodynamics (9) Anemia: Qualifiers: Anemia type: due to chronic kidney disease Chronic kidney disease stage: unspecified stage Qualified Code(s): N18.9 - Chronic kidney disease, unspecified; D63.1 - Anemia in chronic kidney disease Code(s): D64.9 - Anemia, unspecified Status: Acute Assessment and Plan: * due to KAROL with dialysis dependence and recent hospitalization/acute illness * Retacrit with HD * follow trend of H/H (10) Hyperglycemia due to diabetes mellitus: Code(s): E11.65 - Type 2 diabetes mellitus with hyperglycemia Status: Acute Assessment and Plan: * follow accu-cheks * glycemic control per hospitalist Noted plans for transfer to [place]; would also consider transfer to [facility] since she was previously at [facility] prior to transfer to [facility] and admission here. Will continue to follow. Subjective Date/time seen: 11/14/24 15:25 Interval history: Follow-up for acute kidney injury/acute renal failure on chronic kidney disease requiring [employer]/dialysis Tolerating dialysis treatment at the time of my visit (seen on HD at 3:15PM); due to fluctuating mental status, seen by Neurology earlier today; results of brain MRI noted; no apparent distress voiced when seen. Exam 2 Narrative: General: elderly but WD/WN female in NAD Heart: normal S1 and S2; no rub Lungs: clear anteriorly; slightly decreased at bases Abdomen: soft, nontender, nondistended, positive bowel sounds Extremities: no cyanosis or clubbing; no edema Skin: no nodules Objective Data Vital Signs Vital Signs: Vital Signs Temp Pulse Resp BP Pulse Ox O2 Del Method 11/14/24 15:15 75 124/66 11/14/24 15:00 73 125/64 11/14/24 14:48 75 130/69 11/14/24 14:37 98.4 F 75 18 132/64 95 11/14/24 11:55 97.8 F 77 18 115/63 95 11/14/24 10:09 83 11/14/24 07:38 97.6 F 82 16 110/58 L 97 11/14/24 05:48 85 11/14/24 04:00 84 11/14/24 04:00 97.6 F 81 18 105/54 L 93 11/14/24 04:00 Room Air 11/14/24 02:00 83 11/14/24 00:00 82 11/14/24 00:00 Room Air 11/13/24 23:48 98.3 F 82 18 103/52 L 90 11/13/24 22:00 79 11/13/24 20:00 87 11/13/24 20:00 98.3 F 81 20 114/62 96 11/13/24 19:30 Room Air 11/13/24 18:00 77 Intake/Output Intake/Output: Intake & Output 11/11/24 11/12/24 11/13/24 11/14/24 23:59 23:59 23:59 23:59 Intake Total 106.5 621.3 1674.0 378.2 Output Total 1900 200 75 Balance -1793.5 421.3 1599.0 378.2 Meds/Results Medications: Active Medications Generic Name Dose Route Start Last Admin Trade Name Olvinq PRN Reason Stop Dose Admin Acetaminophen 650 mg 11/11/24 15:12 Acetaminophen 325 Mg Tablet PO Q6H PRN PAIN RATED 1-3 Aspirin 81 mg 11/13/24 09:00 11/14/24 10:10 Aspirin 81 Mg Enteric Tablet PO 81 mg QAM DEREJE Administration Atorvastatin Calcium 40 mg 11/13/24 09:00 11/14/24 10:09 Atorvastatin 40 Mg Tablet PO 40 mg DAILY DEREJE Administration Dextrose 12.5 gm 11/11/24 15:08 Dextrose 50% 25 Gm/50 Ml Syringe IV PUSH PRN PRN Hypoglycemia Protocol Epoetin James-epbx 10,000 units 11/14/24 20:01 Epoetin James-Epbx 10,000 Units/Ml Vial IV PUSH 11/14/24 20:02 ONCE ONE Glucagon 1 mg 11/11/24 15:08 Glucagon For Inj 1 Mg Vial IM PRN PRN Hypoglycemia Protocol Glucose 15 gm 11/11/24 15:08 Glucose Oral Gel 15 Gm Of Glucse In 37.5 Gm Tube PO PRN PRN Hypoglycemia Protocol Heparin Sodium (Porcine) 4,000 units 11/11/24 11:09 Heparin Sodium 5,000 Units/Ml Vial IV PUSH PRN PRN aPTT less than 55 seconds Heparin Sodium (Porcine) 2,500 units 11/11/24 11:09 11/13/24 18:16 Heparin Sodium 5,000 Units/Ml Vial IV PUSH 2,500 units PRN PRN Administration aPTT 55 - 70 seconds Heparin Sodium/Dextrose 25,000 units in 250 mls @ 14 mls/hr 11/11/24 11:10 11/14/24 10:17 Heparin Sodium/D5w 100 Units/Ml IV CONT 1,400 units/hr .[id number] DEREJE 14 mls/hr Administration Protocol 1,400 UNITS/HR Albumin Human 50 mls @ 999 mls/hr 11/11/24 11:56 Albutein IVPB 12/11/24 11:55 Q10M PRN HYPOTENSION Dextrose 1,000 mls @ 100 mls/hr 11/11/24 15:08 Dextrose 5% 1,000 Ml IVPB PRN PRN Hypoglycemia Protocol Vancomycin HCl 750 mg in 250 mls @ 250 mls/hr 11/14/24 21:00 Vancomycin 750 Mg/Ns 250 Ml IVPB 11/14/24 21:59 ONCE ONE Insulin Aspart 4 - 8 units 11/11/24 17:00 11/14/24 12:16 Insulin Aspart (*Bkc) 100 Units/Ml SUB-Q Not Given TIDWM DEREJE Protocol Insulin Aspart 0 units 11/12/24 21:00 11/13/24 20:23 Insulin Aspart (*Bkc) 100 Units/Ml SUB-Q Not Given HS DEREJE Protocol Insulin Glargine 35 units 11/12/24 09:00 11/14/24 12:17 Insulin Glargine (*Bkc) 100 Units/Ml SUB-Q Not Given DAILY DEREJE Melatonin 3 mg 11/11/24 21:00 11/13/24 20:23 Melatonin 3 Mg Tablet PO Not Given HS DEREJE Metoprolol Succinate 12.5 mg 11/12/24 09:00 11/14/24 10:09 Metoprolol Succinate Ext Rel 12.5 Mg Tabcr PO 12.5 mg QAM DEREJE Administration Midodrine 10 mg 11/13/24 09:00 11/14/24 10:05 Midodrine Hcl 10 Mg Tablet PO 10 mg TID DEREJE Administration Midodrine 5 mg 11/13/24 09:00 11/14/24 10:06 Midodrine Hcl 2.5 Mg Tablet PO 5 mg TID DEREJE Administration Nitroglycerin 0.4 mg 11/11/24 15:21 Nitroglycerin Sl 0.4 Mg Tablet SUBLINGUAL Q5MIN PRN Chest Pain Non-Formulary ( 1 each 11/11/24 17:00 11/14/24 12:17 Sevelamer Carbonate PO 12/11/24 16:59 1 each 0.8 Gram Oral Powder TIDWM DEREJE Administration In Packet) Perflutren Lipid Microsphere 0 ml 11/12/24 09:51 Perflutren Lipid Microspheres 1.5 Ml Vial Diluted To 10 Ml Total Volume IV PUSH 11/15/24 09:51 ONCE PRN adequate visualization Protocol Vancomycin HCl 1 each 11/13/24 20:12 Vancomycin For Hemodialysis IVPB PRN PRN Vancomycin Protocol Radiology Results: ITS Impressions Chest X-Ray 11/11/24 12:21 Impression: 1: Patchy right-sided airspace disease, compatible with pneumonia. Chest CTA 11/11/24 13:27 Impression: Persistent occluded segmental branches in the left upper lobe. Otherwise, pulmonary emboli seen on prior exam from of 09/30/2024 are largely resolved. 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 Small right pleural effusion with mild bibasilar atelectatic change. Head CT 11/13/24 20:10 IMPRESSION: No acute intracranial process. Brain MRI 11/14/24 12:53 IMPRESSION: 1. Numerous small acute infarcts in the bilateral cerebral and cerebellar hemispheres and right basal ganglia involving both the anterior and posterior vertebral vascular distributions on both the left and right which suggests a shower of emboli from a relatively central origin. Consider cardiac ultrasound to assess for cardiac thrombus or valvular vegetations. 2. Chronic moderate-sized right occipital lobe infarct. Carotid Doppler Study 11/14/24 13:10 IMPRESSION: 1. <50% stenosis in the right internal carotid artery. 2. <50% stenosis in the left internal carotid artery. Labs Labs: Laboratory Tests 11/14/24 04:43 11/14/24 04:43 Calcium 8.7 Phosphorus 3.4 Magnesium 1.8 Total Bilirubin 0.7 AST 27 ALT 16 Alkaline Phosphatase 91 Total Protein 6.0 L Albumin 2.9 L Random Vancomycin 19.7 Microbiology 11/12/24 16:38 Blood Blood Culture - Preliminary Enterococcus faecalis 11/12/24 16:38 Blood Blood Culture - Preliminary Enterococcus faecalis 11/11/24 11:18 Urine Clean Catch Urine Culture - Final Escherichia Coli
[2024-11-14] MEDS: EPOETIN ALFA-EPBX 10,000 UNITS/ML VIAL 10000 UNITS IV PUSH (16:51)
[2024-11-14] MEDS: VANCOMYCIN 750 MG/NS 250 ML 750 MG/250 ML BAG 250 MG IVPB (16:52)
--- NOTE | 2024-11-14 17:01 | PM.IMPN ---
Progress Note: A&P Assessment and Plan (1) Non-ST elevation [place] (NSTEMI): Code(s): I21.4 - Non-ST elevation (NSTEMI) myocardial infarction Status: Acute Assessment and Plan: - CXR: Patchy right-sided airspace disease, compatible with pneumonia. CTA chest showed PE mostly resolved and no lung consolidation 4 - Troponin: 3.080 -> 5.240 -> 9.19-->16.8 Echo pending, trend troponin, A1c, lipid profile, Continue heparin infusion Continue Lipitor, Tropol-XL< Aspirin Cardiology following, recommending medical treatment for now (2) Pulmonary embolism and infarction: Code(s): I26.99 - Other pulmonary embolism without acute cor pulmonale Status: Acute Assessment and Plan: - CTA chest: 1. Persistent occluded segmental branches in the left upper lobe. Otherwise, pulmonary emboli seen on prior exam from of 09/30/2024 are largely resolved. 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 2. Small right pleural effusion with mild bibasilar atelectatic change. - CT chest/abd/pelvis w/con, previous (09/30/24): 1. Pulmonary emboli in all lobes, worst in right lower lobe. 2. Infarct in right lung lower lobe. 3. 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 No endoleak. - underwent mechanical thrombectomy at [facility] on 10/02 - home anticoagulation: Eliquis, holding. Currently on heparin gtt. CTA Chest 11/11/24 showed Prior PE mostly resolved (3) Acute on chronic renal failure: Qualifiers: Acute renal failure type: unspecified Chronic kidney disease stage: unspecified stage Qualified Code(s): N17.9 - Acute kidney failure, unspecified; N18.9 - Chronic kidney disease, unspecified Code(s): N17.9 - Acute kidney failure, unspecified; N18.9 - Chronic kidney disease, unspecified Status: Acute Assessment and Plan: - history of CKD, started on CRRT on 10/03 and transitioned to HD on 10/12. Receiving treatment on? - creatinine 2.5 and GFR 19, Cr 1.7 baseline appears to 1.7 - continue sevelamer 0.8G TID - trend renal function - Continue HD Nephrology following (4) UTI (urinary tract infection): Qualifiers: Urinary tract infection type: acute cystitis Hematuria presence: without hematuria Qualified Code(s): N30.00 - Acute cystitis without hematuria Code(s): N39.0 - Urinary tract infection, site not specified Status: Acute Assessment and Plan: Patient was started on cefdinir x7 days at [facility] due to presumed infection per UA results performed on 11/06. UC cancelled from this testing, unclear why. - UA: Cloudy, 2+ protein, trace ketones, 2+ leuks, greater than 100 WBC, no epithelial cells. 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 - Isat 13 and and Ferritin 133, s/p Venofer 100 - transfuse if less than 7 - trend - GI noted no acute indication for endoscopic evaluation given high risk of anesthesia after PE and now NSTEMI (6) Type 2 diabetes mellitus with hyperglycemia: Qualifiers: Diabetes mellitus long term care pharmacist insulin use: with half-way use Qualified Code(s): E11.65 - Type 2 diabetes mellitus with hyperglycemia; Z79.4 - longterm (current) use of insulin Code(s): E11.65 - Type 2 diabetes mellitus with hyperglycemia Status: Acute Assessment and Plan: - hypoglycemia protocol - POC blood glucose ACHS - home medication: continue home NovoLog sliding scale and Lantus 35 units daily - correct regimen ordered - high dose TIDWM, based off BMI - A1C 12.8% on 09/30/24 (7) Hypotension: Qualifiers: Hypotension type: other hypotension type Qualified Code(s): I95.89 - Other hypotension Code(s): I95.9 - Hypotension, unspecified Status: Acute Assessment and Plan: COntinue Midodrine 15mg tid (8) Obstructive sleep apnea: Onset Date: 04/02/21 Code(s): G47.33 - Obstructive sleep apnea (adult) (pediatric) Status: Acute Assessment and Plan: - continue CPAP? 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 CT head were unremarkable and MRI today showed numerous acute in farcts in the bilateral cerebral and cerebellar hemisheres and right bssal ganglia involving both the anterior and posterior vertebral vascular distributions on both the left and right suggesting shower embolism from a relatively central origin. [facility] was updated and the escalated patient transfer to high priority level. Heparin discontinued for bilateral stroke. Review of Systems Review of Systems: All systems reviewed & are unremarkable except as noted in HPI and below Exam Const: General: comfortable and no acute distress Other: , female, obese body habitus, nontoxic appearance HENMT: Face/Nose/Sinus: Normal nares present Mouth: Yes moist mucous membranes Eyes: General: appearance normal, both eyes and all related structures Sclera: sclerae normal Pupils: Equal, round and reactive pupils present EOM: EOMs intact bilaterally Resp: Effort & Inspection: normal respiratory effort Auscultation: clear to auscultation bilaterally Cardio: Rate: regular rate Rhythm: regular rhythm Other: S1-S2 present without murmur, rub, ectopy GI: Other: Abdomen rounded, soft, nondistended. Normoactive bowel sounds in all quadrants. Skin: General skin exam: normal color and no rashes or lesions noted Wounds: no wounds Neuro: Cranial nerves: Yes Equal, round and reactive pupils present Speech: normal speech Motor exam (neuro): 5/5 motor strength present throughout Sensory Exam: normal sensation Other: Generalized weakness. A&O x3. Mild somnolence. Extrem: General: normal to inspection Psych: Mental Status: mental status grossly normal Affect: normal affect Other: Fair insight and judgment, pleasant Objective Data Vital Signs Vital Signs: Vital Signs - 24 hr 11/13/24 18:00 11/13/24 19:30 11/13/24 20:00 Temperature 98.3 F Pulse Rate 77 81 Respiratory Rate 20 Blood Pressure 114/62 Pulse Oximetry 96 Oxygen Delivery Room Air 11/13/24 20:00 11/13/24 22:00 11/13/24 23:48 Temperature 98.3 F Pulse Rate 87 79 82 Respiratory Rate 18 Blood Pressure 103/52 L Pulse Oximetry 90 Oxygen Delivery 11/14/24 00:00 11/14/24 00:00 11/14/24 02:00 Temperature Pulse Rate 82 83 Respiratory Rate Blood Pressure Pulse Oximetry Oxygen Delivery Room Air 11/14/24 04:00 11/14/24 04:00 11/14/24 04:00 Temperature 97.6 F Pulse Rate 81 84 Respiratory Rate 18 Blood Pressure 105/54 L Pulse Oximetry 93 Oxygen Delivery Room Air 11/14/24 05:48 11/14/24 07:38 11/14/24 10:09 Temperature 97.6 F Pulse Rate 85 82 83 Respiratory Rate 16 Blood Pressure 110/58 L Pulse Oximetry 97 Oxygen Delivery 11/14/24 11:55 11/14/24 14:37 11/14/24 14:48 Temperature 97.8 F 98.4 F Pulse Rate 77 75 75 Respiratory Rate 18 18 Blood Pressure 115/63 132/64 130/69 Pulse Oximetry 95 95 Oxygen Delivery 11/14/24 15:00 11/14/24 15:15 11/14/24 15:30 Temperature Pulse Rate 73 75 73 Respiratory Rate Blood Pressure 125/64 124/66 190/69 H Pulse Oximetry Oxygen Delivery 11/14/24 15:45 11/14/24 16:00 11/14/24 16:15 Temperature Pulse Rate 71 111 H 83 Respiratory Rate Blood Pressure 106/66 108/15 L 103/53 L Pulse Oximetry Oxygen Delivery Intake/Output Intake/Output: Intake & Output 11/11/24 11/12/24 11/13/24 11/14/24 23:59 23:59 23:59 23:59 Intake Total 106.5 621.3 1674.0 378.2 Output Total 1900 200 75 Balance -1793.5 421.3 1599.0 378.2 Meds/Results Medications: Active Medications Generic Name Dose Route Start Last Admin Trade Name Freq PRN Reason Stop Dose Admin Acetaminophen 650 mg 12/13/24 15:12 Acetaminophen 325 Mg Tablet PO Q6H PRN PAIN RATED 1-3 Aspirin 81 mg 11/13/24 09:00 11/14/24 10:10 Aspirin 81 Mg Enteric Tablet PO 81 mg QAM DEREJE Administration Atorvastatin Calcium 40 mg 11/13/24 09:00 11/14/24 10:09 Atorvastatin 40 Mg Tablet PO 40 mg DAILY DEREJE Administration Dextrose 12.5 gm 11/11/24 15:08 Dextrose 50% 25 Gm/50 Ml Syringe IV PUSH PRN PRN Hypoglycemia Protocol Epoetin James-epbx 10,000 units 11/14/24 20:01 11/14/24 16:51 Epoetin James-Epbx 10,000 Units/Ml Vial IV PUSH 11/14/24 20:02 10,000 units ONCE ONE Administration Glucagon 1 mg 11/11/24 15:08 Glucagon For Inj 1 Mg Vial IM PRN PRN Hypoglycemia Protocol Glucose 15 gm 11/11/24 15:08 Glucose Oral Gel 15 Gm Of Glucse In 37.5 Gm Tube PO PRN PRN Hypoglycemia Protocol Heparin Sodium (Porcine) 4,000 units 11/11/24 11:09 Heparin Sodium 5,000 Units/Ml Vial IV PUSH PRN PRN aPTT less than 55 seconds Heparin Sodium (Porcine) 2,500 units 11/11/24 11:09 11/13/24 18:16 Heparin Sodium 5,000 Units/Ml Vial IV PUSH 2,500 units PRN PRN Administration aPTT 55 - 70 seconds Heparin Sodium/Dextrose 25,000 units in 250 mls @ 14 mls/hr 11/11/24 11:10 11/14/24 10:17 Heparin Sodium/D5w 100 Units/Ml IV CONT 1,400 units/hr .[id number] DEREJE 14 mls/hr Administration Protocol 1,400 UNITS/HR Albumin Human 50 mls @ 999 mls/hr 11/11/24 11:56 Albutein IVPB 12/11/24 11:55 Q10M PRN HYPOTENSION Dextrose 1,000 mls @ 100 mls/hr 11/11/24 15:08 Dextrose 5% 1,000 Ml IVPB PRN PRN Hypoglycemia Protocol Vancomycin HCl 750 mg in 250 mls @ 250 mls/hr 11/14/24 21:00 Vancomycin 750 Mg/Ns 250 Ml IVPB 11/14/24 21:59 ONCE ONE Insulin Aspart 4 - 8 units 11/11/24 17:00 11/14/24 12:16 Insulin Aspart (*Bkc) 100 Units/Ml SUB-Q Not Given TIDWM DEREJE Protocol Insulin Aspart 0 units 11/12/24 21:00 11/13/24 20:23 Insulin Aspart (*Bkc) 100 Units/Ml SUB-Q Not Given HS DEREJE Protocol Insulin Glargine 35 units 11/12/24 09:00 11/14/24 12:17 Insulin Glargine (*Bkc) 100 Units/Ml SUB-Q Not Given DAILY DEREJE Melatonin 3 mg 11/11/24 21:00 11/13/24 20:23 Melatonin 3 Mg Tablet PO Not Given HS DEREJE Metoprolol Succinate 12.5 mg 11/12/24 09:00 11/14/24 10:09 Metoprolol Succinate Ext Rel 12.5 Mg Tabcr PO 12.5 mg QAM DEREJE Administration Midodrine 10 mg 11/13/24 09:00 11/14/24 10:05 Midodrine Hcl 10 Mg Tablet PO 10 mg TID DEREJE Administration Midodrine 5 mg 11/13/24 09:00 11/14/24 10:06 Midodrine Hcl 2.5 Mg Tablet PO 5 mg TID DEREJE Administration Nitroglycerin 0.4 mg 11/11/24 15:21 Nitroglycerin Sl 0.4 Mg Tablet SUBLINGUAL Q5MIN PRN Chest Pain Non-Formulary ( 1 each 11/11/24 17:00 11/14/24 12:17 Sevelamer Carbonate PO 12/11/24 16:59 1 each 0.8 Gram Oral Powder TIDWM DEREJE Administration In Packet) Perflutren Lipid Microsphere 0 ml 11/12/24 09:51 Perflutren Lipid Microspheres 1.5 Ml Vial Diluted To 10 Ml Total Volume IV PUSH 11/15/24 09:51 ONCE PRN adequate visualization Protocol Vancomycin HCl 1 each 11/13/24 20:12 Vancomycin For Hemodialysis IVPB PRN PRN Vancomycin Protocol Radiology Results: ITS Impressions Chest X-Ray 11/11/24 12:21 Impression: 1: Patchy right-sided airspace disease, compatible with pneumonia. Chest CTA 11/11/24 13:27 Impression: Persistent occluded segmental branches in the left upper lobe. Otherwise, pulmonary emboli seen on prior exam from of 09/30/2024 are largely resolved. 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 Small right pleural effusion with mild bibasilar atelectatic change. Head CT 11/13/24 20:10 IMPRESSION: No acute intracranial process. Brain MRI 11/14/24 12:53 IMPRESSION: 1. Numerous small acute infarcts in the bilateral cerebral and cerebellar hemispheres and right basal ganglia involving both the anterior and posterior vertebral vascular distributions on both the left and right which suggests a shower of emboli from a relatively central origin. Consider cardiac ultrasound to assess for cardiac thrombus or valvular vegetations. 2. Chronic moderate-sized right occipital lobe infarct. Carotid Doppler Study 11/14/24 13:10 IMPRESSION: 1. <50% stenosis in the right internal carotid artery. 2. <50% stenosis in the left internal carotid artery. Labs Labs: Laboratory Results - last 24 hr 11/13/24 11/13/24 11/13/24 17:07 18:56 20:13 WBC RBC Hgb Hct MCV MCH MCHC RDW Plt Count MPV Immature Gran % (Auto) Neut % (Auto) Lymph % (Auto) [place] % (Auto) Eos % (Auto) Baso % (Auto) Lymph # (Auto) [place] # (Auto) Eos # (Auto) Baso # (Auto) Abs Immat Gran (auto) Absolute Neuts (auto) Absolute Nucleated RBC Nucleated RBC % APTT 67.7 H Sodium Potassium Chloride Carbon Dioxide Anion Gap BUN Creatinine Estim Creat Clear Calc Estimated GFR Glucose POC Capillary Glucose 136 H Calcium Phosphorus Magnesium Total Bilirubin AST ALT Alkaline Phosphatase Total Protein Albumin Vitamin B12 Vitamin D 25-Hydroxy Folate Random Vancomycin 16.2 11/14/24 11/14/24 11/14/24 00:16 04:40 04:43 WBC 9.3 RBC 2.45 L Hgb 7.7 L Hct 23.3 L MCV 95.1 MCH 31.4 MCHC 33.0 RDW 16.5 H Plt Count 160 MPV 9.4 Immature Gran % (Auto) 1.1 H Neut % (Auto) 68.6 Lymph % (Auto) 21.9 [place] % (Auto) 7.1 Eos % (Auto) 0.5 Baso % (Auto) 0.8 Lymph # (Auto) 2.03 [place] # (Auto) 0.7 H Eos # (Auto) 0.1 Baso # (Auto) 0.1 Abs Immat Gran (auto) 0.10 H Absolute Neuts (auto) 6.4 Absolute Nucleated RBC 0.000 Nucleated RBC % 0.0 APTT 77.0 H Sodium 130 L Potassium 3.6 Chloride 98 Carbon Dioxide 26 Anion Gap 6 BUN 32 H Creatinine 2.80 H Estim Creat Clear Calc 15 Estimated GFR 16 L Glucose 109 POC Capillary Glucose Calcium 8.7 Phosphorus 3.4 Magnesium 1.8 Total Bilirubin 0.7 AST 27 ALT 16 Alkaline Phosphatase 91 Total Protein 6.0 L Albumin 2.9 L Vitamin B12 484.0 Vitamin D 25-Hydroxy < 12.8 Folate 5.5 Random Vancomycin 19.7 11/14/24 11/14/24 11/14/24 06:06 07:35 11:50 WBC RBC Hgb Hct MCV MCH MCHC RDW Plt Count MPV Immature Gran % (Auto) Neut % (Auto) Lymph % (Auto) [place] % (Auto) Eos % (Auto) Baso % (Auto) Lymph # (Auto) [place] # (Auto) Eos # (Auto) Baso # (Auto) Abs Immat Gran (auto) Absolute Neuts (auto) Absolute Nucleated RBC Nucleated RBC % APTT 74.8 H Sodium Potassium Chloride Carbon Dioxide Anion Gap BUN Creatinine Estim Creat Clear Calc Estimated GFR Glucose POC Capillary Glucose 109 H 137 H Calcium Phosphorus Magnesium Total Bilirubin AST ALT Alkaline Phosphatase Total Protein Albumin Vitamin B12 Vitamin D 25-Hydroxy Folate Random Vancomycin Quality VTE Prophylaxis VTE prophylaxis: pharmacologic ordered
[2024-11-14 20:28] LABS: Glucose Point of Care 134 mg/dl (65-105)
[2024-11-14] MEDS: MELATONIN 3 MG TABLET PO (20:54)
[2024-11-15] VITALS (19 sets, daily range): BP systolic 95–116; BP diastolic 51–60; PULSE 75–88; RESP 16–20; TEMP 36.2–36.8; O2SAT 95–99
--- NOTE | 2024-11-15 00:07 | PC.NURSE ---
[facility] transfer center called for pt update. Pt remains on waitlist for [facility].
[2024-11-15 06:25] LABS: Basophils Absolute Auto 0.1 K/mm3 (0.0-0.1); Basophils Percent Auto 0.7 % (0.2-1.2); Eosinophils Percent Auto 0.4 % (0-4.4); Hematocrit 25.7 % (37.0-47.0); Hemoglobin 8.1 g/dL (12.0-15.0); Immature Granulocyte Percent A 1.1 % (0-0.5); Lymphocytes Absolute Auto 1.65 K/mm3 (0.9-3.2); Lymphocytes Percent Auto 17.6 % (18.3-44.2); Mean Corpuscular HGB Conc 31.5 g/dl (32-36); Mean Corpuscular Hemoglobin 31.3 pg (26-34); Mean Corpuscular Volume 99.2 fl (80-100); Mean Platelet Volume 9.4 fl (7.4-10.4); Monocytes Absolute Auto 0.7 K/mm3 (0.1-0.6); Monocytes Percent Auto 6.9 % (2.6-8.5); Neutrophils Absolute Auto 6.9 K/mm3 (1.3-6.7); Neutrophils Percent Auto 73.3 % (45.5-73.1); Nucleated Red Blood Cells Perc 0.2 % (0.0-0.2); Platelet Count Result 165 k/mm3 (150-375); Red Blood Count 2.59 M/mm3 (4.2-5.4); Red Cell Distribution Width 16.7 % (11.5-14.5); White Blood Count 9.4 K/mm3 (4.5-10.0)
[2024-11-15 06:36] LABS: Alanine Aminotransferase 15 U/L (6-35); Albumin Level 3.1 g/dL (3.5-5.1); Alkaline Phosphatase 102 U/L (38-126); Anion Gap 3 mmol/L (4-12); Aspartate Amino Transferase 25 U/L (14-36); Bilirubin,Total 0.7 mg/dL (0.2-1.3); Blood Urea Nitrogen 15 mg/dL (7-17); Calcium 8.7 mg/dL (8.4-10.2); Carbon Dioxide 27 mmol/L (22-30); Chloride 105 mmol/L (98-107); Estimated CRCL calculation 26 ml/min; Estimated Glomerular Filt Rate 31; Glucose 159 mg/dL (65-110); Phosphorus 3.1 mg/dL (2.5-4.5); Potassium 4.2 mmol/L (3.4-5.0); Sodium 135 mmol/L (137-145)
[2024-11-15 07:09] LABS: Partial Thromboplastin Time 96.1 Seconds (22.3-36.8)
[2024-11-15 08:57] LABS: Glucose Point of Care 176 mg/dl (65-105)
--- NOTE | 2024-11-15 09:11 | PCCPR ---
Received referral for cardiac rehab. Visited patient in room today and discussed cardiac rehab after discharge and left information at bedside.
--- NOTE | 2024-11-15 09:51 | P.PNIM_ITS ---
Progress Note: A&P Assessment and Plan (1) CVA (cerebral vascular accident): Code(s): I63.9 - Cerebral infarction, unspecified Status: Acute (2) Metabolic encephalopathy: Code(s): G93.41 - Metabolic encephalopathy Status: Acute (3) Cerebrovascular disease: Code(s): I67.9 - Cerebrovascular disease, unspecified Status: Acute (4) Bacteremia: Code(s): R78.81 - Bacteremia Status: Acute (5) Acute on chronic anemia: Code(s): D64.9 - Anemia, unspecified Status: Acute (6) Hypotension: Qualifiers: Hypotension type: other hypotension type Qualified Code(s): I95.89 - Other hypotension Code(s): I95.9 - Hypotension, unspecified Status: Acute (7) Non-ST elevation FL (NSTEMI): Code(s): I21.4 - Non-ST elevation (NSTEMI) myocardial infarction Status: Acute (8) UTI (urinary tract infection): Code(s): N39.0 - Urinary tract infection, site not specified Status: Acute (9) Osteoarthritis involving multiple joints on both sides of body: Code(s): M15.9 - Polyosteoarthritis, unspecified Status: Acute (10) Controlled type 2 diabetes mellitus with hyperglycemia, with long-term current use of insulin: Code(s): E11.65 - Type 2 diabetes mellitus with hyperglycemia; Z79.4 - director long term care (current) use of insulin Status: Acute (11) Stage 3b chronic kidney disease: Code(s): N18.32 - Chronic kidney disease, stage 3b Status: Chronic (12) Mixed hyperlipidemia: Code(s): E78.2 - Mixed hyperlipidemia Status: Acute (13) director long term care (current) use of insulin: Code(s): Z79.4 - director long term care (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 E fecalis bacteremia, sensitivity pending Changed to ampicillin and ceftriaxone IV per ID pharmacist recommendation Awaiting transfer to [facility] Escalated to highest priority today after embolic stroke diagnosis Embolic Stroke MRI showed numerous bilateral cerebral and cerebellar stroke Continue Aspirin and liptior Cardiology recommended discontinuing Heparin infusion, discontinued awaiting transfer to [facility] as noted above neurology consulted Non-ST elevation FL (NSTEMI): Code(s): I21.4 - Non-ST elevation (NSTEMI) myocardial infarction Status: Acute Assessment and Plan: - CXR: Patchy right-sided airspace disease, compatible with pneumonia. CTA chest showed PE mostly resolved and no lung consolidation 4 - Troponin: 3.080 -> 5.240 -> 9.19-->16.8 Echo pending, trend troponin, A1c, lipid profile, Continue heparin infusion Continue Lipitor, Tropol-XL< Aspirin Cardiology following, recommending medical treatment for now Pulmonary embolism and infarction: Code(s): I26.99 - Other pulmonary embolism without acute cor pulmonale Status: Acute Assessment and Plan: - CTA chest: 1. Persistent occluded segmental branches in the left upper lobe. Otherwise, pulmonary emboli seen on prior exam from of 09/30/2024 are largely resolved. 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 2. Small right pleural effusion with mild bibasilar atelectatic change. - CT chest/abd/pelvis w/con, previous (09/30/24): 1. Pulmonary emboli in all lobes, worst in right lower lobe. 2. Infarct in right lung lower lobe. 3. 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 No endoleak. - underwent mechanical thrombectomy at [facility] on 10/02 CTA Chest 11/11/24 showed Prior PE mostly resolved Eliquis and heparin gtt on hold. Acute on chronic renal failure: Qualifiers: Acute renal failure type: unspecified Chronic kidney disease stage: unspecified stage Qualified Code(s): N17.9 - Acute kidney failure, unspecified; N18.9 - Chronic kidney disease, unspecified Code(s): N17.9 - Acute kidney failure, unspecified; N18.9 - Chronic kidney disease, unspecified Status: Acute Assessment and Plan: - history of CKD, started on CRRT on 10/03 and transitioned to HD on 10/12. Receiving treatment on? - creatinine 2.5 and GFR 19, Cr 1.7 baseline appears to 1.7 - continue sevelamer 0.8G TID - trend renal function - Continue HD Nephrology following UTI (urinary tract infection): Qualifiers: Urinary tract infection type: acute cystitis Hematuria presence: without hematuria Qualified Code(s): N30.00 - Acute cystitis without hematuria Code(s): N39.0 - Urinary tract infection, site not specified Status: Acute Assessment and Plan: Patient was started on cefdinir x7 days at [facility] due to presumed infection per UA results performed on 11/06. UC cancelled from this testing, unclear why. - UA: Cloudy, 2+ protein, trace ketones, 2+ leuks, greater than 100 WBC, no epithelial cells. - UC pending - previous micro reviewed, no recent positive urine cultures - completed abx monitor urine culture growing E coli patient is on ceftriaxone IV Anemia: Qualifiers: Anemia type: due to chronic kidney disease Chronic kidney disease stage: unspecified stage Qualified Code(s): N18.9 - Chronic kidney disease, unspecified; D63.1 - Anemia in chronic kidney disease Code(s): D64.9 - Anemia, unspecified Status: Acute Assessment and Plan: - hemoglobin 7.7, previously 8.6 - suspect recent anemia is secondary to HD/acute renal failure - epoetin initiated by expense clerk - Isat 13 and and Ferritin 133, s/p Venofer 100 - transfuse if less than 7 - trend - GI noted no acute indication for endoscopic evaluation given high risk of anesthesia after PE and now NSTEMI Type 2 diabetes mellitus with hyperglycemia: Qualifiers: Diabetes mellitus half-way insulin use: 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 Qualified Code(s): E11.65 - Type 2 diabetes mellitus with hyperglycemia; Z79.4 - director long term care (current) use of insulin Code(s): E11.65 - Type 2 diabetes mellitus with hyperglycemia Status: Acute Assessment and Plan: - hypoglycemia protocol - POC blood glucose ACHS - home medication: continue home NovoLog sliding scale and Lantus 35 units daily - correct regimen ordered - high dose TIDWM, based off BMI - A1C 12.8% on 09/30/24 Hypotension: Qualifiers: Hypotension type: other hypotension type Qualified Code(s): I95.89 - Other hypotension Code(s): I95.9 - Hypotension, unspecified Status: Acute Assessment and Plan: Patient is on Midodrine 15mg tid Blood pressure stable now Obstructive sleep apnea: Onset Date: 04/02/21 Code(s): G47.33 - Obstructive sleep apnea (adult) (pediatric) Status: Acute Assessment and Plan: - continue CPAP? Subjective Date/time seen: 11/15/24 09:51 Interval history: I saw examined patient today. Patient feels tired, no appetite, patient has no obvious distress. Patient denies shortness breath palpitation in the bed. A febrile overnight, labs reviewed, blood culture grows Enterococcus faecalis Exam Narrative: GENERAL: Ill-appearing in no acute distress. Well-nourished. - EYES: EOMI. Anicteric. - HENT: Moist mucous membranes. - LUNGS: Clear to auscultation bilateral ly, no wheezing, rhonchi, or rales. - CARDIOVASCULAR: Regular rate and rhyth m. No murmur. No JVD. - ABDOMEN: Soft, non-tender and non-dist ended. No palpable masses. - EXTREMITIES: No edema. Peripheral puls es 2+. Non-tender. - NEUROLOGIC: No focal neurological defi cits. CN II-XII grossly intact. General weakness - PSYCHIATRIC: Awake, Alert and oriented x 3. Appropriate mood and affect. - SKIN: No rashes or lesions. Warm. - LYMPH: No cervical lymphadenopathy. Objective Data Vital Signs Vital Signs: Vital Signs - 24 hr 11/14/24 10:00 11/14/24 10:09 11/14/24 11:55 Temperature 97.8 F Pulse Rate 78 83 77 Respiratory Rate 18 Blood Pressure 115/63 Pulse Oximetry 95 Oxygen Delivery 11/14/24 12:00 11/14/24 12:00 11/14/24 14:00 Temperature Pulse Rate 78 83 Respiratory Rate Blood Pressure Pulse Oximetry Oxygen Delivery Room Air 11/14/24 14:37 11/14/24 14:48 11/14/24 15:00 Temperature 98.4 F Pulse Rate 75 75 73 Respiratory Rate 18 Blood Pressure 132/64 130/69 125/64 Pulse Oximetry 95 Oxygen Delivery 11/14/24 15:15 11/14/24 15:30 11/14/24 15:45 Temperature Pulse Rate 75 73 71 Respiratory Rate Blood Pressure 124/66 190/69 H 106/66 Pulse Oximetry Oxygen Delivery 11/14/24 16:00 11/14/24 16:00 11/14/24 16:15 Temperature Pulse Rate 111 H 76 83 Respiratory Rate Blood Pressure 108/15 L 103/53 L Pulse Oximetry Oxygen Delivery 11/14/24 16:30 11/14/24 16:45 11/14/24 17:00 Temperature Pulse Rate 75 74 74 Respiratory Rate Blood Pressure 102/64 116/58 L 103/51 L Pulse Oximetry Oxygen Delivery 11/14/24 17:15 11/14/24 17:30 11/14/24 17:45 Temperature Pulse Rate 85 75 77 Respiratory Rate Blood Pressure 123/57 L 108/58 L 112/60 Pulse Oximetry Oxygen Delivery 11/14/24 18:00 11/14/24 18:07 11/14/24 18:25 Temperature 98.7 F Pulse Rate 88 80 88 Respiratory Rate 16 Blood Pressure 114/49 L 106/49 L 127/68 Pulse Oximetry 95 Oxygen Delivery 11/14/24 20:00 11/14/24 20:00 11/14/24 20:00 Temperature 97.7 F Pulse Rate 86 86 Respiratory Rate 20 Blood Pressure 113/55 L Pulse Oximetry 93 Oxygen Delivery Room Air 11/14/24 22:00 11/15/24 00:00 11/15/24 00:00 Temperature 98.1 F Pulse Rate 84 83 Respiratory Rate 20 Blood Pressure 104/57 L Pulse Oximetry 97 Oxygen Delivery Room Air 11/15/24 00:00 11/15/24 02:00 11/15/24 03:51 Temperature 98.2 F Pulse Rate 82 80 86 Respiratory Rate 20 Blood Pressure 112/52 L Pulse Oximetry 99 Oxygen Delivery 11/15/24 04:00 11/15/24 04:00 11/15/24 06:00 Temperature Pulse Rate 84 84 Respiratory Rate Blood Pressure Pulse Oximetry Oxygen Delivery Room Air 11/15/24 07:45 Temperature 98.1 F Pulse Rate 82 Respiratory Rate 18 Blood Pressure 116/55 L Pulse Oximetry 96 Oxygen Delivery Intake/Output Intake/Output: Intake & Output 11/12/24 11/13/24 11/14/24 11/15/24 23:59 23:59 23:59 23:59 Intake Total 621.3 1674.0 438.2 350 Output Total 094 92 3270 Balance 421.3 1599.0 -1561.8 350 Meds/Results Medications: Active Medications Generic Name Dose Route Start Last Admin Trade Name Freq PRN Reason Stop Dose Admin Acetaminophen 650 mg 11/11/24 15:12 Acetaminophen 325 Mg Tablet PO Q6H PRN PAIN RATED 1-3 Aspirin 81 mg 11/13/24 09:00 11/14/24 10:10 Aspirin 81 Mg Enteric Tablet PO 81 mg QAM DEREJE Administration Atorvastatin Calcium 40 mg 11/13/24 09:00 11/14/24 10:09 Atorvastatin 40 Mg Tablet PO 40 mg DAILY DEREJE Administration Dextrose 12.5 gm 11/11/24 15:08 Dextrose 50% 25 Gm/50 Ml Syringe IV PUSH PRN PRN Hypoglycemia Protocol Glucagon 1 mg 11/11/24 15:08 Glucagon For Inj 1 Mg Vial IM PRN PRN Hypoglycemia Protocol Glucose 15 gm 11/11/24 15:08 Glucose Oral Gel 15 Gm Of Glucse In 37.5 Gm Tube PO PRN PRN Hypoglycemia Protocol Heparin Sodium (Porcine) 4,000 units 11/11/24 11:09 Heparin Sodium 5,000 Units/Ml Vial IV PUSH PRN PRN aPTT less than 55 seconds Heparin Sodium (Porcine) 2,500 units 11/11/24 11:09 11/13/24 18:16 Heparin Sodium 5,000 Units/Ml Vial IV PUSH 2,500 units PRN PRN Administration aPTT 55 - 70 seconds Albumin Human 50 mls @ 999 mls/hr 11/11/24 11:56 Albutein IVPB 12/11/24 11:55 Q10M PRN HYPOTENSION Dextrose 1,000 mls @ 100 mls/hr 11/11/24 15:08 Dextrose 5% 1,000 Ml IVPB PRN PRN Hypoglycemia Protocol Insulin Aspart 4 - 8 units 11/11/24 17:00 11/14/24 18:56 Insulin Aspart (*Bkc) 100 Units/Ml SUB-Q Not Given TIDWM [facility] Protocol Insulin Aspart 0 units 11/12/24 21:00 11/14/24 20:11 Insulin Aspart (*Bkc) 100 Units/Ml SUB-Q Not Given HS [facility] Protocol Insulin Glargine 35 units 11/12/24 09:00 11/14/24 12:17 Insulin Glargine (*Bkc) 100 Units/Ml SUB-Q Not Given DAILY DEREJE Melatonin 3 mg 11/11/24 21:00 11/14/24 20:54 Melatonin 3 Mg Tablet PO 3 mg HS DEREJE Administration Metoprolol Succinate 12.5 mg 11/12/24 09:00 11/14/24 10:09 Metoprolol Succinate Ext Rel 12.5 Mg Tabcr PO 12.5 mg QAM DEREJE Administration Midodrine 10 mg 11/13/24 09:00 11/14/24 18:56 Midodrine Hcl 10 Mg Tablet PO Not Given TID DEREJE Midodrine 5 mg 11/13/24 09:00 11/14/24 18:57 Midodrine Hcl 2.5 Mg Tablet PO Not Given TID DEREJE Nitroglycerin 0.4 mg 11/11/24 15:21 Nitroglycerin Sl 0.4 Mg Tablet SUBLINGUAL Q5MIN PRN Chest Pain Non-Formulary ( 1 each 11/11/24 17:00 11/14/24 18:55 Sevelamer Carbonate PO 12/11/24 16:59 Not Given 0.8 Gram Oral Powder TIDWM DEREJE In Packet) Vancomycin HCl 1 each 11/13/24 20:12 Vancomycin For Hemodialysis IVPB PRN PRN Vancomycin Protocol Radiology Results: ITS Impressions Chest X-Ray 11/11/24 12:21 Impression: 1: Patchy right-sided airspace disease, compatible with pneumonia. Chest CTA 11/11/24 13:27 Impression: Persistent occluded segmental branches in the left upper lobe. Otherwise, pulmonary emboli seen on prior exam from of 09/30/2024 are largely resolved. 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 Small right pleural effusion with mild bibasilar atelectatic change. Head CT 11/13/24 20:10 IMPRESSION: No acute intracranial process. Brain MRI 11/14/24 12:53 IMPRESSION: 1. Numerous small acute infarcts in the bilateral cerebral and cerebellar hemispheres and right basal ganglia involving both the anterior and posterior vertebral vascular distributions on both the left and right which suggests a shower of emboli from a relatively central origin. Consider cardiac ultrasound t o assess for cardiac thrombus or valvular vegetations. 2. Chronic moderate-sized right occipital lobe infarct. Carotid Doppler Study 11/14/24 13:10 IMPRESSION: 1. <50% stenosis in the right internal carotid artery. 2. <50% stenosis in the left internal carotid artery. Labs Labs: Laboratory Results - last 24 hr 11/14/24 11/14/24 11/14/24 04:40 11:50 19:59 WBC RBC Hgb Hct MCV MCH MCHC RDW Plt Count MPV Immature Gran % (Auto) Neut % (Auto) Lymph % (Auto) Mobile % (Auto) Eos % (Auto) Baso % (Auto) Lymph # (Auto) Mobile # (Auto) Eos # (Auto) Baso # (Auto) Abs Immat Gran (auto) Absolute Neuts (auto) Absolute Nucleated RBC Nucleated RBC % APTT Sodium Potassium Chloride Carbon Dioxide Anion Gap BUN Creatinine Estim Creat Clear Calc Estimated GFR Glucose POC Capillary Glucose 137 H 134 H Calcium Phosphorus Magnesium Total Bilirubin AST ALT Alkaline Phosphatase Total Protein Albumin Vitamin B12 484.0 Vitamin D 25-Hydroxy < 12.8 Folate 5.5 11/15/24 11/15/24 06:18 07:40 WBC 9.4 RBC 2.59 L Hgb 8.1 L Hct 25.7 L MCV 99.2 MCH 31.3 MCHC 31.5 L RDW 16.7 H Plt Count 165 MPV 9.4 Immature Gran % (Auto) 1.1 H Neut % (Auto) 73.3 H Lymph % (Auto) 17.6 L Mobile % (Auto) 6.9 Eos % (Auto) 0.4 Baso % (Auto) 0.7 Lymph # (Auto) 1.65 Mobile # (Auto) 0.7 H Eos # (Auto) 0.0 Baso # (Auto) 0.1 Abs Immat Gran (auto) 0.10 H Absolute Neuts (auto) 6.9 H Absolute Nucleated RBC 0.020 H Nucleated RBC % 0.2 APTT 96.1 H Sodium 135 L Potassium 4.2 Chloride 105 Carbon Dioxide 27 Anion Gap 3 L BUN 15 D Creatinine 1.60 H Estim Creat Clear Calc 26 Estimated GFR 31 L Glucose 159 H POC Capillary Glucose 176 H Calcium 8.7 Phosphorus 3.1 Magnesium 2.0 Total Bilirubin 0.7 AST 25 ALT 15 Alkaline Phosphatase 102 Total Protein 6.0 L Albumin 3.1 L Vitamin B12 Vitamin D 25-Hydroxy Folate
[2024-11-15] MEDS: INSULIN GLARGINE (*BKC) 100 UNITS/ML 35 UNITS SUB-Q (10:02)
[2024-11-15] MEDS: MIDODRINE HCL 2.5 MG TABLET 5 MG PO ×3 (10:07→17:38)
[2024-11-15] MEDS: ASPIRIN 81 MG ENTERIC TABLET PO (10:07)
[2024-11-15] MEDS: Non-Formulary (sevelamer carbonate 0.8 gram ORAL powder in packet) 1 EACH PO ×3 (10:08→17:38)
[2024-11-15] MEDS: METOPROLOL SUCCINATE EXT REL 12.5 MG TABCR PO (10:08)
[2024-11-15] MEDS: ATORVASTATIN 40 MG TABLET PO (10:08)
[2024-11-15] MEDS: MIDODRINE HCL 10 MG TABLET PO ×3 (10:08→17:37)
--- NOTE | 2024-11-15 10:11 | P.PNNP_ITS ---
Progress Note: A&P Assessment and Plan (1) Acute renal failure on dialysis: Code(s): N17.9 - Acute kidney failure, unspecified; Z99.2 - Dependence on renal dialysis Status: Acute Assessment and Plan: * thought to be secondary to multifactorial ATN: * hemodynamic instability/shock * sepsis * contrast exposure * infection/sepsis? -- although all cultures were negative at OSH * while at [facility], initiated on CRRT on 10/03/24 due to declining urine output/oliguria and worsening metabolic acidosis * CRRT discontinued on 10/11/24 * transitioned to intermittent hemodialysis starting on 10/12/24 * has been dialysis dependent since * HD tomorrow and continue dialysis schedule of M//F for now * follow electrolytes, volume status, and clearance * follow repeat labs and UOP to assess for potential renal recovery (2) Stage 3b chronic kidney disease: Code(s): N18.32 - Chronic kidney disease, stage 3b Status: Chronic Assessment and Plan: * baseline creatinine seems to run ~ 1.2 - 1.3mg/dl since 2021 * presumably due to diabetes, vascular disease (CAD + AAA + CVA + CHF) and age- related change (3) Non-ST elevation IN (NSTEMI): Code(s): I21.4 - Non-ST elevation (NSTEMI) myocardial infarction Status: Acute Assessment and Plan: * elevated troponins noted * EKG changes apparent * Cardiology recommendations noted * medical management for now * ASA, beta birgit (as BP can tolerated), and statin therapy * Echo results noted (see #4) (4) Bacteremia: Code(s): R78.81 - Bacteremia Status: Acute Assessment and Plan: * as noted by positive blood culture: * Enterococcus faecalis on 11/12 blood cultures * concern for endocarditis based on recent Echo results: * left ventricular systolic function is normal, estimated at 60-65% * left ventricular diastolic function is abnormal * left atrial chamber dimension is mildly enlarged. * mild aortic valve calcification * there is 2.5 x 1.5cm vegetation on posterior mitral valve leaflet * mild mitral valve regurgitation * cannot exclude small vegetation on tricuspid valve * moderate tricuspid valve regurgitation * severe pulmonary hypertension - estimated pulmonary arterial systolic pressure is 91 mmHg * already on antibiotics (5) CVA (cerebral vascular accident): Code(s): I63.9 - Cerebral infarction, unspecified Status: Acute Assessment and Plan: * as noted by MRI of brain: * numerous small acute infarcts in the bilateral cerebral and cerebellar hemispheres and right basal ganglia involving both the anterior and posterior vertebral vascular distributions on both the left and right which suggests a shower of emboli from a relatively central origin * 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 * Neurology following (6) Pulmonary embolism and infarction: Code(s): I26.99 - Other pulmonary embolism without acute cor pulmonale Status: Acute Assessment and Plan: * as noted by imaging here in September 2024 * complicated by DVTs as well * s/p mechanical thrombectomy at [facility] by IR on 10/02 * was on Elliquis and heparin gtt -- off due to #5 (7) UTI (urinary tract infection): Qualifiers: Hematuria presence: without hematuria Urinary tract infection type: a cute cystitis Qualified Code(s): N30.00 - Acute cystitis without hematuria Code(s): N39.0 - Urinary tract infection, site not specified Status: Acute Assessment and Plan: * admission UA suggestive * follow urine culture - E.coli noted * on antibiotics (8) Hypotension: Qualifiers: Hypotension type: other hypotension type Qualified Code(s): I95.89 - Other hypotension Code(s): I95.9 - Hypotension, unspecified Status: Acute Assessment and Plan: * chronic issues at baseline since discharge from [facility] * on midodrine therapy * follow trend of hemodynamics (9) Anemia: Qualifiers: Anemia type: due to chronic kidney disease Chronic kidney disease stage: unspecified stage Qualified Code(s): N18.9 - Chronic kidney disease, unspecified; D63.1 - Anemia in chronic kidney disease Code(s): D64.9 - Anemia, unspecified Status: Acute Assessment and Plan: * due to KAROL with dialysis dependence and recent hospitalization/acute illness * Retacrit with HD * follow trend of H/H (10) Hyperglycemia due to diabetes mellitus: Code(s): E11.65 - Type 2 diabetes mellitus with hyperglycemia Status: Acute Assessment and Plan: * follow accu-cheks * glycemic control per hospitalist Consider transfer to [facility] facility (if she cannot get to [facility] in a timely manner) since she was previously at [facility] prior to transfer to [facility] and admission here. Will continue to follow. Subjective Date/time seen: 11/15/24 10:11 Interval history: Follow-up for acute kidney injury/acute renal failure on chronic kidney disease requiring [employer]/dialysis Tolerated dialysis treatment yesterday without any issues or problems; no apparent distress noted at the time of my visit; no other events overnight or earlier this morning; off heparin gtt due to findings of acute CVAs by MRI of brain; still awaiting transfer to [place]. Exam 2 Narrative: General: elderly but WD/WN female in NAD Heart: normal S1 and S2; no rub Lungs: clear anteriorly; slightly decreased at bases Abdomen: soft, nontender, nondistended, positive bowel sounds Extremities: no cyanosis or clubbing; no edema Skin: warm and dry Objective Data Vital Signs Vital Signs: Vital Signs Temp Pulse Resp BP Pulse Ox O2 Del Method 11/15/24 10:08 88 11/15/24 07:45 98.1 F 82 18 116/55 L 96 11/15/24 06:00 84 11/15/24 04:00 84 11/15/24 04:00 Room Air 11/15/24 03:51 98.2 F 86 20 112/52 L 99 11/15/24 02:00 80 11/15/24 00:00 82 11/15/24 00:00 98.1 F 83 20 104/57 L 97 11/15/24 00:00 Room Air 11/14/24 22:00 84 11/14/24 20:00 Room Air 11/14/24 20:00 86 11/14/24 20:00 97.7 F 86 20 113/55 L 93 11/14/24 18:25 98.7 F 88 16 127/68 95 11/14/24 18:07 80 106/49 L 11/14/24 18:00 88 114/49 L 11/14/24 17:45 77 112/60 11/14/24 17:30 75 108/58 L 11/14/24 17:15 85 123/57 L 11/14/24 17:00 74 103/51 L 11/14/24 16:45 74 116/58 L 11/14/24 16:30 75 102/64 11/14/24 16:15 83 103/53 L 11/14/24 16:00 76 11/14/24 16:00 111 H 108/15 L 12/16/24 15:45 71 106/66 11/14/24 15:30 73 190/69 H 11/14/24 15:15 75 124/66 11/14/24 15:00 73 125/64 11/14/24 14:48 75 130/69 11/14/24 14:37 98.4 F 75 18 132/64 95 11/14/24 14:00 83 11/14/24 12:00 78 11/14/24 12:00 Room Air 11/14/24 11:55 97.8 F 77 18 115/63 95 Intake/Output Intake/Output: Intake & Output 11/12/24 11/13/24 11/14/24 11/15/24 23:59 23:59 23:59 23:59 Intake Total 621.3 1674.0 438.2 590 Output Total 118 78 2800 1 Balance 421.3 1599.0 -1561.8 589 Meds/Results Medications: Active Medications Generic Name Dose Route Start Last Admin Trade Name Freq PRN Reason Stop Dose Admin Acetaminophen 650 mg 11/11/24 15:12 Acetaminophen 325 Mg Tablet PO Q6H PRN PAIN RATED 1-3 Aspirin 81 mg 11/13/24 09:00 11/15/24 10:07 Aspirin 81 Mg Enteric Tablet PO 81 mg QAM DEREJE Administration Atorvastatin Calcium 40 mg 11/13/24 09:00 11/15/24 10:08 Atorvastatin 40 Mg Tablet PO 40 mg DAILY DEREJE Administration Dextrose 12.5 gm 11/11/24 15:08 Dextrose 50% 25 Gm/50 Ml Syringe IV PUSH PRN PRN Hypoglycemia Protocol Glucagon 1 mg 11/11/24 15:08 Glucagon For Inj 1 Mg Vial IM PRN PRN Hypoglycemia Protocol Glucose 15 gm 11/11/24 15:08 Glucose Oral Gel 15 Gm Of Glucse In 37.5 Gm Tube PO PRN PRN Hypoglycemia Protocol Albumin Human 50 mls @ 999 mls/hr 11/11/24 11:56 Albutein IVPB 12/11/24 11:55 Q10M PRN HYPOTENSION Dextrose 1,000 mls @ 100 mls/hr 11/11/24 15:08 Dextrose 5% 1,000 Ml IVPB PRN PRN Hypoglycemia Protocol Ampicillin Sodium 2 gm in 100 mls @ 200 mls/hr 11/15/24 11:15 Ampicillin 2 Gm/Ns 100 Ml IVPB Q12HR [facility] Insulin Aspart 4 - 8 units 11/11/24 17:00 11/15/24 11:03 Insulin Aspart (*Bkc) 100 Units/Ml SUB-Q Not Given TIDWM [facility] Protocol Insulin Aspart 0 units 11/12/24 21:00 11/14/24 20:11 Insulin Aspart (*Bkc) 100 Units/Ml SUB-Q Not Given HS [facility] Protocol Insulin Glargine 35 units 11/12/24 09:00 11/15/24 10:02 Insulin Glargine (*Bkc) 100 Units/Ml SUB-Q 35 units DAILY DEREJE Administration Melatonin 3 mg 11/11/24 21:00 11/14/24 20:54 Melatonin 3 Mg Tablet PO 3 mg HS DEREJE Administration Metoprolol Succinate 12.5 mg 11/12/24 09:00 11/15/24 10:08 Metoprolol Succinate Ext Rel 12.5 Mg Tabcr PO 12.5 mg QAM DEREJE Administration Midodrine 10 mg 11/13/24 09:00 11/15/24 10:08 Midodrine Hcl 10 Mg Tablet PO 10 mg TID DEREJE Administration Midodrine 5 mg 11/13/24 09:00 11/15/24 10:07 Midodrine Hcl 2.5 Mg Tablet PO 5 mg TID DEREJE Administration Nitroglycerin 0.4 mg 11/11/24 15:21 Nitroglycerin Sl 0.4 Mg Tablet SUBLINGUAL Q5MIN PRN Chest Pain Non-Formulary ( 1 each 11/11/24 17:00 11/15/24 10:08 Sevelamer Carbonate PO 12/11/24 16:59 1 each 0.8 Gram Oral Powder TIDWM DEREJE Administration In Packet) Radiology Results: ITS Impressions Chest X-Ray 11/11/24 12:21 Impression: 1: Patchy right-sided airspace disease, compatible with pneumonia. Chest CTA 11/11/24 13:27 Impression: Persistent occluded segmental branches in the left upper lobe. Otherwise, pulmonary emboli seen on prior exam from of 09/30/2024 are largely resolved. 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 Small right pleural effusion with mild bibasilar atelectatic change. Head CT 11/13/24 20:10 IMPRESSION: No acute intracranial process. Brain MRI 11/14/24 12:53 IMPRESSION: 1. Numerous small acute infarcts in the bilateral cerebral and cerebellar hemispheres and right basal ganglia involving both the anterior and posterior vertebral vascular distributions on both the left and right which suggests a shower of emboli from a relatively central origin. Consider cardiac ultrasound to assess for cardiac thrombus or valvular vegetations. 2. Chronic moderate-sized right occipital lobe infarct. Carotid Doppler Study 11/14/24 13:10 IMPRESSION: 1. <50% stenosis in the right internal carotid artery. 2. <50% stenosis in the left internal carotid artery. Labs Labs: Laboratory Tests 11/15/24 06:18 11/15/24 06:18 Calcium 8.7 Phosphorus 3.1 Magnesium 2.0 Total Bilirubin 0.7 AST 25 ALT 15 Alkaline Phosphatase 102 Total Protein 6.0 L Albumin 3.1 L Microbiology 11/12/24 16:38 Blood Blood Culture - Final Enterococcus faecalis 11/12/24 16:38 Blood Blood Culture - Preliminary Enterococcus faecalis
--- NOTE | 2024-11-15 10:27 | P.NEURO_ITS ---
Neurology EEG Report General Information Date of Study: 11/15/24 TEST eeg. DIAGNOSIS Altered mental status. CONDITION OF RECORDING Awake, drowsy and asleep. EEG NUMBER [id number] CLINICAL HISTORY History of altered mental status, patient slept throughout the tracing with no particular history available. EEG DESCRIPTION Basic resting occipital frequency consists of low-voltage 9 to 11 hertz per 2nd alpha admixed with low-voltage 15 to 18 hertz per 2nd beta activity. Alpha activity is symmetrical the blocked posteriorly with eyes opening. Low-voltage beta activity is seen diffusely admixed with for waxing and waning posterior alp kelly rhythm. Bilateral symmetrical sleep activities noted with symmetrical sleep spindles. Photic stimulation not done. Hyperventilation not done. Non paroxysmal. Nonfocal. Non lateralizing. IMPRESSION No significant abnormalities noted this particular tracing. Clinical correlation recommended. Possibility of the seizures cannot be ruled out.
[2024-11-15 11:40] LABS: Glucose Point of Care 300 mg/dl (65-105)
[2024-11-15] MEDS: INSULIN ASPART (*BKC) 100 UNITS/ML SUB-Q ×3 (13:05→21:02)
[2024-11-15] MEDS: AMPICILLIN 2 GM/NS 100 ML 2 GM/100 ML BAG IVPB ×2 (13:56→20:55)
[2024-11-15 15:20] LABS: Glucose Point of Care 211 mg/dl (65-105)
[2024-11-15] MEDS: cefTRIAXone 2 GM/NS 100 ML 2 GM/100 ML BAG IVPB ×2 (15:28→23:44)
[2024-11-15 20:44] LABS: Glucose Point of Care 229 mg/dl (65-105)
[2024-11-15] MEDS: MELATONIN 3 MG TABLET PO (20:56)
[2024-11-16] VITALS (30 sets, daily range): BP systolic 111–154; BP diastolic 47–75; PULSE 66–90; RESP 16–22; TEMP 36.4–37.5; O2SAT 95–98
[2024-11-16] MEDS: MIDODRINE HCL 2.5 MG TABLET 5 MG PO ×2 (01:00→19:56)
[2024-11-16 07:12] LABS: Partial Thromboplastin Time 30.7 Seconds (22.3-36.8)
[2024-11-16 09:00] LABS: Glucose Point of Care 157 mg/dl (65-105)
--- NOTE | 2024-11-16 09:13 | P.PNIM_ITS ---
Progress Note: A&P Assessment and Plan (1) CVA (cerebral vascular accident): Code(s): I63.9 - Cerebral infarction, unspecified Status: Acute (2) Metabolic encephalopathy: Code(s): G93.41 - Metabolic encephalopathy Status: Acute (3) Cerebrovascular disease: Code(s): I67.9 - Cerebrovascular disease, unspecified Status: Acute (4) Bacteremia: Code(s): R78.81 - Bacteremia Status: Acute (5) Acute on chronic anemia: Code(s): D64.9 - Anemia, unspecified Status: Acute (6) Hypotension: Qualifiers: Hypotension type: other hypotension type Qualified Code(s): I95.89 - Other hypotension Code(s): I95.9 - Hypotension, unspecified Status: Acute (7) Non-ST elevation DE (NSTEMI): Code(s): I21.4 - Non-ST elevation (NSTEMI) myocardial infarction Status: Acute (8) UTI (urinary tract infection): Code(s): N39.0 - Urinary tract infection, site not specified Status: Acute (9) Osteoarthritis involving multiple joints on both sides of body: Code(s): M15.9 - Polyosteoarthritis, unspecified Status: Acute (10) Controlled type 2 diabetes mellitus with hyperglycemia, with long-term current use of insulin: Code(s): E11.65 - Type 2 diabetes mellitus with hyperglycemia; Z79.4 - terminal supervisor (current) use of insulin Status: Acute (11) Stage 3b chronic kidney disease: Code(s): N18.32 - Chronic kidney disease, stage 3b Status: Chronic (12) Mixed hyperlipidemia: Code(s): E78.2 - Mixed hyperlipidemia Status: Acute (13) terminal supervisor (current) use of insulin: Code(s): Z79.4 - terminal supervisor (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 Patient is afebrile, blood pressure stable, leukocytosis has resolved Embolic Stroke MRI showed numerous bilateral cerebral and cerebellar stroke Continue Aspirin and liptior Cardiology recommended discontinuing Heparin infusion, discontinued awaiting transfer to [facility] as noted above neurology consulted Patient has no new focal deficits Non-ST elevation DE (NSTEMI): Code(s): I21.4 - Non-ST elevation (NSTEMI) myocardial infarction Status: Acute Assessment and Plan: - CXR: Patchy right-sided airspace disease, compatible with pneumonia. CTA chest showed PE mostly resolved and no lung consolidation 4 - Troponin: 3.080 -> 5.240 -> 9.19-->16.8 Echo pending, trend troponin, A1c, lipid profile, Continue heparin infusion Continue Lipitor, Tropol-XL< Aspirin Cardiology following, recommending medical treatment for now Patient denies chest pain Pulmonary embolism and infarction: Code(s): I26.99 - Other pulmonary embolism without acute cor pulmonale Status: Acute Assessment and Plan: - CTA chest: 1. Persistent occluded segmental branches in the left upper lobe. Otherwise, pulmonary emboli seen on prior exam from of 09/30/2024 are largely resolved. 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 2. Small right pleural effusion with mild bibasilar atelectatic change. - CT chest/abd/pelvis w/con, previous (09/30/24): 1. Pulmonary emboli in all lobes, worst in right lower lobe. 2. Infarct in right lung lower lobe. 3. 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 No endoleak. - underwent mechanical thrombectomy at [facility] on 10/02 CTA Chest 11/11/24 showed Prior PE mostly resolved Eliquis and heparin gtt on hold. Acute on chronic renal failure: Qualifiers: Acute renal failure type: unspecified Chronic kidney disease stage: unspecified stage Qualified Code(s): N17.9 - Acute kidney failure, unspecified; N18.9 - Chronic kidney disease, unspecified Code(s): N17.9 - Acute kidney failure, unspecified; N18.9 - Chronic kidney disease, unspecified Status: Acute Assessment and Plan: - history of CKD, started on CRRT on 10/03 and transitioned to HD on 10/12. Receiving treatment on? - creatinine 2.5 and GFR 19, Cr 1.7 baseline appears to 1.7 - continue sevelamer 0.8G TID - trend renal function - Continue HD today, patient is comfortable and hemodialysis Nephrology following UTI (urinary tract infection): Qualifiers: Urinary tract infection type: acute cystitis Hematuria presence: withou t hematuria Qualified Code(s): N30.00 - Acute cystitis without hematuria Code(s): N39.0 - Urinary tract infection, site not specified Status: Acute Assessment and Plan: Patient was started on cefdinir x7 days at [facility] due to presumed infection per UA results performed on 11/06. UC cancelled from this testing, unclear why. - UA: Cloudy, 2+ protein, trace ketones, 2+ leuks, greater than 100 WBC, no epithelial cells. - UC pending - previous micro reviewed, no recent positive urine cultures - completed abx monitor urine culture growing E coli patient is on ceftriaxone IV Anemia: Qualifiers: Anemia type: due to chronic kidney disease Chronic kidney disease stage: unspecified stage Qualified Code(s): N18.9 - Chronic kidney disease, unspecified; D63.1 - Anemia in chronic kidney disease Code(s): D64.9 - Anemia, unspecified Status: Acute Assessment and Plan: - hemoglobin 7.7, previously 8.6 - suspect recent anemia is secondary to HD/acute renal failure - epoetin initiated by patient educator - Isat 13 and and Ferritin 133, s/p Venofer 100 - transfuse if less than 7 - trend - GI noted no acute indication for endoscopic evaluation given high risk of anesthesia after PE and now NSTEMI Type 2 diabetes mellitus with hyperglycemia: Qualifiers: Diabetes mellitus medical terminologist insulin use: with medical terminologist use Qualified Code(s): E11.65 - Type 2 diabetes mellitus with hyperglycemia; Z79.4 - terminal supervisor (current) use of insulin Code(s): E11.65 - Type 2 diabetes mellitus with hyperglycemia Status: Acute Assessment and Plan: - hypoglycemia protocol - POC blood glucose ACHS - home medication: home NovoLog sliding scale and Lantus 35 units daily. - correct regimen ordered - high dose TIDWM, based off BMI - A1C 12.8% on 09/30/24 add aspart 4 units ac Hypotension: Qualifiers: Hypotension type: other hypotension type Qualified Code(s): I95.89 - Other hypotension Code(s): I95.9 - Hypotension, unspecified Status: Acute Assessment and Plan: Patient is on Midodrine 15mg tid Blood pressure stable now Obstructive sleep apnea: Onset Date: 04/02/21 Code(s): G47.33 - Obstructive sleep apnea (adult) (pediatric) Status: Acute Assessment and Plan: - continue CPAP? Subjective Date/time seen: 11/16/24 09:13 Interval history: I saw examined the patient when patient was on dialysis today. Patient feels comfortable dialysis, denies shortness breath, chest pain, palpitation. Patient feels better today, appetite improving. Patient is afebrile, blood pressure stable, labs reviewed, no significant changes Exam Narrative: GENERAL: Ill-appearing in no acute distress. Well-nourished. - EYES: EOMI. Anicteric. - HENT: Moist mucous membranes. - LUNGS: Clear to auscultation bilateral ly, no wheezing, rhonchi, or rales. - CARDIOVASCULAR: Regular rate and rhyth m. No murmur. No JVD. Dialysis catheter in right chest, the skin around dialysis catheter normal, no pus around dialysis catheter - ABDOMEN: Soft, non-tender and non-dist ended. No palpable masses. - EXTREMITIES: No edema. Peripheral puls es 2+. Non-tender. - NEUROLOGIC: No focal neurological defi cits. CN II-XII grossly intact. General weakness - PSYCHIATRIC: Awake, Alert and oriented x 3. Appropriate mood and affect. - SKIN: No rashes or lesions. Warm. - LYMPH: No cervical lymphadenopathy. Objective Data Vital Signs Vital Signs: Vital Signs - 24 hr 11/15/24 10:00 11/15/24 10:08 11/15/24 10:30 Temperature Pulse Rate 83 88 Respiratory Rate Blood Pressure Pulse Oximetry Oxygen Delivery Room Air 11/15/24 11:25 11/15/24 12:00 11/15/24 12:00 Temperature 97.1 F L Pulse Rate 88 76 Respiratory Rate 18 Blood Pressure 115/53 L Pulse Oximetry 95 Oxygen Delivery Room Air 11/15/24 14:00 11/15/24 15:30 11/15/24 16:00 Temperature 98.1 F Pulse Rate 76 75 Respiratory Rate 18 Blood Pressure 107/60 Pulse Oximetry 97 Oxygen Delivery Room Air 11/15/24 17:36 11/15/24 19:48 11/15/24 19:53 Temperature 98.2 F Pulse Rate 76 77 Respiratory Rate 16 Blood Pressure 95/51 L 108/57 L Pulse Oximetry 96 Oxygen Delivery 11/15/24 20:00 11/15/24 20:00 11/15/24 22:00 Temperature Pulse Rate 77 75 Respiratory Rate Blood Pressure Pulse Oximetry Oxygen Delivery Room Air 11/15/24 23:44 11/16/24 00:00 11/16/24 00:00 Temperature 97.6 F Pulse Rate 76 76 Respiratory Rate 16 Blood Pressure 115/56 L Pulse Oximetry 98 Oxygen Delivery Room Air 11/16/24 02:00 11/16/24 03:33 11/16/24 04:00 Temperature 98.4 F Pulse Rate 77 84 81 Respiratory Rate 16 Blood Pressure 129/74 Pulse Oximetry 95 Oxygen Delivery 11/16/24 04:00 11/16/24 06:00 11/16/24 08:00 Temperature 97.5 F L Pulse Rate 85 82 Respiratory Rate 18 Blood Pressure 122/71 Pulse Oximetry 96 Oxygen Delivery Room Air Intake/Output Intake/Output: Intake & Output 11/13/24 11/14/24 11/15/24 11/16/24 23:59 23:59 23:59 23:59 Intake Total 1674.0 438.2 1570 Output Total 75 2000 1 Balance 1599.0 -1561.8 1569 Meds/Results Medications: Active Medications Generic Name Dose Route Start Last Admin Trade Name Freq PRN Reason Stop Dose Admin Acetaminophen 650 mg 11/11/24 15:12 Acetaminophen 325 Mg Tablet PO Q6H PRN PAIN RATED 1-3 Aspirin 81 mg 11/13/24 09:00 11/15/24 10:07 Aspirin 81 Mg Enteric Tablet PO 81 mg QAM DEREJE Administration Atorvastatin Calcium 40 mg 11/13/24 09:00 11/15/24 10:08 Atorvastatin 40 Mg Tablet PO 40 mg DAILY DEREJE Administration Dextrose 12.5 gm 11/11/24 15:08 Dextrose 50% 25 Gm/50 Ml Syringe IV PUSH PRN PRN Hypoglycemia Protocol Epoetin James-epbx 10,000 units 11/16/24 18:06 Epoetin James-Epbx 10,000 Units/Ml Vial IV PUSH 11/16/24 18:07 ONCE ONE Glucagon 1 mg 11/11/24 15:08 Glucagon For Inj 1 Mg Vial IM PRN PRN Hypoglycemia Protocol Glucose 15 gm 11/11/24 15:08 Glucose Oral Gel 15 Gm Of Glucse In 37.5 Gm Tube PO PRN PRN Hypoglycemia Protocol Albumin Human 50 mls @ 999 mls/hr 11/11/24 11:56 Albutein IVPB 12/11/24 11:55 Q10M PRN HYPOTENSION Dextrose 1,000 mls @ 100 mls/hr 11/11/24 15:08 Dextrose 5% 1,000 Ml IVPB PRN PRN Hypoglycemia Protocol Ampicillin Sodium 2 gm in 100 mls @ 200 mls/hr 11/15/24 11:15 11/15/24 21:25 Ampicillin 2 Gm/Ns 100 Ml IVPB Infused Q12HR DEREJE Infusion Ceftriaxone Sodium 2 gm in 100 mls @ 200 mls/hr 11/15/24 13:00 11/15/24 23:44 Rocephin 2 Gm/Ns 100 Ml IVPB 200 mls/hr Q12HR DEREJE Administration Insulin Aspart 4 - 8 units 11/11/24 17:00 11/15/24 17:38 Insulin Aspart (*Bkc) 100 Units/Ml SUB-Q 4 units TIDWM DEREJE Administration Protocol Insulin Aspart 0 units 11/12/24 21:00 11/15/24 21:02 Insulin Aspart (*Bkc) 100 Units/Ml SUB-Q 4 units HS DEREJE Administration Protocol Insulin Glargine 35 units 11/12/24 09:00 11/15/24 10:02 Insulin Glargine (*Bkc) 100 Units/Ml SUB-Q 35 units DAILY DEREJE Administration Melatonin 3 mg 11/11/24 21:00 11/15/24 20:56 Melatonin 3 Mg Tablet PO 3 mg HS DEREJE Administration Metoprolol Succinate 12.5 mg 11/12/24 09:00 11/15/24 10:08 Metoprolol Succinate Ext Rel 12.5 Mg Tabcr PO 12.5 mg QAM DEREJE Administration Midodrine 10 mg 11/13/24 09:00 11/15/24 17:37 Midodrine Hcl 10 Mg Tablet PO 10 mg TID DEREJE Administration Midodrine 5 mg 11/13/24 09:00 11/15/24 17:38 Midodrine Hcl 2.5 Mg Tablet PO 5 mg TID DEREJE Administration Nitroglycerin 0.4 mg 11/11/24 15:21 Nitroglycerin Sl 0.4 Mg Tablet SUBLINGUAL Q5MIN PRN Chest Pain Non-Formulary ( 1 each 11/11/24 17:00 11/15/24 17:38 Sevelamer Carbonate PO 12/11/24 16:59 1 each 0.8 Gram Oral Powder TIDWM DEREJE Administration In Packet) Radiology Results: ITS Impressions Chest X-Ray 11/11/24 12:21 Impression: 1: Patchy right-sided airspace disease, compatible with pneumonia. Chest CTA 11/11/24 13:27 Impression: Persistent occluded segmental branches in the left upper lobe. Otherwise, pulmonary emboli seen on prior exam from of 09/30/2024 are largely resolved. 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 Small right pleural effusion with mild bibasilar atelectatic change. Head CT 11/13/24 20:10 IMPRESSION: No acute intracranial process. Brain MRI 11/14/24 12:53 IMPRESSION: 1. Numerous small acute infarcts in the bilateral cerebral and cerebellar hemispheres and right basal ganglia involving both the anterior and posterior vertebral vascular distributions on both the left and right which suggests a shower of emboli from a relatively central origin. Consider cardiac ultrasound to assess for cardiac thrombus or valvular vegetations. 2. Chronic moderate-sized right occipital lobe infarct. Carotid Doppler Study 11/14/24 13:10 IMPRESSION: 1. <50% stenosis in the right internal carotid artery. 2. <50% stenosis in the left internal carotid artery. Labs Labs: Laboratory Results - last 24 hr 11/15/24 11/15/24 11/15/24 11:25 15:18 20:38 APTT POC Capillary Glucose 300 H 211 H 229 H 11/16/24 11/16/24 06:47 07:50 APTT 30.7 POC Capillary Glucose 157 H
[2024-11-16] MEDS: Non-Formulary (sevelamer carbonate 0.8 gram ORAL powder in packet) 1 EACH PO ×3 (09:23→17:00)
[2024-11-16 09:31] LABS: Basophils Absolute Auto 0.1 K/mm3 (0.0-0.1); Basophils Percent Auto 0.7 % (0.2-1.2); Eosinophils Percent Auto 0.4 % (0-4.4); Hematocrit 25.7 % (37.0-47.0); Hemoglobin 8.1 g/dL (12.0-15.0); Immature Granulocyte Absolute 0.07 K/mm3 (0.00-0.031); Immature Granulocyte Percent A 0.7 % (0-0.5); Lymphocytes Absolute Auto 1.17 K/mm3 (0.9-3.2); Lymphocytes Percent Auto 12.1 % (18.3-44.2); Mean Corpuscular HGB Conc 31.5 g/dl (32-36); Mean Corpuscular Hemoglobin 31.3 pg (26-34); Mean Corpuscular Volume 99.2 fl (80-100); Mean Platelet Volume 10.4 fl (7.4-10.4); Monocytes Absolute Auto 0.6 K/mm3 (0.1-0.6); Monocytes Percent Auto 6.2 % (2.6-8.5); Neutrophils Absolute Auto 7.8 K/mm3 (1.3-6.7); Neutrophils Percent Auto 79.9 % (45.5-73.1); Platelet Count Result 164 k/mm3 (150-375); Red Blood Count 2.59 M/mm3 (4.2-5.4); Red Cell Distribution Width 17.1 % (11.5-14.5); White Blood Count 9.7 K/mm3 (4.5-10.0)
[2024-11-16 09:43] LABS: Anion Gap 7 mmol/L (4-12); Blood Urea Nitrogen 26 mg/dL (7-17); Calcium 8.8 mg/dL (8.4-10.2); Carbon Dioxide 25 mmol/L (22-30); Chloride 104 mmol/L (98-107); Estimated CRCL calculation 18 ml/min; Estimated Glomerular Filt Rate 20; Glucose 160 mg/dL (65-110); Potassium 3.8 mmol/L (3.4-5.0); Sodium 136 mmol/L (137-145)
[2024-11-16] MEDS: EPOETIN ALFA-EPBX 10,000 UNITS/ML VIAL 10000 UNITS IV PUSH (10:13)
--- NOTE | 2024-11-16 12:11 | P.PNNP_ITS ---
Progress Note: A&P Assessment and Plan (1) Acute renal failure on dialysis: Code(s): N17.9 - Acute kidney failure, unspecified; Z99.2 - Dependence on renal dialysis Status: Acute Assessment and Plan: * thought to be secondary to multifactorial ATN: * hemodynamic instability/shock * sepsis * contrast exposure * infection/sepsis? -- although all cultures were negative at OSH * while at [facility], initiated on CRRT on 10/03/24 due to declining urine output/oliguria and worsening metabolic acidosis * CRRT discontinued on 10/11/24 * transitioned to intermittent hemodialysis starting on 10/12/24 * has been dialysis dependent since * HD today and continue dialysis schedule of M/W/F for now * follow electrolytes, volume status, and clearance * follow repeat labs and UOP to assess for potential renal recovery (2) Stage 3b chronic kidney disease: Code(s): N18.32 - Chronic kidney disease, stage 3b Status: Chronic Assessment and Plan: * baseline creatinine seems to run ~ 1.2 - 1.3mg/dl since 2021 * presumably due to diabetes, vascular disease (CAD + AAA + CVA + CHF) and age- related change (3) Non-ST elevation OK (NSTEMI): Code(s): I21.4 - Non-ST elevation (NSTEMI) myocardial infarction Status: Acute Assessment and Plan: * elevated troponins noted * EKG changes apparent * Cardiology recommendations noted * medical management for now * ASA, beta birgit (as BP can tolerated), and statin therapy * Echo results noted (see #4) (4) Bacteremia: Code(s): R78.81 - Bacteremia Status: Acute Assessment and Plan: * as noted by positive blood culture: * blood cultures (on 11/12) - Enterococcus faecalis on 11/12 * blood cultures (on 11/14) - no growth to date * concern for endocarditis based on recent Echo results: * left ventricular systolic function is normal, estimated at 60-65% * left ventricular diastolic function is abnormal * left atrial chamber dimension is mildly enlarged. * mild aortic valve calcification * there is 2.5 x 1.5cm vegetation on posterior mitral valve leaflet * mild mitral valve regurgitation * cannot exclude small vegetation on tricuspid valve * moderate tricuspid valve regurgitation * severe pulmonary hypertension - estimated pulmonary arterial systolic pressure is 91 mmHg * on antibiotics * awaiting transfer for CTS evaluation (5) CVA (cerebral vascular accident): Code(s): I63.9 - Cerebral infarction, unspecified Status: Acute Assessment and Plan: * as noted by MRI of brain: * numerous small acute infarcts in the bilateral cerebral and cerebellar hemispheres and right basal ganglia involving both the anterior and posterior vertebral vascular distributions on both the left and right which suggests a shower of emboli from a relatively central origin * 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 * Neurology following (6) Pulmonary embolism and infarction: Code(s): I26.99 - Other pulmonary embolism without acute cor pulmonale Status: Acute Assessment and Plan: * as noted by imaging here in September 2024 * complicated by DVTs as well * s/p mechanical thrombectomy at [facility] by IR on 10/02 * was on Elliquis and heparin gtt -- off due to #5 (7) UTI (urinary tract infection): Qualifiers: Urinary tract infection type: acute cystitis Hematuria presence: w ithout hematuria Qualified Code(s): N30.00 - Acute cystitis without hematuria Code(s): N39.0 - Urinary tract infection, site not specified Status: Acute Assessment and Plan: * admission UA suggestive * follow urine culture - E.coli noted * on antibiotics (8) Hypotension: Qualifiers: Hypotension type: other hypotension type Qualified Code(s): I95.89 - Other hypotension Code(s): I95.9 - Hypotension, unspecified Status: Acute Assessment and Plan: * chronic issues at baseline since discharge from [facility] * on midodrine therapy * follow trend of hemodynamics (9) Anemia: Qualifiers: Anemia type: due to chronic kidney disease Chronic kidney disease stage: unspecified stage Qualified Code(s): N18.9 - Chronic kidney disease, unspecified; D63.1 - Anemia in chronic kidney disease Code(s): D64.9 - Anemia, unspecified Status: Acute Assessment and Plan: * due to KAROL with dialysis dependence and recent hospitalization/acute illness * Retacrit with HD * follow trend of H/H (10) Hyperglycemia due to diabetes mellitus: Code(s): E11.65 - Type 2 diabetes mellitus with hyperglycemia Status: Acute Assessment and Plan: * follow accu-cheks * glycemic control per hospitalist Consider transfer to [facility] facility (if she cannot get to [facility] in a timely manner) since she was previously at [facility] prior to transfer to [facility] and admission here. Will continue to follow. 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 Exam 2 Narrative: General: elderly but WD/WN female in NAD Heart: normal S1 and S2; no rub Lungs: clear anteriorly; slightly decreased at bases Abdomen: soft, nontender, nondistended, positive bowel sounds Extremities: no cyanosis or clubbing; no edema Skin: warm and intact Objective Data Vital Signs Vital Signs: Vital Signs Temp Pulse Resp BP Pulse Ox O2 Del Method 11/16/24 12:10 83 128/75 11/16/24 12:00 83 11/16/24 12:00 85 120/70 11/16/24 11:45 83 116/67 11/16/24 11:30 66 112/47 L 11/16/24 11:15 81 118/52 L 11/16/24 11:00 84 116/61 11/16/24 10:45 87 114/69 11/16/24 10:30 87 154/66 H 11/16/24 10:15 75 144/50 H 11/16/24 10:00 81 11/16/24 10:00 82 123/68 11/16/24 09:45 84 115/68 11/16/24 09:30 84 123/65 11/16/24 09:15 83 114/60 11/16/24 09:00 84 120/65 11/16/24 08:53 81 121/61 11/16/24 08:38 98.8 F 87 16 116/61 11/16/24 08:00 78 11/16/24 08:00 Room Air 11/16/24 08:00 97.5 F L 82 18 122/71 96 11/16/24 06:00 85 11/16/24 04:00 Room Air 11/16/24 04:00 81 11/16/24 03:33 98.4 F 84 16 129/74 95 11/16/24 02:00 77 11/16/24 00:00 76 11/16/24 00:00 Room Air 11/15/24 23:44 97.6 F 76 16 115/56 L 98 11/15/24 22:00 75 11/15/24 20:00 77 11/15/24 20:00 Room Air 11/15/24 19:53 108/57 L 11/15/24 19:48 98.2 F 77 16 95/51 L 96 11/15/24 17:36 76 11/15/24 16:00 Room Air Intake/Output Intake/Output: Intake & Output 11/13/24 11/14/24 11/15/24 11/16/24 23:59 23:59 23:59 23:59 Intake Total 1674.0 438.2 1570 580 Output Total 75 1999 Balance 1599.0 -1561.8 1569 -1420 Meds/Results Medications: Active Medications Generic Name Dose Route Start Last Admin Trade Name Andry PRN Reason Stop Dose Admin Acetaminophen 650 mg 11/11/24 15:12 Acetaminophen 325 Mg Tablet PO Q6H PRN PAIN RATED 1-3 Aspirin 81 mg 11/13/24 09:00 11/16/24 12:55 Aspirin 81 Mg Enteric Tablet PO 81 mg QAM DEREJE Administration Atorvastatin Calcium 40 mg 11/13/24 09:00 11/16/24 12:55 Atorvastatin 40 Mg Tablet PO 40 mg DAILY DEREJE Administration Dextrose 12.5 gm 11/11/24 15:08 Dextrose 50% 25 Gm/50 Ml Syringe IV PUSH PRN PRN Hypoglycemia Protocol Epoetin James-epbx 10,000 units 11/16/24 18:06 11/16/24 10:13 Epoetin James-Epbx 10,000 Units/Ml Vial IV PUSH 11/16/24 18:07 10,000 units ONCE ONE Administration Glucagon 1 mg 11/11/24 15:08 Glucagon For Inj 1 Mg Vial IM PRN PRN Hypoglycemia Protocol Glucose 15 gm 11/11/24 15:08 Glucose Oral Gel 15 Gm Of Glucse In 37.5 Gm Tube PO PRN PRN Hypoglycemia Protocol Albumin Human 50 mls @ 999 mls/hr 11/11/24 11:56 Albutein IVPB 12/11/24 11:55 Q10M PRN HYPOTENSION Dextrose 1,000 mls @ 100 mls/hr 11/11/24 15:08 Dextrose 5% 1,000 Ml IVPB PRN PRN Hypoglycemia Protocol Ampicillin Sodium 2 gm in 100 mls @ 200 mls/hr 11/15/24 11:15 11/16/24 12:53 Ampicillin 2 Gm/Ns 100 Ml IVPB 200 mls/hr Q12HR DEREJE Administration Ceftriaxone Sodium 2 gm in 100 mls @ 200 mls/hr 11/15/24 13:00 11/16/24 12:55 Rocephin 2 Gm/Ns 100 Ml IVPB 200 mls/hr Q12HR DEREJE Administration Insulin Aspart 4 - 8 units 11/11/24 17:00 11/16/24 12:56 Insulin Aspart (*Bkc) 100 Units/Ml SUB-Q Not Given TIDWM [facility] Protocol Insulin Aspart 0 units 11/12/24 21:00 11/15/24 21:02 Insulin Aspart (*Bkc) 100 Units/Ml SUB-Q 4 units HS DEREJE Administration Protocol Insulin Aspart 4 units 11/16/24 12:00 11/16/24 12:57 Insulin Aspart (*Bkc) 100 Units/Ml 0.05 units/kg (4 units) 4 units SUB-Q Administration TIDWM [facility] Insulin Glargine 35 units 11/12/24 09:00 11/16/24 12:55 Insulin Glargine (*Bkc) 100 Units/Ml SUB-Q 35 units DAILY DEREJE Administration Melatonin 3 mg 11/11/24 21:00 11/15/24 20:56 Melatonin 3 Mg Tablet PO 3 mg HS DEREJE Administration Metoprolol Succinate 12.5 mg 11/12/24 09:00 11/16/24 12:54 Metoprolol Succinate Ext Rel 12.5 Mg Tabcr PO 12.5 mg QAM DEREEJ Administration Midodrine 10 mg 11/13/24 09:00 11/16/24 12:54 Midodrine Hcl 10 Mg Tablet PO 10 mg TID DEREJE Administration Midodrine 5 mg 11/13/24 09:00 11/16/24 09:26 Midodrine Hcl 2.5 Mg Tablet PO Not Given TID DEREJE Nitroglycerin 0.4 mg 11/11/24 15:21 Nitroglycerin Sl 0.4 Mg Tablet SUBLINGUAL Q5MIN PRN Chest Pain Non-Formulary ( 1 each 11/11/24 17:00 11/16/24 12:57 Sevelamer Carbonate PO 12/11/24 16:59 1 each 0.8 Gram Oral Powder TIDWM DEREJE Administration In Packet) Radiology Results: ITS Impressions Chest X-Ray 11/11/24 12:21 Impression: 1: Patchy right-sided airspace disease, compatible with pneumonia. Chest CTA 11/11/24 13:27 Impression: Persistent occluded segmental branches in the left upper lobe. Otherwise, pulmonary emboli seen on prior exam from of 09/30/2024 are largely resolved. 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 Small right pleural effusion with mild bibasilar atelectatic change. Head CT 11/13/24 20:10 IMPRESSION: No acute intracranial process. Brain MRI 11/14/24 12:53 IMPRESSION: 1. Numerous small acute infarcts in the bilateral cerebral and cerebellar hemispheres and right basal ganglia involving both the anterior and posterior vertebral vascular distributions on both the left and right which suggests a shower of emboli from a relatively central origin. Consider cardiac ultrasound to assess for cardiac thrombus or valvular vegetations. 2. Chronic moderate-sized right occipital lobe infarct. Carotid Doppler Study 11/14/24 13:10 IMPRESSION: 1. <50% stenosis in the right internal carotid artery. 2. <50% stenosis in the left internal carotid artery. Labs Labs: Laboratory Tests 11/16/24 06:46 11/16/24 06:46 Calcium 8.8 Microbiology 11/14/24 13:22 Blood Blood Culture - Preliminary 11/14/24 13:22 Blood Blood Culture - Preliminary
[2024-11-16] MEDS: AMPICILLIN 2 GM/NS 100 ML 2 GM/100 ML BAG IVPB ×2 (12:53→21:24)
[2024-11-16] MEDS: MIDODRINE HCL 10 MG TABLET PO ×2 (12:54→17:00)
[2024-11-16] MEDS: METOPROLOL SUCCINATE EXT REL 12.5 MG TABCR PO (12:54)
[2024-11-16 12:55] LABS: Glucose Point of Care 128 mg/dl (65-105)
[2024-11-16] MEDS: INSULIN GLARGINE (*BKC) 100 UNITS/ML 35 UNITS SUB-Q (12:55)
[2024-11-16] MEDS: ASPIRIN 81 MG ENTERIC TABLET PO (12:55)
[2024-11-16] MEDS: ATORVASTATIN 40 MG TABLET PO (12:55)
[2024-11-16] MEDS: cefTRIAXone 2 GM/NS 100 ML 2 GM/100 ML BAG IVPB ×2 (12:55→21:05)
[2024-11-16] MEDS: INSULIN ASPART (*BKC) 100 UNITS/ML SUB-Q ×2 (12:57→21:06)
--- NOTE | 2024-11-16 13:39 | PCPTNOTE ---
Attempted to see patient for PT, however patient was having increase confusion and hallucinations upon entering room. Notified RN. Per RN advised to hold on PT this afternoon.
--- NOTE | 2024-11-16 13:50 | PCOTNOTE ---
Hold OT evaluation per RN due to increased hallucinations and not following commands. Will continue to follow for medical appropriateness to participate in OT evaluation.
[2024-11-16 16:34] LABS: Glucose Point of Care 179 mg/dl (65-105)
[2024-11-16 20:13] LABS: Glucose Point of Care 229 mg/dl (65-105)
[2024-11-16] MEDS: MELATONIN 3 MG TABLET PO (21:05)
[2024-11-17] VITALS (11 sets, daily range): BP systolic 107–119; BP diastolic 54–70; PULSE 69–94; RESP 16–20; TEMP 36.7–37.1; O2SAT 94–98
[2024-11-17 07:41] LABS: Glucose Point of Care 173 mg/dl (65-105)
[2024-11-17] MEDS: ATORVASTATIN 40 MG TABLET PO (09:12)
[2024-11-17] MEDS: INSULIN GLARGINE (*BKC) 100 UNITS/ML 35 UNITS SUB-Q (09:12)
[2024-11-17] MEDS: MIDODRINE HCL 10 MG TABLET PO ×3 (09:12→16:29)
[2024-11-17] MEDS: METOPROLOL SUCCINATE EXT REL 12.5 MG TABCR PO (09:12)
[2024-11-17] MEDS: MIDODRINE HCL 2.5 MG TABLET 5 MG PO ×3 (09:12→16:29)
[2024-11-17] MEDS: ASPIRIN 81 MG ENTERIC TABLET PO (09:12)
[2024-11-17] MEDS: INSULIN ASPART (*BKC) 100 UNITS/ML SUB-Q ×4 (09:13→16:30)
[2024-11-17] MEDS: Non-Formulary (sevelamer carbonate 0.8 gram ORAL powder in packet) 1 EACH PO ×3 (09:13→16:30)
[2024-11-17] MEDS: cefTRIAXone 2 GM/NS 100 ML 2 GM/100 ML BAG IVPB (09:14)
[2024-11-17] MEDS: AMPICILLIN 2 GM/NS 100 ML 2 GM/100 ML BAG IVPB (09:14)
[2024-11-17 09:19] LABS: Basophils Absolute Auto 0.1 K/mm3 (0.0-0.1); Basophils Percent Auto 0.8 % (0.2-1.2); Eosinophils Percent Auto 0.5 % (0-4.4); Hemoglobin 8.3 g/dL (12.0-15.0); Immature Granulocyte Absolute 0.09 K/mm3 (0.00-0.031); Lymphocytes Absolute Auto 1.33 K/mm3 (0.9-3.2); Lymphocytes Percent Auto 15.3 % (18.3-44.2); Mean Corpuscular HGB Conc 30.7 g/dl (32-36); Mean Corpuscular Hemoglobin 30.6 pg (26-34); Mean Corpuscular Volume 99.6 fl (80-100); Mean Platelet Volume 9.6 fl (7.4-10.4); Monocytes Absolute Auto 0.6 K/mm3 (0.1-0.6); Monocytes Percent Auto 6.6 % (2.6-8.5); Neutrophils Absolute Auto 6.6 K/mm3 (1.3-6.7); Neutrophils Percent Auto 75.8 % (45.5-73.1); Nucleated Red Blood Cells Perc 0.2 % (0.0-0.2); Platelet Count Result 140 k/mm3 (150-375); Red Blood Count 2.71 M/mm3 (4.2-5.4); Red Cell Distribution Width 17.3 % (11.5-14.5); White Blood Count 8.7 K/mm3 (4.5-10.0)
--- NOTE | 2024-11-17 09:34 | PM.IMPN ---
Progress Note: A&P Assessment and Plan (1) CVA (cerebral vascular accident): Code(s): I63.9 - Cerebral infarction, unspecified Status: Acute (2) Metabolic encephalopathy: Code(s): G93.41 - Metabolic encephalopathy Status: Acute (3) Cerebrovascular disease: Code(s): I67.9 - Cerebrovascular disease, unspecified Status: Acute (4) Bacteremia: Code(s): R78.81 - Bacteremia Status: Acute (5) Acute on chronic anemia: Code(s): D64.9 - Anemia, unspecified Status: Acute (6) Hypotension: Qualifiers: Hypotension type: other hypotension type Qualified Code(s): I95.89 - Other hypotension Code(s): I95.9 - Hypotension, unspecified Status: Acute (7) Non-ST elevation DE (NSTEMI): Code(s): I21.4 - Non-ST elevation (NSTEMI) myocardial infarction Status: Acute (8) UTI (urinary tract infection): Code(s): N39.0 - Urinary tract infection, site not specified Status: Acute (9) Osteoarthritis involving multiple joints on both sides of body: Code(s): M15.9 - Polyosteoarthritis, unspecified Status: Acute (10) Controlled type 2 diabetes mellitus with hyperglycemia, with long-term current use of insulin: Code(s): E11.65 - Type 2 diabetes mellitus with hyperglycemia; 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 E fecalis bacteremia, sensitivity : Unasyn vancomycin Changed to ampicillin and ceftriaxone IV per ID pharmacist recommendation Awaiting transfer to [facility] Also contacted [facility] Patient is afebrile, blood pressure stable, leukocytosis has resolved Embolic Stroke MRI showed numerous bilateral cerebral and cerebellar stroke Continue Aspirin and liptior Cardiology recommended discontinuing Heparin infusion, discontinued awaiting transfer to [facility] as noted above neurology consulted Patient has no new focal deficits Non-ST elevation DE (NSTEMI): Code(s): I21.4 - Non-ST elevation (NSTEMI) myocardial infarction Status: Acute Assessment and Plan: - CXR: Patchy right-sided airspace disease, compatible with pneumonia. CTA chest showed PE mostly resolved and no lung consolidation 4 - Troponin: 3.080 -> 5.240 -> 9.19-->16.8 Echo pending, trend troponin, A1c, lipid profile, Continue heparin infusion Continue Lipitor, Tropol-XL< Aspirin Cardiology following, recommending medical treatment for now Patient denies chest pain Pulmonary embolism and infarction: Code(s): I26.99 - Other pulmonary embolism without acute cor pulmonale Status: Acute Assessment and Plan: - CTA chest: 1. Persistent occluded segmental branches in the left upper lobe. Otherwise, pulmonary emboli seen on prior exam from of 09/30/2024 are largely resolved. 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 2. Small right pleural effusion with mild bibasilar atelectatic change. - CT chest/abd/pelvis w/con, previous (09/30/24): 1. Pulmonary emboli in all lobes, worst in right lower lobe. 2. Infarct in right lung lower lobe. 3. 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 No endoleak. - underwent mechanical thrombectomy at [facility] on 10/02 CTA Chest 11/11/24 showed Prior PE mostly resolved Eliquis and heparin gtt on hold. Acute on chronic renal failure: Qualifiers: Acute renal failure type: unspecified Chronic kidney disease stage: unspecified stage Qualified Code(s): N17.9 - Acute kidney failure, unspecified; N18.9 - Chronic kidney disease, unspecified Code(s): N17.9 - Acute kidney failure, unspecified; N18.9 - Chronic kidney disease, unspecified Status: Acute Assessment and Plan: - history of CKD, started on CRRT on 10/03 and transitioned to HD on 10/12. Receiving treatment on? - creatinine 2.5 and GFR 19, Cr 1.7 baseline appears to 1.7 - continue sevelamer 0.8G TID - trend renal function Dialysis per washer assembler, patient is comfortable and hemodialysis Creatinine is improved trending down 1.8 today UTI (urinary tract infection): Qualifiers: Urinary tract infection type: acute cystitis Hematuria presence: without hematuria Qualified Code(s): N30.00 - Acute cystitis without hematuria Code(s): N39.0 - Urinary tract infection, site not specified Status: Acute Assessment and Plan: Patient was started on cefdinir x7 days at [facility] due to presumed infection per UA results performed on 11/06. UC cancelled from this testing, unclear why. - UA: Cloudy, 2+ protein, trace ketones, 2+ leuks, greater than 100 WBC, no epithelial cells. - UC pending - previous micro reviewed, no recent positive urine cultures - completed abx monitor urine culture growing E coli patient is on ceftriaxone IV Anemia: Qualifiers: Anemia type: due to chronic kidney disease Chronic kidney disease stage: unspecified stage Qualified Code(s): N18.9 - Chronic kidney disease, unspecified; D63.1 - Anemia in chronic kidney disease Code(s): D64.9 - Anemia, unspecified Status: Acute Assessment and Plan: - hemoglobin 7.7, previously 8.6 - suspect recent anemia is secondary to HD/acute renal failure - epoetin initiated by washer assembler - Isat 13 and and Ferritin 133, s/p Venofer 100 - transfuse if less than 7 - trend - GI noted no acute indication for endoscopic evaluation given high risk of anesthesia after PE and now NSTEMI Type 2 diabetes mellitus with hyperglycemia: Qualifiers: 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 - correct regimen ordered - high dose TIDWM, based off BMI - A1C 12.8% on 09/30/24 add aspart 4 units ac Hypotension: Qualifiers: Hypotension type: other hypotension type Qualified Code(s): I95.89 - Other hypotension Code(s): I95.9 - Hypotension, unspecified Status: Acute Assessment and Plan: Patient is on Midodrine 15mg tid Blood pressure stable now Obstructive sleep apnea: Onset Date: 04/02/21 Code(s): G47.33 - Obstructive sleep apnea (adult) (pediatric) Status: Acute Assessment and Plan: - continue CPAP? Patient is on the waiting list to be transferred to [facility], I also contacted with transfer center of [facility] . Subjective Date/time seen: 11/17/24 09:34 Interval history: I saw examined patient today, patient denies headache, vision change, new focal weakness, abdomen pain, chest pain, palpitation. Patient is afebrile, blood pressure stable. Labs reviewed, hemoglobin 8.3, above baseline, creatinine 1.8. Exam Narrative: GENERAL: Ill-appearing in no acute distress. Well-nourished. - EYES: EOMI. Anicteric. - HENT: Moist mucous membranes. - LUNGS: Clear to auscultation bilaterally, no wheezing, rhonchi, or rales. - CARDIOVASCULAR: Regular rate and rhythm. No murmur. No JVD. Dialysis catheter in right chest, the skin around dialysis catheter normal, no pus around dialysis catheter - ABDOMEN: Soft, non-tender and non-distended. No palpable masses. - EXTREMITIES: No edema. Peripheral pulses 2+. Non-tender. - NEUROLOGIC: No focal neurological deficits. CN II-XII grossly intact. General weakness - PSYCHIATRIC: Awake, Alert and oriented x 3. Appropriate mood and affect. - SKIN: No rashes or lesions. Warm. - LYMPH: No cervical lymphadenopathy. Objective Data Vital Signs Vital Signs: Vital Signs - 24 hr 11/16/24 09:45 11/16/24 10:00 11/16/24 10:00 Temperature Pulse Rate 84 82 81 Respiratory Rate Blood Pressure 115/68 123/68 Pulse Oximetry Oxygen Delivery 11/16/24 10:15 11/16/24 10:30 11/16/24 10:45 Temperature Pulse Rate 75 87 87 Respiratory Rate Blood Pressure 144/50 H 154/66 H 114/69 Pulse Oximetry Oxygen Delivery 11/16/24 11:00 11/16/24 11:15 11/16/24 11:30 Temperature Pulse Rate 84 81 66 Respiratory Rate Blood Pressure 116/61 118/52 L 112/47 L Pulse Oximetry Oxygen Delivery 11/16/24 11:45 11/16/24 12:00 11/16/24 12:00 Temperature Pulse Rate 83 85 83 Respiratory Rate Blood Pressure 116/67 120/70 Pulse Oximetry Oxygen Delivery 11/16/24 12:10 11/16/24 12:18 11/16/24 12:54 Temperature 98.1 F Pulse Rate 83 76 90 Respiratory Rate 18 Blood Pressure 128/75 126/65 Pulse Oximetry Oxygen Delivery 11/16/24 13:00 11/16/24 13:15 11/16/24 14:00 Temperature 97.8 F Pulse Rate 85 86 Respiratory Rate 16 Blood Pressure 112/56 L Pulse Oximetry 98 Oxygen Delivery Room Air 11/16/24 16:00 11/16/24 16:00 11/16/24 16:00 Temperature 97.7 F Pulse Rate 80 82 Respiratory Rate 22 H Blood Pressure 111/66 Pulse Oximetry 98 Oxygen Delivery Room Air 11/16/24 18:00 11/16/24 20:00 11/16/24 20:00 Temperature 97.8 F Pulse Rate 80 83 Respiratory Rate 16 Blood Pressure 112/57 L Pulse Oximetry 95 Oxygen Delivery Room Air 11/16/24 20:00 11/16/24 22:00 11/17/24 00:00 Temperature Pulse Rate 85 85 Respiratory Rate Blood Pressure Pulse Oximetry Oxygen Delivery Room Air 11/17/24 00:00 11/17/24 00:00 11/17/24 02:00 Temperature 98.1 F Pulse Rate 79 87 90 Respiratory Rate 16 Blood Pressure 112/64 Pulse Oximetry 97 Oxygen Delivery 11/17/24 04:00 11/17/24 04:00 11/17/24 04:00 Temperature 98.1 F Pulse Rate 91 86 Respiratory Rate 18 Blood Pressure 117/69 Pulse Oximetry 94 Oxygen Delivery Room Air 11/17/24 06:00 11/17/24 07:56 11/17/24 09:12 Temperature 98.0 F Pulse Rate 85 90 87 Respiratory Rate 20 Blood Pressure 116/62 Pulse Oximetry 94 Oxygen Delivery Intake/Output Intake/Output: Intake & Output 11/14/24 11/15/24 11/16/24 11/17/24 23:59 23:59 23:59 23:59 Intake Total 438.2 1570 1900 400 Output Total 1999 Balance -1561.8 1569 -100 400 Meds/Results Medications: Active Medications Generic Name Dose Route Start Last Admin Trade Name Freq PRN Reason Stop Dose Admin Acetaminophen 650 mg 11/11/24 15:12 Acetaminophen 325 Mg Tablet PO Q6H PRN PAIN RATED 1-3 Aspirin 81 mg 11/13/24 09:00 11/17/24 09:12 Aspirin 81 Mg Enteric Tablet PO 81 mg QAM DEREJE Administration Atorvastatin Calcium 40 mg 11/13/24 09:00 11/17/24 09:12 Atorvastatin 40 Mg Tablet PO 40 mg DAILY DEREJE Administration Dextrose 12.5 gm 11/11/24 15:08 Dextrose 50% 25 Gm/50 Ml Syringe IV PUSH PRN PRN Hypoglycemia Protocol Glucagon 1 mg 11/11/24 15:08 Glucagon For Inj 1 Mg Vial IM PRN PRN Hypoglycemia Protocol Glucose 15 gm 11/11/24 15:08 Glucose Oral Gel 15 Gm Of Glucse In 37.5 Gm Tube PO PRN PRN Hypoglycemia Protocol Albumin Human 50 mls @ 999 mls/hr 11/11/24 11:56 Albutein IVPB 12/11/24 11:55 Q10M PRN HYPOTENSION Dextrose 1,000 mls @ 100 mls/hr 11/11/24 15:08 Dextrose 5% 1,000 Ml IVPB PRN PRN Hypoglycemia Protocol Ampicillin Sodium 2 gm in 100 mls @ 200 mls/hr 11/15/24 11:15 11/17/24 09:14 Ampicillin 2 Gm/Ns 100 Ml IVPB 200 mls/hr Q12HR DEREJE Administration Ceftriaxone Sodium 2 gm in 100 mls @ 200 mls/hr 11/15/24 13:00 11/17/24 09:14 Rocephin 2 Gm/Ns 100 Ml IVPB 200 mls/hr Q12HR DEREJE Administration Insulin Aspart 4 - 8 units 11/11/24 17:00 11/17/24 09:13 Insulin Aspart (*Bkc) 100 Units/Ml SUB-Q Not Given TIDWM [facility] [place] Protocol Insulin Aspart 0 units 11/12/24 21:00 11/16/24 21:06 Insulin Aspart (*Bkc) 100 Units/Ml SUB-Q 4 units HS [facility] [place] Administration Protocol Insulin Aspart 4 units 11/16/24 12:00 11/17/24 09:13 Insulin Aspart (*Bkc) 100 Units/Ml 0.05 units/kg (4 units) 4 units SUB-Q Administration TIDWM [facility] [place] Insulin Glargine 35 units 11/12/24 09:00 11/17/24 09:12 Insulin Glargine (*Bkc) 100 Units/Ml SUB-Q 35 units DAILY DEREJE Administration Melatonin 3 mg 11/11/24 21:00 11/16/24 21:05 Melatonin 3 Mg Tablet PO 3 mg HS DEREJE Administration Metoprolol Succinate 12.5 mg 11/12/24 09:00 11/17/24 09:12 Metoprolol Succinate Ext Rel 12.5 Mg Tabcr PO 12.5 mg QAM DEREJE Administration Midodrine 10 mg 11/13/24 09:00 11/17/24 09:12 Midodrine Hcl 10 Mg Tablet PO 10 mg TID DEREJE Administration Midodrine 5 mg 11/13/24 09:00 11/17/24 09:12 Midodrine Hcl 2.5 Mg Tablet PO 5 mg TID DEREJE Administration Nitroglycerin 0.4 mg 11/11/24 15:21 Nitroglycerin Sl 0.4 Mg Tablet SUBLINGUAL Q5MIN PRN Chest Pain Non-Formulary ( 1 each 11/11/24 17:00 11/17/24 09:13 Sevelamer Carbonate PO 12/11/24 16:59 1 each 0.8 Gram Oral Powder TIDWM DEREJE Administration In Packet) Radiology Results: ITS Impressions Chest X-Ray 11/11/24 12:21 Impression: 1: Patchy right-sided airspace disease, compatible with pneumonia. Chest CTA 11/11/24 13:27 Impression: Persistent occluded segmental branches in the left upper lobe. Otherwise, pulmonary emboli seen on prior exam from of 09/30/2024 are largely resolved. 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 Small right pleural effusion with mild bibasilar atelectatic change. Head CT 11/13/24 20:10 IMPRESSION: No acute intracranial process. Brain MRI 11/14/24 12:53 IMPRESSION: 1. Numerous small acute infarcts in the bilateral cerebral and cerebellar hemispheres and right basal ganglia involving both the anterior and posterior vertebral vascular distributions on both the left and right which suggests a shower of emboli from a relatively central origin. Consider cardiac ultrasound to assess for cardiac thrombus or valvular vegetations. 2. Chronic moderate-sized right occipital lobe infarct. Carotid Doppler Study 11/14/24 13:10 IMPRESSION: 1. <50% stenosis in the right internal carotid artery. 2. <50% stenosis in the left internal carotid artery. Labs Labs: Laboratory Results - last 24 hr 11/16/24 11/16/24 11/16/24 06:46 12:49 16:13 WBC RBC Hgb Hct MCV MCH MCHC RDW Plt Count MPV Immature Gran % (Auto) Neut % (Auto) Lymph % (Auto) [place] % (Auto) Eos % (Auto) Baso % (Auto) Lymph # (Auto) [place] # (Auto) Eos # (Auto) Baso # (Auto) Abs Immat Gran (auto) Absolute Neuts (auto) Absolute Nucleated RBC Nucleated RBC % Sodium 136 L Potassium 3.8 Chloride 104 Carbon Dioxide 25 Anion Gap 7 BUN 26 H D Creatinine 2.30 H Estim Creat Clear Calc 18 Estimated GFR 20 L Glucose 160 H POC Capillary Glucose 128 H 179 H Calcium 8.8 11/16/24 11/17/24 11/17/24 19:58 07:26 09:02 WBC 8.7 RBC 2.71 L Hgb 8.3 L Hct 27.0 L MCV 99.6 MCH 30.6 MCHC 30.7 L RDW 17.3 H Plt Count 140 L MPV 9.6 Immature Gran % (Auto) 1.0 H Neut % (Auto) 75.8 H Lymph % (Auto) 15.3 L [place] % (Auto) 6.6 Eos % (Auto) 0.5 Baso % (Auto) 0.8 Lymph # (Auto) 1.33 [place] # (Auto) 0.6 Eos # (Auto) 0.0 Baso # (Auto) 0.1 Abs Immat Gran (auto) 0.09 H Absolute Neuts (auto) 6.6 Absolute Nucleated RBC 0.020 H Nucleated RBC % 0.2 Sodium Potassium Chloride Carbon Dioxide Anion Gap BUN Creatinine Estim Creat Clear Calc Estimated GFR Glucose POC Capillary Glucose 229 H 173 H Calcium
[2024-11-17 09:37] LABS: Anion Gap 6 mmol/L (4-12); Blood Urea Nitrogen 14 mg/dL (7-17); Calcium 8.7 mg/dL (8.4-10.2); Carbon Dioxide 24 mmol/L (22-30); Chloride 106 mmol/L (98-107); Estimated CRCL calculation 23 ml/min; Estimated Glomerular Filt Rate 27; Glucose 182 mg/dL (65-110); Potassium 3.7 mmol/L (3.4-5.0); Sodium 136 mmol/L (137-145)
[2024-11-17 11:55] LABS: Glucose Point of Care 273 mg/dl (65-105)
--- NOTE | 2024-11-17 12:06 | P.PNNP_ITS ---
Progress Note: A&P Assessment and Plan (1) Acute renal failure on dialysis: Code(s): N17.9 - Acute kidney failure, unspecified; Z99.2 - Dependence on renal dialysis Status: Acute Assessment and Plan: * thought to be secondary to multifactorial ATN: * hemodynamic instability/shock * sepsis * contrast exposure * infection/sepsis? -- although all cultures were negative at OSH * while at [facility], initiated on CRRT on 10/03/24 due to declining urine output/oliguria and worsening metabolic acidosis * CRRT discontinued on 10/11/24 * transitioned to intermittent hemodialysis starting on 10/12/24 * has been dialysis dependent since * HD tomorro and continue dialysis schedule of // for now * follow electrolytes, volume status, and clearance * follow repeat labs and UOP to assess for potential renal recovery * creatinine better but not much urine output noted * consider checking 24hr urine over the weekend if still hospitalized here (2) Stage 3b chronic kidney disease: Code(s): N18.32 - Chronic kidney disease, stage 3b Status: Chronic Assessment and Plan: * baseline creatinine seems to run ~ 1.2 - 1.3mg/dl since 2021 * presumably due to diabetes, vascular disease (CAD + AAA + CVA + CHF) and age- related change (3) Non-ST elevation LA (NSTEMI): Code(s): I21.4 - Non-ST elevation (NSTEMI) myocardial infarction Status: Acute Assessment and Plan: * elevated troponins noted * EKG changes apparent * Cardiology recommendations noted * medical management for now * ASA, beta birgit (as BP tolerates), and statin therapy * Echo results noted (see #5) (4) Bacteremia: Code(s): R78.81 - Bacteremia Status: Acute Assessment and Plan: * as noted by positive blood culture: * blood cultures (on 11/12) - Enterococcus faecalis on 11/12 * blood cultures (on 11/14) - no growth to date * presumed = endocarditis (see #5) * continue antibiotic therapy (5) Endocarditis: Code(s): I38 - Endocarditis, valve unspecified Status: Acute Assessment and Plan: * recent Echo results noted: * left ventricular systolic function is normal, estimated at 60-65% * left ventricular diastolic function is abnormal * left atrial chamber dimension is mildly enlarged. * mild aortic valve calcification * there is 2.5 x 1.5cm vegetation on posterior mitral valve leaflet * mild mitral valve regurgitation * cannot exclude small vegetation on tricuspid valve * moderate tricuspid valve regurgitation * severe pulmonary hypertension - estimated pulmonary arterial systolic pressure is 91 mmHg * on antibiotics * awaiting transfer for CTS evaluation ([facility] versus [facility]) (6) CVA (cerebral vascular accident): Code(s): I63.9 - Cerebral infarction, unspecified Status: Acute Assessment and Plan: * as noted by MRI of brain: * numerous small acute infarcts in the bilateral cerebral and cerebellar hemispheres and right basal ganglia involving both the anterior and posterior vertebral vascular distributions on both the left and right which suggests a shower of emboli from a relatively central origin * 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 * Neurology following (7) Pulmonary embolism and infarction: Code(s): I26.99 - Other pulmonary embolism without acute cor pulmonale Status: Acute Assessment and Plan: * as noted by imaging here in September 2024 * complicated by DVTs as well * s/p mechanical thrombectomy at [facility] by IR on 10/02 * was on Elliquis and heparin gtt -- off due to #6 (8) UTI (urinary tract infection): Qualifiers: Urinary tract infection type: acute cystitis Hematuria presence: w ithout hematuria Qualified Code(s): N30.00 - Acute cystitis without hematuria Code(s): N39.0 - Urinary tract infection, site not specified Status: Acute Assessment and Plan: * admission UA suggestive * follow urine culture - E.coli noted * on antibiotics (9) Hypotension: Qualifiers: Hypotension type: other hypotension type Qualified Code(s): I95.89 - Other hypotension Code(s): I95.9 - Hypotension, unspecified Status: Acute Assessment and Plan: * chronic issues at baseline since discharge from [facility] * on midodrine therapy * follow trend of hemodynamics (10) Anemia: Qualifiers: Anemia type: due to chronic kidney disease Chronic kidney disease stage: unspecified stage Qualified Code(s): N18.9 - Chronic kidney disease, unspecified; D63.1 - Anemia in chronic kidney disease Code(s): D64.9 - Anemia, unspecified Status: Acute Assessment and Plan: * due to KAROL with dialysis dependence and recent hospitalization/acute illness * Retacrit with HD * follow trend of H/H (11) Hyperglycemia due to diabetes mellitus: Code(s): E11.65 - Type 2 diabetes mellitus with hyperglycemia Status: Acute Assessment and Plan: * follow accu-cheks * glycemic control per hospitalist Consider transfer to [facility] facility (if she cannot get to [facility] in a timely manner) since she was previously at [facility] prior to transfer to [facility] and admission here. Will continue to follow. Subjective Date/time seen: 11/17/24 12:06 Interval history: Follow-up for acute kidney injury/acute renal failure on chronic kidney disease requiring [employer]/dialysis Tolerated dialysis treatment yesterday without any issues or problems; no apparent distress voiced at the time of my visit; no other issues/events overnight or earlier this morning; has been accepted a both [facility] and [facility] but awaiting bed availability. Exam 2 Narrative: General: elderly but WD/WN female in NAD Heart: normal S1 and S2; no rub Lungs: clear anteriorly; slightly decreased at bases Abdomen: soft, nontender, nondistended, positive bowel sounds Extremities: no cyanosis or clubbing; no edema Skin: no rash Objective Data Vital Signs Vital Signs: Vital Signs Temp Pulse Resp BP Pulse Ox O2 Del Method 11/17/24 12:00 98.8 F 85 20 107/54 L 97 Room Air 11/17/24 10:00 94 11/17/24 09:12 87 11/17/24 08:00 93 11/17/24 08:00 87 20 94 Room Air 11/17/24 07:56 98.0 F 90 20 116/62 94 11/17/24 06:00 85 11/17/24 04:00 86 11/17/24 04:00 Room Air 11/17/24 04:00 98.1 F 91 18 117/69 94 11/17/24 02:00 90 11/17/24 00:00 87 11/17/24 00:00 98.1 F 79 16 112/64 97 11/17/24 00:00 Room Air 11/16/24 22:00 85 11/16/24 20:00 85 11/16/24 20:00 Room Air 11/16/24 20:00 97.8 F 83 16 112/57 L 95 11/16/24 18:00 80 Intake/Output Intake/Output: Intake & Output 11/14/24 11/15/24 11/16/24 11/17/24 23:59 23:59 23:59 23:59 Intake Total 438.2 1570 1900 840 Output Total 1999 Balance -1561.8 1569 -100 840 Meds/Results Medications: Active Medications Generic Name Dose Route Start Last Admin Trade Name Freq PRN Reason Stop Dose Admin Acetaminophen 650 mg 11/11/24 15:12 Acetaminophen 325 Mg Tablet PO Q6H PRN PAIN RATED 1-3 Aspirin 81 mg 11/13/24 09:00 11/17/24 09:12 Aspirin 81 Mg Enteric Tablet PO 81 mg QAM DEREJE Administration Atorvastatin Calcium 40 mg 11/13/24 09:00 11/17/24 09:12 Atorvastatin 40 Mg Tablet PO 40 mg DAILY DEREJE Administration Dextrose 12.5 gm 11/11/24 15:08 Dextrose 50% 25 Gm/50 Ml Syringe IV PUSH PRN PRN Hypoglycemia Protocol Glucagon 1 mg 11/11/24 15:08 Glucagon For Inj 1 Mg Vial IM PRN PRN Hypoglycemia Protocol Glucose 15 gm 11/11/24 15:08 Glucose Oral Gel 15 Gm Of Glucse In 37.5 Gm Tube PO PRN PRN Hypoglycemia Protocol Albumin Human 50 mls @ 999 mls/hr 11/11/24 11:56 Albutein IVPB 12/11/24 11:55 Q10M PRN HYPOTENSION Dextrose 1,000 mls @ 100 mls/hr 11/11/24 15:08 Dextrose 5% 1,000 Ml IVPB PRN PRN Hypoglycemia Protocol Ampicillin Sodium 2 gm in 100 mls @ 200 mls/hr 11/15/24 11:15 11/17/24 10:18 Ampicillin 2 Gm/Ns 100 Ml IVPB Infused Q12HR DEREJE Infusion Ceftriaxone Sodium 2 gm in 100 mls @ 200 mls/hr 11/15/24 13:00 11/17/24 10:18 Rocephin 2 Gm/Ns 100 Ml IVPB Infused Q12HR DEREJE Infusion Insulin Aspart 4 - 8 units 11/11/24 17:00 11/17/24 12:45 Insulin Aspart (*Bkc) 100 Units/Ml SUB-Q 5 units TIDWM DEREJE Administration Protocol Insulin Aspart 0 units 11/12/24 21:00 11/16/24 21:06 Insulin Aspart (*Bkc) 100 Units/Ml SUB-Q 4 units HS DEREJE Administration Protocol Insulin Aspart 4 units 11/16/24 12:00 11/17/24 12:45 Insulin Aspart (*Bkc) 100 Units/Ml 0.05 units/kg (4 units) 4 units SUB-Q Administration TIDWM DEREJE Insulin Glargine 35 units 11/12/24 09:00 11/17/24 09:12 Insulin Glargine (*Bkc) 100 Units/Ml SUB-Q 35 units DAILY DEREJE Administration Melatonin 3 mg 11/11/24 21:00 11/16/24 21:05 Melatonin 3 Mg Tablet PO 3 mg HS DEREJE Administration Metoprolol Succinate 12.5 mg 11/12/24 09:00 11/17/24 09:12 Metoprolol Succinate Ext Rel 12.5 Mg Tabcr PO 12.5 mg QAM DEREJE Administration Midodrine 10 mg 11/13/24 09:00 11/17/24 12:43 Midodrine Hcl 10 Mg Tablet PO 10 mg TID DEREJE Administration Midodrine 5 mg 11/13/24 09:00 11/17/24 12:43 Midodrine Hcl 2.5 Mg Tablet PO 5 mg TID DEREJE Administration Nitroglycerin 0.4 mg 11/11/24 15:21 Nitroglycerin Sl 0.4 Mg Tablet SUBLINGUAL Q5MIN PRN Chest Pain Non-Formulary ( 1 each 11/11/24 17:00 11/17/24 12:45 Sevelamer Carbonate PO 12/11/24 16:59 1 each 0.8 Gram Oral Powder TIDWM DEREJE Administration In Packet) Radiology Results: ITS Impressions Chest X-Ray 11/11/24 12:21 Impression: 1: Patchy right-sided airspace disease, compatible with pneumonia. Chest CTA 11/11/24 13:27 Impression: Persistent occluded segmental branches in the left upper lobe. Otherwise, pulmonary emboli seen on prior exam from of 09/30/2024 are largely resolved. 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 Small right pleural effusion with mild bibasilar atelectatic change. Head CT 11/13/24 20:10 IMPRESSION: No acute intracranial process. Brain MRI 11/14/24 12:53 IMPRESSION: 1. Numerous small acute infarcts in the bilateral cerebral and cerebellar hemispheres and right basal ganglia involving both the anterior and posterior vertebral vascular distributions on both the left and right which suggests a shower of emboli from a relatively central origin. Consider cardiac ultrasound to assess for cardiac thrombus or valvular vegetations. 2. Chronic moderate-sized right occipital lobe infarct. Carotid Doppler Study 11/14/24 13:10 IMPRESSION: 1. <50% stenosis in the right internal carotid artery. 2. <50% stenosis in the left internal carotid artery. Labs Labs: Laboratory Tests 11/17/24 09:02 11/17/24 09:02
[2024-11-17 16:09] LABS: Glucose Point of Care 92 mg/dl (65-105)
--- NOTE | 2024-11-17 18:43 | PC.NURSE ---
Addendum entered by Lanette Mcdaniel RN 11/17/24 18:52: Pt to [address] [place] [address], room 826. Family given hospital contact information. Original Note: Pt transferred to [facility] via [facility]. Family at bedside and aware of the transfer. Letha RN notified of pt leaving this facility at 1845
[2024-11-18 17:33] LABS: Methylmalonic Acid 688 nmol/L (69-390)
--- NOTE | 2024-11-25 07:22 | PM.TDS ---
Transfer Discharge Sum: Prov Provider Date of admission: 11/11/24 11:22 Primary care physician: Tapan Glover MD Admitting clinician: Jaylan Carter MD Consults: 11/11/24 Consult to Physician Routine Comment: Consulting Provider: Tony Epps Reason for consultation: n: HD Has provider been notified: Yes 11/11/24 11:23 Consult to Physician Routine Comment: Consulting Provider: Evy Riley Reason for consultation: NSTEMI Has provider been notified: Yes 11/12/24 Consult to Physician Routine Comment: Consulting Provider: Kishore Chiu Reason for consultation: Poss lower GI bleed Has provider been notified: Yes 11/14/24 Consult to Physician Routine Comment: Consulting Provider: Mariann Sommers call center professional/MD group to consult: neurology Reason for consultation: suspected CVA Has provider been notified: Yes DS: Admitting Diagnosis Discharge Date 11/17/24 Admitting Diagnosis (1) CVA (cerebral vascular accident): Code(s): I63.9 - Cerebral infarction, unspecified Status: Acute (2) Metabolic encephalopathy: Code(s): G93.41 - Metabolic encephalopathy Status: Acute (3) Cerebrovascular disease: Code(s): I67.9 - Cerebrovascular disease, unspecified Status: Acute (4) Bacteremia: Code(s): R78.81 - Bacteremia Status: Acute (5) Acute on chronic anemia: Code(s): D64.9 - Anemia, unspecified Status: Acute (6) Hypotension: Qualifiers: Hypotension type: other hypotension type Qualified Code(s): I95.89 - Other hypotension Code(s): I95.9 - Hypotension, unspecified Status: Acute (7) Non-ST elevation ND (NSTEMI): Code(s): I21.4 - Non-ST elevation (NSTEMI) myocardial infarction Status: Acute (8) UTI (urinary tract infection): Code(s): N39.0 - Urinary tract infection, site not specified Status: Acute (9) Osteoarthritis involving multiple joints on both sides of body: Code(s): M15.9 - Polyosteoarthritis, unspecified Status: Acute (10) Controlled type 2 diabetes mellitus with hyperglycemia, with long-term current use of insulin: Code(s): E11.65 - Type 2 diabetes mellitus with hyperglycemia; Z79.4 - MCFP (current) use of insulin Status: Acute (11) Stage 3b chronic kidney disease: Code(s): N18.32 - Chronic kidney disease, stage 3b Status: Chronic (12) Mixed hyperlipidemia: Code(s): E78.2 - Mixed hyperlipidemia Status: Acute (13) 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: Code(s): Z79.4 - MCFP (current) use of insulin Status: Acute DS: Discharge Diagnosis Discharge Diagnosis (1) CVA (cerebral vascular accident): Code(s): I63.9 - Cerebral infarction, unspecified Status: Acute (2) Metabolic encephalopathy: Code(s): G93.41 - Metabolic encephalopathy Status: Acute (3) Cerebrovascular disease: Code(s): I67.9 - Cerebrovascular disease, unspecified Status: Acute (4) Bacteremia: Code(s): R78.81 - Bacteremia Status: Acute (5) Acute on chronic anemia: Code(s): D64.9 - Anemia, unspecified Status: Acute (6) Hypotension: Qualifiers: Hypotension type: other hypotension type Qualified Code(s): I95.89 - Other hypotension Code(s): I95.9 - Hypotension, unspecified Status: Acute (7) Non-ST elevation ND (NSTEMI): Code(s): I21.4 - Non-ST elevation (NSTEMI) myocardial infarction Status: Acute (8) UTI (urinary tract infection): Code(s): N39.0 - Urinary tract infection, site not specified Status: Acute (9) Osteoarthritis involving multiple joints on both sides of body: Code(s): M15.9 - Polyosteoarthritis, unspecified Status: Acute (10) Controlled type 2 diabetes mellitus with hyperglycemia, with long-term current use of insulin: Code(s): E11.65 - Type 2 diabetes mellitus with hyperglycemia; Z79.4 - 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 Status: Acute (11) Stage 3b chronic kidney disease: Code(s): N18.32 - Chronic kidney disease, stage 3b Status: Chronic (12) Mixed hyperlipidemia: Code(s): E78.2 - Mixed hyperlipidemia Status: Acute (13) MCFP (current) use of insulin: Code(s): Z79.4 - MCFP (current) use of insulin Status: Acute Transfer Discharge Sum: Med Medications Active and Home Medications: Home Medications blood sugar diagnostic #100 ea 06/12/21 [Rx Confirmed 11/11/24] insulin glargine 100 unit/mL (3 mL) subcutaneous pen (Lantus Solostar U-100 Insulin) 35 unit subcut DAILY 07/27/24 [History Confirmed 11/11/24] acetaminophen 325 mg tablet 650 mg PO Q6H PRN Pain 10/25/24 [History Confirmed 11/11/24] apixaban 5 mg tablet 5 mg PO BID 10/25/24 [History Confirmed 11/11/24] insulin aspart U-100 100 unit/mL subcutaneous solution See Protocol subcut TIDWMEAL 10/25/24 [History Confirmed 11/11/24] melatonin 3 mg tablet 3 mg PO HS 10/25/24 [History Confirmed 11/11/24] midodrine 5 mg tablet 15 mg PO TID 10/25/24 [History Confirmed 11/11/24] sevelamer carbonate 0.8 gram oral powder packet 0.8 g PO TID 10/25/24 [History Confirmed 11/11/24] Transfer Discharge Sum: Hosp Hospital Course Hospital course: Per H&P, 79 y/o F presents here with chest pressure with PMH of CVA, ESRD on HD?, AAA s/p endovascular repair in 2022, NSTEMI, chronic AFib, OAB, thrombocytopenia, diabetes, and CAD. The patient presents here via EMS from [facility] for further evaluation of chest pressure. She developed acute onset of chest pressure this morning before breakfast while she was sleeping. Pain woke the patient from her sleep. She describes this as pressure, right sided, nonradiating, constant, no aggravating factors, and alleviated by medications administered in the ER. Chest pressure is accompanied by fatigue. Denies shortness of breath, nausea/vomiting, diaphoresis, GERD-like symptoms, dizziness, or palpitations. Patient had recent admission here on 09/30/24 for rib pain and shortness of breath. The patient was found to have pulmonary emboli in all lobes, worse in right lower lobe. She was started on a heparin gtt. Echo showed slight dilation of the RV and increased RV pressures. Patient was not hypotensive, however significantly hypoxic and at high risk. Patient was transferred to [facility] for possible thrombectomy and tertiary care on 10/01. She underwent a mechanical thrombectomy on 10/02. Found to have a left common femoral and popliteal DVT. Patient developed acute renal failure superimposed on CKD and was subsequently started on CRRT on 10/03. Transition to HD on 10/12. ARF thought to be secondary to shock/contrast injury. She was eventually stabilized and transitioned to Eliquis, pressors-> p.o. midodrine, and discharged to [facility] on 10/26/2024. Fair she has been undergoing speech therapy for dysphagia noted during her recent admission, hemodialysis, and PT/OT. Initial VS at presentation: 97.6? F, HR 81, RR 16, 117/68, and 96% on RA. ED workup showed: WBC 14.3, hemoglobin 8.4 (previously 8.6 on 11/10/2024), INR 1.7, ABG showed pH of 7.502, CO2 20.2, O2 71.9, bicarb 21.6, creatinine 2.5 and GFR 19 (previously 2.1 and GFR 23 home on 11/10/2024), glucose 260, initial troponin 3.080, and UA concerning for UTI. CXR showed patchy right-sided airspace disease compatible with pneumonia. Head CT showed no acute findings, stable chronic right occipital lobe infarct. Chest CTA showed persistent occluded segmental branches in the left upper lobe, resolved PE seen on Nexium on 09/30/2024 largely resolved, possible residual chronic emboli of the right main pulmonary artery at the bifurcation as well as a small right pleural effusion with mild bibasilar atelectatic changes. 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 E fecalis bacteremia, sensitivity : Unasyn vancomycin Changed to ampicillin and ceftriaxone IV per ID pharmacist recommendation Awaiting transfer to [facility] Also contacted with some [facility] Patient is afebrile, blood pressure stable, leukocytosis has resolved Embolic Stroke MRI showed numerous bilateral cerebral and cerebellar stroke Continue Aspirin and liptior Cardiology recommended discontinuing Heparin infusion, discontinued awaiting transfer to [facility] as noted above neurology consulted Patient has no new focal deficits Non-ST elevation ND (NSTEMI): Code(s): I21.4 - Non-ST elevation (NSTEMI) myocardial infarction Status: Acute Assessment and Plan: - CXR: Patchy right-sided airspace disease, compatible with pneumonia. CTA chest showed PE mostly resolved and no lung consolidation 4 - Troponin: 3.080 -> 5.240 -> 9.19-->16.8 Echo pending, trend troponin, A1c, lipid profile, Continue heparin infusion Continue Lipitor, Tropol-XL< Aspirin Cardiology following, recommending medical treatment for now Patient denies chest pain Pulmonary embolism and infarction: Code(s): I26.99 - Other pulmonary embolism without acute cor pulmonale Status: Acute Assessment and Plan: - CTA chest: 1. Persistent occluded segmental branches in the left upper lobe. Otherwise, pulmonary emboli seen on prior exam from of 09/30/2024 are largely resolved. 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 2. Small right pleural effusion with mild bibasilar atelectatic change. - CT chest/abd/pelvis w/con, previous (09/30/24): 1. Pulmonary emboli in all lobes, worst in right lower lobe. 2. Infarct in right lung lower lobe. 3. 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 No endoleak. - underwent mechanical thrombectomy at [facility] on 10/02 CTA Chest 11/11/24 showed Prior PE mostly resolved Eliquis and heparin gtt on hold. Acute on chronic renal failure: Qualifiers: Acute renal failure type: unspecified Chronic kidney disease stage: unspecified stage Qualified Code(s): N17.9 - Acute kidney failure, unspecified; N18.9 - Chronic kidney disease, unspecified Code(s): N17.9 - Acute kidney failure, unspecified; N18.9 - Chronic kidney disease, unspecified Status: Acute Assessment and Plan: - history of CKD, started on CRRT on 10/03 and transitioned to HD on 10/12. Receiving treatment on? - creatinine 2.5 and GFR 19, Cr 1.7 baseline appears to 1.7 - continue sevelamer 0.8G TID - trend renal function Dialysis per cd technician, patient is comfortable and hemodialysis Creatinine is improved trending down 1.8 today UTI (urinary tract infection): Qualifiers: Urinary tract infection type: acute cystitis Hematuria presence: without hematuria Qualified Code(s): N30.00 - Acute cystitis without hematuria Code(s): N39.0 - Urinary tract infection, site not specified Status: Acute Assessment and Plan: Patient was started on cefdinir x7 days at [facility] due to presumed infection per UA results performed on 11/06. UC cancelled from this testing, unclear why. - UA: Cloudy, 2+ protein, trace ketones, 2+ leuks, greater than 100 WBC, no epithelial cells. - UC pending - previous micro reviewed, no recent positive urine cultures - completed abx monitor urine culture growing E coli patient is on ceftriaxone IV Anemia: Qualifiers: Anemia type: due to chronic kidney disease Chronic kidney disease stage: unspecified stage Qualified Code(s): N18.9 - Chronic kidney disease, unspecified; D63.1 - Anemia in chronic kidney disease Code(s): D64.9 - Anemia, unspecified Status: Acute Assessment and Plan: - hemoglobin 7.7, previously 8.6 - suspect recent anemia is secondary to HD/acute renal failure - epoetin initiated by cd technician - Isat 13 and and Ferritin 133, s/p Venofer 100 - transfuse if less than 7 - trend - GI noted no acute indication for endoscopic evaluation given high risk of anesthesia after PE and now NSTEMI Type 2 diabetes mellitus with hyperglycemia: Qualifiers: Diabetes mellitus exterminator insulin use: with exterminator use Qualified Code(s): E11.65 - Type 2 diabetes mellitus with hyperglycemia; Z79.4 - MCFP (current) use of insulin Code(s): E11.65 - Type 2 diabetes mellitus with hyperglycemia Status: Acute Assessment and Plan: - hypoglycemia protocol - POC blood glucose ACHS - home medication: home NovoLog sliding scale and Lantus 35 units daily. - correct regimen ordered - high dose TIDWM, based off BMI - A1C 12.8% on 09/30/24 add aspart 4 units ac Hypotension: Qualifiers: Hypotension type: other hypotension type Qualified Code(s): I95.89 - Other hypotension Code(s): I95.9 - Hypotension, unspecified Status: Acute Assessment and Plan: Patient is on Midodrine 15mg tid Blood pressure stable now Obstructive sleep apnea: Onset Date: 04/02/21 Code(s): G47.33 - Obstructive sleep apnea (adult) (pediatric) Status: Acute Assessment and Plan: - continue CPAP? Patient was on the waiting list to be transferred to [facility], I also contacted with transfer center of The patient was transferred to [facility]. Before transfer patient condition was stable Time Spent with Patient Time attestation: Total time spent providing and/or coordinating transfer services: Exam Narrative: GENERAL: Ill-appearing in no acute distress. Well-nourished. - EYES: EOMI. Anicteric. - HENT: Moist mucous membranes. - LUNGS: Clear to auscultation bilaterally, no wheezing, rhonchi, or rales. - CARDIOVASCULAR: Regular rate and rhythm. No murmur. No JVD. Dialysis catheter in right chest, the skin around dialysis catheter normal, no pus around dialysis catheter - ABDOMEN: Soft, non-tender and non-distended. No palpable masses. - EXTREMITIES: No edema. Peripheral pulses 2+. Non-tender. - NEUROLOGIC: No focal neurological deficits. CN II-XII grossly intact. General weakness - PSYCHIATRIC: Awake, Alert and oriented x 3. Appropriate mood and affect. - SKIN: No rashes or lesions. Warm. - LYMPH: No cervical lymphadenopathy.
== END 2024-11-17 18:43 | disposition short-term general hospital (02) | DRG 64 ==
LOC: ANHED 11:31 → ANHIMU 11:47
PROVIDERS: Internal Medicine Interventional Cardiology; Internal Medicine Nephrology; Nurse Practitioner; Psychiatry & Neurology Neurology; Student in an Organized Health Care Education/Training Program; Admitting Provider Internal Medicine; Emergency Provider Emergency Medicine; PCP Family Medicine; Visit Provider Hospitalist
DX: I63.443 Cerebral infarction due to embolism of bilateral cerebellar arteries (principal); G93.41 Metabolic encephalopathy; I33.0 Acute and subacute infective endocarditis; I21.4 Non-ST elevation (NSTEMI) myocardial infarction; N17.0 Acute kidney failure with tubular necrosis; I26.99 Other pulmonary embolism without acute cor pulmonale; I48.20 Chronic atrial fibrillation, unspecified; N39.0 Urinary tract infection, site not specified; R41.4 Neurologic neglect syndrome; R78.81 Bacteremia; I95.89 Other hypotension; E11.22 Type 2 diabetes mellitus with diabetic chronic kidney disease; N18.32 Chronic kidney disease, stage 3b; E78.2 Mixed hyperlipidemia; E11.65 Type 2 diabetes mellitus with hyperglycemia; D69.6 Thrombocytopenia, unspecified; M15.9 Polyosteoarthritis, unspecified; N32.81 Overactive bladder; E11.42 Type 2 diabetes mellitus with diabetic polyneuropathy; I25.10 Atherosclerotic heart disease of native coronary artery without angina pectoris; D63.1 Anemia in chronic kidney disease; Z79.4 Long term (current) use of insulin; B96.89 Other specified bacterial agents as the cause of diseases classified elsewhere; B96.20 Unspecified Escherichia coli [E. coli] as the cause of diseases classified elsewhere; I25.2 Old myocardial infarction; Z86.16 Personal history of COVID-19; Z95.1 Presence of aortocoronary bypass graft; Z96.652 Presence of left artificial knee joint; Z87.891 Personal history of nicotine dependence; Z99.2 Dependence on renal dialysis; G47.33 Obstructive sleep apnea (adult) (pediatric); R41.3 Other amnesia; R26.9 Unspecified abnormalities of gait and mobility
CPT/HCPCS: 36415; 36600; 70450; 70551; 71046; 71275; 80048; 80053; 80061; 80202; 81001; 82306; 82607; 82728; 82746; 82805; 82948; 83036; 83540; 83550; 83690; 83735; 83921; 84100; 84484; 85018; 85025; 85610; 85730; 86706; 87040; 87086; 87181; 87186; 87340; 93005; 93306; 93880; 95816; 96374; 97110; 97161; 97166; 97530; 97535; 99291; A9270; G0257; J0290; J0692; J0696; J1644; J1756; J1815; J2270; J3370; J7030; Q5105; Q9967